=== PATIENT | male | born 1950 | race Caucasian/White ===

== ENCOUNTER 2018-04-27 15:47 | Inpatient (IN) | payer MEDICARE, OTHER ==
[2018-04-27 17:41] VITALS: BP 124/66
[2018-04-27] MEDS ORDERED: Maalox 30 mL Cup PO PRN (18:19)
[2018-04-27] MEDS ORDERED: Magnesium Hydroxide (MOM) 30 mL UDC PO PRN (18:19)
--- NOTE | 2018-04-27 18:28 | Internal Medicine Prog Note ---
Internal Medicine Subjective - Subjective Service Date: 04/27/18 Patient seen and examined:: with staff Patient is:: awake, talking Patient Complaints of:: other (Generalized weakness and Bilateral leg edema and pain.) Per staff patient has:: no adverse event, no episodes of fall Internal Medicine Objective - Physical Exam Vitals and I&O: Vital Signs Temp 97.8 F 04/27/18 17:40 Pulse 56 04/27/18 17:40 Resp 20 04/27/18 17:40 BP 124/66 04/27/18 17:41 Pulse Ox Intake & Output 04/26/18 04/27/18 04/27/18 18:59 06:59 18:59 Weight (lbs) 90.718 kg Other: Weight Source Bedscale Physical Exam: 67 y/o male patient has cellulitis of left leg, Bilateral loer extremity edema with pain and Generalized weakness. General: weak HEENT: NC/AT Neck: Supple, No JVD Lungs: CTAB Cardiovascular: RRR, Normal S1 Abdomen: soft, non-tender Extremities: pain Neurological: no change, muscle weakness Internal Medicine Assmt/Plan - Assessment Assessment: Cellulitis of left leg. Bilateral lower extremity edema and pain. Hepatitis C. Schizophrenia. Gerd. Convulsions. Hypertension. Generalized weakness. Hx of Stimulant abuse. - Plan Plan: Continuation of care. Monitor vitals, Labs, Follow up x-rays. Continue present meds as directed. ID consult/followup. Monitor diet Seizure precaution. Fall precaution. Continue current treatment plan as ordered. Nutritional Asmnt/Malnutr-PDOC - Dietary Evaluation Malnutrition Findings (Please click <Entered> for more info): see orders.
[2018-04-27 19:11] LABS: CHOLESTEROL 99 mg/dL (<200); HDL -HIGH DENSITY LIPOPROTEIN 33 mg/dL (23-92); TRIGLYCERIDES 49 mg/dL (<150)
[2018-04-28] MEDS: Multivitamin Tab PO SCH (08:40)
--- NOTE | 2018-04-28 20:29 | Progress Notes ---
DATE: 04/28/2018 SUBJECTIVE: The patient is currently in the hospital, calmer over the past 24 hours, ruminative, fixated on his legs. The patient remains highly impulsive, unpredictable, concerns he will act out upon his impulses, multiple co-graders were called while he was on Med/Surg. He is really upset, angry and not making any sense at times, also asking for opiates. ASSESSMENT: The patient with ongoing safety concerns, impulsivity. PLAN: We will continue to monitor. The patient will likely benefit from ongoing treatment with Seroquel. We will continue to monitor. JOB# [id number]
--- NOTE | 2018-04-29 08:35 | Progress Notes ---
DATE: 04/29/2018 DATE OF SERVICE: 04/29/2018 SUBJECTIVE: The patient is in the hospital, still noting "a black eye is bothering me". The patient demanding to leave, still having ongoing health concerns, wants to go to a hospital in [place]. The patient was very agitated on the Med-Surg unit. Poor impulse control, lashing out. Code sent to be called emergency medications given still argumentative, threatening staff, forgetful at times, slept about 4 hours, ruminative, very intense gaze, angry. ASSESSMENT: The patient is preoccupied, needing prompting, redirections, and sometimes forgetful, repetitive, still gets agitated. PLAN: Ongoing behavioral disturbances. Concerns for safety. We will continue to adjust and titrate medications, titrate dosing of his Seroquel. JOB# [id number]
[2018-04-29] MEDS: Multivitamin Tab PO SCH (09:03)
--- NOTE | 2018-04-29 11:06 | Internal Medicine Prog Note ---
Internal Medicine Subjective - Subjective Patient seen and examined:: without staff Patient is:: awake, talking, other (forgetful and aguited ) Patient Complaints of:: other (Generalized weakness and Bilateral leg edema and pain.) Per staff patient has:: no adverse event, no episodes of fall Internal Medicine Objective - Results Recent Labs: Laboratory Last Values Triglycerides 49 mg/dL (<150) 04/27/18 07:35 Cholesterol 99 mg/dL (<200) 04/27/18 07:35 LDL Cholesterol Direct 60 mg/dL (75-193) L 04/27/18 07:35 HDL Cholesterol 33 mg/dL (23-92) 04/27/18 07:35 - Physical Exam Vitals and I&O: Vital Signs Temp 98.4 F 04/29/18 06:30 Pulse 71 04/29/18 06:30 Resp 20 04/29/18 06:30 BP 149/79 04/29/18 06:30 Pulse Ox 97 04/29/18 06:30 Intake & Output 04/28/18 04/29/18 04/29/18 18:59 06:59 18:59 Intake Total 900 240 Balance 900 240 Intake: Oral 900 240 Other: # Voids 3 3 # Bowel Movements 1 Active Medications: Current Medications Acetaminophen (Tylenol) 650 mg PO Q4HR PRN PRN Reason: Mild Pain / Temp above 100 Stop: 06/26/18 18:18 Last Admin: 04/29/18 06:44 Dose: 650 mg Al Hydrox/Mg Hydrox/Simethicone (Maalox) 30 ml PO Q4HR PRN PRN Reason: GI DISTRESS Stop: 06/26/18 18:18 Lorazepam (Ativan) 0.5 mg PO Q6HR PRN; Protocol PRN Reason: AGITATION Stop: 06/26/18 18:26 Last Admin: 04/29/18 03:35 Dose: 0.5 mg Magnesium Hydroxide (Milk Of Magnesia) 30 ml PO HS PRN PRN Reason: Constipation Multivitamins/Vitamin C (Theragran) 1 tab PO DAILY KRISTEN Stop: 06/27/18 08:59 Last Admin: 04/29/18 09:03 Dose: Not Given Quetiapine Fumarate (Seroquel) 75 mg PO BID KRISTEN; Protocol Stop: 06/28/18 08:59 Zolpidem Tartrate (Ambien) 5 mg PO HS PRN PRN Reason: Insomnia Stop: 06/26/18 18:18 Last Admin: 04/29/18 00:32 Dose: 5 mg Physical Exam: 67 y/o male patient has cellulitis of left leg, Bilateral loer extremity edema with pain and Generalized weakness. General: weak HEENT: NC/AT Neck: Supple, No JVD Lungs: CTAB Cardiovascular: RRR, Normal S1 Abdomen: soft, non-tender Extremities: pain Neurological: no change, muscle weakness Internal Medicine Assmt/Plan - Assessment Assessment: Cellulitis of left leg. Bilateral lower extremity edema and pain. Hepatitis C. Schizophrenia. Gerd. Convulsions. Hypertension. Generalized weakness. Hx of Stimulant abuse. - Plan Plan: Continuation of care. Monitor vitals, Labs, Follow up x-rays. Continue present meds as directed. ID consult/followup. Monitor diet Seizure precaution. Fall precaution. Continue current treatment plan as ordered.
[2018-04-30] MEDS: Multivitamin Tab PO SCH (09:09)
--- NOTE | 2018-05-01 04:20 | Progress Notes ---
DATE: 04/30/2018 Case was discussed with staff of the patient, reviewed records. Covering for Dr. Palomo. The patient is a 67-year-old male who was admitted on 04/27/2018. The patient has been impulsive, acting out. He was transferred from Med-Surg unit, angry, not making sense, unable to make safe plan for self-care. He is a poor historian. He complained of swelling in his left leg and I pointed it to the nurse, so they can call the medical doctor. He is on Seroquel 75 mg twice a day and no side effects from the medication, no sedation, no nausea, no extrapyramidal symptoms. We will continue the patient in group therapy, milieu therapy, and adjust medications as needed. JOB# [id number]
[2018-05-01] MEDS: Multivitamin Tab PO SCH (09:14)
--- NOTE | 2018-05-01 21:03 | Internal Medicine Prog Note ---
Internal Medicine Subjective - Subjective Service Date: 05/01/18 Patient is:: awake, talking, agitated, other (Very upset and agitated.) Patient Complaints of:: other (Generalized weakness, Bilateral leg edema and pain, especially swelling of the left leg.) Per staff patient has:: no adverse event, no episodes of fall, agitated, combative Internal Medicine Objective - Results Recent Labs: Laboratory Last Values Triglycerides 49 mg/dL (<150) 04/27/18 07:35 Cholesterol 99 mg/dL (<200) 04/27/18 07:35 LDL Cholesterol Direct 60 mg/dL (75-193) L 04/27/18 07:35 HDL Cholesterol 33 mg/dL (23-92) 04/27/18 07:35 - Physical Exam Vitals and I&O: Vital Signs Temp 98 F 05/01/18 20:24 Pulse 101 05/01/18 20:24 Resp 20 05/01/18 20:24 BP 110/73 05/01/18 20:24 Pulse Ox 96 05/01/18 20:24 Intake & Output 05/01/18 05/01/18 05/02/18 06:59 18:59 06:59 Intake Total 240 900 240 Balance 240 900 240 Intake: Oral 240 900 240 Other: # Voids 2 3 1 # Bowel Movements 1 Stool Characteristics Soft Active Medications: Current Medications Acetaminophen (Tylenol) 650 mg PO Q4HR PRN PRN Reason: Mild Pain / Temp above 100 Stop: 06/26/18 18:18 Last Admin: 05/01/18 06:07 Dose: 650 mg Al Hydrox/Mg Hydrox/Simethicone (Maalox) 30 ml PO Q4HR PRN PRN Reason: GI DISTRESS Stop: 06/26/18 18:18 Lorazepam (Ativan) 0.5 mg PO Q6HR PRN; Protocol PRN Reason: AGITATION Stop: 06/26/18 18:26 Last Admin: 05/01/18 20:29 Dose: 0.5 mg Magnesium Hydroxide (Milk Of Magnesia) 30 ml PO HS PRN PRN Reason: Constipation Multivitamins/Vitamin C (Theragran) 1 tab PO DAILY KRISTEN Stop: 06/27/18 08:59 Last Admin: 05/01/18 09:14 Dose: 1 tab Quetiapine Fumarate (Seroquel) 75 mg PO BID KRISTEN; Protocol Stop: 06/28/18 08:59 Last Admin: 05/01/18 16:34 Dose: 75 mg Zolpidem Tartrate (Ambien) 5 mg PO HS PRN PRN Reason: Insomnia Stop: 06/26/18 18:18 Last Admin: 05/01/18 00:00 Dose: 5 mg Physical Exam: 67 y/o male patient has cellulitis of left leg, Bilateral lower extremity edema with pain and Generalized weakness. Patient is hostile and aggressive today. General: weak HEENT: NC/AT Neck: Supple, No JVD Lungs: CTAB Cardiovascular: RRR, Normal S1 Abdomen: soft, non-tender Extremities: edema, pain Neurological: no change, muscle weakness, unsteady Internal Medicine Assmt/Plan - Assessment Assessment: Cellulitis of left leg. Bilateral lower extremity edema and pain. Hepatitis C. Schizophrenia. Gerd. Convulsions. Hypertension. Generalized weakness. Hx of Stimulant abuse. - Plan Plan: Continuation of care. Monitor vitals, Labs, Follow up x-rays. Continue present meds as directed. ID consult/followup. Monitor diet Seizure precaution. Fall precaution. Continue current treatment plan as ordered. Nutritional Asmnt/Malnutr-PDOC - Dietary Evaluation Malnutrition Findings (Please click <Entered> for more info): see orders.
--- NOTE | 2018-05-02 00:31 | Progress Notes ---
DATE: 05/01/2018 SUBJECTIVE: Case was discussed with staff of the patient and reviewed records. The patient continues to be unpredictable, impulsive, unable to make sense, unable to make safe plan for his self-care. He is sleeping better and eating better. He has been compliant with the medication with no side effects, no sedation, no nausea, and no extrapyramidal symptoms. LABORATORY DATA: His lab work showed serum triglycerides within normal range, no other lab work is available. PLAN: We will continue to work with patient in group therapy, milieu therapy, and adjust the medications as needed. JOB# [id number]
[2018-05-02] MEDS: Multivitamin Tab PO SCH (09:06)
--- NOTE | 2018-05-02 16:26 | Progress Notes ---
DATE: 05/02/2018 Case was discussed with staff of the patient, reviewed records. The patient is still complaining of the swelling in his left leg and I discussed the plan to charge nurse and she said the medical doctor is aware of it and that staff they are assured, and his evaluation that he has bilateral edema and pain. He has swelling of the left leg, so he is already aware of it. The patient presented with still agitation and his leg swelling contributed to this because of the pain. He is still unpredictable, impulsive, needing redirection. No side effects with the medication, no sedation, no nausea, and no extrapyramidal symptoms. We will continue to work with the patient in group therapy, milieu therapy, and adjust medication as needed. JOB# [id number]
[2018-05-03] MEDS: Multivitamin Tab PO SCH (10:04)
--- NOTE | 2018-05-03 12:56 | Internal Medicine Prog Note ---
Internal Medicine Subjective - Subjective Service Date: 05/03/18 Patient is:: awake, talking, agitated, other (Very upset and agitated.) Patient Complaints of:: other (Generalized weakness, Bilateral leg edema and pain, especially swelling of the left leg.) Per staff patient has:: no adverse event, no episodes of fall, agitated, combative Internal Medicine Objective - Results Recent Labs: Laboratory Last Values Triglycerides 49 mg/dL (<150) 04/27/18 07:35 Cholesterol 99 mg/dL (<200) 04/27/18 07:35 LDL Cholesterol Direct 60 mg/dL (75-193) L 04/27/18 07:35 HDL Cholesterol 33 mg/dL (23-92) 04/27/18 07:35 - Physical Exam Vitals and I&O: Vital Signs Temp 97.6 F 05/03/18 05:26 Pulse 87 05/03/18 05:26 Resp 18 05/03/18 05:26 BP 145/83 05/03/18 05:26 Pulse Ox 98 05/03/18 05:26 Intake & Output 05/02/18 05/03/18 05/03/18 18:59 06:59 18:59 Intake Total 1200 240 Balance 1200 240 Intake: Oral 1200 240 Other: # Voids 2 # Bowel Movements 1 0 Stool Characteristics Formed Active Medications: Current Medications Acetaminophen (Tylenol) 650 mg PO Q4HR PRN PRN Reason: Mild Pain / Temp above 100 Stop: 06/26/18 18:18 Last Admin: 05/03/18 11:40 Dose: 650 mg Al Hydrox/Mg Hydrox/Simethicone (Maalox) 30 ml PO Q4HR PRN PRN Reason: GI DISTRESS Stop: 06/26/18 18:18 Lorazepam (Ativan) 0.5 mg PO Q6HR PRN; Protocol PRN Reason: AGITATION Stop: 06/26/18 18:26 Last Admin: 05/02/18 21:06 Dose: 0.5 mg Magnesium Hydroxide (Milk Of Magnesia) 30 ml PO HS PRN PRN Reason: Constipation Multivitamins/Vitamin C (Theragran) 1 tab PO DAILY KRISTEN Stop: 06/27/18 08:59 Last Admin: 05/03/18 10:04 Dose: 1 tab Quetiapine Fumarate (Seroquel) 75 mg PO BID KRISTEN; Protocol Stop: 06/28/18 08:59 Last Admin: 05/03/18 10:03 Dose: 75 mg Zolpidem Tartrate (Ambien) 5 mg PO HS PRN PRN Reason: Insomnia Stop: 06/26/18 18:18 Last Admin: 05/02/18 22:17 Dose: 5 mg General: weak HEENT: NC/AT Neck: Supple, No JVD Lungs: CTAB Cardiovascular: RRR, Normal S1 Abdomen: soft, non-tender Extremities: edema, pain Neurological: no change, muscle weakness, unsteady Internal Medicine Assmt/Plan - Assessment Assessment: Hepatitis C. Schizophrenia. Gerd. Convulsions. Hypertension. Generalized weakness. Hx of Stimulant abuse. - Plan Plan: fall precautions continue current plan of care
--- NOTE | 2018-05-04 07:00 | Progress Notes ---
DATE: 05/03/2018 SUBJECTIVE: Case was discussed with staff of the patient, reviewed records. The patient continues to have poor insight, continues to have multiple somatic complaints, unpredictable, impulsive, needing redirection, unable to make safe plan for self-care. He is sleeping better, eating better, compliant with the medication with no side effects, no sedation, no nausea, no extrapyramidal symptoms. We will continue the patient in group therapy, milieu therapy, and adjust medication as needed. [facility]# [id number]
[2018-05-04] MEDS: Multivitamin Tab PO SCH (08:33)
--- NOTE | 2018-05-04 09:57 | Internal Medicine Prog Note ---
Internal Medicine Subjective - Subjective Service Date: 05/04/18 Patient seen and examined:: with staff Patient is:: awake, talking, agitated, other (Unpredictable, Impulsive.) Patient Complaints of:: other (Generalized weakness, Bilateral leg edema and pain, especially swelling of the left leg.) Per staff patient has:: no adverse event, no episodes of fall, agitated, combative Internal Medicine Objective - Results Recent Labs: Laboratory Last Values Triglycerides 49 mg/dL (<150) 04/27/18 07:35 Cholesterol 99 mg/dL (<200) 04/27/18 07:35 LDL Cholesterol Direct 60 mg/dL (75-193) L 04/27/18 07:35 HDL Cholesterol 33 mg/dL (23-92) 04/27/18 07:35 - Physical Exam Vitals and I&O: Vital Signs Temp 96.9 F 05/04/18 06:30 Pulse 80 05/04/18 06:30 Resp 20 05/04/18 06:30 BP 143/77 05/04/18 06:30 Pulse Ox 97 05/04/18 06:30 Intake & Output 05/03/18 05/04/18 05/04/18 18:59 06:59 18:59 Intake Total 900 480 Balance 900 480 Intake: Oral 900 480 Other: # Voids 3 2 # Bowel Movements 1 Stool Characteristics Formed Active Medications: Current Medications Acetaminophen (Tylenol) 650 mg PO Q4HR PRN PRN Reason: Mild Pain / Temp above 100 Stop: 06/26/18 18:18 Last Admin: 05/04/18 06:41 Dose: 650 mg Al Hydrox/Mg Hydrox/Simethicone (Maalox) 30 ml PO Q4HR PRN PRN Reason: GI DISTRESS Stop: 06/26/18 18:18 Lorazepam (Ativan) 0.5 mg PO Q6HR PRN; Protocol PRN Reason: AGITATION Stop: 06/26/18 18:26 Last Admin: 05/03/18 16:29 Dose: 0.5 mg Magnesium Hydroxide (Milk Of Magnesia) 30 ml PO HS PRN PRN Reason: Constipation Multivitamins/Vitamin C (Theragran) 1 tab PO DAILY KRISTEN Stop: 06/27/18 08:59 Last Admin: 05/04/18 08:33 Dose: 1 tab Quetiapine Fumarate (Seroquel) 75 mg PO BID KRISTEN; Protocol Stop: 06/28/18 08:59 Last Admin: 05/04/18 08:33 Dose: 75 mg Zolpidem Tartrate (Ambien) 5 mg PO HS PRN PRN Reason: Insomnia Stop: 06/26/18 18:18 Last Admin: 05/03/18 20:30 Dose: 5 mg Physical Exam: 67 y/o male patient has cellulitis of left leg, Bilateral lower extremity edema with pain and Generalized weakness. Patient is very impulsive and unpredictable. General: weak HEENT: NC/AT Neck: Supple, No JVD Lungs: CTAB Cardiovascular: RRR, Normal S1 Abdomen: soft, non-tender Extremities: edema, pain Neurological: no change, muscle weakness, unsteady Internal Medicine Assmt/Plan - Assessment Assessment: Cellulitis of left leg. Bilateral lower extremity edema and pain. Hepatitis C. Schizophrenia. Gerd. Convulsions. Hypertension. Generalized weakness. Hx of Stimulant abuse. - Plan Plan: Continuation of care. Monitor vitals, Labs, Follow up x-rays. Continue present meds as directed. ID followup. Monitor diet Seizure precaution. Fall precaution. Continue current treatment plan as ordered. Nutritional Asmnt/Malnutr-PDOC - Dietary Evaluation Malnutrition Findings (Please click <Entered> for more info): Nutritional Asmnt/Malnutrition Start: 05/03/18 13: 55 Text: Status: Complete Freq: Protocol: Document 05/03/18 13:55 LCHENG (Rec: 05/03/18 14:02 [email or web address] [email or web address]) Nutritional Asmnt/Malnutrition Patient General Information Nutritional Screening Low Risk Diagnosis psychosis Pertinent Medical Hx/Surgical Hx hypokalemia, stimulant abuse, schizophrenia, Hep C, GERD, convulsions, HTN, weakness Subjective Information Pt seen sleeping in bed at time of visit. Observed lunch tray finished 100% on the table. Per EMR, PO intake continue 100%. Current Diet Order/ Nutrition Support regular Pertinent Medications theragran, seroquel Pertinent Labs 04/27 reviewed Nutritional Hx/Data Height 1.68 m Height (Calculated Centimeters) 167.6 Current Weight (lbs) 90.718 kg Weight (Calculated Kilograms) 90.7 Weight (Calculated Grams) 66988.5 [place] Body Weight 142 Body Mass Index (BMI) 32.3 Weight Status Obese GI Symptoms GI Symptoms None Last BM 05/02 Difficult in: None Skin Integrity/Comment: dryness Current %PO Good (75-100%) Estimated Nutritional Goals BEE in Kcals: Adj wt of IBW Calories/Kcals/Kg 25-30 Kcals Calculated 9278-4928 Protein: Adj wt of IBW Protein g/k Protein Calculated 71 Fluid: ml 1775-2130ml (1ml/kcal) Nutritional Problem No current Nutrition Prob Problem N/A Malnutrition Alert Is there a minimum of two criteria No selected? Query Text:Check all the applicable criteria. A minimum of two criteria are recommended for diagnosis of either severe or non-severe malnutrition. Malnutrition Related to Morbid Obesity Malnutrition related to morbid obesity No Intervention/Recommendation Comments 1. Continue with regular diet as ordered. 2. Monitor PO intake, wt, labs and skin integrity 3. F/U as low risk in 7 days Expected Outcomes/Goals Expected Outcomes/Goals 1. PO intake to meet at least 75% of nutritional needs. 2. Wt stability, skin to remain intact, labs to approach WNL.
[2018-05-04] MEDS ORDERED: Non-Formulary Item 1 EA (Acetaminophen [Tylenol] 650 MG) PO PRN (20:50)
--- NOTE | 2018-05-05 00:37 | Progress Notes ---
DATE: 05/04/2018 Case was discussed with staff of the patient, reviewed records. The patient continues to be agitated, continues to have poor insight. Continues to have multiple somatic complaints of bilateral edema of both of his legs. He continues to be unpredictable, impulsive, needing redirection. He tolerates increase in Seroquel to 75 mg twice a day. No side effects, no sedation, no nausea and no extrapyramidal symptoms. His lab work showed triglyceride with low LDL the rest within normal range. I will continue the patient in group therapy, milieu therapy, adjust the medication as needed. JOB# [id number]
[2018-05-05] MEDS: Pantoprazole 40 mg EC Tab PO SCH (06:48)
[2018-05-05] MEDS ORDERED: NADOLOL 20 MG PO SCH (09:00)
[2018-05-05] MEDS: Ferrous Sulfate 325 MG TAB PO SCH (09:02)
[2018-05-05] MEDS: Multivitamin Tab PO SCH (09:02)
--- NOTE | 2018-05-05 14:40 | Internal Medicine Prog Note ---
Internal Medicine Subjective - Subjective Service Date: 05/05/18 (ble edema +4 denies any pain) Patient is:: awake, talking, agitated, other (Unpredictable, Impulsive.) Patient Complaints of:: other (Generalized weakness, Bilateral leg edema and pain, especially swelling of the left leg.) Per staff patient has:: no adverse event, no episodes of fall, agitated, combative Internal Medicine Objective - Results Recent Labs: Laboratory Last Values Triglycerides 49 mg/dL (<150) 04/27/18 07:35 Cholesterol 99 mg/dL (<200) 04/27/18 07:35 LDL Cholesterol Direct 60 mg/dL (75-193) L 04/27/18 07:35 HDL Cholesterol 33 mg/dL (23-92) 04/27/18 07:35 - Physical Exam Vitals and I&O: Vital Signs Temp 97.0 F 05/05/18 14:00 Pulse 96 05/05/18 14:00 Resp 20 05/05/18 14:00 BP 106/70 05/05/18 14:00 Pulse Ox 97 05/05/18 14:00 Intake & Output 05/04/18 05/05/18 05/05/18 18:59 06:59 18:59 Intake Total 960 240 Balance 960 240 Intake: Oral 960 240 Other: # Voids 3 2 # Bowel Movements 0 Active Medications: Current Medications Acetaminophen (Tylenol) 650 mg PO Q4HR PRN PRN Reason: Mild Pain / Temp above 100 Stop: 06/26/18 18:18 Last Admin: 05/05/18 04:12 Dose: 650 mg Al Hydrox/Mg Hydrox/Simethicone (Maalox) 30 ml PO Q4HR PRN PRN Reason: GI DISTRESS Stop: 06/26/18 18:18 Ascorbic Acid (Vitamin C) 500 mg PO DAILY [facility] Stop: 07/04/18 08:59 Last Admin: 05/05/18 09:02 Dose: 500 mg Clindamycin HCl (Cleocin Hcl) 150 mg PO Q6HR [facility] Stop: 07/03/18 21:29 Last Admin: 05/05/18 11:34 Dose: 150 mg Ferrous Sulfate (Iron) 325 mg PO DAILY [facility] Stop: 07/04/18 08:59 Last Admin: 05/05/18 09:02 Dose: 325 mg Furosemide (Lasix) 40 mg PO DAILY [facility] Stop: 07/05/18 08:59 Last Admin: 05/05/18 09:01 Dose: 40 mg Lorazepam (Ativan) 0.5 mg PO Q6HR PRN; Protocol PRN Reason: AGITATION Stop: 06/26/18 18:26 Last Admin: 05/05/18 04:12 Dose: 0.5 mg Magnesium Hydroxide (Milk Of Magnesia) 30 ml PO HS PRN PRN Reason: Constipation Miscellaneous (Nadolol [Nadolol*]) 20 mg PO DAILY [facility] Stop: 07/04/18 08:59 Multivitamins/Vitamin C (Theragran) 1 tab PO DAILY [facility] Stop: 06/27/18 08:59 Last Admin: 05/05/18 09:02 Dose: 1 tab Pantoprazole Sodium (Protonix) 40 mg PO DAILY@0730 [facility] Stop: 07/04/18 07:29 Last Admin: 05/05/18 06:48 Dose: 40 mg Quetiapine Fumarate (Seroquel) 75 mg PO BID [facility]; Protocol Stop: 06/28/18 08:59 Last Admin: 05/05/18 09:02 Dose: 75 mg Tramadol HCl (Ultram) 50 mg PO Q8H PRN PRN Reason: Severe Pain (LEVEL 7-10) Stop: 07/03/18 21:21 Last Admin: 05/05/18 11:36 Dose: 50 mg Zolpidem Tartrate (Ambien) 5 mg PO HS PRN PRN Reason: Insomnia Stop: 06/26/18 18:18 Last Admin: 05/04/18 21:47 Dose: 5 mg General: weak HEENT: NC/AT Neck: Supple, No JVD Lungs: CTAB Cardiovascular: RRR, Normal S1 Abdomen: soft, non-tender Extremities: edema, pain Neurological: no change, muscle weakness, unsteady Internal Medicine Assmt/Plan - Assessment Assessment: Hepatitis C. Schizophrenia. Gerd. Convulsions. Hypertension. Generalized weakness. Hx of Stimulant abuse. - Plan Plan: fall precautions continue current plan of care ble u/s lasix 40mg po daily x3 days Nutritional Asmnt/Malnutr-PDOC - Dietary Evaluation Malnutrition Findings (Please click <Entered> for more info): Nutritional Asmnt/Malnutrition Start: 05/03/18 13: 55 Text: Status: Complete Freq: Protocol: Document 05/03/18 13:55 LCHENG (Rec: 05/03/18 14:02 [email or web address]) Nutritional Asmnt/Malnutrition Patient General Information Nutritional Screening Low Risk Diagnosis psychosis Pertinent Medical Hx/Surgical Hx hypokalemia, stimulant abuse, schizophrenia, Hep C, GERD, convulsions, HTN, weakness Subjective Information Pt seen sleeping in bed at time of visit. Observed lunch tray finished 100% on the table. Per EMR, PO intake continue 100%. Current Diet Order/ Nutrition Support regular Pertinent Medications theragran, seroquel Pertinent Labs 04/27 reviewed Nutritional Hx/Data Height 5 ft 6 in Height (Calculated Centimeters) 167.6 Current Weight (lbs) 200 lb Weight (Calculated Kilograms) 90.7 Weight (Calculated Grams) 81435.5 [place] Body Weight 142 Body Mass Index (BMI) 32.3 Weight Status Obese GI Symptoms GI Symptoms None Last BM 05/02 Difficult in: None Skin Integrity/Comment: dryness Current %PO Good (75-100%) Estimated Nutritional Goals BEE in Kcals: Adj wt of IBW Calories/Kcals/Kg 25-30 Kcals Calculated 4431-2130 Protein: Adj wt of IBW Protein g/k Protein Calculated 71 Fluid: ml 1775-2130ml (1ml/kcal) Nutritional Problem No current Nutrition Prob Problem N/A Malnutrition Alert Is there a minimum of two criteria No selected? Query Text:Check all the applicable criteria. A minimum of two criteria are recommended for diagnosis of either severe or non-severe malnutrition. Malnutrition Related to Morbid Obesity Malnutrition related to morbid obesity No Intervention/Recommendation Comments 1. Continue with regular diet as ordered. 2. Monitor PO intake, wt, labs and skin integrity 3. F/U as low risk in 7 days Expected Outcomes/Goals Expected Outcomes/Goals 1. PO intake to meet at least 75% of nutritional needs. 2. Wt stability, skin to remain intact, labs to approach WNL.
--- NOTE | 2018-05-06 04:32 | Progress Notes ---
DATE: SUBJECTIVE: The patient was seen and evaluated. The patient's chart reviewed. The patient continues to ruminate and perseverate about his legs. He is easily really upset, disorganized, consisting of her opiates today. We discussed other alternatives. He reports "there he go, giving me other medications that I do not need, ____ away." ASSESSMENT AND PLAN: The patient is a 67-year-old male with a history of irritability, agitation, and opiate dependence. We will continue with the recent increase of Seroquel 75 mg p.o. b.i.d. to target the patient's severe affective dysregulation and we will continue with the medical evaluation and recommendations by Dr. Hernandez. JOB# [id number]
[2018-05-06] MEDS: Pantoprazole 40 mg EC Tab PO SCH (06:43)
[2018-05-06 07:39] LABS: URINE SOURCE MIDSTREAM
[2018-05-06 07:43] LABS: URINE BILIRUBIN NEGATIVE (NEGATIVE); URINE BLOOD NEGATIVE (NEGATIVE); URINE GLUCOSE (UA) NEGATIVE (NEGATIVE); URINE KETONE NEGATIVE (NEGATIVE); URINE LEUKOCYTE ESTERASE NEGATIVE (NEGATIVE); URINE NITRATE NEGATIVE (NEGATIVE); URINE PROTEIN NEGATIVE (NEGATIVE)
[2018-05-06 07:51] LABS: URINE CLARITY CLEAR (CLEAR); URINE COLOR YELLOW
[2018-05-06] MEDS: Multivitamin Tab PO SCH (08:19)
[2018-05-06] MEDS: Ferrous Sulfate 325 MG TAB PO SCH (08:23)
--- NOTE | 2018-05-06 12:10 | Internal Medicine Prog Note ---
Internal Medicine Subjective - Subjective Patient seen and examined:: chart reviewed Patient is:: awake, talking, agitated, other (Unpredictable) Patient Complaints of:: other (weakness, Bilateral leg edema and pain, especially swelling of the left leg.) Per staff patient has:: no adverse event, no episodes of fall Internal Medicine Objective - Results Recent Labs: Laboratory Last Values Triglycerides 49 mg/dL (<150) 04/27/18 07:35 Cholesterol 99 mg/dL (<200) 04/27/18 07:35 LDL Cholesterol Direct 60 mg/dL (75-193) L 04/27/18 07:35 HDL Cholesterol 33 mg/dL (23-92) 04/27/18 07:35 Urine Source MIDSTREAM 05/06/18 06:45 Urine Color YELLOW 05/06/18 06:45 Urine Clarity CLEAR (CLEAR) 05/06/18 06:45 Urine pH 7.0 (4.6 - 8.0) 05/06/18 06:45 Ur Specific [place] 1.015 (1.005-1.030) 05/06/18 06:45 Urine Protein NEGATIVE mg/dL (NEGATIVE) 05/06/18 06:45 Urine Glucose (UA) NEGATIVE mg/dL (NEGATIVE) 05/06/18 06:45 Urine Ketones NEGATIVE mg/dL (NEGATIVE) 05/06/18 06:45 Urine Blood NEGATIVE (NEGATIVE) 05/06/18 06:45 Urine Nitrate NEGATIVE (NEGATIVE) 05/06/18 06:45 Urine Bilirubin NEGATIVE (NEGATIVE) 05/06/18 06:45 Urine Urobilinogen 1.0 E.U./dL (0.2 - 1.0) 05/06/18 06:45 Ur Leukocyte Esterase NEGATIVE (NEGATIVE) 05/06/18 06:45 - Physical Exam Vitals and I&O: Vital Signs Temp 98 F 05/06/18 06:27 Pulse 90 05/06/18 08:22 Resp 20 05/06/18 06:27 BP 134/82 05/06/18 08:22 Pulse Ox 97 05/06/18 06:27 Intake & Output 05/05/18 05/06/18 05/06/18 18:59 06:59 18:59 Intake Total 900 960 Balance 900 960 Intake: Oral 780 960 Other 120 Other: # Voids 4 2 # Bowel Movements 1 Active Medications: Current Medications Acetaminophen (Tylenol) 650 mg PO Q4HR PRN PRN Reason: Mild Pain / Temp above 100 Stop: 06/26/18 18:18 Last Admin: 05/05/18 04:12 Dose: 650 mg Al Hydrox/Mg Hydrox/Simethicone (Maalox) 30 ml PO Q4HR PRN PRN Reason: GI DISTRESS Stop: 06/26/18 18:18 Ascorbic Acid (Vitamin C) 500 mg PO DAILY [facility] Stop: 07/04/18 08:59 Last Admin: 05/06/18 08:23 Dose: 500 mg Clindamycin HCl (Cleocin Hcl) 150 mg PO Q6HR [facility] Stop: 07/03/18 21:29 Last Admin: 05/06/18 06:25 Dose: 150 mg Ferrous Sulfate (Iron) 325 mg PO DAILY [facility] Stop: 07/04/18 08:59 Last Admin: 05/06/18 08:23 Dose: 325 mg Furosemide (Lasix) 40 mg PO DAILY [facility] Stop: 07/05/18 08:59 Last Admin: 05/06/18 08:18 Dose: 40 mg Lorazepam (Ativan) 0.5 mg PO Q6HR PRN; Protocol PRN Reason: AGITATION Stop: 06/26/18 18:26 Last Admin: 05/06/18 10:04 Dose: 0.5 mg Magnesium Hydroxide (Milk Of Magnesia) 30 ml PO HS PRN PRN Reason: Constipation Metoprolol Tartrate (Lopressor) 25 mg PO BID [facility] Stop: 07/05/18 08:59 Last Admin: 05/06/18 08:22 Dose: 25 mg Multivitamins/Vitamin C (Theragran) 1 tab PO DAILY [facility] Stop: 06/27/18 08:59 Last Admin: 05/06/18 08:19 Dose: 1 tab Pantoprazole Sodium (Protonix) 40 mg PO DAILY@0730 [facility] Stop: 07/04/18 07:29 Last Admin: 05/06/18 06:43 Dose: 40 mg Quetiapine Fumarate (Seroquel) 75 mg PO BID [facility]; Protocol Stop: 06/28/18 08:59 Last Admin: 05/06/18 08:20 Dose: 75 mg Tramadol HCl (Ultram) 50 mg PO Q8H PRN PRN Reason: Severe Pain (LEVEL 7-10) Stop: 07/03/18 21:21 Last Admin: 03/31/19 00:06 Dose: 50 mg Zolpidem Tartrate (Ambien) 5 mg PO HS PRN PRN Reason: Insomnia Stop: 06/26/18 18:18 Last Admin: 05/05/18 20:13 Dose: 5 mg Physical Exam: 67 y/o male patient has cellulitis of left leg, Bilateral lower extremity edema with pain and Generalized weakness. Patient is very impulsive and unpredictable. General: weak, alert HEENT: NC/AT Neck: Supple, No JVD Lungs: CTAB Cardiovascular: RRR, Normal S1 Abdomen: soft, non-tender Extremities: edema, pain Neurological: no change, muscle weakness, unsteady Internal Medicine Assmt/Plan - Assessment Assessment: Cellulitis of left leg. Bilateral lower extremity edema and pain. Hepatitis C. Schizophrenia. Gerd. Convulsions. Hypertension. Generalized weakness. Hx of Stimulant abuse. - Plan Plan: Continuation of care. Monitor vitals, Labs, Follow up x-rays. Continue present meds as directed. ID followup. Monitor diet Seizure precaution. Fall precaution. Continue current treatment plan as ordered. Nutritional Asmnt/Malnutr-PDOC - Dietary Evaluation Malnutrition Findings (Please click <Entered> for more info): Nutritional Asmnt/Malnutrition Start: 05/03/18 13: 55 Text: Status: Complete Freq: Protocol: Document 05/03/18 13:55 LCHENG (Rec: 05/03/18 14:02 [email or web address]) Nutritional Asmnt/Malnutrition Patient General Information Nutritional Screening Low Risk Diagnosis psychosis Pertinent Medical Hx/Surgical Hx hypokalemia, stimulant abuse, schizophrenia, Hep C, GERD, convulsions, HTN, weakness Subjective Information Pt seen sleeping in bed at time of visit. Observed lunch tray finished 100% on the table. Per EMR, PO intake continue 100%. Current Diet Order/ Nutrition Support regular Pertinent Medications theragran, seroquel Pertinent Labs 04/27 reviewed Nutritional Hx/Data Height 1.68 m Height (Calculated Centimeters) 167.6 Current Weight (lbs) 90.718 kg Weight (Calculated Kilograms) 90.7 Weight (Calculated Grams) 88610.5 [place] Body Weight 142 Body Mass Index (BMI) 32.3 Weight Status Obese GI Symptoms GI Symptoms None Last BM 05/02 Difficult in: None Skin Integrity/Comment: dryness Current %PO Good (75-100%) Estimated Nutritional Goals BEE in Kcals: Adj wt of IBW Calories/Kcals/Kg 25-30 Kcals Calculated 8023-8967 Protein: Adj wt of IBW Protein g/k Protein Calculated 71 Fluid: ml 1775-2130ml (1ml/kcal) Nutritional Problem No current Nutrition Prob Problem N/A Malnutrition Alert Is there a minimum of two criteria No selected? Query Text:Check all the applicable criteria. A minimum of two criteria are recommended for diagnosis of either severe or non-severe malnutrition. Malnutrition Related to Morbid Obesity Malnutrition related to morbid obesity No Intervention/Recommendation Comments 1. Continue with regular diet as ordered. 2. Monitor PO intake, wt, labs and skin integrity 3. F/U as low risk in 7 days Expected Outcomes/Goals Expected Outcomes/Goals 1. PO intake to meet at least 75% of nutritional needs. 2. Wt stability, skin to remain intact, labs to approach WNL.
--- NOTE | 2018-05-07 05:57 | Progress Notes ---
DATE: 05/06/2018 SUBJECTIVE: The patient was seen and evaluated. The patient's chart reviewed. Covering for Dr. Palomo. Today on [id number] evaluation, in the middle of the interview, the patient just walks away. Report that he demands his breakfast now. He cannot have any conversation before his breakfast and easily agitated. MENTAL STATUS EXAMINATION: Irritable, agitated, refusing interview request and he demands to have breakfast. ASSESSMENT AND PLAN: This is a 67-year-old male, who continues to present easily agitated, irritable, and impulsive as evidenced by the patient's ability to maintain a linear conversation. We will continue with the recent adjustments of antipsychotics and mood stabilizers. [facility]# [id number]
[2018-05-07] MEDS: Pantoprazole 40 mg EC Tab PO SCH (06:38)
[2018-05-07] MEDS: Ferrous Sulfate 325 MG TAB PO SCH (09:00)
[2018-05-07] MEDS: Multivitamin Tab PO SCH (09:00)
--- NOTE | 2018-05-07 09:55 | Internal Medicine Prog Note ---
Internal Medicine Subjective - Subjective Service Date: 05/07/18 Patient seen and examined:: chart reviewed Patient is:: awake, talking, agitated, other (Unpredictable) Patient Complaints of:: other (weakness, Bilateral leg edema and pain, especially swelling of the left leg.) Per staff patient has:: no adverse event, no episodes of fall Internal Medicine Objective - Results Recent Labs: Laboratory Last Values Triglycerides 49 mg/dL (<150) 04/27/18 07:35 Cholesterol 99 mg/dL (<200) 04/27/18 07:35 LDL Cholesterol Direct 60 mg/dL (75-193) L 04/27/18 07:35 HDL Cholesterol 33 mg/dL (23-92) 04/27/18 07:35 Urine Source MIDSTREAM 05/06/18 06:45 Urine Color YELLOW 05/06/18 06:45 Urine Clarity CLEAR (CLEAR) 05/06/18 06:45 Urine pH 7.0 (4.6 - 8.0) 05/06/18 06:45 Ur Specific [place] 1.015 (1.005-1.030) 05/06/18 06:45 Urine Protein NEGATIVE mg/dL (NEGATIVE) 05/06/18 06:45 Urine Glucose (UA) NEGATIVE mg/dL (NEGATIVE) 05/06/18 06:45 Urine Ketones NEGATIVE mg/dL (NEGATIVE) 05/06/18 06:45 Urine Blood NEGATIVE (NEGATIVE) 05/06/18 06:45 Urine Nitrate NEGATIVE (NEGATIVE) 05/06/18 06:45 Urine Bilirubin NEGATIVE (NEGATIVE) 05/06/18 06:45 Urine Urobilinogen 1.0 E.U./dL (0.2 - 1.0) 05/06/18 06:45 Ur Leukocyte Esterase NEGATIVE (NEGATIVE) 05/06/18 06:45 - Physical Exam Vitals and I&O: Vital Signs Temp 97.5 F 05/07/18 06:24 Pulse 75 05/07/18 09:01 Resp 19 05/07/18 06:24 BP 114/74 05/07/18 09:01 Pulse Ox 96 05/07/18 06:24 Intake & Output 05/06/18 05/07/18 05/07/18 18:59 06:59 18:59 Intake Total 1850 660 Balance 1850 660 Intake: Oral 1730 660 Other 120 Other: # Voids 4 2 # Bowel Movements 0 0 Active Medications: Current Medications Acetaminophen (Tylenol) 650 mg PO Q4HR PRN PRN Reason: Mild Pain / Temp above 100 Stop: 06/26/18 18:18 Last Admin: 05/05/18 04:12 Dose: 650 mg Al Hydrox/Mg Hydrox/Simethicone (Maalox) 30 ml PO Q4HR PRN PRN Reason: GI DISTRESS Stop: 06/26/18 18:18 Ascorbic Acid (Vitamin C) 500 mg PO DAILY [facility] Stop: 07/04/18 08:59 Last Admin: 05/07/18 08:59 Dose: 500 mg Clindamycin HCl (Cleocin Hcl) 150 mg PO Q6HR [facility] Stop: 07/03/18 21:29 Last Admin: 05/07/18 06:01 Dose: 150 mg Ferrous Sulfate (Iron) 325 mg PO DAILY [facility] Stop: 07/04/18 08:59 Last Admin: 05/07/18 09:00 Dose: 325 mg Furosemide (Lasix) 40 mg PO DAILY [facility] Stop: 07/05/18 08:59 Last Admin: 05/07/18 08:59 Dose: 40 mg Lorazepam (Ativan) 0.5 mg PO Q6HR PRN; Protocol PRN Reason: AGITATION Stop: 06/26/18 18:26 Last Admin: 05/07/18 09:01 Dose: 0.5 mg Magnesium Hydroxide (Milk Of Magnesia) 30 ml PO HS PRN PRN Reason: Constipation Metoprolol Tartrate (Lopressor) 25 mg PO BID [facility] Stop: 07/05/18 08:59 Last Admin: 05/07/18 09:01 Dose: 25 mg Multivitamins/Vitamin C (Theragran) 1 tab PO DAILY [facility] Stop: 06/27/18 08:59 Last Admin: 05/07/18 09:00 Dose: 1 tab Pantoprazole Sodium (Protonix) 40 mg PO DAILY@0730 [facility] Stop: 07/04/18 07:29 Last Admin: 05/07/18 06:38 Dose: 40 mg Quetiapine Fumarate (Seroquel) 75 mg PO BID [facility]; Protocol Stop: 06/28/18 08:59 Last Admin: 05/07/18 09:07 Dose: 75 mg Tramadol HCl (Ultram) 50 mg PO Q8H PRN PRN Reason: Severe Pain (LEVEL 7-10) Stop: 07/03/18 21:21 Last Admin: 05/07/18 01:26 Dose: 50 mg Zolpidem Tartrate (Ambien) 5 mg PO HS PRN PRN Reason: Insomnia Stop: 06/26/18 18:18 Last Admin: 05/06/18 20:40 Dose: 5 mg Physical Exam: 67 y/o male patient has cellulitis of left leg, Bilateral lower extremity edema with pain and Generalized weakness. Patient is very impulsive and unpredictable. General: weak, alert HEENT: NC/AT Neck: Supple, No JVD Lungs: CTAB Cardiovascular: RRR, Normal S1 Abdomen: soft, non-tender Extremities: edema, pain Neurological: no change, muscle weakness, unsteady Internal Medicine Assmt/Plan - Assessment Assessment: Cellulitis of left leg. Bilateral lower extremity edema and pain. Hepatitis C. Schizophrenia. Gerd. Convulsions. Hypertension. Generalized weakness. Hx of Stimulant abuse. - Plan Plan: Continuation of care. Monitor vitals, Labs, Follow up x-rays. Continue present meds as directed. ID followup. Monitor diet Seizure precaution. Fall precaution. Continue current treatment plan as ordered. Nutritional Asmnt/Malnutr-PDOC - Dietary Evaluation Malnutrition Findings (Please click <Entered> for more info): Nutritional Asmnt/Malnutrition Start: 05/03/18 13: 55 Text: Status: Complete Freq: Protocol: Document 05/03/18 13:55 LCHENG (Rec: 05/03/18 14:02 [email or web address] [email or web address]) Nutritional Asmnt/Malnutrition Patient General Information Nutritional Screening Low Risk Diagnosis psychosis Pertinent Medical Hx/Surgical Hx hypokalemia, stimulant abuse, schizophrenia, Hep C, GERD, convulsions, HTN, weakness Subjective Information Pt seen sleeping in bed at time of visit. Observed lunch tray finished 100% on the table. Per EMR, PO intake continue 100%. Current Diet Order/ Nutrition Support regular Pertinent Medications theragran, seroquel Pertinent Labs 04/27 reviewed Nutritional Hx/Data Height 1.68 m Height (Calculated Centimeters) 167.6 Current Weight (lbs) 90.718 kg Weight (Calculated Kilograms) 90.7 Weight (Calculated Grams) 72512.5 [place] Body Weight 142 Body Mass Index (BMI) 32.3 Weight Status Obese GI Symptoms GI Symptoms None Last BM 05/02 Difficult in: None Skin Integrity/Comment: dryness Current %PO Good (75-100%) Estimated Nutritional Goals BEE in Kcals: Adj wt of IBW Calories/Kcals/Kg 25-30 Kcals Calculated 5449-6340 Protein: Adj wt of IBW Protein g/k Protein Calculated 71 Fluid: ml 1775-2130ml (1ml/kcal) Nutritional Problem No current Nutrition Prob Problem N/A Malnutrition Alert Is there a minimum of two criteria No selected? Query Text:Check all the applicable criteria. A minimum of two criteria are recommended for diagnosis of either severe or non-severe malnutrition. Malnutrition Related to Morbid Obesity Malnutrition related to morbid obesity No Intervention/Recommendation Comments 1. Continue with regular diet as ordered. 2. Monitor PO intake, wt, labs and skin integrity 3. F/U as low risk in 7 days Expected Outcomes/Goals Expected Outcomes/Goals 1. PO intake to meet at least 75% of nutritional needs. 2. Wt stability, skin to remain intact, labs to approach WNL.
--- NOTE | 2018-05-07 10:13 | Diagnostic Imaging Report ---
Bilateral lower extremity DVT study HISTORY: Pain, rule out DVT COMPARISON: None Technique: Longitudinal and transverse sonographic images of the bilateral lower extremity veins were obtained with doppler analysis. FINDINGS: There is normal compressibility, augmentation and phasicity of the bilateral common femoral, superficial femoral, popliteal, and posterior tibial veins. No thrombus is visualized. IMPRESSION: No evidence of thrombus within the bilateral lower extremity veins.
--- NOTE | 2018-05-08 00:59 | Progress Notes ---
DATE: 05/07/2018 Case was discussed with staff of the patient and reviewed records. The patient continues to have multiple somatic complaints. He continues to be demanding at times. He continues to be easily agitated and irritable. He continues to have poor insight, unpredictable, impulsive, needing redirection. He is sleeping well and eating well. No side effects with the medication, no sedation, no nausea, no extrapyramidal symptoms. I will be increasing his Seroquel to 100 mg twice a day because of his agitation, demanding behavior, and anger outbursts. We will to work with the patient in group therapy, milieu therapy, and adjust the medication as needed. JOB# [id number]
[2018-05-08] MEDS: Pantoprazole 40 mg EC Tab PO SCH (06:32)
[2018-05-08] MEDS: Multivitamin Tab PO SCH (08:18)
[2018-05-08] MEDS: Ferrous Sulfate 325 MG TAB PO SCH (08:20)
--- NOTE | 2018-05-08 17:08 | Internal Medicine Prog Note ---
Internal Medicine Subjective - Subjective Service Date: 05/08/18 Patient is:: awake, talking, agitated, other (Unpredictable) Patient Complaints of:: other (weakness, Bilateral leg edema and pain, especially swelling of the left leg.) Per staff patient has:: no adverse event, no episodes of fall Internal Medicine Objective - Results Recent Labs: Laboratory Last Values Triglycerides 49 mg/dL (<150) 04/27/18 07:35 Cholesterol 99 mg/dL (<200) 04/27/18 07:35 LDL Cholesterol Direct 60 mg/dL (75-193) L 04/27/18 07:35 HDL Cholesterol 33 mg/dL (23-92) 04/27/18 07:35 Urine Source MIDSTREAM 05/06/18 06:45 Urine Color YELLOW 05/06/18 06:45 Urine Clarity CLEAR (CLEAR) 05/06/18 06:45 Urine pH 7.0 (4.6 - 8.0) 05/06/18 06:45 Ur Specific [place] 1.015 (1.005-1.030) 05/06/18 06:45 Urine Protein NEGATIVE mg/dL (NEGATIVE) 05/06/18 06:45 Urine Glucose (UA) NEGATIVE mg/dL (NEGATIVE) 05/06/18 06:45 Urine Ketones NEGATIVE mg/dL (NEGATIVE) 05/06/18 06:45 Urine Blood NEGATIVE (NEGATIVE) 05/06/18 06:45 Urine Nitrate NEGATIVE (NEGATIVE) 05/06/18 06:45 Urine Bilirubin NEGATIVE (NEGATIVE) 05/06/18 06:45 Urine Urobilinogen 1.0 E.U./dL (0.2 - 1.0) 05/06/18 06:45 Ur Leukocyte Esterase NEGATIVE (NEGATIVE) 05/06/18 06:45 - Physical Exam Vitals and I&O: Vital Signs Temp 96.7 F 05/08/18 06:29 Pulse 73 05/08/18 16:57 Resp 20 05/08/18 06:29 BP 94/59 05/08/18 16:57 Pulse Ox 97 05/08/18 06:29 Intake & Output 05/07/18 05/08/18 05/08/18 18:59 06:59 18:59 Intake Total 2400 420 Balance 2400 420 Intake: Oral 2400 420 Other: # Voids 4 2 # Bowel Movements 1 0 Active Medications: Current Medications Acetaminophen (Tylenol) 650 mg PO Q4HR PRN PRN Reason: Mild Pain / Temp above 100 Stop: 06/26/18 18:18 Last Admin: 05/05/18 04:12 Dose: 650 mg Al Hydrox/Mg Hydrox/Simethicone (Maalox) 30 ml PO Q4HR PRN PRN Reason: GI DISTRESS Stop: 06/26/18 18:18 Ascorbic Acid (Vitamin C) 500 mg PO DAILY [facility] Stop: 07/04/18 08:59 Last Admin: 05/08/18 08:19 Dose: 500 mg Clindamycin HCl (Cleocin Hcl) 150 mg PO Q6HR [facility] Stop: 07/03/18 21:29 Last Admin: 05/08/18 12:17 Dose: 150 mg Ferrous Sulfate (Iron) 325 mg PO DAILY [facility] Stop: 07/04/18 08:59 Last Admin: 05/08/18 08:20 Dose: 325 mg Furosemide (Lasix) 40 mg PO DAILY [facility] Stop: 07/05/18 08:59 Last Admin: 05/08/18 08:19 Dose: 40 mg Lorazepam (Ativan) 0.5 mg PO Q6HR PRN; Protocol PRN Reason: AGITATION Stop: 06/26/18 18:26 Last Admin: 05/07/18 09:01 Dose: 0.5 mg Magnesium Hydroxide (Milk Of Magnesia) 30 ml PO HS PRN PRN Reason: Constipation Metoprolol Tartrate (Lopressor) 25 mg PO BID [facility] Stop: 07/05/18 08:59 Last Admin: 05/08/18 16:57 Dose: Not Given Multivitamins/Vitamin C (Theragran) 1 tab PO DAILY [facility] Stop: 06/27/18 08:59 Last Admin: 05/08/18 08:18 Dose: 1 tab Pantoprazole Sodium (Protonix) 40 mg PO DAILY@0730 [facility] Stop: 07/04/18 07:29 Last Admin: 05/08/18 06:32 Dose: 40 mg Quetiapine Fumarate (Seroquel) 100 mg PO BID [facility]; Protocol Stop: 07/06/18 16:59 Last Admin: 05/08/18 16:56 Dose: 100 mg Tramadol HCl (Ultram) 50 mg PO Q8H PRN PRN Reason: Severe Pain (LEVEL 7-10) Stop: 07/03/18 21:21 Last Admin: 05/08/18 14:23 Dose: 50 mg Zolpidem Tartrate (Ambien) 5 mg PO HS PRN PRN Reason: Insomnia Stop: 06/26/18 18:18 Last Admin: 05/07/18 20:36 Dose: 5 mg General: weak, alert HEENT: NC/AT Neck: Supple, No JVD Lungs: CTAB Cardiovascular: RRR, Normal S1 Abdomen: soft, non-tender Extremities: edema, pain Neurological: no change, muscle weakness, unsteady Internal Medicine Assmt/Plan - Assessment Assessment: Hepatitis C. Schizophrenia. Gerd. Convulsions. Hypertension. Generalized weakness. Hx of Stimulant abuse. - Plan Plan: fall precautions continue current plan of care ble u/s lasix 40mg po daily x3 days Nutritional Asmnt/Malnutr-PDOC - Dietary Evaluation Malnutrition Findings (Please click <Entered> for more info): Nutritional Asmnt/Malnutrition Start: 05/03/18 13: 55 Text: Status: Complete Freq: Protocol: Document 05/03/18 13:55 MONICA (Rec: 05/03/18 14:02 [email or web address]) Nutritional Asmnt/Malnutrition Patient General Information Nutritional Screening Low Risk Diagnosis psychosis Pertinent Medical Hx/Surgical Hx hypokalemia, stimulant abuse, schizophrenia, Hep C, GERD, convulsions, HTN, weakness Subjective Information Pt seen sleeping in bed at time of visit. Observed lunch tray finished 100% on the table. Per EMR, PO intake continue 100%. Current Diet Order/ Nutrition Support regular Pertinent Medications theragran, seroquel Pertinent Labs 04/27 reviewed Nutritional Hx/Data Height 5 ft 6 in Height (Calculated Centimeters) 167.6 Current Weight (lbs) 200 lb Weight (Calculated Kilograms) 90.7 Weight (Calculated Grams) 43832.5 [place] Body Weight 142 Body Mass Index (BMI) 32.3 Weight Status Obese GI Symptoms GI Symptoms None Last BM 05/02 Difficult in: None Skin Integrity/Comment: dryness Current %PO Good (75-100%) Estimated Nutritional Goals BEE in Kcals: Adj wt of IBW Calories/Kcals/Kg 25-30 Kcals Calculated 2082-2791 Protein: Adj wt of IBW Protein g/k Protein Calculated 71 Fluid: ml 1775-2130ml (1ml/kcal) Nutritional Problem No current Nutrition Prob Problem N/A Malnutrition Alert Is there a minimum of two criteria No selected? Query Text:Check all the applicable criteria. A minimum of two criteria are recommended for diagnosis of either severe or non-severe malnutrition. Malnutrition Related to Morbid Obesity Malnutrition related to morbid obesity No Intervention/Recommendation Comments 1. Continue with regular diet as ordered. 2. Monitor PO intake, wt, labs and skin integrity 3. F/U as low risk in 7 days Expected Outcomes/Goals Expected Outcomes/Goals 1. PO intake to meet at least 75% of nutritional needs. 2. Wt stability, skin to remain intact, labs to approach WNL.
--- NOTE | 2018-05-08 17:15 | Progress Notes ---
DATE: 05/08/2018 Case was discussed with staff of the patient, reviewed records. The patient continues to have multiple somatic complaints. Continues to be unpredictable, impulsive, needing redirection. He is sleeping well, eating well. No side effects with the medication, no sedation, no nausea, and no extrapyramidal symptoms. Also we are trying to work on discharge plan and will continue in group therapy, milieu therapy, and adjust medication as needed. JOB# [id number]
[2018-05-09] MEDS: Pantoprazole 40 mg EC Tab PO SCH (06:30)
[2018-05-09] MEDS: Ferrous Sulfate 325 MG TAB PO SCH (08:48)
[2018-05-09] MEDS: Multivitamin Tab PO SCH (08:48)
--- NOTE | 2018-05-09 09:08 | Internal Medicine Prog Note ---
Internal Medicine Subjective - Subjective Service Date: 05/09/18 Patient seen and examined:: chart reviewed Patient is:: awake, non-interactive, agitated, other (Unpredictable) Patient Complaints of:: other (weakness, Bilateral leg edema and pain, especially swelling of the left leg.) Per staff patient has:: no adverse event, no episodes of fall Internal Medicine Objective - Results Recent Labs: Laboratory Last Values Triglycerides 49 mg/dL (<150) 04/27/18 07:35 Cholesterol 99 mg/dL (<200) 04/27/18 07:35 LDL Cholesterol Direct 60 mg/dL (75-193) L 04/27/18 07:35 HDL Cholesterol 33 mg/dL (23-92) 04/27/18 07:35 Urine Source MIDSTREAM 05/06/18 06:45 Urine Color YELLOW 05/06/18 06:45 Urine Clarity CLEAR (CLEAR) 05/06/18 06:45 Urine pH 7.0 (4.6 - 8.0) 05/06/18 06:45 Ur Specific [place] 1.015 (1.005-1.030) 05/06/18 06:45 Urine Protein NEGATIVE mg/dL (NEGATIVE) 05/06/18 06:45 Urine Glucose (UA) NEGATIVE mg/dL (NEGATIVE) 05/06/18 06:45 Urine Ketones NEGATIVE mg/dL (NEGATIVE) 05/06/18 06:45 Urine Blood NEGATIVE (NEGATIVE) 05/06/18 06:45 Urine Nitrate NEGATIVE (NEGATIVE) 05/06/18 06:45 Urine Bilirubin NEGATIVE (NEGATIVE) 05/06/18 06:45 Urine Urobilinogen 1.0 E.U./dL (0.2 - 1.0) 05/06/18 06:45 Ur Leukocyte Esterase NEGATIVE (NEGATIVE) 05/06/18 06:45 - Physical Exam Vitals and I&O: Vital Signs Temp 97.6 F 05/08/18 20:54 Pulse 84 05/09/18 08:50 Resp 19 05/08/18 20:54 BP 110/72 05/09/18 08:50 Pulse Ox 97 05/08/18 20:54 Intake & Output 05/08/18 05/09/18 05/09/18 18:59 06:59 18:59 Intake Total 2400 360 Balance 2400 360 Intake: Oral 2400 360 Other: # Voids 4 2 # Bowel Movements 1 1 Stool Characteristics Formed Active Medications: Current Medications Acetaminophen (Tylenol) 650 mg PO Q4HR PRN PRN Reason: Mild Pain / Temp above 100 Stop: 06/26/18 18:18 Last Admin: 05/05/18 04:12 Dose: 650 mg Al Hydrox/Mg Hydrox/Simethicone (Maalox) 30 ml PO Q4HR PRN PRN Reason: GI DISTRESS Stop: 06/26/18 18:18 Ascorbic Acid (Vitamin C) 500 mg PO DAILY [facility] Stop: 07/04/18 08:59 Last Admin: 05/09/18 08:48 Dose: 500 mg Clindamycin HCl (Cleocin Hcl) 150 mg PO Q6HR [facility] Stop: 07/03/18 21:29 Last Admin: 05/09/18 05:13 Dose: 150 mg Ferrous Sulfate (Iron) 325 mg PO DAILY [facility] Stop: 07/04/18 08:59 Last Admin: 05/09/18 08:48 Dose: 325 mg Furosemide (Lasix) 40 mg PO DAILY [facility] Stop: 07/05/18 08:59 Last Admin: 05/09/18 08:50 Dose: 40 mg Lorazepam (Ativan) 0.5 mg PO Q6HR PRN; Protocol PRN Reason: AGITATION Stop: 06/26/18 18:26 Last Admin: 05/07/18 09:01 Dose: 0.5 mg Magnesium Hydroxide (Milk Of Magnesia) 30 ml PO HS PRN PRN Reason: Constipation Metoprolol Tartrate (Lopressor) 25 mg PO BID [facility] Stop: 07/05/18 08:59 Last Admin: 05/09/18 08:50 Dose: 25 mg Multivitamins/Vitamin C (Theragran) 1 tab PO DAILY [facility] Stop: 06/27/18 08:59 Last Admin: 05/09/18 08:48 Dose: 1 tab Pantoprazole Sodium (Protonix) 40 mg PO DAILY@0730 [facility] Stop: 07/04/18 07:29 Last Admin: 05/09/18 06:30 Dose: 40 mg Quetiapine Fumarate (Seroquel) 100 mg PO BID [facility]; Protocol Stop: 07/06/18 16:59 Last Admin: 05/09/18 08:48 Dose: 100 mg Tramadol HCl (Ultram) 50 mg PO Q8H PRN PRN Reason: Severe Pain (LEVEL 7-10) Stop: 07/03/18 21:21 Last Admin: 05/09/18 05:13 Dose: 50 mg Zolpidem Tartrate (Ambien) 5 mg PO HS PRN PRN Reason: Insomnia Stop: 06/26/18 18:18 Last Admin: 05/08/18 21:30 Dose: 5 mg Physical Exam: 67 y/o male patient has cellulitis of left leg, Bilateral lower extremity edema with pain and Generalized weakness. Patient is very impulsive and unpredictable. General: weak, alert HEENT: NC/AT Neck: Supple, No JVD Lungs: CTAB Cardiovascular: RRR, Normal S1 Abdomen: soft, non-tender Extremities: edema, pain Neurological: no change, muscle weakness, unsteady Internal Medicine Assmt/Plan - Assessment Assessment: Cellulitis of left leg. Bilateral lower extremity edema and pain. Hepatitis C. Schizophrenia. Gerd. Convulsions. Hypertension. Generalized weakness. Hx of Stimulant abuse. - Plan Plan: Continuation of care. Monitor vitals, Labs, Follow up x-rays. Continue present meds as directed. ID followup. Monitor diet Seizure precaution. Fall precaution. Continue current treatment plan as ordered. Nutritional Asmnt/Malnutr-PDOC - Dietary Evaluation Malnutrition Findings (Please click <Entered> for more info): Nutritional Asmnt/Malnutrition Start: 05/03/18 13: 55 Text: Status: Complete Freq: Protocol: Document 05/03/18 13:55 LCHENG (Rec: 05/03/18 14:02 LCHENG [email or web address]) Nutritional Asmnt/Malnutrition Patient General Information Nutritional Screening Low Risk Diagnosis psychosis Pertinent Medical Hx/Surgical Hx hypokalemia, stimulant abuse, schizophrenia, Hep C, GERD, convulsions, HTN, weakness Subjective Information Pt seen sleeping in bed at time of visit. Observed lunch tray finished 100% on the table. Per EMR, PO intake continue 100%. Current Diet Order/ Nutrition Support regular Pertinent Medications theragran, seroquel Pertinent Labs 04/27 reviewed Nutritional Hx/Data Height 1.68 m Height (Calculated Centimeters) 167.6 Current Weight (lbs) 90.718 kg Weight (Calculated Kilograms) 90.7 Weight (Calculated Grams) 77891.5 [place] Body Weight 142 Body Mass Index (BMI) 32.3 Weight Status Obese GI Symptoms GI Symptoms None Last BM 05/02 Difficult in: None Skin Integrity/Comment: dryness Current %PO Good (75-100%) Estimated Nutritional Goals BEE in Kcals: Adj wt of IBW Calories/Kcals/Kg 25-30 Kcals Calculated 4918-7578 Protein: Adj wt of IBW Protein g/k Protein Calculated 71 Fluid: ml 1775-2130ml (1ml/kcal) Nutritional Problem No current Nutrition Prob Problem N/A Malnutrition Alert Is there a minimum of two criteria No selected? Query Text:Check all the applicable criteria. A minimum of two criteria are recommended for diagnosis of either severe or non-severe malnutrition. Malnutrition Related to Morbid Obesity Malnutrition related to morbid obesity No Intervention/Recommendation Comments 1. Continue with regular diet as ordered. 2. Monitor PO intake, wt, labs and skin integrity 3. F/U as low risk in 7 days Expected Outcomes/Goals Expected Outcomes/Goals 1. PO intake to meet at least 75% of nutritional needs. 2. Wt stability, skin to remain intact, labs to approach WNL.
--- NOTE | 2018-05-09 13:19 | Progress Notes ---
DATE: 05/09/2018 Case was discussed with staff of the patient, reviewed records. The patient continues to have poor insight, unable to make safe plan for self-care, unpredictable, impulsive. I did increase his Seroquel to 100 mg twice a day with no side effects, no sedation, no nausea, no extrapyramidal symptoms. He also has issues with edema of his legs and pain, and will continue outpatient group therapy, milieu therapy, and adjust medication as needed. [facility]# [id number]
[2018-05-10] MEDS: Pantoprazole 40 mg EC Tab PO SCH (06:35)
[2018-05-10] MEDS: Multivitamin Tab PO SCH (09:20)
[2018-05-10] MEDS: Ferrous Sulfate 325 MG TAB PO SCH (09:23)
--- NOTE | 2018-05-10 13:36 | Progress Notes ---
DATE: 05/10/2018 Case was discussed with staff of the patient, reviewed records. The patient continues to complain of pain, swelling in both of his lower extremity. He has bandage on both of his legs. He is still angry, irritable, unpredictable and impulsive. The staff also is having hard time with placement. I did increase his Seroquel to 100 mg twice a day and no side effects with the medication, no sedation or nausea, no extrapyramidal symptoms. He is also getting wound care. We will continue to work with the patient in group therapy, milieu therapy and adjust the medications as needed. JOB# [id number]
--- NOTE | 2018-05-10 18:33 | Internal Medicine Prog Note ---
Internal Medicine Subjective - Subjective Service Date: 05/10/18 Patient is:: awake, non-interactive, agitated, other (Unpredictable) Patient Complaints of:: other (weakness, Bilateral leg edema and pain, especially swelling of the left leg.) Per staff patient has:: no adverse event, no episodes of fall Internal Medicine Objective - Results Recent Labs: Laboratory Last Values Triglycerides 49 mg/dL (<150) 04/27/18 07:35 Cholesterol 99 mg/dL (<200) 04/27/18 07:35 LDL Cholesterol Direct 60 mg/dL (75-193) L 04/27/18 07:35 HDL Cholesterol 33 mg/dL (23-92) 04/27/18 07:35 Urine Source MIDSTREAM 05/06/18 06:45 Urine Color YELLOW 05/06/18 06:45 Urine Clarity CLEAR (CLEAR) 05/06/18 06:45 Urine pH 7.0 (4.6 - 8.0) 05/06/18 06:45 Ur Specific [place] 1.015 (1.005-1.030) 05/06/18 06:45 Urine Protein NEGATIVE mg/dL (NEGATIVE) 05/06/18 06:45 Urine Glucose (UA) NEGATIVE mg/dL (NEGATIVE) 05/06/18 06:45 Urine Ketones NEGATIVE mg/dL (NEGATIVE) 05/06/18 06:45 Urine Blood NEGATIVE (NEGATIVE) 05/06/18 06:45 Urine Nitrate NEGATIVE (NEGATIVE) 05/06/18 06:45 Urine Bilirubin NEGATIVE (NEGATIVE) 05/06/18 06:45 Urine Urobilinogen 1.0 E.U./dL (0.2 - 1.0) 05/06/18 06:45 Ur Leukocyte Esterase NEGATIVE (NEGATIVE) 05/06/18 06:45 - Physical Exam Vitals and I&O: Vital Signs Temp 97.7 F 05/10/18 14:00 Pulse 73 05/10/18 17:12 Resp 20 05/10/18 14:00 BP 106/64 05/10/18 17:12 Pulse Ox 97 05/10/18 14:00 Intake & Output 05/09/18 05/10/18 05/10/18 18:59 06:59 18:59 Intake Total 2322 722 5283 Balance 8521 141 9097 Intake: Oral 9205 536 3580 Other: # Voids 3 3 4 # Bowel Movements 0 1 Active Medications: Current Medications Acetaminophen (Tylenol) 650 mg PO Q4HR PRN PRN Reason: Mild Pain / Temp above 100 Stop: 06/26/18 18:18 Last Admin: 05/05/18 04:12 Dose: 650 mg Al Hydrox/Mg Hydrox/Simethicone (Maalox) 30 ml PO Q4HR PRN PRN Reason: GI DISTRESS Stop: 06/26/18 18:18 Ascorbic Acid (Vitamin C) 500 mg PO DAILY [facility] Stop: 07/04/18 08:59 Last Admin: 05/10/18 09:23 Dose: 500 mg Clindamycin HCl (Cleocin Hcl) 150 mg PO Q6HR [facility] Stop: 07/03/18 21:29 Last Admin: 05/10/18 17:13 Dose: 150 mg Ferrous Sulfate (Iron) 325 mg PO DAILY [facility] Stop: 07/04/18 08:59 Last Admin: 05/10/18 09:23 Dose: 325 mg Furosemide (Lasix) 40 mg PO DAILY [facility] Stop: 07/05/18 08:59 Last Admin: 05/10/18 09:22 Dose: 40 mg Lorazepam (Ativan) 0.5 mg PO Q6HR PRN; Protocol PRN Reason: AGITATION Stop: 06/26/18 18:26 Last Admin: 05/07/18 09:01 Dose: 0.5 mg Magnesium Hydroxide (Milk Of Magnesia) 30 ml PO HS PRN PRN Reason: Constipation Metoprolol Tartrate (Lopressor) 25 mg PO BID [facility] Stop: 07/05/18 08:59 Last Admin: 05/10/18 17:12 Dose: 25 mg Multivitamins/Vitamin C (Theragran) 1 tab PO DAILY [facility] Stop: 06/27/18 08:59 Last Admin: 05/10/18 09:20 Dose: 1 tab Pantoprazole Sodium (Protonix) 40 mg PO DAILY@0730 [facility] Stop: 07/04/18 07:29 Last Admin: 05/10/18 06:35 Dose: 40 mg Quetiapine Fumarate (Seroquel) 100 mg PO BID [facility]; Protocol Stop: 07/06/18 16:59 Last Admin: 05/10/18 17:14 Dose: 100 mg Tramadol HCl (Ultram) 50 mg PO Q8H PRN PRN Reason: Severe Pain (LEVEL 7-10) Stop: 07/03/18 21:21 Last Admin: 05/10/18 02:40 Dose: 50 mg Zolpidem Tartrate (Ambien) 5 mg PO HS PRN PRN Reason: Insomnia Stop: 06/26/18 18:18 Last Admin: 05/09/18 20:35 Dose: 5 mg General: weak, alert HEENT: NC/AT Neck: Supple, No JVD Lungs: CTAB Cardiovascular: RRR, Normal S1 Abdomen: soft, non-tender Extremities: edema, pain Neurological: no change, muscle weakness, unsteady Internal Medicine Assmt/Plan - Assessment Assessment: Hepatitis C. Schizophrenia. Gerd. Convulsions. Hypertension. Generalized weakness. Hx of Stimulant abuse. - Plan Plan: fall precautions continue current plan of care ble u/s lasix 40mg po daily x3 days Nutritional Asmnt/Malnutr-PDOC - Dietary Evaluation Malnutrition Findings (Please click <Entered> for more info): Nutritional Asmnt/Malnutrition Start: 05/03/18 13: 55 Text: Status: Complete Freq: Protocol: Document 05/03/18 13:55 LCMONICAG (Rec: 05/03/18 14:02 MONICAG [email or web address]) Nutritional Asmnt/Malnutrition Patient General Information Nutritional Screening Low Risk Diagnosis psychosis Pertinent Medical Hx/Surgical Hx hypokalemia, stimulant abuse, schizophrenia, Hep C, GERD, convulsions, HTN, weakness Subjective Information Pt seen sleeping in bed at time of visit. Observed lunch tray finished 100% on the table. Per EMR, PO intake continue 100%. Current Diet Order/ Nutrition Support regular Pertinent Medications theragran, seroquel Pertinent Labs 04/27 reviewed Nutritional Hx/Data Height 5 ft 6 in Height (Calculated Centimeters) 167.6 Current Weight (lbs) 200 lb Weight (Calculated Kilograms) 90.7 Weight (Calculated Grams) 11275.5 [place] Body Weight 142 Body Mass Index (BMI) 32.3 Weight Status Obese GI Symptoms GI Symptoms None Last BM 05/02 Difficult in: None Skin Integrity/Comment: dryness Current %PO Good (75-100%) Estimated Nutritional Goals BEE in Kcals: Adj wt of IBW Calories/Kcals/Kg 25-30 Kcals Calculated 0840-0525 Protein: Adj wt of IBW Protein g/k Protein Calculated 71 Fluid: ml 1775-2130ml (1ml/kcal) Nutritional Problem No current Nutrition Prob Problem N/A Malnutrition Alert Is there a minimum of two criteria No selected? Query Text:Check all the applicable criteria. A minimum of two criteria are recommended for diagnosis of either severe or non-severe malnutrition. Malnutrition Related to Morbid Obesity Malnutrition related to morbid obesity No Intervention/Recommendation Comments 1. Continue with regular diet as ordered. 2. Monitor PO intake, wt, labs and skin integrity 3. F/U as low risk in 7 days Expected Outcomes/Goals Expected Outcomes/Goals 1. PO intake to meet at least 75% of nutritional needs. 2. Wt stability, skin to remain intact, labs to approach WNL.
[2018-05-11] MEDS: Pantoprazole 40 mg EC Tab PO SCH (06:31)
[2018-05-11] MEDS: Multivitamin Tab PO SCH (08:39)
[2018-05-11] MEDS: Ferrous Sulfate 325 MG TAB PO SCH (08:43)
--- NOTE | 2018-05-11 10:52 | Internal Medicine Prog Note ---
Internal Medicine Subjective - Subjective Service Date: 05/11/18 Patient is:: awake, verbal, agitated, other (Unpredictable) Patient Complaints of:: other (weakness, Bilateral leg edema and pain, especially swelling of the left leg.) Per staff patient has:: no adverse event, no episodes of fall Internal Medicine Objective - Results Recent Labs: Laboratory Last Values Triglycerides 49 mg/dL (<150) 04/27/18 07:35 Cholesterol 99 mg/dL (<200) 04/27/18 07:35 LDL Cholesterol Direct 60 mg/dL (75-193) L 04/27/18 07:35 HDL Cholesterol 33 mg/dL (23-92) 04/27/18 07:35 Urine Source MIDSTREAM 05/06/18 06:45 Urine Color YELLOW 05/06/18 06:45 Urine Clarity CLEAR (CLEAR) 05/06/18 06:45 Urine pH 7.0 (4.6 - 8.0) 05/06/18 06:45 Ur Specific [place] 1.015 (1.005-1.030) 05/06/18 06:45 Urine Protein NEGATIVE mg/dL (NEGATIVE) 05/06/18 06:45 Urine Glucose (UA) NEGATIVE mg/dL (NEGATIVE) 05/06/18 06:45 Urine Ketones NEGATIVE mg/dL (NEGATIVE) 05/06/18 06:45 Urine Blood NEGATIVE (NEGATIVE) 05/06/18 06:45 Urine Nitrate NEGATIVE (NEGATIVE) 05/06/18 06:45 Urine Bilirubin NEGATIVE (NEGATIVE) 05/06/18 06:45 Urine Urobilinogen 1.0 E.U./dL (0.2 - 1.0) 05/06/18 06:45 Ur Leukocyte Esterase NEGATIVE (NEGATIVE) 05/06/18 06:45 - Physical Exam Vitals and I&O: Vital Signs Temp 98.1 F 05/11/18 06:30 Pulse 75 05/11/18 08:41 Resp 19 05/11/18 06:30 BP 118/67 05/11/18 08:42 Pulse Ox 98 05/11/18 06:30 Intake & Output 05/10/18 05/11/18 05/11/18 18:59 06:59 18:59 Intake Total 1000 240 Balance 1000 240 Intake: Oral 1000 240 Other: # Voids 4 1 # Bowel Movements 1 Active Medications: Current Medications Acetaminophen (Tylenol) 650 mg PO Q4HR PRN PRN Reason: Mild Pain / Temp above 100 Stop: 06/26/18 18:18 Last Admin: 05/05/18 04:12 Dose: 650 mg Al Hydrox/Mg Hydrox/Simethicone (Maalox) 30 ml PO Q4HR PRN PRN Reason: GI DISTRESS Stop: 06/26/18 18:18 Ascorbic Acid (Vitamin C) 500 mg PO DAILY [facility] Stop: 07/04/18 08:59 Last Admin: 05/11/18 08:40 Dose: 500 mg Clindamycin HCl (Cleocin Hcl) 150 mg PO Q6HR [facility] Stop: 07/03/18 21:29 Last Admin: 05/11/18 06:31 Dose: 150 mg Ferrous Sulfate (Iron) 325 mg PO DAILY [facility] Stop: 07/04/18 08:59 Last Admin: 05/11/18 08:43 Dose: 325 mg Furosemide (Lasix) 40 mg PO DAILY [facility] Stop: 07/05/18 08:59 Last Admin: 05/11/18 08:42 Dose: 40 mg Lorazepam (Ativan) 0.5 mg PO Q6HR PRN; Protocol PRN Reason: AGITATION Stop: 06/26/18 18:26 Last Admin: 05/07/18 09:01 Dose: 0.5 mg Magnesium Hydroxide (Milk Of Magnesia) 30 ml PO HS PRN PRN Reason: Constipation Metoprolol Tartrate (Lopressor) 25 mg PO BID [facility] Stop: 07/05/18 08:59 Last Admin: 05/11/18 08:41 Dose: 25 mg Multivitamins/Vitamin C (Theragran) 1 tab PO DAILY [facility] Stop: 06/27/18 08:59 Last Admin: 05/11/18 08:39 Dose: 1 tab Pantoprazole Sodium (Protonix) 40 mg PO DAILY@0730 [facility] Stop: 07/04/18 07:29 Last Admin: 05/11/18 06:31 Dose: 40 mg Quetiapine Fumarate (Seroquel) 100 mg PO BID [facility]; Protocol Stop: 07/06/18 16:59 Last Admin: 05/11/18 08:42 Dose: 100 mg Tramadol HCl (Ultram) 50 mg PO Q8H PRN PRN Reason: Severe Pain (LEVEL 7-10) Stop: 07/03/18 21:21 Last Admin: 05/10/18 21:17 Dose: 50 mg Zolpidem Tartrate (Ambien) 5 mg PO HS PRN PRN Reason: Insomnia Stop: 06/26/18 18:18 Last Admin: 05/10/18 21:10 Dose: 5 mg Physical Exam: 67 y/o male patient has cellulitis of left leg, Bilateral lower extremity edema with pain and Generalized weakness. Patient is very impulsive and unpredictable. General: weak, alert HEENT: NC/AT Neck: Supple, No JVD Lungs: CTAB Cardiovascular: RRR, Normal S1 Abdomen: soft, non-tender Extremities: edema, pain Neurological: no change, muscle weakness, unsteady Internal Medicine Assmt/Plan - Assessment Assessment: Cellulitis of left leg. Bilateral lower extremity edema and pain. Hepatitis C. Schizophrenia. Gerd. Convulsions. Hypertension. Generalized weakness. Hx of Stimulant abuse. - Plan Plan: Continuation of care. Monitor vitals, Labs, Follow up x-rays. Continue present meds as directed. ID followup. Monitor diet Seizure precaution. Fall precaution. Continue current treatment plan as ordered. Nutritional Asmnt/Malnutr-PDOC - Dietary Evaluation Malnutrition Findings (Please click <Entered> for more info): Nutritional Asmnt/Malnutrition Start: 05/03/18 13: 55 Text: Status: Complete Freq: Protocol: Document 05/03/18 13:55 LCHENG (Rec: 05/03/18 14:02 [email or web address]) Nutritional Asmnt/Malnutrition Patient General Information Nutritional Screening Low Risk Diagnosis psychosis Pertinent Medical Hx/Surgical Hx hypokalemia, stimulant abuse, schizophrenia, Hep C, GERD, convulsions, HTN, weakness Subjective Information Pt seen sleeping in bed at time of visit. Observed lunch tray finished 100% on the table. Per EMR, PO intake continue 100%. Current Diet Order/ Nutrition Support regular Pertinent Medications theragran, seroquel Pertinent Labs 04/27 reviewed Nutritional Hx/Data Height 1.68 m Height (Calculated Centimeters) 167.6 Current Weight (lbs) 90.718 kg Weight (Calculated Kilograms) 90.7 Weight (Calculated Grams) 11758.5 [place] Body Weight 142 Body Mass Index (BMI) 32.3 Weight Status Obese GI Symptoms GI Symptoms None Last BM 05/02 Difficult in: None Skin Integrity/Comment: dryness Current %PO Good (75-100%) Estimated Nutritional Goals BEE in Kcals: Adj wt of IBW Calories/Kcals/Kg 25-30 Kcals Calculated 0038-0518 Protein: Adj wt of IBW Protein g/k Protein Calculated 71 Fluid: ml 1775-2130ml (1ml/kcal) Nutritional Problem No current Nutrition Prob Problem N/A Malnutrition Alert Is there a minimum of two criteria No selected? Query Text:Check all the applicable criteria. A minimum of two criteria are recommended for diagnosis of either severe or non-severe malnutrition. Malnutrition Related to Morbid Obesity Malnutrition related to morbid obesity No Intervention/Recommendation Comments 1. Continue with regular diet as ordered. 2. Monitor PO intake, wt, labs and skin integrity 3. F/U as low risk in 7 days Expected Outcomes/Goals Expected Outcomes/Goals 1. PO intake to meet at least 75% of nutritional needs. 2. Wt stability, skin to remain intact, labs to approach WNL.
[2018-05-12] MEDS: Pantoprazole 40 mg EC Tab PO SCH (06:46)
--- NOTE | 2018-05-12 07:42 | Progress Notes ---
DATE: Chart reviewed and the patient interviewed. Also discussed the patient's condition with the staff and reviewed records and labs. The patient is complaining of swelling of his feet and he is still pacing up and down and not helping with the swelling of his feet by raising it, but he is not doing so. Also, the patient is still upset and still needs lots of redirection. The patient is asking for stronger pain medications when I was interviewing him and it seemed that he is still pain medicine seeking. Confronted that with the patient and continue to work on both addiction and irritability. JOB# [id number]
[2018-05-12] MEDS: Multivitamin Tab PO SCH (09:14)
[2018-05-12] MEDS: Ferrous Sulfate 325 MG TAB PO SCH (09:14)
--- NOTE | 2018-05-12 22:04 | Progress Notes ---
DATE: 05/12/2018 SUBJECTIVE: The patient was seen in the dining area. The patient appears to be guarded, easily gets frustrated and agitated. Otherwise, the patient appears to be in no acute distress. OBJECTIVE: VITAL SIGNS: Temperature 98, heart rate 72, respirations 20, blood pressure 117/86, 97% on room air. HEENT: Head is atraumatic and normocephalic. Eyes: Bilateral conjunctivae are clear. Bilateral pupils are equally round and reactive. NECK: Supple. No JVD. CARDIOVASCULAR: S1 and S2, without murmur. PULMONARY: Clear to auscultation. GASTROINTESTINAL: Soft and nontender without guarding. Positive bowel sounds. MUSCULOSKELETAL: No clubbing. No cyanosis noted. ASSESSMENT: 1. Schizophrenia. 2. Hypertension. 3. Seizure disorder. 4. Gastroesophageal reflux disease. 5. Hypertension. PLAN: We will keep the patient inpatient Psychiatric Unit. We will follow up with a psychiatrist to monitor the patient's condition and behavior. Treatment plans were discussed with the patient's nurse. Treatment plans were discussed with Dr. Hernandez. JOB# [id number]
--- NOTE | 2018-05-13 05:50 | Progress Notes ---
DATE: 05/12/2018 SUBJECTIVE: Case was discussed with the patient, reviewed records. I had the nurse go with me and talked to the patient because complained that his swelling in his left leg is very bothersome and painful. He has not been getting any help from the medical doctor and I asked his nurse to make sure they called the doctor. His leg is swollen. He said he is in a lot of pain. He is on tramadol by Dr. Hernandez. He is also on Seroquel 100 mg twice a day with no side effects, no sedation, no nausea, and no extrapyramidal symptoms. We will continue to work with the patient in group therapy, milieu therapy, and adjust the medications as needed. JOB# [id number]
[2018-05-13] MEDS: Pantoprazole 40 mg EC Tab PO SCH (06:48)
[2018-05-13] MEDS: Ferrous Sulfate 325 MG TAB PO SCH (09:25)
[2018-05-13] MEDS: Multivitamin Tab PO SCH (09:25)
--- NOTE | 2018-05-13 13:50 | Internal Medicine Prog Note ---
Internal Medicine Subjective - Subjective Service Date: 05/13/18 Patient is:: awake, verbal, agitated, other (Unpredictable) Patient Complaints of:: other (weakness, Bilateral leg edema and pain, especially swelling of the left leg.) Per staff patient has:: no adverse event, no episodes of fall Internal Medicine Objective - Results Recent Labs: Laboratory Last Values Triglycerides 49 mg/dL (<150) 04/27/18 07:35 Cholesterol 99 mg/dL (<200) 04/27/18 07:35 LDL Cholesterol Direct 60 mg/dL (75-193) L 04/27/18 07:35 HDL Cholesterol 33 mg/dL (23-92) 04/27/18 07:35 Urine Source MIDSTREAM 05/06/18 06:45 Urine Color YELLOW 05/06/18 06:45 Urine Clarity CLEAR (CLEAR) 05/06/18 06:45 Urine pH 7.0 (4.6 - 8.0) 05/06/18 06:45 Ur Specific [place] 1.015 (1.005-1.030) 05/06/18 06:45 Urine Protein NEGATIVE mg/dL (NEGATIVE) 05/06/18 06:45 Urine Glucose (UA) NEGATIVE mg/dL (NEGATIVE) 05/06/18 06:45 Urine Ketones NEGATIVE mg/dL (NEGATIVE) 05/06/18 06:45 Urine Blood NEGATIVE (NEGATIVE) 05/06/18 06:45 Urine Nitrate NEGATIVE (NEGATIVE) 05/06/18 06:45 Urine Bilirubin NEGATIVE (NEGATIVE) 05/06/18 06:45 Urine Urobilinogen 1.0 E.U./dL (0.2 - 1.0) 05/06/18 06:45 Ur Leukocyte Esterase NEGATIVE (NEGATIVE) 05/06/18 06:45 - Physical Exam Vitals and I&O: Vital Signs Temp 98.2 F 05/13/18 06:15 Pulse 70 05/13/18 09:25 Resp 19 05/13/18 06:15 BP 129/65 05/13/18 09:25 Pulse Ox 99 05/13/18 06:15 Intake & Output 05/12/18 05/13/18 05/13/18 18:59 06:59 18:59 Intake Total 1500 120 Balance 1500 120 Intake: Oral 1500 120 Other: # Voids 3 3 # Bowel Movements 0 Active Medications: Current Medications Acetaminophen (Tylenol) 650 mg PO Q4HR PRN PRN Reason: Mild Pain / Temp above 100 Stop: 06/26/18 18:18 Last Admin: 05/12/18 14:16 Dose: 650 mg Al Hydrox/Mg Hydrox/Simethicone (Maalox) 30 ml PO Q4HR PRN PRN Reason: GI DISTRESS Stop: 06/26/18 18:18 Ascorbic Acid (Vitamin C) 500 mg PO DAILY [facility] Stop: 07/04/18 08:59 Last Admin: 05/13/18 09:25 Dose: 500 mg Clindamycin HCl (Cleocin Hcl) 150 mg PO Q6HR [facility] Stop: 07/03/18 21:29 Last Admin: 05/13/18 05:50 Dose: 150 mg Ferrous Sulfate (Iron) 325 mg PO DAILY [facility] Stop: 07/04/18 08:59 Last Admin: 05/13/18 09:25 Dose: 325 mg Furosemide (Lasix) 40 mg PO DAILY [facility] Stop: 07/05/18 08:59 Last Admin: 05/13/18 09:25 Dose: 40 mg Lorazepam (Ativan) 0.5 mg PO Q6HR PRN; Protocol PRN Reason: AGITATION Stop: 06/26/18 18:26 Last Admin: 05/12/18 20:56 Dose: 0.5 mg Magnesium Hydroxide (Milk Of Magnesia) 30 ml PO HS PRN PRN Reason: Constipation Metoprolol Tartrate (Lopressor) 25 mg PO BID [facility] Stop: 07/05/18 08:59 Last Admin: 05/13/18 09:25 Dose: 25 mg Multivitamins/Vitamin C (Theragran) 1 tab PO DAILY [facility] Stop: 06/27/18 08:59 Last Admin: 05/13/18 09:25 Dose: 1 tab Pantoprazole Sodium (Protonix) 40 mg PO DAILY@0730 [facility] Stop: 07/04/18 07:29 Last Admin: 05/13/18 06:48 Dose: 40 mg Quetiapine Fumarate (Seroquel) 100 mg PO BID [facility]; Protocol Stop: 07/06/18 16:59 Last Admin: 05/13/18 09:25 Dose: 100 mg Tramadol HCl (Ultram) 50 mg PO Q8H PRN PRN Reason: Severe Pain (LEVEL 7-10) Stop: 07/03/18 21:21 Last Admin: 05/13/18 01:13 Dose: 50 mg Zolpidem Tartrate (Ambien) 5 mg PO HS PRN PRN Reason: Insomnia Stop: 06/26/18 18:18 Last Admin: 05/13/18 01:13 Dose: 5 mg General: weak, alert HEENT: NC/AT Neck: Supple, No JVD Lungs: CTAB Cardiovascular: RRR, Normal S1 Abdomen: soft, non-tender Extremities: edema, pain Neurological: no change, muscle weakness, unsteady Internal Medicine Assmt/Plan - Assessment Assessment: Hepatitis C. Schizophrenia. Gerd. Convulsions. Hypertension. Generalized weakness. Hx of Stimulant abuse. - Plan Plan: fall precautions continue current plan of care ble u/s lasix 40mg po daily x3 days Nutritional Asmnt/Malnutr-PDOC - Dietary Evaluation Malnutrition Findings (Please click <Entered> for more info): Nutritional Asmnt/Malnutrition Start: 05/03/18 13: 55 Text: Status: Complete Freq: Protocol: Document 05/03/18 13:55 JEYSON (Rec: 05/03/18 14:02 JEYSON [email or web address]) Nutritional Asmnt/Malnutrition Patient General Information Nutritional Screening Low Risk Diagnosis psychosis Pertinent Medical Hx/Surgical Hx hypokalemia, stimulant abuse, schizophrenia, Hep C, GERD, convulsions, HTN, weakness Subjective Information Pt seen sleeping in bed at time of visit. Observed lunch tray finished 100% on the table. Per EMR, PO intake continue 100%. Current Diet Order/ Nutrition Support regular Pertinent Medications theragran, seroquel Pertinent Labs 04/27 reviewed Nutritional Hx/Data Height 5 ft 6 in Height (Calculated Centimeters) 167.6 Current Weight (lbs) 200 lb Weight (Calculated Kilograms) 90.7 Weight (Calculated Grams) 84882.5 [place] Body Weight 142 Body Mass Index (BMI) 32.3 Weight Status Obese GI Symptoms GI Symptoms None Last BM 05/02 Difficult in: None Skin Integrity/Comment: dryness Current %PO Good (75-100%) Estimated Nutritional Goals BEE in Kcals: Adj wt of IBW Calories/Kcals/Kg 25-30 Kcals Calculated 0379-4004 Protein: Adj wt of IBW Protein g/k Protein Calculated 71 Fluid: ml 1775-2130ml (1ml/kcal) Nutritional Problem No current Nutrition Prob Problem N/A Malnutrition Alert Is there a minimum of two criteria No selected? Query Text:Check all the applicable criteria. A minimum of two criteria are recommended for diagnosis of either severe or non-severe malnutrition. Malnutrition Related to Morbid Obesity Malnutrition related to morbid obesity No Intervention/Recommendation Comments 1. Continue with regular diet as ordered. 2. Monitor PO intake, wt, labs and skin integrity 3. F/U as low risk in 7 days Expected Outcomes/Goals Expected Outcomes/Goals 1. PO intake to meet at least 75% of nutritional needs. 2. Wt stability, skin to remain intact, labs to approach WNL.
--- NOTE | 2018-05-14 02:58 | Progress Notes ---
DATE: 05/13/2018 FOLLOWUP PROGRESS NOTE PROGRESS ON THE UNIT: Case was discussed with staff of the patient, reviewed records. The patient is able to walk on his feet. He is a bit calmer, sleeping better, eating better. He is compliant with the medication with no side effects, no sedation, no nausea, no extrapyramidal symptoms. We will continue working on placement. We will continue to work with the patient in group therapy and milieu therapy, adjust the medication as needed. JOB# [id number]
[2018-05-14] MEDS: Pantoprazole 40 mg EC Tab PO SCH (06:44)
[2018-05-14] MEDS: Ferrous Sulfate 325 MG TAB PO SCH (10:24)
[2018-05-14] MEDS: Multivitamin Tab PO SCH (10:26)
--- NOTE | 2018-05-14 12:51 | Internal Medicine Prog Note ---
Internal Medicine Subjective - Subjective Service Date: 05/14/18 Patient is:: awake, verbal, agitated, other (Unpredictable) Patient Complaints of:: other (weakness, Bilateral leg edema and pain, especially swelling of the left leg.) Per staff patient has:: no adverse event, no episodes of fall Internal Medicine Objective - Results Recent Labs: Laboratory Last Values Triglycerides 49 mg/dL (<150) 04/27/18 07:35 Cholesterol 99 mg/dL (<200) 04/27/18 07:35 LDL Cholesterol Direct 60 mg/dL (75-193) L 04/27/18 07:35 HDL Cholesterol 33 mg/dL (23-92) 04/27/18 07:35 Urine Source MIDSTREAM 05/06/18 06:45 Urine Color YELLOW 05/06/18 06:45 Urine Clarity CLEAR (CLEAR) 05/06/18 06:45 Urine pH 7.0 (4.6 - 8.0) 05/06/18 06:45 Ur Specific [place] 1.015 (1.005-1.030) 05/06/18 06:45 Urine Protein NEGATIVE mg/dL (NEGATIVE) 05/06/18 06:45 Urine Glucose (UA) NEGATIVE mg/dL (NEGATIVE) 05/06/18 06:45 Urine Ketones NEGATIVE mg/dL (NEGATIVE) 05/06/18 06:45 Urine Blood NEGATIVE (NEGATIVE) 05/06/18 06:45 Urine Nitrate NEGATIVE (NEGATIVE) 05/06/18 06:45 Urine Bilirubin NEGATIVE (NEGATIVE) 05/06/18 06:45 Urine Urobilinogen 1.0 E.U./dL (0.2 - 1.0) 05/06/18 06:45 Ur Leukocyte Esterase NEGATIVE (NEGATIVE) 05/06/18 06:45 - Physical Exam Vitals and I&O: Vital Signs Temp 97 F 05/14/18 06:22 Pulse 86 05/14/18 10:25 Resp 19 05/14/18 06:22 BP 130/73 05/14/18 10:25 Pulse Ox 97 05/14/18 06:22 Intake & Output 05/13/18 05/14/18 05/14/18 18:59 06:59 18:59 Intake Total 900 240 Balance 900 240 Intake: Oral 900 240 Other: # Voids 3 1 # Bowel Movements 1 Active Medications: Current Medications Acetaminophen (Tylenol) 650 mg PO Q4HR PRN PRN Reason: Mild Pain / Temp above 100 Stop: 06/26/18 18:18 Last Admin: 05/12/18 14:16 Dose: 650 mg Al Hydrox/Mg Hydrox/Simethicone (Maalox) 30 ml PO Q4HR PRN PRN Reason: GI DISTRESS Stop: 06/26/18 18:18 Ascorbic Acid (Vitamin C) 500 mg PO DAILY [facility] Stop: 07/04/18 08:59 Last Admin: 05/14/18 10:24 Dose: 500 mg Ferrous Sulfate (Iron) 325 mg PO DAILY [facility] Stop: 07/04/18 08:59 Last Admin: 05/14/18 10:24 Dose: 325 mg Furosemide (Lasix) 40 mg PO DAILY [facility] Stop: 07/05/18 08:59 Last Admin: 05/14/18 10:25 Dose: 40 mg Lorazepam (Ativan) 0.5 mg PO Q6HR PRN; Protocol PRN Reason: AGITATION Stop: 06/26/18 18:26 Last Admin: 05/13/18 14:02 Dose: 0.5 mg Magnesium Hydroxide (Milk Of Magnesia) 30 ml PO HS PRN PRN Reason: Constipation Metoprolol Tartrate (Lopressor) 25 mg PO BID [facility] Stop: 07/05/18 08:59 Last Admin: 05/14/18 10:25 Dose: 25 mg Multivitamins/Vitamin C (Theragran) 1 tab PO DAILY [facility] Stop: 06/27/18 08:59 Last Admin: 05/14/18 10:26 Dose: 1 tab Pantoprazole Sodium (Protonix) 40 mg PO DAILY@0730 [facility] Stop: 07/04/18 07:29 Last Admin: 05/14/18 06:44 Dose: 40 mg Quetiapine Fumarate (Seroquel) 100 mg PO BID [facility]; Protocol Stop: 07/06/18 16:59 Last Admin: 05/14/18 10:26 Dose: 100 mg Tramadol HCl (Ultram) 50 mg PO Q8H PRN PRN Reason: Severe Pain (LEVEL 7-10) Stop: 07/03/18 21:21 Last Admin: 05/14/18 10:26 Dose: 50 mg Zolpidem Tartrate (Ambien) 5 mg PO HS PRN PRN Reason: Insomnia Stop: 06/26/18 18:18 Last Admin: 05/13/18 01:13 Dose: 5 mg General: weak, alert HEENT: NC/AT Neck: Supple, No JVD Lungs: CTAB Cardiovascular: RRR, Normal S1 Abdomen: soft, non-tender Extremities: edema, pain Neurological: no change, muscle weakness, unsteady Internal Medicine Assmt/Plan - Assessment Assessment: Hepatitis C. Schizophrenia. Gerd. Convulsions. Hypertension. Generalized weakness. Hx of Stimulant abuse. - Plan Plan: fall precautions continue current plan of care ble u/s lasix 40mg po daily x3 days Nutritional Asmnt/Malnutr-PDOC - Dietary Evaluation Malnutrition Findings (Please click <Entered> for more info): Nutritional Asmnt/Malnutrition Start: 05/03/18 13: 55 Text: Status: Complete Freq: Protocol: Document 05/03/18 13:55 LCMONICAG (Rec: 05/03/18 14:02 LCMONICAG [email or web address]) Nutritional Asmnt/Malnutrition Patient General Information Nutritional Screening Low Risk Diagnosis psychosis Pertinent Medical Hx/Surgical Hx hypokalemia, stimulant abuse, schizophrenia, Hep C, GERD, convulsions, HTN, weakness Subjective Information Pt seen sleeping in bed at time of visit. Observed lunch tray finished 100% on the table. Per EMR, PO intake continue 100%. Current Diet Order/ Nutrition Support regular Pertinent Medications theragran, seroquel Pertinent Labs 04/27 reviewed Nutritional Hx/Data Height 5 ft 6 in Height (Calculated Centimeters) 167.6 Current Weight (lbs) 200 lb Weight (Calculated Kilograms) 90.7 Weight (Calculated Grams) 12652.5 [place] Body Weight 142 Body Mass Index (BMI) 32.3 Weight Status Obese GI Symptoms GI Symptoms None Last BM 05/02 Difficult in: None Skin Integrity/Comment: dryness Current %PO Good (75-100%) Estimated Nutritional Goals BEE in Kcals: Adj wt of IBW Calories/Kcals/Kg 25-30 Kcals Calculated 2327-9309 Protein: Adj wt of IBW Protein g/k Protein Calculated 71 Fluid: ml 1775-2130ml (1ml/kcal) Nutritional Problem No current Nutrition Prob Problem N/A Malnutrition Alert Is there a minimum of two criteria No selected? Query Text:Check all the applicable criteria. A minimum of two criteria are recommended for diagnosis of either severe or non-severe malnutrition. Malnutrition Related to Morbid Obesity Malnutrition related to morbid obesity No Intervention/Recommendation Comments 1. Continue with regular diet as ordered. 2. Monitor PO intake, wt, labs and skin integrity 3. F/U as low risk in 7 days Expected Outcomes/Goals Expected Outcomes/Goals 1. PO intake to meet at least 75% of nutritional needs. 2. Wt stability, skin to remain intact, labs to approach WNL.
--- NOTE | 2018-05-15 00:23 | Progress Notes ---
DATE: 05/14/2018 SUBJECTIVE: Case was discussed with staff of the patient, reviewed records. The patient does complain of his foot. He reports no wasting attention to it. I talked to the nurse in charge again and apparently Dr. Hernandez is in charge and over the weekend it was Dr. Riddle's nurse practitioner. The patient need medical attention. I discussed with the charge nurse. He is compliant with the medication with no side effects. He seems to be showing progress, but he was frustrated because of his medical condition. He is sleeping better, eating better. Also, working on placement for this patient. No side effects of the medication, no sedation, no nausea, and no extrapyramidal symptoms. We will continue to work with the patient in group therapy, milieu therapy, and adjust the medications as needed. JOB# [id number]
[2018-05-15] MEDS: Pantoprazole 40 mg EC Tab PO SCH (06:37)
[2018-05-15] MEDS: Multivitamin Tab PO SCH (08:49)
[2018-05-15] MEDS: Ferrous Sulfate 325 MG TAB PO SCH (08:49)
--- NOTE | 2018-05-16 00:24 | Progress Notes ---
DATE: 05/15/2018 SUBJECTIVE: Case was discussed with staff of the patient, also reviewed records, also discussed here with RN who was covering for Dr. Hernandez yesterday and I explained to her the situation that he has been complaining of a lot of pain and redness in his left leg, lot of pain and swelling and she said she will take care of it. Today, the staff report that they are taking care of his wound and that Dr. Hernandez will be back today. The patient is sleeping better, eating better, but he continues to be somewhat irritable. I will be increasing his Seroquel to 125 mg twice a day. So far, no side effects with the medication, no sedation or nausea, and no extrapyramidal symptoms. We will continue to work the patient in group therapy, milieu therapy, and adjust medications as needed. JOB# [id number] MTDD
[2018-05-16] MEDS: Pantoprazole 40 mg EC Tab PO SCH (06:59)
[2018-05-16] MEDS: Ferrous Sulfate 325 MG TAB PO SCH (09:21)
[2018-05-16] MEDS: Multivitamin Tab PO SCH (09:22)
--- NOTE | 2018-05-16 11:10 | Internal Medicine Prog Note ---
Internal Medicine Subjective - Subjective Service Date: 05/15/18 Patient seen and examined:: with staff Patient is:: awake, verbal, agitated, other (still irritable.) Patient Complaints of:: other (Patient is still having weakness, Bilateral leg edema and pain, especially swelling of the left leg.) Per staff patient has:: no adverse event, no episodes of fall Internal Medicine Objective - Results Recent Labs: Laboratory Last Values Triglycerides 49 mg/dL (<150) 04/27/18 07:35 Cholesterol 99 mg/dL (<200) 04/27/18 07:35 LDL Cholesterol Direct 60 mg/dL (75-193) L 04/27/18 07:35 HDL Cholesterol 33 mg/dL (23-92) 04/27/18 07:35 Urine Source MIDSTREAM 05/06/18 06:45 Urine Color YELLOW 05/06/18 06:45 Urine Clarity CLEAR (CLEAR) 05/06/18 06:45 Urine pH 7.0 (4.6 - 8.0) 05/06/18 06:45 Ur Specific [place] 1.015 (1.005-1.030) 05/06/18 06:45 Urine Protein NEGATIVE mg/dL (NEGATIVE) 05/06/18 06:45 Urine Glucose (UA) NEGATIVE mg/dL (NEGATIVE) 05/06/18 06:45 Urine Ketones NEGATIVE mg/dL (NEGATIVE) 05/06/18 06:45 Urine Blood NEGATIVE (NEGATIVE) 05/06/18 06:45 Urine Nitrate NEGATIVE (NEGATIVE) 05/06/18 06:45 Urine Bilirubin NEGATIVE (NEGATIVE) 05/06/18 06:45 Urine Urobilinogen 1.0 E.U./dL (0.2 - 1.0) 05/06/18 06:45 Ur Leukocyte Esterase NEGATIVE (NEGATIVE) 05/06/18 06:45 - Physical Exam Vitals and I&O: Vital Signs Temp 97.5 F 05/16/18 06:44 Pulse 87 05/16/18 09:22 Resp 20 05/16/18 06:44 BP 126/68 05/16/18 09:22 Pulse Ox 96 05/16/18 06:44 Intake & Output 05/15/18 05/16/18 05/16/18 18:59 06:59 18:59 Intake Total 1200 240 Balance 1200 240 Intake: Oral 1200 240 Other: # Voids 4 2 # Bowel Movements 1 0 Active Medications: Current Medications Acetaminophen (Tylenol) 650 mg PO Q4HR PRN PRN Reason: Mild Pain / Temp above 100 Stop: 06/26/18 18:18 Last Admin: 05/15/18 21:01 Dose: 650 mg Al Hydrox/Mg Hydrox/Simethicone (Maalox) 30 ml PO Q4HR PRN PRN Reason: GI DISTRESS Stop: 06/26/18 18:18 Ascorbic Acid (Vitamin C) 500 mg PO DAILY [facility]ST[facility] Stop: 07/04/18 08:59 Last Admin: 05/16/18 09:22 Dose: 500 mg Ferrous Sulfate (Iron) 325 mg PO DAILY K[facility]ST[facility] Stop: 07/04/18 08:59 Last Admin: 05/16/18 09:21 Dose: 325 mg Furosemide (Lasix) 40 mg PO DAILY [facility] Stop: 07/05/18 08:59 Last Admin: 05/16/18 09:22 Dose: 40 mg Lorazepam (Ativan) 0.5 mg PO Q6HR PRN; Protocol PRN Reason: AGITATION Stop: 06/26/18 18:26 Last Admin: 05/15/18 21:01 Dose: 0.5 mg Magnesium Hydroxide (Milk Of Magnesia) 30 ml PO HS PRN PRN Reason: Constipation Metoprolol Tartrate (Lopressor) 25 mg PO BID [facility] Stop: 07/05/18 08:59 Last Admin: 05/16/18 09:22 Dose: 25 mg Multivitamins/Vitamin C (Theragran) 1 tab PO DAILY [facility] Stop: 06/27/18 08:59 Last Admin: 05/16/18 09:22 Dose: 1 tab Pantoprazole Sodium (Protonix) 40 mg PO DAILY@0730 [facility] Stop: 07/04/18 07:29 Last Admin: 05/16/18 06:59 Dose: 40 mg Quetiapine Fumarate 100 mg/ (Quetiapine Fumarate 25 mg) 125 mg PO BID [facility] Stop: 07/14/18 16:59 Last Admin: 05/16/18 09:21 Dose: 125 mg Tramadol HCl (Ultram) 50 mg PO Q8H PRN PRN Reason: Severe Pain (LEVEL 7-10) Stop: 07/03/18 21:21 Last Admin: 05/16/18 03:19 Dose: 50 mg Zolpidem Tartrate (Ambien) 5 mg PO HS PRN PRN Reason: Insomnia Stop: 06/26/18 18:18 Last Admin: 05/15/18 21:02 Dose: 5 mg Physical Exam: 67 y/o male patient still has cellulitis of left leg, Bilateral lower extremity edema with pain and Generalized weakness. Patient is still impulsive and unpredictable. patient is irritated. General: weak, alert HEENT: NC/AT Neck: Supple, No JVD Lungs: CTAB Cardiovascular: RRR, Normal S1 Abdomen: soft, non-tender Extremities: edema, pain Neurological: no change, muscle weakness, unsteady Internal Medicine Assmt/Plan - Assessment Assessment: Cellulitis of left leg. Bilateral lower extremity edema and pain. Hepatitis C. Schizophrenia. Gerd. Convulsions. Hypertension. Generalized weakness. Hx of Stimulant abuse. - Plan Plan: Continuation of care. Monitor vitals, Labs, Follow up x-rays. Continue present meds as directed. ID followup. Monitor diet Seizure precaution. Fall precaution. Continue current treatment plan as ordered. Nutritional Asmnt/Malnutr-PDOC - Dietary Evaluation Malnutrition Findings (Please click <Entered> for more info): Nutritional Asmnt/Malnutrition Start: 05/03/18 13: 55 Text: Status: Complete Freq: Protocol: Document 05/03/18 13:55 LCMONICAG (Rec: 05/03/18 14:02 JEYSON [email or web address]) Nutritional Asmnt/Malnutrition Patient General Information Nutritional Screening Low Risk Diagnosis psychosis Pertinent Medical Hx/Surgical Hx hypokalemia, stimulant abuse, schizophrenia, Hep C, GERD, convulsions, HTN, weakness Subjective Information Pt seen sleeping in bed at time of visit. Observed lunch tray finished 100% on the table. Per EMR, PO intake continue 100%. Current Diet Order/ Nutrition Support regular Pertinent Medications theragran, seroquel Pertinent Labs 04/27 reviewed Nutritional Hx/Data Height 1.68 m Height (Calculated Centimeters) 167.6 Current Weight (lbs) 90.718 kg Weight (Calculated Kilograms) 90.7 Weight (Calculated Grams) 03845.5 [place] Body Weight 142 Body Mass Index (BMI) 32.3 Weight Status Obese GI Symptoms GI Symptoms None Last BM 05/02 Difficult in: None Skin Integrity/Comment: dryness Current %PO Good (75-100%) Estimated Nutritional Goals BEE in Kcals: Adj wt of IBW Calories/Kcals/Kg 25-30 Kcals Calculated 8799-6942 Protein: Adj wt of IBW Protein g/k Protein Calculated 71 Fluid: ml 1775-2130ml (1ml/kcal) Nutritional Problem No current Nutrition Prob Problem N/A Malnutrition Alert Is there a minimum of two criteria No selected? Query Text:Check all the applicable criteria. A minimum of two criteria are recommended for diagnosis of either severe or non-severe malnutrition. Malnutrition Related to Morbid Obesity Malnutrition related to morbid obesity No Intervention/Recommendation Comments 1. Continue with regular diet as ordered. 2. Monitor PO intake, wt, labs and skin integrity 3. F/U as low risk in 7 days Expected Outcomes/Goals Expected Outcomes/Goals 1. PO intake to meet at least 75% of nutritional needs. 2. Wt stability, skin to remain intact, labs to approach WNL.
--- NOTE | 2018-05-16 14:43 | Internal Medicine Prog Note ---
Internal Medicine Subjective - Subjective Service Date: 05/16/18 Patient is:: awake, verbal, agitated, other (still irritable.) Patient Complaints of:: other (Patient is still having weakness, Bilateral leg edema and pain, especially swelling of the left leg.) Per staff patient has:: no adverse event, no episodes of fall Internal Medicine Objective - Results Recent Labs: Laboratory Last Values Triglycerides 49 mg/dL (<150) 04/27/18 07:35 Cholesterol 99 mg/dL (<200) 04/27/18 07:35 LDL Cholesterol Direct 60 mg/dL (75-193) L 04/27/18 07:35 HDL Cholesterol 33 mg/dL (23-92) 04/27/18 07:35 Urine Source MIDSTREAM 05/06/18 06:45 Urine Color YELLOW 05/06/18 06:45 Urine Clarity CLEAR (CLEAR) 05/06/18 06:45 Urine pH 7.0 (4.6 - 8.0) 05/06/18 06:45 Ur Specific [place] 1.015 (1.005-1.030) 05/06/18 06:45 Urine Protein NEGATIVE mg/dL (NEGATIVE) 05/06/18 06:45 Urine Glucose (UA) NEGATIVE mg/dL (NEGATIVE) 05/06/18 06:45 Urine Ketones NEGATIVE mg/dL (NEGATIVE) 05/06/18 06:45 Urine Blood NEGATIVE (NEGATIVE) 05/06/18 06:45 Urine Nitrate NEGATIVE (NEGATIVE) 05/06/18 06:45 Urine Bilirubin NEGATIVE (NEGATIVE) 05/06/18 06:45 Urine Urobilinogen 1.0 E.U./dL (0.2 - 1.0) 05/06/18 06:45 Ur Leukocyte Esterase NEGATIVE (NEGATIVE) 05/06/18 06:45 - Physical Exam Vitals and I&O: Vital Signs Temp 97.5 F 05/16/18 06:44 Pulse 87 05/16/18 09:22 Resp 20 05/16/18 06:44 BP 126/68 05/16/18 09:22 Pulse Ox 96 05/16/18 06:44 Intake & Output 05/15/18 05/16/18 05/16/18 18:59 06:59 18:59 Intake Total 1200 240 Balance 1200 240 Intake: Oral 1200 240 Other: # Voids 4 2 # Bowel Movements 1 0 Active Medications: Current Medications Acetaminophen (Tylenol) 650 mg PO Q4HR PRN PRN Reason: Mild Pain / Temp above 100 Stop: 06/26/18 18:18 Last Admin: 05/15/18 21:01 Dose: 650 mg Al Hydrox/Mg Hydrox/Simethicone (Maalox) 30 ml PO Q4HR PRN PRN Reason: GI DISTRESS Stop: 06/26/18 18:18 Ascorbic Acid (Vitamin C) 500 mg PO DAILY [facility] Stop: 07/04/18 08:59 Last Admin: 05/16/18 09:22 Dose: 500 mg Ferrous Sulfate (Iron) 325 mg PO DAILY [facility] Stop: 07/04/18 08:59 Last Admin: 05/16/18 09:21 Dose: 325 mg Furosemide (Lasix) 40 mg PO DAILY [facility] Stop: 07/05/18 08:59 Last Admin: 05/16/18 09:22 Dose: 40 mg Lorazepam (Ativan) 0.5 mg PO Q6HR PRN; Protocol PRN Reason: AGITATION Stop: 06/26/18 18:26 Last Admin: 05/15/18 21:01 Dose: 0.5 mg Magnesium Hydroxide (Milk Of Magnesia) 30 ml PO HS PRN PRN Reason: Constipation Metoprolol Tartrate (Lopressor) 25 mg PO BID [facility] Stop: 07/05/18 08:59 Last Admin: 05/16/18 09:22 Dose: 25 mg Multivitamins/Vitamin C (Theragran) 1 tab PO DAILY [facility] Stop: 06/27/18 08:59 Last Admin: 05/16/18 09:22 Dose: 1 tab Pantoprazole Sodium (Protonix) 40 mg PO DAILY@0730 [facility] Stop: 07/04/18 07:29 Last Admin: 05/16/18 06:59 Dose: 40 mg Quetiapine Fumarate 100 mg/ (Quetiapine Fumarate 25 mg) 125 mg PO BID [facility] Stop: 07/14/18 16:59 Last Admin: 05/16/18 09:21 Dose: 125 mg Tramadol HCl (Ultram) 50 mg PO Q8H PRN PRN Reason: Severe Pain (LEVEL 7-10) Stop: 07/03/18 21:21 Last Admin: 05/16/18 03:19 Dose: 50 mg Zolpidem Tartrate (Ambien) 5 mg PO HS PRN PRN Reason: Insomnia Stop: 06/26/18 18:18 Last Admin: 05/15/18 21:02 Dose: 5 mg General: weak, alert HEENT: NC/AT Neck: Supple, No JVD Lungs: CTAB Cardiovascular: RRR, Normal S1 Abdomen: soft, non-tender Extremities: edema, pain Neurological: no change, muscle weakness, unsteady Internal Medicine Assmt/Plan - Assessment Assessment: Hepatitis C. Schizophrenia. Gerd. Convulsions. Hypertension. Generalized weakness. Hx of Stimulant abuse. - Plan Plan: fall precautions continue current plan of care transfer patient to [facility] Nutritional Asmnt/Malnutr-PDOC - Dietary Evaluation Malnutrition Findings (Please click <Entered> for more info): Nutritional Asmnt/Malnutrition Start: 05/03/18 13: 55 Text: Status: Complete Freq: Protocol: Document 05/03/18 13:55 LCMONICA (Rec: 05/03/18 14:02 MONICA [email or web address]) Nutritional Asmnt/Malnutrition Patient General Information Nutritional Screening Low Risk Diagnosis psychosis Pertinent Medical Hx/Surgical Hx hypokalemia, stimulant abuse, schizophrenia, Hep C, GERD, convulsions, HTN, weakness Subjective Information Pt seen sleeping in bed at time of visit. Observed lunch tray finished 100% on the table. Per EMR, PO intake continue 100%. Current Diet Order/ Nutrition Support regular Pertinent Medications theragran, seroquel Pertinent Labs 04/27 reviewed Nutritional Hx/Data Height 5 ft 6 in Height (Calculated Centimeters) 167.6 Current Weight (lbs) 200 lb Weight (Calculated Kilograms) 90.7 Weight (Calculated Grams) 35568.5 [place] Body Weight 142 Body Mass Index (BMI) 32.3 Weight Status Obese GI Symptoms GI Symptoms None Last BM 05/02 Difficult in: None Skin Integrity/Comment: dryness Current %PO Good (75-100%) Estimated Nutritional Goals BEE in Kcals: Adj wt of IBW Calories/Kcals/Kg 25-30 Kcals Calculated 5456-4714 Protein: Adj wt of IBW Protein g/k Protein Calculated 71 Fluid: ml 1775-2130ml (1ml/kcal) Nutritional Problem No current Nutrition Prob Problem N/A Malnutrition Alert Is there a minimum of two criteria No selected? Query Text:Check all the applicable criteria. A minimum of two criteria are recommended for diagnosis of either severe or non-severe malnutrition. Malnutrition Related to Morbid Obesity Malnutrition related to morbid obesity No Intervention/Recommendation Comments 1. Continue with regular diet as ordered. 2. Monitor PO intake, wt, labs and skin integrity 3. F/U as low risk in 7 days Expected Outcomes/Goals Expected Outcomes/Goals 1. PO intake to meet at least 75% of nutritional needs. 2. Wt stability, skin to remain intact, labs to approach WNL.
== END 2018-05-16 20:54 | DRG 885 ==
LOC: GERO 15:47
PROVIDERS: ADMIT Psychiatry & Neurology Psychiatry; ATTEND Psychiatry & Neurology Psychiatry
DX: F20.9 Schizophrenia, unspecified (principal); L03.116 Cellulitis of left lower limb; B19.20 Unspecified viral hepatitis C without hepatic coma; R53.1 Weakness; K21.9 Gastro-esophageal reflux disease without esophagitis; I10 Essential (primary) hypertension
CPT/HCPCS: 36415-UA; 80061-TC; 81003-TC; 83036-90; 93970-TC-50; G0410; Z7610

== ENCOUNTER 2018-05-16 21:43 | Inpatient (IN) | payer MEDICARE, OTHER ==
[2018-05-16 23:00] VITALS: BP 115/62
[2018-05-16] MEDS ORDERED: Piperacillin Sodium/Tazobact 3.375 gm Vial IV ONE (23:20)
[2018-05-17] MEDS ORDERED: Piperacillin Sodium/Tazobact 3.375 gm Vial IV ONE (04:10)
--- NOTE | 2018-05-17 05:25 | Progress Notes ---
DATE: 05/16/2018 SUBJECTIVE: Chart reviewed and the patient interviewed. Also, discussed the patient's condition with the staff and reviewed records and labs. The patient seems to be less irritable and less agitated. Also, is cooperative and more compliant with taking his medications. He still seems to be preoccupied and responding to stimuli. Otherwise, he is compliant with taking his medication with no side effects of medications. ASSESSMENT: The patient is less psychotic and less agitated. TREATMENT PLAN: Continue to monitor his behavior and his condition closely. Also, continue to work with comp field case manager in regard to placement issue and hopefully we are still trying to find a placement for the patient. At the same time, continue to adjust psychotropic medications and monitor his behavior. JOB# [id number]
[2018-05-17 05:38] LABS: % BASOPHILS 0.6 % (0.0-2.0); % EOSINOPHILS 5.7 % (0.0-5.0); % LYMPHOCYTES 29.8 % (20.0-50.0); % MONOCYTES 14.8 % (2.0-10.0); % NEUTROPHILS 49.1 % (40.0-80.0); EOSINOPHILE ABSOLUTE 0.2 Th/cmm (0.1-0.4); HEMATOCRIT 25.5 % (41.0-60); HEMOGLOBIN 8.1 gm/dL (12-16); LYMPHOCYTE ABSOLUTE 0.9 Th/cmm (1.5-3.0); MEAN CELL VOLUME 85.8 fl (80-99); MEAN CORPUSCULAR HEMOGLOBIN 27.4 pg (27.0-31.0); MEAN CORPUSCULAR HGB CONC 31.9 pg (28.0-36.0); MEAN PLATELET VOLUME 7.5 fl; MONOCYTE ABSOLUTE 0.5 Th/cmm (0.3-1.0); NEUTROPHILE ABSOLUTE 1.5 Th/cmm (1.8-8.0); PLATELET COUNT 263 Th/cmm (150-400); RED BLOOD COUNT 2.97 Mil/cmm (3.80-5.80); RED CELL DISTRIBUTION WIDTH 17.1 % (11.5-20.0)
[2018-05-17 05:48] LABS: WHITE BLOOD COUNT 3.1 Th/cmm (4.8-10.8)
--- NOTE | 2018-05-17 08:42 | Diagnostic Imaging Report ---
CHEST X-RAY: AP view INDICATION: pain COMPARISON: None FINDINGS: Suboptimal lung volumes are noted. Right midlung scarring is noted. There is no focal consolidation or pleural effusions. Mildly prominent heart is noted with left ventricular configuration. Degenerative changes of the spine are noted with scoliosis. Postsurgical changes of a right distal clavicle is noted. IMPRESSION: Suboptimal lung volumes with no focal consolidation identified Mildly prominent heart with left ventricular configuration. Please correlate clinically if there is history of hypertension.
[2018-05-17] MEDS: Morphine Sulfate 2 mg/mL 1mL Syr IVP PRN ×2 (10:24→14:23)
[2018-05-17 10:56] LABS: ANION GAP 12.7 (7.0-16.0); BUN - UREA NITROGEN 16 mg/dL (7-25); CALCIUM SERUM 8.9 mg/dL (8.6-10.3); CHLORIDE 103 mEq/L (98-107); CREATININE - SERUM 0.9 mg/dL (0.7-1.3); GFR AFRICAN-AMERICAN > 60.0 ml/min (>90); GFR NON AFRICAN-AMERICAN > 60.0 ml/min; GLUCOSE 98 mg/dL (70-105); POTASSIUM SERUM 3.7 mEq/L (3.5-5.1)
[2018-05-17 10:57] LABS: SODIUM SERUM 136 mEq/L (136-145)
--- NOTE | 2018-05-17 16:32 | Discharge Summary ---
DATE OF DISCHARGE: 05/16/2018 PSYCHIATRIC DISCHARGE SUMMARY DATE OF DISCHARGE: 05/16/2018. FINAL DIAGNOSES AND PRIMARY DIAGNOSIS: Unspecified psychosis. REASON FOR HOSPITALIZATION: The patient was admitted to the hospital because of increased agitation and irritability and he was agitated and unable to follow directions. HOSPITAL COURSE: The patient continued to be anxious and in irritable mood and agitated. Also, her mood swings. The patient was interacting minimally with others. The patient was compliant with taking his medications and the patient denied any side effects of medications. He also was calmer. Placement was an issue with no place accepted the patient. He continued to take Seroquel in a dose of 125 mg twice a day with no side effects. The patient had swelling in his penis. The patient was transferred to [facility] to as requested by Dr. Hernandez in order to monitor his medications and to follow up with a swollen penis. Physical examination of the patient showed the patient has a swollen penis and he was admitted to MedSurg unit. AFTER DISCHARGE PLANS: Pending on hospital course and MedSurg. The patient still will need placement. EXPECTED OUTCOME AFTER DISCHARGE: Depends on hospital course in MedSurg unit. [facility]# [id number]
--- NOTE | 2018-05-17 21:13 | Progress Notes ---
DATE: 05/17/2018 SUBJECTIVE: Chart reviewed and the patient interviewed. Also, discussed the patient's condition with the staff and reviewed records and labs. The patient was transferred from [facility] to the medical floor because of swelling of his penis. The patient is worried and he is agitated and he is anxious. The patient said that he is not sure about what is going on with his penis. He is partly paranoid and confused, but at the same time, no major behavior problems. ASSESSMENT: The patient is still paranoid, but less agitated. TREATMENT PLAN: Currently, the patient is not taking psychotropic medications since he moved from [facility]. We will restart his medications and will continue to follow up closely. [facility]# [id number]
--- NOTE | 2018-05-17 22:47 | History and Physical ---
History of Present Illness - HPI Chief Complaint: worsening edema, penile pain edema HPI: 67-male who was at [facility] admitted to [facility] day surgery center due to worsening bilateral lower extremity swelling. Patient denies any pain. bilateral lower u/s was done few days back and negative for DVT. Patient is known to have chronic bilateral lower extremity edema and penile pain and edema with non-compliant with diet and medications. Vital Signs: Last Vital Signs Temp 99.5 F 05/17/18 20:00 Pulse 90 05/17/18 20:00 Resp 18 05/17/18 20:00 BP 135/78 05/17/18 20:00 Pulse Ox 95 05/17/18 20:00 Past Medical History Other History: htn , hep c chronic edema Family Medical History - Family Member Mother History Unknown: Yes Ethnicity: Unknown Living Status: Unknown Hx Family Cancer: No Hx Family Coronary Artery Disease: No Hx Family Congestive Heart Failure: No Hx Family Hypertension: No Hx Family Stroke: No Hx Family Diabetes: No Hx Family Seizures: No Hx Family Dementia: No Hx Family AIDS: No Hx Family HIV: No Hx Family COPD: No Hx Family Hepatitis: No Hx Family Psychiatric Problems: No Hx Family Tuberculosis: No Social History Smoke: No Alcohol: None Drugs: None Lives: Custodial - Medications Home Medications: Home Medication Medication Instructions Recorded Type Acetaminophen [Tylenol] 650 mg PO Q6H PRN 04/23/18 History Multivitamin with Minerals 1 each PO DAILY 04/23/18 History [Myvitalife] Nadolol [Nadolol*] 20 mg PO DAILY 04/23/18 History QUEtiapine Fumarate [SEROquel] 37.5 mg PO Q12H 04/23/18 History Clindamycin HCl [Cleocin*] 150 mg PO Q6H #28 cap 04/27/18 Rx traMADol HCl [Ultram*] 50 mg PO Q8H PRN #28 tab 04/27/18 Rx Acetaminophen [Tylenol] 650 mg PO Q4HR PRN tab 05/16/18 Rx Al Hyd/Mg Hyd/Simethicone [Maalox] 30 ml PO Q4HR PRN udc 05/16/18 Rx Ascorbic Acid [Vitamin C] 500 mg PO DAILY tab 05/16/18 Rx Ferrous Sulfate [Iron] 325 mg PO DAILY tab 05/16/18 Rx Furosemide [Lasix] 40 mg PO DAILY tab 05/16/18 Rx Lorazepam [Ativan] 0.5 mg PO Q6HR PRN tab 05/16/18 Rx Magnesium Hydroxide [Milk of 30 ml PO HS PRN udc 05/16/18 Rx Magnesia] Metoprolol Tartrate [Lopressor] 25 mg PO BID tab 05/16/18 Rx Multivitamin [Theragran] 1 tab PO DAILY tab 05/16/18 Rx Pantoprazole [Protonix] 40 mg PO DAILY@0730 ect 05/16/18 Rx QUEtiapine Fumarate [SEROquel] 125 mg PO BID tab 05/16/18 Rx QUEtiapine Fumarate [SEROquel] 125 mg PO BID tab 05/16/18 Rx Zolpidem Tartrate [Ambien] 5 mg PO HS PRN tab 05/16/18 Rx traMADol HCl [Ultram*] 50 mg PO Q8H PRN tab 05/16/18 Rx - Allergies Allergies/Adverse Reactions: Allergies Allergy/AdvReac Type Severity Reaction Status Date / Time codeine Allergy Verified 05/16/18 23:44 ibuprofen Allergy Verified 04/23/18 18:30 Review of Systems - Review of Systems Constitutional: Report: Weakness Eyes: Report: No Significant Respiratory: Report: No Significant Cardiovascular: Report: Edema. Denies: Orthopnea Musculoskeletal: Report: No Significant Skin: Report: No Significant Neurological: Report: Weakness Physical Exam - Physical Exam HEENT: Report: Ears Nose Throat within normal limits Neck: Report: Within normal limits Cardiovascular Systems: Report: +s1/s2 noted, Regular, Rate and Rhythm Respiratory: Report: Breath Sounds are within normal limits, Clear to Auscultation of lung tmi Back: Report: Inspection of back is within normal limits. Extremities: Report: Other (ble edema) Skin: Report: Warm, Dry - Lab Results All Lab Results last 24 hours: Laboratory Results - last 24 hr 05/17/18 05/17/18 04:45 04:45 WBC 3.1 L RBC 2.97 L Hgb 8.1 L Hct 25.5 L MCV 85.8 MCH 27.4 MCHC Differential 31.9 RDW 17.1 Plt Count 263 MPV 7.5 Neutrophils % 49.1 Lymphocytes % 29.8 Monocytes % 14.8 H Eosinophils % 5.7 H Basophils % 0.6 Sodium 136 Potassium 3.7 Chloride 103 Carbon Dioxide 24.0 Anion Gap 12.7 BUN 16 Creatinine 0.9 Est GFR ( Amer) > 60.0 Est GFR (Non-Af Amer) > 60.0 BUN/Creatinine Ratio 17.8 Glucose 98 Calcium 8.9 - Assessment Assessment: Worsening bilateral lower extremity penile pain/edema non compliant htn hx hep c - Plan Plan: id consult elevate ble scrotal us as per orders sheet
[2018-05-17] MEDS ORDERED: Magnesium Hydroxide (MOM) 30 mL UDC PO PRN (22:48)
[2018-05-17] MEDS ORDERED: Non-Formulary Item 1 EA (Acetaminophen [Tylenol] 650 MG) PO PRN (22:48)
[2018-05-18] MEDS: Multivitamin w/ Minerals Tab PO SCH (08:24)
[2018-05-18] MEDS: Ferrous Sulfate 325 MG TAB PO SCH (08:24)
[2018-05-18] MEDS: Multivitamin Tab PO SCH (08:24)
[2018-05-18] MEDS: Pantoprazole 40 mg EC Tab PO SCH (08:24)
[2018-05-18] MEDS ORDERED: Non-Formulary Item 1 EA (Multivitamin With Minerals [Myvitalife] 1 EACH) PO SCH (09:00)
[2018-05-18] MEDS ORDERED: NADOLOL 20 MG PO SCH (09:00)
--- NOTE | 2018-05-18 16:11 | Consultation ---
DATE OF CONSULTATION: UROLOGY CONSULTATION REASON FOR CONSULTATION: The patient is seen for penile pain and infection. HISTORY OF PRESENT ILLNESS: He is a 67-year-old psych patient admitted with bilateral lower extremity edema and swelling and worsening pain in the penis for the last 2 months. He urinates well, but gets pain every time a drop of urine touches the foreskin, which is cracked in many places. He claims there was some improvement with an ointment treatment that he was receiving off and on. PAST MEDICAL HISTORY: He has hypertension documented. He has a history of chronic leg edema in the lower extremities and hepatitis C. FAMILY HISTORY: Unremarkable or not applicable. SOCIAL HISTORY: No tobacco, drug, or alcohol abuse. Lives in a care home and is a psychiatric patient. HOME MEDICATIONS: Tylenol, vitamins, nadolol, Seroquel, clindamycin, tramadol, Maalox, vitamin C, Lasix, Ativan, magnesium hydroxide, Lopressor, Ambien. ALLERGIES: CODEINE AND IBUPROFEN. REVIEW OF SYSTEMS: No weight loss or loss of appetite. No documentation of fever, headache or seizures. He has no swallowing difficulty or vision loss. Denies coughing, chest pain or shortness of breath. No abdominal pain, vomiting or diarrhea. Denies dysuria, but does have the foreskin pain on touch and on urination. Chronic leg swelling, but not very painful. PHYSICAL EXAMINATION: GENERAL: He is awake and alert, speaks coherently, but then starts getting agitated very quickly. VITAL SIGNS: Temperature 98.3, heart rate 86, blood pressure 133/79. No fever recorded in the hospital. HEAD AND NECK: Normocephalic. Trachea central. Pupils equal and reactive. No jaundice. Thyroid and lymph nodes not palpable. Carotid bruit absent. CHEST: Symmetrical. LUNGS: Clear. No rales or rhonchi. HEART: Sounds normal, in sinus rhythm, no murmur. ABDOMEN: Soft, nontender. No organomegaly, mass, or hernia. GENITALIA: Normal male. Penis uncircumcised. Scrotal sac normal. No masses and foreskin difficult to retract with phimosis and some poorly defined lesions that cannot be examined completely as he will not allow retraction of the foreskin. He could have underlying infection or malignancy, difficult to confirm. EXTREMITIES: Massive bilateral edema below the knees, nontender. NEUROLOGIC: Nonfocal with altered cognitive functions. LABORATORY DATA: White count 3.1, hemoglobin 8.1, somewhat abnormal and may be related to problems with his spleen. Sodium 136, potassium 3.7, BUN 16, creatinine 0.9. Blood cultures, no growth so far. Chest x-ray, no significant acute changes. IMPRESSION AND PLAN: 1. Phimosis, possibly balanoposthitis. Rule out malignancy. Recommend circumcision and further recommendations based on the findings. The patient politely refuses to do so and will need to have his next of kin or legal guardian decide for him if that is appropriate. 2. History of hepatitis C, currently stable. No liver functions recorded. 3. History of hypertension, stable. 4. History of chronic leg edema, etiology unknown. JOB# [id number]
--- NOTE | 2018-05-18 17:59 | Internal Medicine Prog Note ---
Internal Medicine Subjective - Subjective Service Date: 05/18/18 Patient seen and examined:: with staff, chart reviewed Patient is:: awake, verbal Patient Complaints of:: pain with urination, other (Penile pain with infection.) Per staff patient has:: no adverse event, no episodes of fall Internal Medicine Objective - Results Result Diagrams: 05/17/18 04:45 05/17/18 04:45 Recent Labs: Laboratory Last Values WBC 3.1 Th/cmm (4.8-10.8) L 05/17/18 04:45 RBC 2.97 Mil/cmm (3.80-5.80) L 05/17/18 04:45 Hgb 8.1 gm/dL (12-16) L 05/17/18 04:45 Hct 25.5 % (41.0-60) L 05/17/18 04:45 MCV 85.8 fl (80-99) 05/17/18 04:45 MCH 27.4 pg (27.0-31.0) 05/17/18 04:45 MCHC Differential 31.9 pg (28.0-36.0) 05/17/18 04:45 RDW 17.1 % (11.5-20.0) 05/17/18 04:45 Plt Count 263 Th/cmm (150-400) 05/17/18 04:45 MPV 7.5 fl 05/17/18 04:45 Neutrophils % 49.1 % (40.0-80.0) 05/17/18 04:45 Lymphocytes % 29.8 % (20.0-50.0) 05/17/18 04:45 Monocytes % 14.8 % (2.0-10.0) H 05/17/18 04:45 Eosinophils % 5.7 % (0.0-5.0) H 05/17/18 04:45 Basophils % 0.6 % (0.0-2.0) 05/17/18 04:45 Sodium 136 mEq/L (136-145) 05/17/18 04:45 Potassium 3.7 mEq/L (3.5-5.1) 05/17/18 04:45 Chloride 103 mEq/L (98-107) 05/17/18 04:45 Carbon Dioxide 24.0 mEq/L (21.0-31.0) 05/17/18 04:45 Anion Gap 12.7 (7.0-16.0) 05/17/18 04:45 BUN 16 mg/dL (7-25) 05/17/18 04:45 Creatinine 0.9 mg/dL (0.7-1.3) 05/17/18 04:45 Est GFR ( Amer) > 60.0 ml/min (>90) 05/17/18 04:45 Est GFR (Non-Af Amer) > 60.0 ml/min 05/17/18 04:45 BUN/Creatinine Ratio 17.8 05/17/18 04:45 Glucose 98 mg/dL (70-105) 05/17/18 04:45 Calcium 8.9 mg/dL (8.6-10.3) 05/17/18 04:45 - Physical Exam Vitals and I&O: Vital Signs Temp 98.4 F 05/18/18 16:00 Pulse 78 05/18/18 17:01 Resp 18 05/18/18 16:00 BP 137/77 05/18/18 17:01 Pulse Ox 95 05/18/18 16:00 Intake & Output 05/17/18 05/18/18 05/18/18 18:59 06:59 18:59 Intake Total 1100 850 Output Total 600 Balance 1100 250 Weight (lbs) 84.64 kg 84.368 kg Intake: Intake, IV Amount 350 450 Piperacillin Sodium/ 100 200 Tazobact 4.5 gm In Sodium Chloride 0.9% 100 ml @ 100 mls/hr IV Q8H [facility] Rx# :[id number] Vancomycin HCl 1.25 gm In 250 250 Sodium Chloride 0.9% 250 ml @ 165 mls/hr IV Q12H [facility] Rx#:[id number] Oral 750 400 Output: Urine 600 Other: # Voids 3 Stool Characteristics Soft Soft Soft Formed Formed Formed Weight Source Bedscale Bedscale Active Medications: Current Medications Acetaminophen (Tylenol) 650 mg PO Q6HR PRN PRN Reason: Pain (Mild) Stop: 07/16/18 22:59 Ascorbic Acid (Vitamin C) 500 mg PO DAILY [facility] Stop: 07/17/18 08:59 Last Admin: 05/18/18 08:24 Dose: 500 mg Betamethasone Dipropionate (Betamethasone Dip 0.05% Cream) 1 appl TP BID [facility] Stop: 07/17/18 16:59 Last Admin: 05/18/18 17:30 Dose: Not Given Ferrous Sulfate (Iron) 325 mg PO DAILY [facility] Stop: 07/17/18 08:59 Last Admin: 05/18/18 08:24 Dose: 325 mg Furosemide (Lasix) 40 mg IVP DAILY [facility] Stop: 07/16/18 08:59 Last Admin: 05/18/18 08:24 Dose: 40 mg Piperacillin Sod/Tazobactam (Sod 4.5 gm/ Sodium Chloride) 100 mls @ 100 mls/hr IV Q8H [facility] Stop: 07/16/18 11:59 Last Admin: 05/18/18 12:28 Dose: 100 mls/hr Vancomycin HCl 1.25 gm/ Sodium (Chloride) 250 mls @ 165 mls/hr IV Q12H [facility] Stop: 07/16/18 10:59 Last Admin: 05/18/18 10:48 Dose: 165 mls/hr Lorazepam (Ativan) 0.5 mg PO Q6HR PRN; Protocol PRN Reason: AGITATION Stop: 07/16/18 22:47 Magnesium Hydroxide (Milk Of Magnesia) 30 ml PO HS PRN PRN Reason: Constipation Stop: 07/16/18 22:47 Metoprolol Tartrate (Lopressor) 25 mg PO BID [facility] Stop: 07/17/18 08:59 Last Admin: 05/18/18 17:01 Dose: 25 mg Morphine Sulfate (Morphine) 1 mg IVP Q4HR PRN PRN Reason: Pain (Moderate) Stop: 07/15/18 22:42 Last Admin: 05/17/18 14:23 Dose: 1 mg Multivitamins/Vitamin C (Theragran) 1 tab PO DAILY [facility] Stop: 07/17/18 08:59 Last Admin: 05/18/18 08:24 Dose: 1 tab Pantoprazole Sodium (Protonix) 40 mg PO DAILY@0730 [facility] Stop: 07/17/18 07:29 Last Admin: 05/18/18 08:24 Dose: 40 mg Quetiapine Fumarate (Seroquel) 50 mg PO BID [facility]; Protocol Stop: 07/16/18 08:59 Last Admin: 05/18/18 17:01 Dose: 50 mg Quetiapine Fumarate (Seroquel) 37.5 mg PO Q12H [facility]; Protocol Stop: 07/16/18 22:59 Quetiapine Fumarate (Seroquel) 125 mg PO BID [facility]; Protocol Stop: 07/17/18 08:59 Temazepam (Restoril) 15 mg PO HS PRN; Protocol PRN Reason: Insomnia Stop: 07/15/18 23:49 Last Admin: 05/17/18 22:03 Dose: 15 mg Tramadol HCl (Ultram) 50 mg PO Q8HR PRN PRN Reason: Pain (Mild) Stop: 07/15/18 23:47 Last Admin: 05/18/18 14:13 Dose: 50 mg Tramadol HCl (Ultram) 50 mg PO Q8H PRN PRN Reason: Pain (Moderate) Stop: 07/16/18 22:47 Zolpidem Tartrate (Ambien) 5 mg PO HS PRN PRN Reason: Insomnia Stop: 07/16/18 22:47 Physical Exam: 67 y/o male patient c/o penile pain, he was advised to have a Circumcision and he refused. Patient will continue present treatment plan. General: other (c/o penile pain.) HEENT: NC/AT Neck: Supple, No JVD Lungs: CTAB Cardiovascular: RRR, Normal S1 Abdomen: soft, non-tender Extremities: clear Neurological: no change Internal Medicine Assmt/Plan - Assessment Assessment: Worsening bilateral lower extremity penile pain with infection/edema/Phimosis non-compliant htn hx hep c - Plan Plan: id consult elevate ble scrotal us as per orders sheet Nutritional Asmnt/Malnutr-PDOC - Dietary Evaluation Malnutrition Findings (Please click <Entered> for more info): see orders
--- NOTE | 2018-05-18 20:24 | Progress Notes ---
DATE: 05/18/2018 PSYCHIATRIC PROGRESS NOTE SUBJECTIVE: Chart reviewed and the patient interviewed. Also discussed the patient's condition with the staff and reviewed records and labs. The patient is agitated and he is depressed because "my penis is swollen." Also he is complaining of pain in his leg that also is swollen. On the other hand, the patient is cooperative and he is taking his antibiotics and compliant with taking his medications, but he is slightly agitated this morning. The patient also was trying to walk in spite of instructions not to do so. On the other hand, the patient continued to comply with taking his medications and started back on Seroquel with no side effects. ASSESSMENT: The patient is still depressed and anxious and needs close monitoring. TREATMENT PLAN: Continue to monitor his behavior and his condition closely. Also, continue adjusting psychotropic medications and work on behavioral modification as well as placement. JOB# [id number]
[2018-05-19] MEDS: Pantoprazole 40 mg EC Tab PO SCH (08:52)
[2018-05-19] MEDS: Multivitamin w/ Minerals Tab PO SCH (08:53)
[2018-05-19] MEDS: Ferrous Sulfate 325 MG TAB PO SCH (08:53)
[2018-05-19] MEDS: Multivitamin Tab PO SCH (08:53)
--- NOTE | 2018-05-20 00:20 | Progress Notes ---
DATE: UROLOGY FOLLOWUP SUBJECTIVE: The patient is getting the local treatment for the irritation, inflammation, and pain at the foreskin. He has not consented to the surgical treatment as yet. His next of kin and apparently legal guardian is his brother who is planning to take him home; however, is not responding to the phone calls that were made today. The patient is not being accepted at the board and care facility according to the nurses. OBJECTIVE: GENERAL: On exam, he has remained afebrile and vital signs are stable. ABDOMEN: Soft, nondistended, and nontender without masses. EXTREMITIES: No edema. Penile foreskin slightly less inflamed than initially seen, but not significant change. CARDIOVASCULAR: Heart sounds, sinus rhythm. LABORATORY DATA: Lab work reviewed. IMPRESSION: 1. Phimosis possibly balanoposthitis. Possibly underlying malignancy requires circumcision for evaluation and treatment. We will continue efforts to get consent. 2. Psycho-affective disorder, remains management problem and difficulty in obtaining consent. 3. History of hepatitis C, currently asymptomatic. 4. Hypertension, controlled with medications. JOB# [id number]
[2018-05-20] MEDS: Morphine Sulfate 2 mg/mL 1mL Syr IVP PRN ×3 (04:52→21:11)
[2018-05-20] MEDS: Pantoprazole 40 mg EC Tab PO SCH (06:54)
[2018-05-20] MEDS: Ferrous Sulfate 325 MG TAB PO SCH (09:12)
[2018-05-20] MEDS: Multivitamin w/ Minerals Tab PO SCH (09:13)
[2018-05-20] MEDS: Multivitamin Tab PO SCH (09:13)
--- NOTE | 2018-05-20 12:10 | Internal Medicine Prog Note ---
Internal Medicine Subjective - Subjective Patient seen and examined:: chart reviewed Patient is:: awake, verbal, other (on treatment for foreskin infection of skin ) Patient Complaints of:: pain with urination, other (Penile pain with infection.) Per staff patient has:: no adverse event, no episodes of fall Internal Medicine Objective - Results Result Diagrams: 05/17/18 04:45 05/17/18 04:45 Recent Labs: Laboratory Last Values WBC 3.1 Th/cmm (4.8-10.8) L 05/17/18 04:45 RBC 2.97 Mil/cmm (3.80-5.80) L 05/17/18 04:45 Hgb 8.1 gm/dL (12-16) L 05/17/18 04:45 Hct 25.5 % (41.0-60) L 05/17/18 04:45 MCV 85.8 fl (80-99) 05/17/18 04:45 MCH 27.4 pg (27.0-31.0) 05/17/18 04:45 MCHC Differential 31.9 pg (28.0-36.0) 05/17/18 04:45 RDW 17.1 % (11.5-20.0) 05/17/18 04:45 Plt Count 263 Th/cmm (150-400) 05/17/18 04:45 MPV 7.5 fl 05/17/18 04:45 Neutrophils % 49.1 % (40.0-80.0) 05/17/18 04:45 Lymphocytes % 29.8 % (20.0-50.0) 05/17/18 04:45 Monocytes % 14.8 % (2.0-10.0) H 05/17/18 04:45 Eosinophils % 5.7 % (0.0-5.0) H 05/17/18 04:45 Basophils % 0.6 % (0.0-2.0) 05/17/18 04:45 Sodium 136 mEq/L (136-145) 05/17/18 04:45 Potassium 3.7 mEq/L (3.5-5.1) 05/17/18 04:45 Chloride 103 mEq/L (98-107) 05/17/18 04:45 Carbon Dioxide 24.0 mEq/L (21.0-31.0) 05/17/18 04:45 Anion Gap 12.7 (7.0-16.0) 05/17/18 04:45 BUN 16 mg/dL (7-25) 05/17/18 04:45 Creatinine 0.9 mg/dL (0.7-1.3) 05/17/18 04:45 Est GFR ( Amer) > 60.0 ml/min (>90) 05/17/18 04:45 Est GFR (Non-Af Amer) > 60.0 ml/min 05/17/18 04:45 BUN/Creatinine Ratio 17.8 05/17/18 04:45 Glucose 98 mg/dL (70-105) 05/17/18 04:45 Calcium 8.9 mg/dL (8.6-10.3) 05/17/18 04:45 Vancomycin Trough 10.6 ug/mL (5-10) H 05/18/18 21:56 - Physical Exam Vitals and I&O: Vital Signs Temp 97.7 F 05/20/18 11:52 Pulse 66 05/20/18 11:52 Resp 18 05/20/18 11:52 BP 104/58 05/20/18 11:52 Pulse Ox 96 05/20/18 11:52 Intake & Output 05/19/18 05/20/18 05/20/18 18:59 06:59 18:59 Intake Total 1150 1050 Output Total 600 Balance 1150 450 Weight (lbs) 85.275 kg 85.275 kg Intake: Intake, IV Amount 350 450 Piperacillin Sodium/ 100 200 Tazobact 4.5 gm In Sodium Chloride 0.9% 100 ml @ 100 mls/hr IV Q8H [facility] Rx# :[id number] Vancomycin HCl 1.25 gm In 250 250 Sodium Chloride 0.9% 250 ml @ 165 mls/hr IV Q12H [facility] Rx#:[id number] Oral 800 600 Output: Urine 600 Other: # Voids 4 # Bowel Movements 1 Stool Characteristics Soft Soft Soft Formed Formed Formed Weight Source Bedscale Bedscale Active Medications: Current Medications Acetaminophen (Tylenol) 650 mg PO Q6HR PRN PRN Reason: Pain (Mild) Stop: 07/16/18 22:59 Ascorbic Acid (Vitamin C) 500 mg PO DAILY [facility] Stop: 07/17/18 08:59 Last Admin: 05/20/18 09:13 Dose: 500 mg Betamethasone Dipropionate (Betamethasone Dip 0.05% Cream) 1 appl TP BID [facility] Stop: 07/17/18 16:59 Last Admin: 05/20/18 09:12 Dose: 1 appl Ferrous Sulfate (Iron) 325 mg PO DAILY [facility] Stop: 07/17/18 08:59 Last Admin: 05/20/18 09:12 Dose: 325 mg Furosemide (Lasix) 40 mg IVP DAILY [facility] Stop: 07/16/18 08:59 Last Admin: 05/20/18 08:58 Dose: Not Given Piperacillin Sod/Tazobactam (Sod 4.5 gm/ Sodium Chloride) 100 mls @ 100 mls/hr IV Q8H [facility] Stop: 07/16/18 11:59 Last Admin: 05/20/18 11:34 Dose: 100 mls/hr Vancomycin HCl 1.25 gm/ Sodium (Chloride) 250 mls @ 165 mls/hr IV Q12H [facility] Stop: 07/18/18 08:59 Last Admin: 05/20/18 09:45 Dose: 165 mls/hr Lorazepam (Ativan) 0.5 mg PO Q6HR PRN; Protocol PRN Reason: AGITATION Stop: 07/16/18 22:47 Magnesium Hydroxide (Milk Of Magnesia) 30 ml PO HS PRN PRN Reason: Constipation Stop: 07/16/18 22:47 Metoprolol Tartrate (Lopressor) 25 mg PO BID [facility] Stop: 07/17/18 08:59 Last Admin: 05/20/18 09:13 Dose: 25 mg Morphine Sulfate (Morphine) 1 mg IVP Q4HR PRN PRN Reason: Pain (Moderate) Stop: 07/15/18 22:42 Last Admin: 05/20/18 11:35 Dose: 1 mg Pantoprazole Sodium (Protonix) 40 mg PO DAILY@0730 [facility] Stop: 07/17/18 07:29 Last Admin: 05/20/18 06:54 Dose: 40 mg Quetiapine Fumarate (Seroquel) 50 mg PO BID [facility]; Protocol Stop: 07/16/18 08:59 Last Admin: 05/20/18 09:13 Dose: 50 mg Quetiapine Fumarate (Seroquel) 37.5 mg PO Q12H [facility]; Protocol Stop: 07/16/18 22:59 Quetiapine Fumarate (Seroquel) 125 mg PO BID [facility]; Protocol Stop: 07/17/18 08:59 Temazepam (Restoril) 15 mg PO HS PRN; Protocol PRN Reason: Insomnia Stop: 07/15/18 23:49 Last Admin: 05/19/18 20:59 Dose: 15 mg Tramadol HCl (Ultram) 50 mg PO Q8H PRN PRN Reason: Pain (Moderate) Stop: 07/16/18 22:47 Last Admin: 05/20/18 03:00 Dose: 50 mg Zolpidem Tartrate (Ambien) 5 mg PO HS PRN PRN Reason: Insomnia Stop: 07/16/18 22:47 Physical Exam: 67 y/o male patient c/o penile pain, he was advised to have a Circumcision and he refused. Patient will continue present treatment plan. General: other (c/o penile pain.) HEENT: NC/AT Neck: Supple, No JVD Lungs: CTAB Cardiovascular: RRR, Normal S1 Abdomen: soft, non-tender Extremities: clear Neurological: no change Internal Medicine Assmt/Plan - Assessment Assessment: Worsening bilateral lower extremity penile pain with infection/edema/Phimosis non-compliant htn hx hep c - Plan Plan: id consult elevate ble scrotal us as per orders sheet Nutritional Asmnt/Malnutr-PDOC - Dietary Evaluation Malnutrition Findings (Please click <Entered> for more info): Nutritional Asmnt/Malnutrition Start: 05/19/18 11: 20 Text: Status: Complete Freq: Protocol: Document 05/19/18 11:20 [email or web address] (Rec: 05/19/18 11:31 [email or web address] ROYAL- FNS1) Nutritional Asmnt/Malnutrition Patient General Information Nutritional Screening Moderate Risk Diagnosis Penile infection Pertinent Medical Hx/Surgical Hx HTN, hep C, chronic edema Subjective Information Patient walking around unit at time of visit. He is tolerating current diet order with adequate intake. Current Diet Order/ Nutrition Support Cardiac Patient / S.O Not Indicated Pertinent Medications vitamin C, iron, lasix, MOM, theragran, protonix, abx Pertinent Labs (05/17)WNL Nutritional Hx/Data Height 1.68 m Height (Calculated Centimeters) 167.6 Current Weight (lbs) 84.368 kg Weight (Calculated Kilograms) 84.4 Weight (Calculated Grams) 63756.2 [place] Body Weight 142 % [place] Body Weight 130 Body Mass Index (BMI) 29.9 Recent Weight Change No Weight Status Obese GI Symptoms GI Symptoms None Last BM 05/18 x 1 Difficult in: None Food Allergies No Cultural/Ethnic/Scientology Belief none indicated Usual diet at home unknown Skin Integrity/Comment: [place] 20, intact, pressure area/reddened left leg/penis Current %PO Good (75-100%) Estimated Nutritional Goals BEE in Kcals: Adj wt of IBW Calories/Kcals/Kg using CBW 69.5kg Kcals Calculated 1731-6481 kcal/day Protein: Adj wt of IBW Protein g/k gm/kg Protein Calculated ~70gm/day Fluid: ml 2109-2336 ml/day Nutritional Problem 1. Problem Problem No nutrition diagnosis at this time Intervention/Recommendation Comments 1. Continue cardiac diet as tolerated by patient Expected Outcomes/Goals Expected Outcomes/Goals Oral intake >75% of meals, weight stable, nutrition related labs WNL F/U LR 05/26
--- NOTE | 2018-05-20 13:02 | Progress Notes ---
DATE: The patient was seen and evaluated. The patient's chart reviewed. Dr. Cameron covering for Dr. Palomo. IDENTIFYING DATA: The patient with history of depression and today on [id number] evaluation, the patient reports mild anxiety and depression, associated with patient's comorbid medical illnesses. He denies any suicidal or homicidal ideation. The patient denies any complication and side effects of medication. The patient reports he has continued to ____ senior living. ASSESSMENT AND PLAN: The patient with a history of bipolar, psychiatrically stable. Monitoring his anxiety and depression where he deals with his medical illnesses. We will continue with the current medication regimen, which includes Seroquel 50 mg p.o. b.i.d. and 37.5 b.i.d. and 125 mg p.o. b.i.d. He is tolerating medication well without complications. It is unclear why the patient is on an untraditional dose, although he presents well without complications or side effects. We will continue with primary Psychiatry following and transition to senior living when bed is available. [facility]# [id number]
--- NOTE | 2018-05-20 20:47 | Consultation ---
DATE OF CONSULTATION: 05/17/2018 INFECTIOUS DISEASE CONSULTATION REASON FOR CONSULTATION: UTI and penile infection. HISTORY OF PRESENT ILLNESS: The patient is a 67-year-old male with past medical history of hypertension, hepatitis C and chronic leg edema, developed penile pain and foul smelling infection. On initial evaluation, the patient was afebrile and WBC count was 3100. ID consult was called for further antibiotic management. PAST MEDICAL HISTORY: Hypertension, hepatitis B, and chronic leg edema. ALLERGIES: CODEINE, IBUPROFEN. FAMILY HISTORY: Noncontributory. SOCIAL HISTORY: The patient lives in a [place] [facility] [place]. No history of smoking, alcohol, or drug use. REVIEW OF SYSTEMS: CONSTITUTIONAL: The patient denied generalized weakness. No fever or chills. HEENT: No diplopia. No photophobia. No sore throat. RESPIRATORY: No cough. No shortness of breath. CARDIOVASCULAR: No chest pain. No palpitation. GASTROINTESTINAL: No nausea. No vomiting. No diarrhea. No constipation. GENITOURINARY: The patient complains of penile pain and foul smelling discharge. PHYSICAL EXAMINATION: VITAL SIGNS: Show temperature is 97.5 degrees Fahrenheit, pulse 81, respirations 18, blood pressure 103/78. GENERAL: The patient is comfortable, lying in the bed, not in acute distress. HEENT: Head is normocephalic, atraumatic. Oral cavity moist. [place] tongue. NECK: Supple. No JVD. No carotid bruits. Trachea in midline. CHEST: Bilateral breath sounds. No crackles or wheezing. CARDIOVASCULAR: S1 and S2 within normal limits. Regular rhythm. No murmur or gallop. ABDOMEN: Soft, nontender, nondistended. Bowel sounds present. EXTREMITIES: No cyanosis. No clubbing. Edema present bilaterally. GENITOURINARY: The patient is unable to retract the foreskin to full extent. He has pain while retracting and multiple scars on the foreskin. CENTRAL NERVOUS SYSTEM: Alert, awake, oriented x 3. LABORATORY DATA: Current lab shows WBC count is 3100, hemoglobin 8.1, hematocrit 25.5, platelets are 263,000, neutrophils 49.1%. Sodium 136, potassium 3.7, chloride 103, bicarbonate is 24, BUN is 16, creatinine 0.9, glucose is 98. IMPRESSION: 1. Penile infection, balanitis. 2. Paraphimosis. 3. Hypertension. 4. Hepatitis C. 5. Chronic leg edema. RECOMMENDATIONS: Consult Dr. Pendleton for Urology consultation. Continue same antibiotics, vancomycin and Zosyn. Thank you. JOB# [id number] [email or web address]
[2018-05-21 04:53] LABS: % BASOPHILS 1.2 % (0.0-2.0); % EOSINOPHILS 5.8 % (0.0-5.0); % MONOCYTES 13.8 % (2.0-10.0); % NEUTROPHILS 46.2 % (40.0-80.0); EOSINOPHILE ABSOLUTE 0.2 Th/cmm (0.1-0.4); HEMATOCRIT 25.8 % (41.0-60); HEMOGLOBIN 8.6 gm/dL (12-16); LYMPHOCYTE ABSOLUTE 1.1 Th/cmm (1.5-3.0); MEAN CELL VOLUME 84.5 fl (80-99); MEAN CORPUSCULAR HGB CONC 33.2 pg (28.0-36.0); MEAN PLATELET VOLUME 7.5 fl; MONOCYTE ABSOLUTE 0.5 Th/cmm (0.3-1.0); NEUTROPHILE ABSOLUTE 1.5 Th/cmm (1.8-8.0); PLATELET COUNT 259 Th/cmm (150-400); RED BLOOD COUNT 3.06 Mil/cmm (3.80-5.80); RED CELL DISTRIBUTION WIDTH 16.5 % (11.5-20.0)
[2018-05-21 05:18] LABS: ANION GAP 9.8 (7.0-16.0); BUN - UREA NITROGEN 17 mg/dL (7-25); CALCIUM SERUM 9.2 mg/dL (8.6-10.3); CHLORIDE 103 mEq/L (98-107); CREATININE - SERUM 0.8 mg/dL (0.7-1.3); GFR AFRICAN-AMERICAN > 60.0 ml/min (>90); GFR NON AFRICAN-AMERICAN > 60.0 ml/min; GLUCOSE 86 mg/dL (70-105); POTASSIUM SERUM 3.8 mEq/L (3.5-5.1); SODIUM SERUM 134 mEq/L (136-145)
[2018-05-21 05:34] LABS: WHITE BLOOD COUNT 3.3 Th/cmm (4.8-10.8)
[2018-05-21 05:41] LABS: INR 1.26 (0.5-1.4)
[2018-05-21] MEDS: Morphine Sulfate 2 mg/mL 1mL Syr IVP PRN ×3 (06:31→20:29)
[2018-05-21] MEDS: Pantoprazole 40 mg EC Tab PO SCH (07:02)
--- NOTE | 2018-05-21 07:03 | Progress Notes ---
DATE: UROLOGY FOLLOWUP SUBJECTIVE: The patient has been complaining of penile pain, requiring morphine off and on. Apparently, he has now agreed to go for the procedure and consent was also obtained from his legal guardian who is a brother. PHYSICAL EXAMINATION: VITAL SIGNS: Temperature 97.6, heart rate 72, blood pressure 122/73. No fever since admission. ABDOMEN: Soft, nontender, nondistended. No masses. EXTREMITIES: No edema. GENITOURINARY: Penile foreskin mostly unchanged, not retractable. CARDIOVASCULAR: Heart sounds, no murmur. LABORATORY DATA: White count 3.1, hemoglobin 8.1 as of . We do not have lab work after that and will be ordered for tomorrow. IMPRESSION: 1. Phimosis with possibly balanoposthitis with a small possibility of malignancy. We will proceed with circumcision as the patient and his brother have agreed. 2. History of hepatitis C, currently inactive: Stable. 3. History of psychological or psychosis affective disorder. Today is better in terms of the patient's cooperation and mood. 4. History of hypertension, stable and no change. JOB# [id number]
[2018-05-21] MEDS: Ferrous Sulfate 325 MG TAB PO SCH (08:11)
[2018-05-21] MEDS: Multivitamin w/ Minerals Tab PO SCH (08:12)
--- NOTE | 2018-05-21 13:23 | Infectious Disease Prog Note ---
Infectious Disease Subjective - Review of Systems Service Date: 05/21/18 Subjective: there is no new change, no fever, Infectious Disease Objective - Results Result Diagrams: 05/21/18 04:27 05/21/18 04:27 Recent Labs: Laboratory Last Values WBC 3.3 Th/cmm (4.8-10.8) L 05/21/18 04:27 RBC 3.06 Mil/cmm (3.80-5.80) L 05/21/18 04:27 Hgb 8.6 gm/dL (12-16) L 05/21/18 04:27 Hct 25.8 % (41.0-60) L 05/21/18 04:27 MCV 84.5 fl (80-99) 05/21/18 04:27 MCH 28.0 pg (27.0-31.0) 05/21/18 04:27 MCHC Differential 33.2 pg (28.0-36.0) 05/21/18 04:27 RDW 16.5 % (11.5-20.0) 05/21/18 04:27 Plt Count 259 Th/cmm (150-400) 05/21/18 04:27 MPV 7.5 fl 05/21/18 04:27 Neutrophils % 46.2 % (40.0-80.0) 05/21/18 04:27 Lymphocytes % 33.0 % (20.0-50.0) 05/21/18 04:27 Monocytes % 13.8 % (2.0-10.0) H 05/21/18 04:27 Eosinophils % 5.8 % (0.0-5.0) H 05/21/18 04:27 Basophils % 1.2 % (0.0-2.0) 05/21/18 04:27 PT 13.0 SECONDS (9.5-11.5) H 05/21/18 04:27 INR 1.26 (0.5-1.4) 05/21/18 04:27 PTT (Actin FS) 31.0 SECONDS (26.0-38.0) 05/21/18 04:27 Sodium 134 mEq/L (136-145) L 05/21/18 04:27 Potassium 3.8 mEq/L (3.5-5.1) 05/21/18 04:27 Chloride 103 mEq/L (98-107) 05/21/18 04:27 Carbon Dioxide 25.0 mEq/L (21.0-31.0) 05/21/18 04:27 Anion Gap 9.8 (7.0-16.0) 05/21/18 04:27 BUN 17 mg/dL (7-25) 05/21/18 04:27 Creatinine 0.8 mg/dL (0.7-1.3) 05/21/18 04:27 Est GFR ( Amer) > 60.0 ml/min (>90) 05/21/18 04:27 Est GFR (Non-Af Amer) > 60.0 ml/min 05/21/18 04:27 BUN/Creatinine Ratio 21.3 05/21/18 04:27 Glucose 86 mg/dL (70-105) 05/21/18 04:27 POC Glucose 79 MG/DL (70 - 105) 05/21/18 06:28 Calcium 9.2 mg/dL (8.6-10.3) 05/21/18 04:27 Vancomycin Trough 10.6 ug/mL (5-10) H 05/18/18 21:56 - Physical Exam Vitals and I&O: Vital Signs Temp 97.0 F 05/21/18 12:06 Pulse 91 05/21/18 12:06 Resp 19 05/21/18 12:06 BP 133/78 05/21/18 12:06 Pulse Ox 98 05/21/18 12:06 Intake & Output 05/20/18 05/21/18 05/21/18 18:59 06:59 18:59 Intake Total 850 850 350 Balance 850 850 350 Weight (lbs) 85.275 kg 85.275 kg Intake: Intake, IV Amount 350 350 350 Piperacillin Sodium/ 100 100 100 Tazobact 4.5 gm In Sodium Chloride 0.9% 100 ml @ 100 mls/hr IV Q8H [facility] Rx# :[id number] Vancomycin HCl 1.25 gm In 250 250 250 Sodium Chloride 0.9% 250 ml @ 165 mls/hr IV Q12H [facility] Rx#:[id number] Oral 500 500 Other: # Voids 3 3 # Bowel Movements 1 Stool Characteristics Soft Soft Formed Formed Weight Source Bedscale Bedscale Active Medications: Current Medications Acetaminophen (Tylenol) 650 mg PO Q6HR PRN PRN Reason: Pain (Mild) Stop: 07/16/18 22:59 Ascorbic Acid (Vitamin C) 500 mg PO DAILY [facility] Stop: 07/17/18 08:59 Last Admin: 05/21/18 08:11 Dose: Not Given Betamethasone Dipropionate (Betamethasone Dip 0.05% Cream) 1 appl TP BID [facility] Stop: 07/17/18 16:59 Last Admin: 05/20/18 16:23 Dose: 1 appl Ferrous Sulfate (Iron) 325 mg PO DAILY [facility] Stop: 07/17/18 08:59 Last Admin: 05/21/18 08:11 Dose: Not Given Furosemide (Lasix) 40 mg IVP DAILY [facility] Stop: 07/16/18 08:59 Last Admin: 05/21/18 09:22 Dose: 40 mg Piperacillin Sod/Tazobactam (Sod 4.5 gm/ Sodium Chloride) 100 mls @ 100 mls/hr IV Q8H [facility] Stop: 07/16/18 11:59 Last Admin: 05/21/18 12:08 Dose: 100 mls/hr Vancomycin HCl 1.25 gm/ Sodium (Chloride) 250 mls @ 165 mls/hr IV Q12H [facility] Stop: 07/18/18 08:59 Last Infusion: 05/21/18 10:53 Dose: Infused Lorazepam (Ativan) 0.5 mg PO Q6HR PRN; Protocol PRN Reason: AGITATION Stop: 07/16/18 22:47 Magnesium Hydroxide (Milk Of Magnesia) 30 ml PO HS PRN PRN Reason: Constipation Stop: 07/16/18 22:47 Metoprolol Tartrate (Lopressor) 25 mg PO BID [facility] Stop: 07/17/18 08:59 Last Admin: 05/21/18 08:12 Dose: Not Given Morphine Sulfate (Morphine) 1 mg IVP Q4HR PRN PRN Reason: Pain (Moderate) Stop: 07/15/18 22:42 Last Admin: 05/21/18 12:15 Dose: 1 mg Pantoprazole Sodium (Protonix) 40 mg PO DAILY@0730 [facility] Stop: 07/17/18 07:29 Last Admin: 05/21/18 07:02 Dose: Not Given Quetiapine Fumarate (Seroquel) 50 mg PO BID [facility]; Protocol Stop: 07/16/18 08:59 Last Admin: 05/21/18 08:12 Dose: Not Given Quetiapine Fumarate (Seroquel) 37.5 mg PO Q12H [facility]; Protocol Stop: 07/16/18 22:59 Quetiapine Fumarate (Seroquel) 125 mg PO BID [facility]; Protocol Stop: 07/17/18 08:59 Temazepam (Restoril) 15 mg PO HS PRN; Protocol PRN Reason: Insomnia Stop: 07/15/18 23:49 Last Admin: 05/20/18 21:11 Dose: 15 mg Tramadol HCl (Ultram) 50 mg PO Q8H PRN PRN Reason: Pain (Moderate) Stop: 07/16/18 22:47 Last Admin: 05/20/18 03:00 Dose: 50 mg Zolpidem Tartrate (Ambien) 5 mg PO HS PRN PRN Reason: Insomnia Stop: 07/16/18 22:47 General: no acute distress, well developed, well nourished HEENT: atraumatic, normocephalic, PERRLA, EOMI Neck: supple, no thyromegaly Cardiovascular: S1S2, regular Lungs: clear to auscultation bilaterally, clear to percussion Abdomen: soft, other (unable to retract his foreskin and scars on th e foreskin. ), no tender, no distended Extremities: no cyanosis, no clubbing, no edema Neurological: awake, alert, oriented Skin: intact Infectious Disease Assmt/Plan - Assessment Assessment: 1. Penile infection, balanitis. 2. Paraphimosis. 3. Hypertension. 4. Hepatitis C. 5. Chronic leg edema. - Plan Plan: continue vanco and zosyn. patient need circumcision. Nutritional Asmnt/Malnutr-PDOC - Dietary Evaluation Malnutrition Findings (Please click <Entered> for more info): Nutritional Asmnt/Malnutrition Start: 05/19/18 11: 20 Text: Status: Complete Freq: Protocol: Document 05/19/18 11:20 [email or web address] (Rec: 05/19/18 11:31 MMIDANIA ROYAL- FN) Nutritional Asmnt/Malnutrition Patient General Information Nutritional Screening Moderate Risk Diagnosis Penile infection Pertinent Medical Hx/Surgical Hx HTN, hep C, chronic edema Subjective Information Patient walking around unit at time of visit. He is tolerating current diet order with adequate intake. Current Diet Order/ Nutrition Support Cardiac Patient / S.O Not Indicated Pertinent Medications vitamin C, iron, lasix, MOM, theragran, protonix, abx Pertinent Labs (05/17)WNL Nutritional Hx/Data Height 1.68 m Height (Calculated Centimeters) 167.6 Current Weight (lbs) 84.368 kg Weight (Calculated Kilograms) 84.4 Weight (Calculated Grams) 89339.2 [place] Body Weight 142 % [place] Body Weight 130 Body Mass Index (BMI) 29.9 Recent Weight Change No Weight Status Obese GI Symptoms GI Symptoms None Last BM 05/18 x 1 Difficult in: None Food Allergies No Cultural/Ethnic/Religion Belief none indicated Usual diet at home unknown Skin Integrity/Comment: Ulices 20, intact, pressure area/reddened left leg/penis Current %PO Good (75-100%) Estimated Nutritional Goals BEE in Kcals: Adj wt of IBW Calories/Kcals/Kg using CBW 69.5kg Kcals Calculated 0628-2128 kcal/day Protein: Adj wt of IBW Protein g/k gm/kg Protein Calculated ~70gm/day Fluid: ml 0756-2706 ml/day Nutritional Problem 1. Problem Problem No nutrition diagnosis at this time Intervention/Recommendation Comments 1. Continue cardiac diet as tolerated by patient Expected Outcomes/Goals Expected Outcomes/Goals Oral intake >75% of meals, weight stable, nutrition related labs WNL F/U LR 05/26
--- NOTE | 2018-05-21 13:50 | Internal Medicine Prog Note ---
Internal Medicine Subjective - Subjective Service Date: 05/21/18 Patient seen and examined:: with staff Patient is:: awake, verbal, other (on treatment for foreskin penile infection.) Patient Complaints of:: pain with urination, other (Penile pain with infection.) Per staff patient has:: no adverse event, no episodes of fall Internal Medicine Objective - Results Result Diagrams: 05/21/18 04:27 05/21/18 04:27 Recent Labs: Laboratory Last Values WBC 3.3 Th/cmm (4.8-10.8) L 05/21/18 04:27 RBC 3.06 Mil/cmm (3.80-5.80) L 05/21/18 04:27 Hgb 8.6 gm/dL (12-16) L 05/21/18 04:27 Hct 25.8 % (41.0-60) L 05/21/18 04:27 MCV 84.5 fl (80-99) 05/21/18 04:27 MCH 28.0 pg (27.0-31.0) 05/21/18 04:27 MCHC Differential 33.2 pg (28.0-36.0) 05/21/18 04:27 RDW 16.5 % (11.5-20.0) 05/21/18 04:27 Plt Count 259 Th/cmm (150-400) 05/21/18 04:27 MPV 7.5 fl 05/21/18 04:27 Neutrophils % 46.2 % (40.0-80.0) 05/21/18 04:27 Lymphocytes % 33.0 % (20.0-50.0) 05/21/18 04:27 Monocytes % 13.8 % (2.0-10.0) H 05/21/18 04:27 Eosinophils % 5.8 % (0.0-5.0) H 05/21/18 04:27 Basophils % 1.2 % (0.0-2.0) 05/21/18 04:27 PT 13.0 SECONDS (9.5-11.5) H 05/21/18 04:27 INR 1.26 (0.5-1.4) 05/21/18 04:27 PTT (Actin FS) 31.0 SECONDS (26.0-38.0) 05/21/18 04:27 Sodium 134 mEq/L (136-145) L 05/21/18 04:27 Potassium 3.8 mEq/L (3.5-5.1) 05/21/18 04:27 Chloride 103 mEq/L (98-107) 05/21/18 04:27 Carbon Dioxide 25.0 mEq/L (21.0-31.0) 05/21/18 04:27 Anion Gap 9.8 (7.0-16.0) 05/21/18 04:27 BUN 17 mg/dL (7-25) 05/21/18 04:27 Creatinine 0.8 mg/dL (0.7-1.3) 05/21/18 04:27 Est GFR ( Amer) > 60.0 ml/min (>90) 05/21/18 04:27 Est GFR (Non-Af Amer) > 60.0 ml/min 05/21/18 04:27 BUN/Creatinine Ratio 21.3 05/21/18 04:27 Glucose 86 mg/dL (70-105) 05/21/18 04:27 POC Glucose 79 MG/DL (70 - 105) 05/21/18 06:28 Calcium 9.2 mg/dL (8.6-10.3) 05/21/18 04:27 Vancomycin Trough 10.6 ug/mL (5-10) H 05/18/18 21:56 - Physical Exam Vitals and I&O: Vital Signs Temp 97.0 F 05/21/18 12:06 Pulse 91 05/21/18 12:06 Resp 19 05/21/18 12:06 BP 133/78 05/21/18 12:06 Pulse Ox 98 05/21/18 12:06 Intake & Output 05/20/18 05/21/18 05/21/18 18:59 06:59 18:59 Intake Total 850 850 450 Balance 850 850 450 Weight (lbs) 85.275 kg 85.275 kg Intake: Intake, IV Amount 350 350 450 Piperacillin Sodium/ 100 100 200 Tazobact 4.5 gm In Sodium Chloride 0.9% 100 ml @ 100 mls/hr IV Q8H [facility] Rx# :[id number] Vancomycin HCl 1.25 gm In 250 250 250 Sodium Chloride 0.9% 250 ml @ 165 mls/hr IV Q12H [facility] Rx#:[id number] Oral 500 500 Other: # Voids 3 3 # Bowel Movements 1 Stool Characteristics Soft Soft Formed Formed Weight Source Bedscale Bedscale Active Medications: Current Medications Acetaminophen (Tylenol) 650 mg PO Q6HR PRN PRN Reason: Pain (Mild) Stop: 07/16/18 22:59 Ascorbic Acid (Vitamin C) 500 mg PO DAILY [facility] Stop: 07/17/18 08:59 Last Admin: 05/21/18 08:11 Dose: Not Given Betamethasone Dipropionate (Betamethasone Dip 0.05% Cream) 1 appl TP BID [facility] Stop: 07/17/18 16:59 Last Admin: 05/20/18 16:23 Dose: 1 appl Ferrous Sulfate (Iron) 325 mg PO DAILY [facility] Stop: 07/17/18 08:59 Last Admin: 05/21/18 08:11 Dose: Not Given Furosemide (Lasix) 40 mg IVP DAILY [facility] Stop: 07/16/18 08:59 Last Admin: 05/21/18 09:22 Dose: 40 mg Piperacillin Sod/Tazobactam (Sod 4.5 gm/ Sodium Chloride) 100 mls @ 100 mls/hr IV Q8H [facility] Stop: 07/16/18 11:59 Last Infusion: 05/21/18 13:08 Dose: Infused Vancomycin HCl 1.25 gm/ Sodium (Chloride) 250 mls @ 165 mls/hr IV Q12H [facility] Stop: 07/18/18 08:59 Last Infusion: 05/21/18 10:53 Dose: Infused Lorazepam (Ativan) 0.5 mg PO Q6HR PRN; Protocol PRN Reason: AGITATION Stop: 07/16/18 22:47 Magnesium Hydroxide (Milk Of Magnesia) 30 ml PO HS PRN PRN Reason: Constipation Stop: 07/16/18 22:47 Metoprolol Tartrate (Lopressor) 25 mg PO BID [facility] Stop: 07/17/18 08:59 Last Admin: 05/21/18 08:12 Dose: Not Given Morphine Sulfate (Morphine) 1 mg IVP Q4HR PRN PRN Reason: Pain (Moderate) Stop: 07/15/18 22:42 Last Admin: 05/21/18 12:15 Dose: 1 mg Pantoprazole Sodium (Protonix) 40 mg PO DAILY@0730 [facility] Stop: 07/17/18 07:29 Last Admin: 05/21/18 07:02 Dose: Not Given Quetiapine Fumarate (Seroquel) 50 mg PO BID [facility]; Protocol Stop: 07/16/18 08:59 Last Admin: 05/21/18 08:12 Dose: Not Given Quetiapine Fumarate (Seroquel) 37.5 mg PO Q12H [facility]; Protocol Stop: 07/16/18 22:59 Quetiapine Fumarate (Seroquel) 125 mg PO BID [facility]; Protocol Stop: 07/17/18 08:59 Temazepam (Restoril) 15 mg PO HS PRN; Protocol PRN Reason: Insomnia Stop: 07/15/18 23:49 Last Admin: 05/20/18 21:11 Dose: 15 mg Tramadol HCl (Ultram) 50 mg PO Q8H PRN PRN Reason: Pain (Moderate) Stop: 07/16/18 22:47 Last Admin: 05/20/18 03:00 Dose: 50 mg Zolpidem Tartrate (Ambien) 5 mg PO HS PRN PRN Reason: Insomnia Stop: 07/16/18 22:47 Physical Exam: 67 y/o male patient c/o penile pain due to penile infection, he was advised to have a Circumcision and he refused. Patient will continue present treatment plan as ordered. General: other (c/o penile pain.) HEENT: NC/AT Neck: Supple, No JVD Lungs: CTAB Cardiovascular: RRR, Normal S1 Abdomen: soft, non-tender Extremities: clear Neurological: no change Internal Medicine Assmt/Plan - Assessment Assessment: Worsening bilateral lower extremity edema penile pain with infection/Phimosis non-compliant htn hx hep c - Plan Plan: id consult elevate ble scrotal us as per orders sheet Nutritional Asmnt/Malnutr-PDOC - Dietary Evaluation Malnutrition Findings (Please click <Entered> for more info): Nutritional Asmnt/Malnutrition Start: 05/19/18 11: 20 Text: Status: Complete Freq: Protocol: Document 05/19/18 11:20 [email or web address] (Rec: 05/19/18 11:31 MMIDANIA ROYAL- [email or web address]) Nutritional Asmnt/Malnutrition Patient General Information Nutritional Screening Moderate Risk Diagnosis Penile infection Pertinent Medical Hx/Surgical Hx HTN, hep C, chronic edema Subjective Information Patient walking around unit at time of visit. He is tolerating current diet order with adequate intake. Current Diet Order/ Nutrition Support Cardiac Patient / S.O Not Indicated Pertinent Medications vitamin C, iron, lasix, MOM, theragran, protonix, abx Pertinent Labs (05/17)WNL Nutritional Hx/Data Height 1.68 m Height (Calculated Centimeters) 167.6 Current Weight (lbs) 84.368 kg Weight (Calculated Kilograms) 84.4 Weight (Calculated Grams) 91966.2 [place] Body Weight 142 % [place] Body Weight 130 Body Mass Index (BMI) 29.9 Recent Weight Change No Weight Status Obese GI Symptoms GI Symptoms None Last BM 05/18 x 1 Difficult in: None Food Allergies No Cultural/Ethnic/Restoration Belief none indicated Usual diet at home unknown Skin Integrity/Comment: Ulices 20, intact, pressure area/reddened left leg/penis Current %PO Good (75-100%) Estimated Nutritional Goals BEE in Kcals: Adj wt of IBW Calories/Kcals/Kg using CBW 69.5kg Kcals Calculated 9808-7108 kcal/day Protein: Adj wt of IBW Protein g/k gm/kg Protein Calculated ~70gm/day Fluid: ml 7378-2765 ml/day Nutritional Problem 1. Problem Problem No nutrition diagnosis at this time Intervention/Recommendation Comments 1. Continue cardiac diet as tolerated by patient Expected Outcomes/Goals Expected Outcomes/Goals Oral intake >75% of meals, weight stable, nutrition related labs WNL F/U LR 05/26
--- NOTE | 2018-05-21 20:48 | Progress Notes ---
DATE: 05/20/2018 INFECTIOUS DISEASE PROGRESS NOTE SUBJECTIVE: The patient is lying in the bed, not in acute distress. He has no change. He still has pain in the penile area. OBJECTIVE: CURRENT VITAL SIGNS: Show temperature is 97.8 degrees Fahrenheit, pulse is 69, respirations 18, blood pressure 105/65. GENERAL: The patient is comfortable, lying in the bed, not in acute distress. HEENT: Head is normocephalic, atraumatic. Oral cavity moist. [place] tongue. NECK: Supple. No JVD. No carotid bruits. Trachea in midline. CHEST: Bilateral breath sounds. No crackles or wheezing. HEART: S1 and S2 within normal limits. Regular rhythm. No murmur. No gallop. ABDOMEN: Soft, nontender, nondistended. Bowel sounds present. GENITOURINARY: The patient is unable to retract his foreskin to full extent. He has pain while retracting and multiple scars on the foreskin. EXTREMITIES: No cyanosis. No clubbing. No edema. NEUROLOGIC: Alert, awake, oriented x 3. No focal deficit. LABORATORY DATA: Current lab shows WBC count is 3300, hemoglobin 8.6, hematocrit 25.8, platelets are 259,000. INR 1.26. Sodium 134, potassium 3.8, chloride 103, bicarbonate is 25, BUN is 17, creatinine 0.8, glucose is 86. PLAN: Continue vancomycin and Zosyn. The patient needs circumcision. The patient will decide. JOB# [id number]
--- NOTE | 2018-05-21 23:42 | Progress Notes ---
DATE: SUBJECTIVE: Chart reviewed and the patient interviewed. Also discussed the patient's condition with the staff and reviewed records and labs. The patient is still complaining of pain on his feet and the preoccupied with his feet. Also, is still feeling hopeless and helpless. Also, interacting minimally with others. Otherwise, placement is still an issue. The patient also is compliant with taking her medications and no side effects of Seroquel. ASSESSMENT: The patient is calmer and waiting for placement. TREATMENT PLAN: Continue to monitor behavior and his condition closely. Also, continue to work on ineffective coping. JOB# [id number]
--- NOTE | 2018-05-22 00:51 | Progress Notes ---
DATE: UROLOGY FOLLOWUP SUBJECTIVE: The patient continues to have dysuria and pain in that area on the foreskin, but no fever or other complaints. Ultimately, we got hold of his brother and got the consent signed today and therefore the procedure had to be delayed until tomorrow. PHYSICAL EXAMINATION: On exam, VITAL SIGNS: Temperature 97.4, heart rate 84, blood pressure 119/75, saturating 97% on room air. ABDOMEN: Soft, nontender and nondistended. Bladder not palpable. Penis foreskin remains phimotic. Pain and swelling is less from the hydrocortisone application. EXTREMITIES: No edema. HEART AND LUNG: Sounds normal. LABORATORY DATA: White count 3.3, hemoglobin 8.6. Both are low, but stable, platelets 259. PT and PTT were normal. Sodium 134. Potassium, chloride and CO2 are normal. BUN 17, creatinine 0.8. IMPRESSION: 1. Phimosis and balanoposthitis possibility of underlying malignancy. Awaiting circumcision, now scheduled for tomorrow. The patient's brother has been updated and given all the information about the procedure, risks and options. 2. Schizoaffective disorder, remains the same. 3. History of hepatitis, currently stable. 4. Hypertension, now controlled on medications. Recommend n.p.o. after midnight. JOB# [id number]
[2018-05-22] MEDS: Morphine Sulfate 2 mg/mL 1mL Syr IVP PRN (01:08)
[2018-05-22] MEDS: Pantoprazole 40 mg EC Tab PO SCH (08:36)
[2018-05-22] MEDS: Ferrous Sulfate 325 MG TAB PO SCH (08:36)
[2018-05-22] MEDS: Multivitamin w/ Minerals Tab PO SCH (08:37)
[2018-05-22] MEDS ORDERED: Bacitracin pkt 1 gm Pkt TP ONE (09:30)
[2018-05-22] MEDS ORDERED: fentaNYL Citrate 100 mcg/2mL Vial ONE (09:58)
[2018-05-22] MEDS ORDERED: Propofol **SURGERY USE ONLY** 20 ML IV ONE (10:16)
[2018-05-22] MEDS ORDERED: Neostigmine 10mg/10mL Vial ONE (10:16)
[2018-05-22] MEDS ORDERED: Meperidine 25 mg/mL 1mL Syr ONE (11:19)
--- NOTE | 2018-05-22 12:44 | Infectious Disease Prog Note ---
Infectious Disease Subjective - Review of Systems Service Date: 05/22/18 Subjective: there is no new change, no fever, Circumcision performed today. Infectious Disease Objective - Results Result Diagrams: 05/21/18 04:27 05/21/18 04:27 Recent Labs: Laboratory Last Values WBC 3.3 Th/cmm (4.8-10.8) L 05/21/18 04:27 RBC 3.06 Mil/cmm (3.80-5.80) L 05/21/18 04:27 Hgb 8.6 gm/dL (12-16) L 05/21/18 04:27 Hct 25.8 % (41.0-60) L 05/21/18 04:27 MCV 84.5 fl (80-99) 05/21/18 04:27 MCH 28.0 pg (27.0-31.0) 05/21/18 04:27 MCHC Differential 33.2 pg (28.0-36.0) 05/21/18 04:27 RDW 16.5 % (11.5-20.0) 05/21/18 04:27 Plt Count 259 Th/cmm (150-400) 05/21/18 04:27 MPV 7.5 fl 05/21/18 04:27 Neutrophils % 46.2 % (40.0-80.0) 05/21/18 04:27 Lymphocytes % 33.0 % (20.0-50.0) 05/21/18 04:27 Monocytes % 13.8 % (2.0-10.0) H 05/21/18 04:27 Eosinophils % 5.8 % (0.0-5.0) H 05/21/18 04:27 Basophils % 1.2 % (0.0-2.0) 05/21/18 04:27 PT 13.0 SECONDS (9.5-11.5) H 05/21/18 04:27 INR 1.26 (0.5-1.4) 05/21/18 04:27 PTT (Actin FS) 31.0 SECONDS (26.0-38.0) 05/21/18 04:27 Sodium 134 mEq/L (136-145) L 05/21/18 04:27 Potassium 3.8 mEq/L (3.5-5.1) 05/21/18 04:27 Chloride 103 mEq/L (98-107) 05/21/18 04:27 Carbon Dioxide 25.0 mEq/L (21.0-31.0) 05/21/18 04:27 Anion Gap 9.8 (7.0-16.0) 05/21/18 04:27 BUN 17 mg/dL (7-25) 05/21/18 04:27 Creatinine 0.8 mg/dL (0.7-1.3) 05/21/18 04:27 Est GFR ( Amer) > 60.0 ml/min (>90) 05/21/18 04:27 Est GFR (Non-Af Amer) > 60.0 ml/min 05/21/18 04:27 BUN/Creatinine Ratio 21.3 05/21/18 04:27 Glucose 86 mg/dL (70-105) 05/21/18 04:27 POC Glucose 90 MG/DL (70 - 105) 05/22/18 08:39 Calcium 9.2 mg/dL (8.6-10.3) 05/21/18 04:27 Vancomycin Trough 12.2 ug/mL (5-10) H 05/22/18 07:55 - Physical Exam Vitals and I&O: Vital Signs Temp 96.4 F 05/22/18 12:09 Pulse 94 05/22/18 12:09 Resp 19 05/22/18 12:09 BP 126/78 05/22/18 12:09 Pulse Ox 98 05/22/18 12:09 Intake & Output 05/21/18 05/22/18 05/22/18 18:59 06:59 18:59 Intake Total 2250 350 250 Balance 2250 350 250 Weight (lbs) 85.275 kg 85.275 kg Intake: Intake, IV Amount 450 350 250 Piperacillin Sodium/ 200 100 Tazobact 4.5 gm In Sodium Chloride 0.9% 100 ml @ 100 mls/hr IV Q8H KRISTEN Rx# :[id number] Vancomycin HCl 1.25 gm In 250 250 250 Sodium Chloride 0.9% 250 ml @ 165 mls/hr IV Q12H KRISTEN Rx#:[id number] Oral 1800 Other: # Voids 4 # Bowel Movements 2 Stool Characteristics Soft Formed Weight Source Bedscale Bedscale Active Medications: Current Medications Acetaminophen (Tylenol) 650 mg PO Q6HR PRN PRN Reason: Pain (Mild) Stop: 07/16/18 22:59 Ascorbic Acid (Vitamin C) 500 mg PO DAILY [facility] Stop: 07/17/18 08:59 Last Admin: 05/22/18 08:36 Dose: Not Given Betamethasone Dipropionate (Betamethasone Dip 0.05% Cream) 1 appl TP BID [facility] Stop: 07/17/18 16:59 Last Admin: 05/21/18 17:01 Dose: 1 appl Ferrous Sulfate (Iron) 325 mg PO DAILY [facility] Stop: 07/17/18 08:59 Last Admin: 05/22/18 08:36 Dose: Not Given Furosemide (Lasix) 40 mg IVP DAILY [facility] Stop: 07/16/18 08:59 Last Admin: 05/22/18 12:39 Dose: Not Given Vancomycin HCl 1.25 gm/ Sodium (Chloride) 250 mls @ 165 mls/hr IV Q12H [facility] Stop: 07/18/18 08:59 Last Infusion: 05/22/18 10:10 Dose: Infused Lorazepam (Ativan) 0.5 mg PO Q6HR PRN; Protocol PRN Reason: AGITATION Stop: 07/16/18 22:47 Magnesium Hydroxide (Milk Of Magnesia) 30 ml PO HS PRN PRN Reason: Constipation Stop: 07/16/18 22:47 Metoprolol Tartrate (Lopressor) 25 mg PO BID [facility] Stop: 07/17/18 08:59 Last Admin: 05/22/18 08:36 Dose: Not Given Morphine Sulfate (Morphine) 1 mg IVP Q4HR PRN PRN Reason: Pain (Moderate) Stop: 07/15/18 22:42 Last Admin: 05/22/18 01:08 Dose: 1 mg Pantoprazole Sodium (Protonix) 40 mg PO DAILY@0730 [facility] Stop: 07/17/18 07:29 Last Admin: 05/22/18 08:36 Dose: Not Given Quetiapine Fumarate (Seroquel) 50 mg PO BID [facility]; Protocol Stop: 07/16/18 08:59 Last Admin: 05/22/18 08:37 Dose: Not Given Temazepam (Restoril) 15 mg PO HS PRN; Protocol PRN Reason: Insomnia Stop: 07/15/18 23:49 Last Admin: 05/20/18 21:11 Dose: 15 mg Tramadol HCl (Ultram) 50 mg PO Q8H PRN PRN Reason: Pain (Moderate) Stop: 07/16/18 22:47 Last Admin: 05/20/18 03:00 Dose: 50 mg Zolpidem Tartrate (Ambien) 5 mg PO HS PRN PRN Reason: Insomnia Stop: 07/16/18 22:47 Last Admin: 05/21/18 20:30 Dose: 5 mg General: no acute distress, well developed, well nourished HEENT: atraumatic, normocephalic, PERRLA, EOMI Neck: supple, no thyromegaly Cardiovascular: S1S2, regular Lungs: clear to auscultation bilaterally, clear to percussion Abdomen: soft, no tender, no distended, no mass, no hepatomegaly Extremities: no cyanosis, no clubbing Neurological: awake, alert, oriented Infectious Disease Assmt/Plan - Assessment Assessment: 1. Penile infection, balanitis. 2. Paraphimosis. 3. Hypertension. 4. Hepatitis C. 5. Chronic leg edema. 6. s/p circumcision. - Plan Plan: continue vanco and zosyn. Will change antibiotic to diflucan, and levaquin po for 7 days. Follow up with me in one week on Monday. Nutritional Asmnt/Malnutr-PDOC - Dietary Evaluation Malnutrition Findings (Please click <Entered> for more info): Nutritional Asmnt/Malnutrition Start: 05/19/18 11: 20 Text: Status: Complete Freq: Protocol: Document 05/19/18 11:20 KATELYNN (Rec: 05/19/18 11:31 MMIDANIA ROYAL- [email or web address]) Nutritional Asmnt/Malnutrition Patient General Information Nutritional Screening Moderate Risk Diagnosis Penile infection Pertinent Medical Hx/Surgical Hx HTN, hep C, chronic edema Subjective Information Patient walking around unit at time of visit. He is tolerating current diet order with adequate intake. Current Diet Order/ Nutrition Support Cardiac Patient / S.O Not Indicated Pertinent Medications vitamin C, iron, lasix, MOM, theragran, protonix, abx Pertinent Labs (05/17)WNL Nutritional Hx/Data Height 1.68 m Height (Calculated Centimeters) 167.6 Current Weight (lbs) 84.368 kg Weight (Calculated Kilograms) 84.4 Weight (Calculated Grams) 22509.2 [place] Body Weight 142 % [place] Body Weight 130 Body Mass Index (BMI) 29.9 Recent Weight Change No Weight Status Obese GI Symptoms GI Symptoms None Last BM 05/18 x 1 Difficult in: None Food Allergies No Cultural/Ethnic/Mandaeism Belief none indicated Usual diet at home unknown Skin Integrity/Comment: Ulices 20, intact, pressure area/reddened left leg/penis Current %PO Good (75-100%) Estimated Nutritional Goals BEE in Kcals: Adj wt of IBW Calories/Kcals/Kg using CBW 69.5kg Kcals Calculated 9255-7588 kcal/day Protein: Adj wt of IBW Protein g/k gm/kg Protein Calculated ~70gm/day Fluid: ml 7381-2286 ml/day Nutritional Problem 1. Problem Problem No nutrition diagnosis at this time Intervention/Recommendation Comments 1. Continue cardiac diet as tolerated by patient Expected Outcomes/Goals Expected Outcomes/Goals Oral intake >75% of meals, weight stable, nutrition related labs WNL F/U LR 05/26
--- NOTE | 2018-05-22 15:20 | Operative Report ---
DATE OF SURGERY: 05/22/2018 PREOPERATIVE DIAGNOSES: Phimosis and balanoposthitis. POSTOPERATIVE DIAGNOSES: Phimosis and balanoposthitis. SURGEON: Jenna Pendleton M.D. NAME OF PROCEDURE: Circumcision under general anesthesia. INDICATION: The patient is a 67-year-old with significant pain and difficulty with the foreskin and some nodules under the foreskin that could not be exposed and examined. After initiating local conservative treatment, a circumcision was recommended to rule out malignancy. Additionally, the foreskin was not responding to the steroid creams. FINDINGS: The foreskin had a lot of discharge and collection and smegma that were causing the nodules and the very abnormal appearance locally. Fortunately, there was no evidence of any malignancy. Circumcision was accomplished without difficulty or any measurable blood loss. There were no complications. DESCRIPTION OF PROCEDURE: The patient was brought to the operating room, prepped and draped in supine position after general anesthesia was induced. The circumcision incision was marked with a marking pencil on the penis and a sharp incision was made around the coronal sulcus after which the foreskin was retracted and transected in the midline and a second circumferential incision was made around the coronal sulcus in the usual manner. The skin between these two incisions was then excised and the bleeding points were fulgurated. The two cut edges were then approximated. After confirming adequate hemostasis with interrupted 3-0 Vicryls and interrupted 3-0 chromic sutures, several of them were mattress and others were simple ligatures. An adequate satisfactory result was obtained. Sterile dressing was applied to complete the procedure. He was returned to recovery in stable condition with blood loss about 10-15 mL. He had no complications. JOB# [id number]
--- NOTE | 2018-05-22 17:02 | Internal Medicine Prog Note ---
Internal Medicine Subjective - Subjective Service Date: 05/22/18 Patient is:: awake, verbal, other (on treatment for foreskin penile infection.) Patient Complaints of:: pain with urination, other (Penile pain with infection.) Per staff patient has:: no adverse event, no episodes of fall Internal Medicine Objective - Results Result Diagrams: 05/21/18 04:27 05/21/18 04:27 Recent Labs: Laboratory Last Values WBC 3.3 Th/cmm (4.8-10.8) L 05/21/18 04:27 RBC 3.06 Mil/cmm (3.80-5.80) L 05/21/18 04:27 Hgb 8.6 gm/dL (12-16) L 05/21/18 04:27 Hct 25.8 % (41.0-60) L 05/21/18 04:27 MCV 84.5 fl (80-99) 05/21/18 04:27 MCH 28.0 pg (27.0-31.0) 05/21/18 04:27 MCHC Differential 33.2 pg (28.0-36.0) 05/21/18 04:27 RDW 16.5 % (11.5-20.0) 05/21/18 04:27 Plt Count 259 Th/cmm (150-400) 05/21/18 04:27 MPV 7.5 fl 05/21/18 04:27 Neutrophils % 46.2 % (40.0-80.0) 05/21/18 04:27 Lymphocytes % 33.0 % (20.0-50.0) 05/21/18 04:27 Monocytes % 13.8 % (2.0-10.0) H 05/21/18 04:27 Eosinophils % 5.8 % (0.0-5.0) H 05/21/18 04:27 Basophils % 1.2 % (0.0-2.0) 05/21/18 04:27 PT 13.0 SECONDS (9.5-11.5) H 05/21/18 04:27 INR 1.26 (0.5-1.4) 05/21/18 04:27 PTT (Actin FS) 31.0 SECONDS (26.0-38.0) 05/21/18 04:27 Sodium 134 mEq/L (136-145) L 05/21/18 04:27 Potassium 3.8 mEq/L (3.5-5.1) 05/21/18 04:27 Chloride 103 mEq/L (98-107) 05/21/18 04:27 Carbon Dioxide 25.0 mEq/L (21.0-31.0) 05/21/18 04:27 Anion Gap 9.8 (7.0-16.0) 05/21/18 04:27 BUN 17 mg/dL (7-25) 05/21/18 04:27 Creatinine 0.8 mg/dL (0.7-1.3) 05/21/18 04:27 Est GFR ( Amer) > 60.0 ml/min (>90) 05/21/18 04:27 Est GFR (Non-Af Amer) > 60.0 ml/min 05/21/18 04:27 BUN/Creatinine Ratio 21.3 05/21/18 04:27 Glucose 86 mg/dL (70-105) 05/21/18 04:27 POC Glucose 90 MG/DL (70 - 105) 05/22/18 08:39 Calcium 9.2 mg/dL (8.6-10.3) 05/21/18 04:27 Vancomycin Trough 12.2 ug/mL (5-10) H 05/22/18 07:55 - Physical Exam Vitals and I&O: Vital Signs Temp 96.7 F 05/22/18 15:31 Pulse 85 05/22/18 17:00 Resp 20 05/22/18 15:31 BP 136/85 05/22/18 17:00 Pulse Ox 98 05/22/18 15:31 Intake & Output 05/21/18 05/22/18 05/22/18 18:59 06:59 18:59 Intake Total 2250 350 250 Balance 2250 350 250 Weight (lbs) 188 lb 188 lb Intake: Intake, IV Amount 450 350 250 Piperacillin Sodium/ 200 100 Tazobact 4.5 gm In Sodium Chloride 0.9% 100 ml @ 100 mls/hr IV Q8H [facility] Rx# :[id number] Vancomycin HCl 1.25 gm In 250 250 250 Sodium Chloride 0.9% 250 ml @ 165 mls/hr IV Q12H [facility] Rx#:[id number] Oral 1800 Other: # Voids 4 # Bowel Movements 2 Stool Characteristics Soft Formed Weight Source Bedscale Bedscale Active Medications: Current Medications Acetaminophen (Tylenol) 650 mg PO Q6HR PRN PRN Reason: Pain (Mild) Stop: 07/16/18 22:59 Ascorbic Acid (Vitamin C) 500 mg PO DAILY [facility] Stop: 07/17/18 08:59 Last Admin: 05/22/18 08:36 Dose: Not Given Betamethasone Dipropionate (Betamethasone Dip 0.05% Cream) 1 appl TP BID [facility] Stop: 07/17/18 16:59 Last Admin: 05/22/18 15:19 Dose: Not Given Ferrous Sulfate (Iron) 325 mg PO DAILY [facility] Stop: 07/17/18 08:59 Last Admin: 05/22/18 08:36 Dose: Not Given Furosemide (Lasix) 40 mg IVP DAILY [facility] Stop: 07/16/18 08:59 Last Admin: 05/22/18 12:39 Dose: Not Given Vancomycin HCl 1.25 gm/ Sodium (Chloride) 250 mls @ 165 mls/hr IV Q12H [facility] Stop: 07/18/18 08:59 Last Infusion: 05/22/18 10:10 Dose: Infused Lorazepam (Ativan) 0.5 mg PO Q6HR PRN; Protocol PRN Reason: AGITATION Stop: 07/16/18 22:47 Magnesium Hydroxide (Milk Of Magnesia) 30 ml PO HS PRN PRN Reason: Constipation Stop: 07/16/18 22:47 Metoprolol Tartrate (Lopressor) 25 mg PO BID [facility] Stop: 07/17/18 08:59 Last Admin: 05/22/18 17:00 Dose: 25 mg Morphine Sulfate (Morphine) 1 mg IVP Q4HR PRN PRN Reason: Pain (Moderate) Stop: 07/15/18 22:42 Last Admin: 05/22/18 01:08 Dose: 1 mg Pantoprazole Sodium (Protonix) 40 mg PO DAILY@0730 [facility] Stop: 07/17/18 07:29 Last Admin: 05/22/18 08:36 Dose: Not Given Quetiapine Fumarate (Seroquel) 50 mg PO BID [facility]; Protocol Stop: 07/16/18 08:59 Last Admin: 05/22/18 17:00 Dose: 50 mg Temazepam (Restoril) 15 mg PO HS PRN; Protocol PRN Reason: Insomnia Stop: 07/15/18 23:49 Last Admin: 05/20/18 21:11 Dose: 15 mg Tramadol HCl (Ultram) 50 mg PO Q8H PRN PRN Reason: Pain (Moderate) Stop: 07/16/18 22:47 Last Admin: 05/20/18 03:00 Dose: 50 mg Zolpidem Tartrate (Ambien) 5 mg PO HS PRN PRN Reason: Insomnia Stop: 07/16/18 22:47 Last Admin: 05/21/18 20:30 Dose: 5 mg General: other (c/o penile pain.) HEENT: NC/AT Neck: Supple, No JVD Lungs: CTAB Cardiovascular: RRR, Normal S1 Abdomen: soft, non-tender Extremities: clear Neurological: no change Internal Medicine Assmt/Plan - Assessment Assessment: phimsis and balanoposthitis s/p circumcision Worsening bilateral lower extremity edema non-compliant htn hx hep c - Plan Plan: ivabx as per id smoking cessation am labs continue current plan of care Nutritional Asmnt/Malnutr-PDOC - Dietary Evaluation Malnutrition Findings (Please click <Entered> for more info): Nutritional Asmnt/Malnutrition Start: 05/19/18 11: 20 Text: Status: Complete Freq: Protocol: Document 05/19/18 11:20 KATELYNN (Rec: 05/19/18 11:31 MMIDANIA ROYAL- [email or web address]) Nutritional Asmnt/Malnutrition Patient General Information Nutritional Screening Moderate Risk Diagnosis Penile infection Pertinent Medical Hx/Surgical Hx HTN, hep C, chronic edema Subjective Information Patient walking around unit at time of visit. He is tolerating current diet order with adequate intake. Current Diet Order/ Nutrition Support Cardiac Patient / S.O Not Indicated Pertinent Medications vitamin C, iron, lasix, MOM, theragran, protonix, abx Pertinent Labs (05/17)WNL Nutritional Hx/Data Height 5 ft 6 in Height (Calculated Centimeters) 167.6 Current Weight (lbs) 186 lb Weight (Calculated Kilograms) 84.4 Weight (Calculated Grams) 23698.2 [place] Body Weight 142 % [place] Body Weight 130 Body Mass Index (BMI) 29.9 Recent Weight Change No Weight Status Obese GI Symptoms GI Symptoms None Last BM 05/18 x 1 Difficult in: None Food Allergies No Cultural/Ethnic/Moravian Belief none indicated Usual diet at home unknown Skin Integrity/Comment: Ulices 20, intact, pressure area/reddened left leg/penis Current %PO Good (75-100%) Estimated Nutritional Goals BEE in Kcals: Adj wt of IBW Calories/Kcals/Kg using CBW 69.5kg Kcals Calculated 0059-5773 kcal/day Protein: Adj wt of IBW Protein g/k gm/kg Protein Calculated ~70gm/day Fluid: ml 2379-6457 ml/day Nutritional Problem 1. Problem Problem No nutrition diagnosis at this time Intervention/Recommendation Comments 1. Continue cardiac diet as tolerated by patient Expected Outcomes/Goals Expected Outcomes/Goals Oral intake >75% of meals, weight stable, nutrition related labs WNL F/U LR 05/26
--- NOTE | 2018-05-22 19:16 | Progress Notes ---
DATE: SUBJECTIVE: Chart reviewed and the patient interviewed. Also discussed the patient's condition with the staff and reviewed records and labs. The patient is still anxious and is still in irritable mood. The patient also is still preoccupied and talking about his desire for leaving the hospital, but at the same time, no place to go. He is still in angry and in irritable mood and he is still complaining about swelling in his feet. Otherwise, no major behavioral problems and no side effects of medications. ASSESSMENT: The patient still needs close monitoring. TREATMENT PLAN: Continue Seroquel same dose and continue to work on discharge plans and on placement issue. JOB# [id number]
--- NOTE | 2018-05-24 13:18 | Pathology Report ---
[id number] Collection Date: 05/22/2018 Surgeon: Dr. Kirsten Pendleton Specimen Description: Foreskin. Gross Description: Received in formalin is a 3.2 x 2.2 x 0.4 cm portion of wrinkled win-solorzano skin. Sectioning shows areas of fibrous thickening with no focal lesions identified. Electric [employer] sections are submitted in one cassette. Microscopic Description: The histologic sections show portions of benign skin with areas of chronic inflammation and fibrosis. Diagnosis: Chronic inflammation and fibrosis, consistent with a clinical impression of phimosis. [facility]# [id number]
== END 2018-05-22 20:30 | DRG 728 ==
LOC: MSI 21:43
PROVIDERS: ADMIT Internal Medicine; ATTEND Internal Medicine
PROC: 0VTTXZZ Resection of Prepuce, External Approach (ICD-10-PCS; principal; 2018-05-22)
DX: N47.1 Phimosis (principal); F29 Unspecified psychosis not due to a substance or known physiological condition; I10 Essential (primary) hypertension; N48.1 Balanitis; B19.20 Unspecified viral hepatitis C without hepatic coma; F41.9 Anxiety disorder, unspecified; F25.9 Schizoaffective disorder, unspecified; Z86.19 Personal history of other infectious and parasitic diseases
CPT/HCPCS: 36415-UA; 71045-TC; 80048-TC; 80202-TC; 82948-90; 85025-TC; 85610-TC; 93005; 96372; J1940; J2270; J2405; J2543; J2704; J2710; J3010; J3370; J7040; V2790; X6026; X6258; Z7610

== ENCOUNTER 2018-06-21 14:08 | Inpatient (IN) | payer MEDICARE, OTHER ==
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
[2018-06-21 14:41] LABS: EOSINOPHILE ABSOLUTE 0.1 Th/cmm (0.1-0.4); HEMATOCRIT 31.8 % (41.0-60); HEMOGLOBIN 10.4 gm/dL (12-16); LYMPHOCYTE ABSOLUTE 0.8 Th/cmm (1.5-3.0); MONOCYTE ABSOLUTE 0.3 Th/cmm (0.3-1.0)
[2018-06-21 14:43] LABS: % EOSINOPHILS 4.3 % (0.0-5.0); % LYMPHOCYTES 30.9 % (20.0-50.0); % MONOCYTES 12.3 % (2.0-10.0); % NEUTROPHILS 51.5 % (40.0-80.0); MEAN CELL VOLUME 86.7 fl (80-99); MEAN CORPUSCULAR HEMOGLOBIN 28.4 pg (27.0-31.0); MEAN CORPUSCULAR HGB CONC 32.8 pg (28.0-36.0); MEAN PLATELET VOLUME 7.7 fl; NEUTROPHILE ABSOLUTE 1.3 Th/cmm (1.8-8.0); PLATELET COUNT 173 Th/cmm (150-400); RED BLOOD COUNT 3.67 Mil/cmm (3.80-5.80); RED CELL DISTRIBUTION WIDTH 19.6 % (11.5-20.0)
[2018-06-21 14:46] LABS: WHITE BLOOD COUNT 2.5 Th/cmm (4.8-10.8)
[2018-06-21 15:03] LABS: URINE SOURCE RANDOM
[2018-06-21 15:06] LABS: ALB/GLOB RATIO 0.7 (1.0-1.8); ALBUMIN 3.2 gm/dL (4.2-5.5); ALKALINE PHOSPHATASE 127 U/L (34-104); ANION GAP 7.9 (7.0-16.0); BUN - UREA NITROGEN 16 mg/dL (7-25); CALCIUM SERUM 11.9 mg/dL (8.6-10.3); CARBON DIOXIDE 32.6 mEq/L (21.0-31.0); CHLORIDE 103 mEq/L (98-107); CREATININE - SERUM 0.8 mg/dL (0.7-1.3); GFR AFRICAN-AMERICAN > 60.0 ml/min (>90); GFR NON AFRICAN-AMERICAN > 60.0 ml/min; GLUCOSE 120 mg/dL (70-105); POTASSIUM SERUM 3.5 mEq/L (3.5-5.1); SGOT 112 U/L (13-39); SGPT/ALT 31 U/L (7-52); SODIUM SERUM 140 mEq/L (136-145); TOTAL PROTEIN,SERUM 8.1 gm/dL (6.0-8.3)
[2018-06-21 15:09] LABS: URINE BILIRUBIN NEGATIVE (NEGATIVE); URINE BLOOD NEGATIVE (NEGATIVE); URINE GLUCOSE (UA) NEGATIVE (NEGATIVE); URINE KETONE NEGATIVE (NEGATIVE); URINE LEUKOCYTE ESTERASE NEGATIVE (NEGATIVE); URINE NITRATE NEGATIVE (NEGATIVE); URINE PH 7.5 (4.6 - 8.0); URINE PROTEIN NEGATIVE (NEGATIVE)
[2018-06-21 15:22] LABS: URINE CLARITY CLEAR (CLEAR); URINE COLOR YELLOW; URINE MICROSCOPIC INDICATED? YES
[2018-06-21 15:23] LABS: URINE BACTERIA FEW /hpf (NONE SEEN); URINE EPITHELIAL CELLS NONE SEEN /lpf (FEW); URINE RBC NONE SEEN /hpf (0-5); URINE WBC 0-2 /hpf (0-5)
[2018-06-21] MEDS ORDERED: Morphine Sulfate 2 mg/mL 1mL Syr IV PRN ×2 (16:35)
--- NOTE | 2018-06-21 19:20 | History & Physical ---
ADMIT DATE: 06/21/2018 CHIEF COMPLAINT: Left lower leg increase in swelling. HISTORY OF PRESENT ILLNESS: This is a 67-year-old male who is a half-way resident, admitted to the Med/Surg unit due to 1-day history of worsening left lower leg swelling. The patient states that his pain worsened, for this reason the patient is admitted. PAST MEDICAL HISTORY: Hypertension, hepatitis B. FAMILY HISTORY: Noncontributory. SOCIAL HISTORY: The patient is a former smoker and alcoholic. The patient is a half-way resident. SURGICAL HISTORY: Left lower leg and left ankle and right shoulder surgery. MEDICATIONS: See medication list. FAMILY HISTORY: Noncontributory. REVIEW OF SYSTEMS: GENERAL: Denies any fever or chills. CARDIOVASCULAR: Denies any chest pain. RESPIRATORY: Denies shortness of breath. GASTROINTESTINAL: Denies nausea, vomiting, abdominal pain. GENITOURINARY: Denies any increased frequency. NEUROLOG: No headaches, syncope or seizures. All systems are reviewed and negative. PHYSICAL EXAMINATION: GENERAL: The patient is well developed, well nourished, in no apparent distress. VITAL SIGNS: Temperature 97.2, heart rate 56, blood pressure 134/79, respiration rate 19, O2 100%. HEENT: HEAD: Normocephalic, atraumatic. NECK: Supple. No mass. LUNGS: Clear bilaterally. ABDOMEN: Soft, nontender. EXTREMITIES: Left lower leg extremity noted with +3 edema. LABORATORY DATA: WBC 2.5, H and H 10.4 and 31.8, platelet of 173. Sodium 140, potassium 3.5, chloride 103, BUN 16, creatinine 0.8. ASSESSMENT: Left lower extremity cellulitis, hypertension, hepatitis B, anemia, moderate protein-calorie malnutrition. PLAN: The patient to be admitted to the Med/Surg unit. We will get bilateral lower extremity venous Doppler, will get Infectious Disease on the case, start the patient on Zosyn and vancomycin. We will get followup labs for tomorrow morning. We will continue to monitor this patient. JOB# [id number]
[2018-06-21] MEDS ORDERED: Maalox 30 mL Cup PO PRN (23:45)
[2018-06-22] MEDS: Pantoprazole 40 mg EC Tab PO SCH (06:32)
[2018-06-22 06:34] LABS: HEMATOCRIT 28.9 % (41.0-60); HEMOGLOBIN 9.7 gm/dL (12-16); MEAN CELL VOLUME 86.1 fl (80-99); MEAN CORPUSCULAR HEMOGLOBIN 28.9 pg (27.0-31.0); MEAN CORPUSCULAR HGB CONC 33.6 pg (28.0-36.0); MEAN PLATELET VOLUME 7.9 fl; PLATELET COUNT 170 Th/cmm (150-400); RED BLOOD COUNT 3.35 Mil/cmm (3.80-5.80); RED CELL DISTRIBUTION WIDTH 18.6 % (11.5-20.0)
[2018-06-22 07:05] LABS: ALB/GLOB RATIO 0.7 (1.0-1.8); ALBUMIN 2.8 gm/dL (4.2-5.5); ALKALINE PHOSPHATASE 101 U/L (34-104); ANION GAP 6.8 (7.0-16.0); BUN - UREA NITROGEN 16 mg/dL (7-25); CALCIUM SERUM 11.5 mg/dL (8.6-10.3); CARBON DIOXIDE 30.6 mEq/L (21.0-31.0); CHLORIDE 101 mEq/L (98-107); GFR AFRICAN-AMERICAN > 60.0 ml/min (>90); GFR NON AFRICAN-AMERICAN > 60.0 ml/min; GLUCOSE 84 mg/dL (70-105); POTASSIUM SERUM 3.4 mEq/L (3.5-5.1); SGOT 102 U/L (13-39); SGPT/ALT 27 U/L (7-52); SODIUM SERUM 135 mEq/L (136-145); TOTAL PROTEIN,SERUM 7.1 gm/dL (6.0-8.3)
[2018-06-22 07:07] LABS: WHITE BLOOD COUNT 2.7 Th/cmm (4.8-10.8)
--- NOTE | 2018-06-22 07:51 | Diagnostic Imaging Report ---
Left lower extremity DVT study HISTORY: Swelling and redness COMPARISON: None Technique: Longitudinal and transverse sonographic images of the left lower extremity veins were obtained with doppler analysis. FINDINGS: There is normal compressibility, augmentation and phasicity of the left common femoral, superficial femoral, popliteal, and posterior tibial veins. No thrombus is visualized. There is a oval-shaped 2.4 x 1.3 x 0.7 cm nodule of the left groin with central increased echogenicity. IMPRESSION: No evidence of thrombus within the left lower extremity veins. Oval-shaped 2.4 x 1.3 x 0.7 cm nodule of the groin with central increased echogenicity likely representing a lymph node. Findings are nonspecific and may be reactive. The Significance of this should be correlated clinically.
[2018-06-22] MEDS: Multivitamin w/ Minerals Tab PO SCH (08:29)
[2018-06-22] MEDS: Ferrous Sulfate 325 MG TAB PO SCH (08:30)
[2018-06-22 10:01] LABS: BAND NEUTROPHILE 0 % (0-10); LYMPHOCYTE 28 % (20-50); MONOCYTE 6 % (2-10); NEUTROPHILS 60 % (40-80)
[2018-06-22 10:02] LABS: BASOPHIL 0 % (0-3); EOSINOPHIL 6 % (0-5); PLATELET ESTIMATE ADEQUATE (NORMAL)
[2018-06-22] MEDS ORDERED: Potassium Chloride 20 mEq ER Tab PO ONE (11:03)
[2018-06-22] MEDS ORDERED: VTE Chemical Prophylaxis Screen/Admission MC PRN (12:47)
[2018-06-22] MEDS ORDERED: Probiotic Screen MC PRN (14:24)
[2018-06-22] MEDS: Heparin Sod 5,000Units/ML 5,000 UNITS/ML VIAL SUBQ SCH (20:05)
--- NOTE | 2018-06-23 02:45 | Consultation ---
DATE OF CONSULTATION: 06/22/2018 INFECTIOUS DISEASE CONSULTATION REFERRING PHYSICIAN: Dr. Hernandez. REASON FOR CONSULTATION: Left leg cellulitis. HISTORY OF PRESENT ILLNESS: The patient is a 67-year-old male with a past medical history of hypertension, hepatitis B, ORIF of left leg brought to the ER for worsening left lower leg swelling and pain. On initial evaluation, the patient's temperature was 97.2 degrees Fahrenheit and WBC count was 2500. The patient was started on vancomycin and Zosyn and ID consult called for further antibiotic management. PAST MEDICAL HISTORY: Includes hypertension, hepatitis B, ORIF of left leg. ALLERGIES: CODEINE AND IBUPROFEN. MEDICATIONS: See reconciliation sheet. Antibiotic rushing, the patient is on vancomycin and Zosyn. SOCIAL HISTORY: The patient has a history of smoking and alcohol in the past. Currently lives at nursing facility. FAMILY HISTORY: Noncontributory. PAST SURGICAL HISTORY: Left lower leg and left ankle surgery and right shoulder surgery. REVIEW OF SYSTEMS: GENERAL: The patient denies any fever or chills. The patient denies any generalized weakness. HEENT: No diplopia, no photophobia, no sore throat. RESPIRATORY: No cough, no shortness of breath. CVS: No chest pain or palpitation. GASTROINTESTINAL: No nausea, no vomiting, no diarrhea, no constipation. GENITOURINARY: No dysuria. NEUROLOGIC: No headache, no dizziness, no focal weakness. MUSCULOSKELETAL: The patient has swelling of the left leg with the surgical incision scar. PHYSICAL EXAMINATION: GENERAL: The patient is comfortable, lying in the bed, not in acute distress. CURRENT VITAL SIGNS: Shows temperature is 97.7 degrees Fahrenheit, pulse 80, respirations 18, and blood pressure 106/56. GENERAL: The patient is comfortable, lying in bed, in no acute distress. HEENT: Head is normocephalic, atraumatic. Oral cavity moist, pink tongue. NECK: Supple. No JVD. No carotid bruit. Trachea in midline. CHEST: Bilateral breath sounds. No crackles, no wheezing. HEART: S1, S2 within normal limits. Regular rhythm. No murmur, no gallop. ABDOMEN: Soft, nontender, nondistended. Bowel sounds present. EXTREMITIES: No cyanosis, no clubbing, no edema. The patient's left leg has surgical incision intact. No open wound. There is no swelling or erythema. NEUROLOGIC: Alert, awake, and oriented x 3. LABORATORY DATA: Current lab shows WBC 2700, hemoglobin 9.7, hematocrit 28.8, platelets are 170,000. Sodium 135, potassium 3.4, chloride 101, bicarbonate is 30, BUN is 16, creatinine 1, glucose is 84. Blood culture pending, no growth for 24 hours. IMPRESSION: 1. Left leg cellulitis. 2. Hepatitis B. 3. Hypertension. 4. Pancytopenia and leukopenia, most likely secondary to cirrhosis. RECOMMENDATIONS AND PLAN: We will continue Zosyn and discontinue vancomycin. Thank you, Dr. Hernandez for involving me in taking care of this patient. [facility]# [id number]
[2018-06-23] MEDS: Ferrous Sulfate 325 MG TAB PO SCH (08:30)
[2018-06-23] MEDS: Pantoprazole 40 mg EC Tab PO SCH (08:30)
[2018-06-23] MEDS: Multivitamin w/ Minerals Tab PO SCH (08:31)
[2018-06-23] MEDS: Heparin Sod 5,000Units/ML 5,000 UNITS/ML VIAL SUBQ SCH ×2 (08:32→20:31)
[2018-06-23 08:58] LABS: HEMOGLOBIN 9.8 gm/dL (12-16); MEAN CELL VOLUME 85.9 fl (80-99); MEAN CORPUSCULAR HEMOGLOBIN 28.1 pg (27.0-31.0); MEAN CORPUSCULAR HGB CONC 32.7 pg (28.0-36.0); PLATELET COUNT 146 Th/cmm (150-400); RED BLOOD COUNT 3.49 Mil/cmm (3.80-5.80)
[2018-06-23 09:00] LABS: ANION GAP 8.8 (7.0-16.0); BUN - UREA NITROGEN 21 mg/dL (7-25); CALCIUM SERUM 11.4 mg/dL (8.6-10.3); CARBON DIOXIDE 26.8 mEq/L (21.0-31.0); CHLORIDE 102 mEq/L (98-107); CREATININE - SERUM 1.1 mg/dL (0.7-1.3); GFR AFRICAN-AMERICAN > 60.0 ml/min (>90); GFR NON AFRICAN-AMERICAN > 60.0 ml/min; GLUCOSE 159 mg/dL (70-105); POTASSIUM SERUM 3.6 mEq/L (3.5-5.1); SODIUM SERUM 134 mEq/L (136-145)
[2018-06-23 09:05] LABS: WHITE BLOOD COUNT 2.4 Th/cmm (4.8-10.8)
[2018-06-23 11:14] LABS: BAND NEUTROPHILE 6 % (0-10); LYMPHOCYTE 29 % (20-50); NEUTROPHILS 50 % (40-80)
[2018-06-23 11:15] LABS: BASOPHIL 2 % (0-3); EOSINOPHIL 5 % (0-5); MONOCYTE 8 % (2-10)
[2018-06-23 11:16] LABS: PLATELET ESTIMATE ADEQUATE (NORMAL)
--- NOTE | 2018-06-23 11:40 | Internal Medicine Prog Note ---
Internal Medicine Subjective - Subjective Service Date: 06/23/18 Patient seen and examined:: with staff Patient is:: awake, talking Patient Complaints of:: other (left leg cellulitis.) Per staff patient has:: no adverse event, no episodes of fall Internal Medicine Objective - Results Result Diagrams: 06/23/18 08:36 06/23/18 08:36 Recent Labs: Laboratory Last Values WBC 2.4 Th/cmm (4.8-10.8) L* 06/23/18 08:36 RBC 3.49 Mil/cmm (3.80-5.80) L 06/23/18 08:36 Hgb 9.8 gm/dL (12-16) L 06/23/18 08:36 Hct 30.0 % (41.0-60) L 06/23/18 08:36 MCV 85.9 fl (80-99) 06/23/18 08:36 MCH 28.1 pg (27.0-31.0) 06/23/18 08:36 MCHC Differential 32.7 pg (28.0-36.0) 06/23/18 08:36 RDW 19.0 % (11.5-20.0) 06/23/18 08:36 Plt Count 146 Th/cmm (150-400) L 06/23/18 08:36 MPV 8.0 fl 06/23/18 08:36 Add Manual Diff YES 06/23/18 08:36 Neutrophils % TEST [employer] 06/22/18 05:30 Band Neutrophils % 6 % (0-10) 06/23/18 08:36 Lymphocytes % TEST [employer] 06/22/18 05:30 Monocytes % TEST [employer] 06/22/18 05:30 Eosinophils % TEST [employer] 06/22/18 05:30 Basophils % TEST [employer] 06/22/18 05:30 Neutrophils (Manual) 50 % (40-80) 06/23/18 08:36 Lymphocytes 29 % (20-50) 06/23/18 08:36 Monocytes 8 % (2-10) 06/23/18 08:36 Eosinophils 5 % (0-5) 06/23/18 08:36 Basophils 2 % (0-3) 06/23/18 08:36 Platelet Estimate ADEQUATE (NORMAL) 06/23/18 08:36 RBC Morph Micro Appear NORMAL (NORMAL) 06/23/18 08:36 Sodium 134 mEq/L (136-145) L 06/23/18 08:36 Potassium 3.6 mEq/L (3.5-5.1) 06/23/18 08:36 Chloride 102 mEq/L (98-107) 06/23/18 08:36 Carbon Dioxide 26.8 mEq/L (21.0-31.0) 06/23/18 08:36 Anion Gap 8.8 (7.0-16.0) 06/23/18 08:36 BUN 21 mg/dL (7-25) 06/23/18 08:36 Creatinine 1.1 mg/dL (0.7-1.3) 06/23/18 08:36 Est GFR ( Amer) > 60.0 ml/min (>90) 06/23/18 08:36 Est GFR (Non-Af Amer) > 60.0 ml/min 06/23/18 08:36 BUN/Creatinine Ratio 19.1 06/23/18 08:36 Glucose 159 mg/dL (70-105) H 06/23/18 08:36 Whole Bld Lactic Acid 1.87 mmol/L (0.60-1.99) 06/21/18 14:30 Calcium 11.4 mg/dL (8.6-10.3) H 06/23/18 08:36 Total Bilirubin 1.0 mg/dL (0.3-1.0) 06/22/18 05:30 AST 102 U/L (13-39) H 06/22/18 05:30 ALT 27 U/L (7-52) 06/22/18 05:30 Alkaline Phosphatase 101 U/L (34-104) 06/22/18 05:30 Total Protein 7.1 gm/dL (6.0-8.3) 06/22/18 05:30 Albumin 2.8 gm/dL (4.2-5.5) L 06/22/18 05:30 Globulin 4.3 gm/dL 06/22/18 05:30 Albumin/Globulin Ratio 0.7 (1.0-1.8) L 06/22/18 05:30 Urine Source RANDOM 06/21/18 13:30 Urine Color YELLOW 06/21/18 13:30 Urine Clarity CLEAR (CLEAR) 06/21/18 13:30 Urine pH 7.5 (4.6 - 8.0) 06/21/18 13:30 Ur Specific [place] 1.015 (1.005-1.030) 06/21/18 13:30 Urine Protein NEGATIVE mg/dL (NEGATIVE) 06/21/18 13:30 Urine Glucose (UA) NEGATIVE mg/dL (NEGATIVE) 06/21/18 13:30 Urine Ketones NEGATIVE mg/dL (NEGATIVE) 06/21/18 13:30 Urine Blood NEGATIVE (NEGATIVE) 06/21/18 13:30 Urine Nitrate NEGATIVE (NEGATIVE) 06/21/18 13:30 Urine Bilirubin NEGATIVE (NEGATIVE) 06/21/18 13:30 Urine Urobilinogen 1.0 E.U./dL (0.2 - 1.0) 06/21/18 13:30 Ur Leukocyte Esterase NEGATIVE (NEGATIVE) 06/21/18 13:30 Urine RBC NONE SEEN /hpf (0-5) 06/21/18 13:30 Urine WBC 0-2 /hpf (0-5) 06/21/18 13:30 Ur Epithelial Cells NONE SEEN /lpf (FEW) 06/21/18 13:30 Urine Bacteria FEW /hpf (NONE SEEN) 06/21/18 13:30 - Physical Exam Vitals and I&O: Vital Signs Temp 98.2 F 06/23/18 08:00 Pulse 74 06/23/18 08:31 Resp 20 06/23/18 08:00 BP 159/71 06/23/18 08:31 Pulse Ox 98 06/23/18 08:00 Intake & Output 06/22/18 06/23/18 06/23/18 18:59 06:59 18:59 Intake Total 1150 100 Balance 1150 100 Weight (lbs) 83.461 kg Intake: Intake, IV Amount 100 100 Piperacillin Sodium/ 100 100 Tazobact 3.375 gm In Sodium Chloride 0.9% 50 ml @ 100 mls/hr IV Q6H KRISTEN Rx#:[id number] Oral 1050 Other: # Voids 3 Weight Source Bedscale Active Medications: Current Medications Acetaminophen (Tylenol) 650 mg PO Q4HR PRN PRN Reason: Mild Pain / Temp above 100 Stop: 08/20/18 19:03 Al Hydrox/Mg Hydrox/Simethicone (Maalox) 30 ml PO Q4H PRN PRN Reason: Dyspepsia Stop: 08/20/18 23:44 Ferrous Sulfate (Iron) 325 mg PO DAILY [facility] Stop: 08/21/18 08:59 Last Admin: 06/23/18 08:30 Dose: 325 mg Furosemide (Lasix) 40 mg PO DAILY [facility] Stop: 08/21/18 08:59 Last Admin: 06/23/18 08:30 Dose: 40 mg Heparin Sodium (Porcine) (Heparin) 5,000 units SUBQ Q12H KRISTEN Stop: 08/21/18 20:59 Last Admin: 06/23/18 08:32 Dose: 5,000 units Piperacillin Sod/Tazobactam (Sod 3.375 gm/ Sodium Chloride) 50 mls @ 100 mls/ hr IV Q6H KRISTEN Stop: 08/20/18 20:59 Last Admin: 06/23/18 11:18 Dose: 100 mls/hr Ketorolac Tromethamine (Toradol) 30 mg IVP Q6HR PRN PRN Reason: Pain (Severe) Stop: 08/20/18 22:00 Last Admin: 06/22/18 23:32 Dose: 30 mg Lorazepam (Ativan) 0.5 mg PO Q6HR PRN; Protocol PRN Reason: AGITATION Stop: 08/20/18 19:03 Last Admin: 06/22/18 23:22 Dose: 0.5 mg Metoprolol Tartrate (Lopressor) 25 mg PO BID [facility] Stop: 08/21/18 08:59 Last Admin: 06/23/18 08:31 Dose: 25 mg Miscellaneous (Vte Chemical Prophylaxis Screen/ Admission) 1 ea PRN PRN PRN Reason: PROTOCOL Stop: 08/21/18 12:46 Miscellaneous (Probiotic Screen) 1 ea PRN PRN PRN Reason: PROTOCOL Stop: 08/21/18 14:23 Pantoprazole Sodium (Protonix) 40 mg PO DAILY@0730 [facility] Stop: 08/21/18 07:29 Last Admin: 06/23/18 08:30 Dose: 40 mg Quetiapine Fumarate 100 mg/ (Quetiapine Fumarate 25 mg) 125 mg PO BID [facility] Stop: 08/21/18 08:59 Last Admin: 06/23/18 08:31 Dose: 125 mg Senna (Senna) 8.6 mg PO HS [facility] Stop: 08/20/18 20:59 Last Admin: 06/22/18 20:05 Dose: Not Given Physical Exam: 67 y/o male patient has left leg cellulitis. General: other HEENT: NC/AT Neck: Supple, No JVD Lungs: CTAB Cardiovascular: RRR, Normal S1 Abdomen: soft, non-tender Extremities: edema, other (left leg cellulitis.) Neurological: no change - Procedures Procedures: Procedures Procedure Code Date RESECTION OF PREPUCE, EXTERNAL APPROACH [id number] 05/16/18 Internal Medicine Assmt/Plan - Assessment Assessment: Left leg cellulitis. ORIF of left leg. Cirrhosis. Hypertension. Hep B. - Plan Plan: Continuation of care. Monitor Vitals and Labs Monitor present meds as directed Monitor Diet/Nutritional support. Pain Management. Physical therapy. Occupational therapy. Safety precaution. Supportive care. Fall precaution, frequent nursing rounds, and as needed restraints to prevent fall. Continue collaborating with consulting specialists, case management and nursing team. Will Monitor patient and continue current treatment plan as ordered. Nutritional Asmnt/Malnutr-PDOC - Dietary Evaluation Malnutrition Findings (Please click <Entered> for more info): see orders.
--- NOTE | 2018-06-23 15:12 | Infectious Disease Prog Note ---
Infectious Disease Subjective - Review of Systems Service Date: 06/23/18 Subjective: There is no new change, no fever. Infectious Disease Objective - Results Result Diagrams: 06/23/18 08:36 06/23/18 08:36 Recent Labs: Laboratory Last Values WBC 2.4 Th/cmm (4.8-10.8) L* 06/23/18 08:36 RBC 3.49 Mil/cmm (3.80-5.80) L 06/23/18 08:36 Hgb 9.8 gm/dL (12-16) L 06/23/18 08:36 Hct 30.0 % (41.0-60) L 06/23/18 08:36 MCV 85.9 fl (80-99) 06/23/18 08:36 MCH 28.1 pg (27.0-31.0) 06/23/18 08:36 MCHC Differential 32.7 pg (28.0-36.0) 06/23/18 08:36 RDW 19.0 % (11.5-20.0) 06/23/18 08:36 Plt Count 146 Th/cmm (150-400) L 06/23/18 08:36 MPV 8.0 fl 06/23/18 08:36 Add Manual Diff YES 06/23/18 08:36 Neutrophils % HOT SHOT 06/22/18 05:30 Band Neutrophils % 6 % (0-10) 06/23/18 08:36 Lymphocytes % HOT SHOT 06/22/18 05:30 Monocytes % HOT SHOT 06/22/18 05:30 Eosinophils % HOT SHOT 06/22/18 05:30 Basophils % HOT SHOT 06/22/18 05:30 Neutrophils (Manual) 50 % (40-80) 06/23/18 08:36 Lymphocytes 29 % (20-50) 06/23/18 08:36 Monocytes 8 % (2-10) 06/23/18 08:36 Eosinophils 5 % (0-5) 06/23/18 08:36 Basophils 2 % (0-3) 06/23/18 08:36 Platelet Estimate ADEQUATE (NORMAL) 06/23/18 08:36 RBC Morph Micro Appear NORMAL (NORMAL) 06/23/18 08:36 Sodium 134 mEq/L (136-145) L 06/23/18 08:36 Potassium 3.6 mEq/L (3.5-5.1) 06/23/18 08:36 Chloride 102 mEq/L (98-107) 06/23/18 08:36 Carbon Dioxide 26.8 mEq/L (21.0-31.0) 06/23/18 08:36 Anion Gap 8.8 (7.0-16.0) 06/23/18 08:36 BUN 21 mg/dL (7-25) 06/23/18 08:36 Creatinine 1.1 mg/dL (0.7-1.3) 06/23/18 08:36 Est GFR ( Amer) > 60.0 ml/min (>90) 06/23/18 08:36 Est GFR (Non-Af Amer) > 60.0 ml/min 06/23/18 08:36 BUN/Creatinine Ratio 19.1 06/23/18 08:36 Glucose 159 mg/dL (70-105) H 06/23/18 08:36 Whole Bld Lactic Acid 1.87 mmol/L (0.60-1.99) 06/21/18 14:30 Calcium 11.4 mg/dL (8.6-10.3) H 06/23/18 08:36 Total Bilirubin 1.0 mg/dL (0.3-1.0) 06/22/18 05:30 AST 102 U/L (13-39) H 06/22/18 05:30 ALT 27 U/L (7-52) 06/22/18 05:30 Alkaline Phosphatase 101 U/L (34-104) 06/22/18 05:30 Total Protein 7.1 gm/dL (6.0-8.3) 06/22/18 05:30 Albumin 2.8 gm/dL (4.2-5.5) L 06/22/18 05:30 Globulin 4.3 gm/dL 06/22/18 05:30 Albumin/Globulin Ratio 0.7 (1.0-1.8) L 06/22/18 05:30 Urine Source RANDOM 06/21/18 13:30 Urine Color YELLOW 06/21/18 13:30 Urine Clarity CLEAR (CLEAR) 06/21/18 13:30 Urine pH 7.5 (4.6 - 8.0) 06/21/18 13:30 Ur Specific [place] 1.015 (1.005-1.030) 06/21/18 13:30 Urine Protein NEGATIVE mg/dL (NEGATIVE) 06/21/18 13:30 Urine Glucose (UA) NEGATIVE mg/dL (NEGATIVE) 06/21/18 13:30 Urine Ketones NEGATIVE mg/dL (NEGATIVE) 06/21/18 13:30 Urine Blood NEGATIVE (NEGATIVE) 06/21/18 13:30 Urine Nitrate NEGATIVE (NEGATIVE) 06/21/18 13:30 Urine Bilirubin NEGATIVE (NEGATIVE) 06/21/18 13:30 Urine Urobilinogen 1.0 E.U./dL (0.2 - 1.0) 06/21/18 13:30 Ur Leukocyte Esterase NEGATIVE (NEGATIVE) 06/21/18 13:30 Urine RBC NONE SEEN /hpf (0-5) 06/21/18 13:30 Urine WBC 0-2 /hpf (0-5) 06/21/18 13:30 Ur Epithelial Cells NONE SEEN /lpf (FEW) 06/21/18 13:30 Urine Bacteria FEW /hpf (NONE SEEN) 06/21/18 13:30 - Physical Exam Vitals and I&O: Vital Signs Temp 98.8 F 06/23/18 11:53 Pulse 77 06/23/18 11:53 Resp 20 06/23/18 11:53 BP 148/77 06/23/18 11:53 Pulse Ox 95 06/23/18 11:53 Intake & Output 06/22/18 06/23/18 06/23/18 18:59 06:59 18:59 Intake Total 1150 100 50 Balance 1150 100 50 Weight (lbs) 83.461 kg Intake: Intake, IV Amount 100 100 50 Piperacillin Sodium/ 100 100 50 Tazobact 3.375 gm In Sodium Chloride 0.9% 50 ml @ 100 mls/hr IV Q6H [facility] Rx#:[id number] Oral 1050 Other: # Voids 3 Weight Source Bedscale Active Medications: Current Medications Acetaminophen (Tylenol) 650 mg PO Q4HR PRN PRN Reason: Mild Pain / Temp above 100 Stop: 08/20/18 19:03 Al Hydrox/Mg Hydrox/Simethicone (Maalox) 30 ml PO Q4H PRN PRN Reason: Dyspepsia Stop: 08/20/18 23:44 Ferrous Sulfate (Iron) 325 mg PO DAILY [facility] Stop: 08/21/18 08:59 Last Admin: 06/23/18 08:30 Dose: 325 mg Furosemide (Lasix) 40 mg PO DAILY [facility] Stop: 08/21/18 08:59 Last Admin: 06/23/18 08:30 Dose: 40 mg Heparin Sodium (Porcine) (Heparin) 5,000 units SUBQ Q12H [facility] Stop: 08/21/18 20:59 Last Admin: 06/23/18 08:32 Dose: 5,000 units Piperacillin Sod/Tazobactam (Sod 3.375 gm/ Sodium Chloride) 50 mls @ 100 mls/ hr IV Q6H [facility] Stop: 08/20/18 20:59 Last Infusion: 06/23/18 11:48 Dose: Infused Ketorolac Tromethamine (Toradol) 30 mg IVP Q6HR PRN PRN Reason: Pain (Severe) Stop: 08/20/18 22:00 Last Admin: 06/22/18 23:32 Dose: 30 mg Lorazepam (Ativan) 0.5 mg PO Q6HR PRN; Protocol PRN Reason: AGITATION Stop: 08/20/18 19:03 Last Admin: 06/22/18 23:22 Dose: 0.5 mg Metoprolol Tartrate (Lopressor) 25 mg PO BID [facility] Stop: 08/21/18 08:59 Last Admin: 06/23/18 08:31 Dose: 25 mg Miscellaneous (Vte Chemical Prophylaxis Screen/ Admission) 1 ea PRN PRN PRN Reason: PROTOCOL Stop: 08/21/18 12:46 Miscellaneous (Probiotic Screen) 1 [facility] PRN PRN PRN Reason: PROTOCOL Stop: 08/21/18 14:23 Pantoprazole Sodium (Protonix) 40 mg PO DAILY@0730 [facility] Stop: 08/21/18 07:29 Last Admin: 06/23/18 08:30 Dose: 40 mg Quetiapine Fumarate 100 mg/ (Quetiapine Fumarate 25 mg) 125 mg PO BID [facility] Stop: 08/21/18 08:59 Last Admin: 06/23/18 08:31 Dose: 125 mg Senna (Senna) 8.6 mg PO HS [facility] Stop: 08/20/18 20:59 Last Admin: 06/22/18 20:05 Dose: Not Given General: no acute distress, well developed, well nourished HEENT: atraumatic, normocephalic, PERRLA, EOMI Neck: supple, no thyromegaly Cardiovascular: S1S2, regular Lungs: clear to auscultation bilaterally, clear to percussion Abdomen: soft, no tender, no distended, no mass Extremities: other (swollen left leg no erythema.), no cyanosis, no clubbing, no edema Neurological: awake, alert, oriented Skin: intact - Procedures Procedures: Procedures Procedure Code Date RESECTION OF PREPUCE, EXTERNAL APPROACH [id number] 05/16/18 Infectious Disease Assmt/Plan - Assessment Assessment: 1. Left leg cellulitis. 2. Hepatitis B. 3. Hypertension. 4. Pancytopenia and leukopenia, most likely secondary to cirrhosis. - Plan Plan: Continue Zosyn.
[2018-06-24] MEDS: Multivitamin w/ Minerals Tab PO SCH (08:19)
[2018-06-24] MEDS: Pantoprazole 40 mg EC Tab PO SCH (08:19)
[2018-06-24] MEDS: Heparin Sod 5,000Units/ML 5,000 UNITS/ML VIAL SUBQ SCH (08:20)
[2018-06-24] MEDS: Ferrous Sulfate 325 MG TAB PO SCH (08:20)
--- NOTE | 2018-07-02 13:29 | Discharge Summary ---
DATE OF DISCHARGE: 06/24/2018 This patient is admitted at [facility] on 06/21/2018 and was discharged back to [facility] on 06/24/2018. HOSPITAL COURSE: This is a 67-year-old male patient complaining of left lower leg pain and swelling and cellulitis, initial diagnosis as well as history of hypertension, hepatitis C, anemia and malnutrition. The patient was treated for all of that and ID doctor, Dr. Alberto Abdi saw the patient and the patient was in stable condition on 06/24/2018, discharged back to [facility] where I will follow the patient. MEDICATIONS: See the medication reconciliation sheet. [facility]# [id number]
== END 2018-06-24 13:30 | DRG 872 ==
LOC: ER 14:08 → MSI 16:09
PROVIDERS: ADMIT Internal Medicine; ATTEND Internal Medicine
DX: A41.9 Sepsis, unspecified organism (principal); L03.116 Cellulitis of left lower limb; B19.10 Unspecified viral hepatitis B without hepatic coma; E44.0 Moderate protein-calorie malnutrition; D61.818 Other pancytopenia; I10 Essential (primary) hypertension; D64.9 Anemia, unspecified; Z68.25 Body mass index [BMI] 25.0-25.9, adult; K74.60 Unspecified cirrhosis of liver; Z87.891 Personal history of nicotine dependence
CPT/HCPCS: 36415-UA; 80048-TC; 80053-TC; 81001-TC; 83605; 85007-TC; 85025-TC; 93971-TC-LT; 94760; J1644; J1885; J2060; J2543; J3370; J7040; Z7610

== ENCOUNTER 2018-07-30 16:20 | Inpatient (IN) | payer MEDICARE, OTHER ==
--- NOTE | 2018-07-30 17:20 | ED Physician Chart ---
ED Chief Complaint/HPI - Patient Information Date Seen:: 07/30/18 Time Seen:: 16:30 Chief Complaint:: Abnormal lab result with elevated ammonia level. History of Present Illness:: Brought in by ambulance from nursing facility because of increased confusion with elevated ammonia level. 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 Pt breathes comfortably and is not in distress. Pt has baseline confusion and is not cooperative; thus, H & P are limited. Info is primarily from review of limited transfer documents. Allergies:: Allergies Allergy/AdvReac Type Severity Reaction Status Date / Time codeine Allergy Verified 05/16/18 23:44 ibuprofen Allergy Verified 04/23/18 18:30 Vitals:: Vital Signs - 8 hr 07/30/18 16:34 Temp 98.4 F HR 72 RR 16 BP 102/64 O2 Sat % 97 Historian:: Patient, Medical Records (from transferring facility.) Family MD/PCP:: Dr. Hernandez LMP:: N/A Review:: Nurse's Note Reviewed, Transfer documents Reviewed ED Review of Systems - Review of Systems General/Constitutional: Other (Pt does not cooperate for ROS.) ED Past Medical History - Past Medical History Past Medical History: HTN, CHF, Dementia (related to hepatic encephalopathy.), Other (chronic anemia, hepatic failure related to hepatic cirrhosis secondary to alcohol liver disease.) Family History: Other (Pt does not cooperate to provide info on FHx.) Social History: Care Facility, Other (Pt does not cooperate to provide info on SHx.) Surgical History: other (Pt does not cooperate to provide info on Surgical Hx.) Psychiatricy History: Dementia Medication: Reviewed Family Medical History - Family Member Mother History Unknown: Yes Ethnicity: Unknown Living Status: Unknown Hx Family Cancer: No Hx Family Coronary Artery Disease: No Hx Family Congestive Heart Failure: No Hx Family Hypertension: No Hx Family Stroke: No Hx Family Diabetes: No Hx Family Seizures: No Hx Family Dementia: No Hx Family AIDS: No Hx Family HIV: No Hx Family COPD: No Hx Family Hepatitis: No Hx Family Psychiatric Problems: No Hx Family Tuberculosis: No ED Physical Exam - Physical Examination General/Constitutional: Awake, Well-developed, well-nourished (male), Alert, No distress, Non-toxic appearing Other Gen/Cons comments:: Breathes comfortably, speaks clearly, but is not cooperative. Head: Atraumatic Eyes: Lids, conjuctiva normal, PERRL, EOMI Skin: Well hydrated, No lymphadenopathy ENMT: External ears, nose nl, Nasal exam nl, Oropharynx nl Neck: Nontender, Full ROM w/o pain, No JVD, No nuchal rigidity, No mass Respiratory: Nl effort/Exclusion, Clear to Auscultation, No Wheeze/Rhonchi/Rales Cardio Vascular: RRR, No murmur, gallop, rubs GI: No tenderness/rebounding/guarding, Normal BS's, Nondistended, No mass/bruits Other GI comments:: No fluid wave. Mild hepatomegaly noticed. Extremities: No tenderness or effusion Other Extremities comments:: Chronic changes with well healed scars noticed in LLE. Neuro/Psych: Alert/oriented (knows his name and that he is in a hospital.) Other Neuro/Psych comments:: Spontaneous movements noticed in all 4 extremities. Pt does not cooperate for full neurological exam. ED Labs/Radiology/EKG Results - Lab Results Results: Laboratory Results - last 24 hr 07/30/18 07/30/18 07/30/18 17:00 17:51 17:51 WBC 3.1 L RBC 3.38 L Hgb 10.3 L Hct 30.6 L MCV 90.6 MCH 30.4 MCHC Differential 33.5 RDW 20.9 H Plt Count 214 MPV 7.5 Neutrophils % 50.3 Lymphocytes % 31.8 Monocytes % 13.3 H Eosinophils % 4.6 Basophils % 0.0 PT 12.5 H INR 1.21 PTT (Actin FS) 26.7 Sodium Potassium Chloride Carbon Dioxide Anion Gap BUN Creatinine Est GFR ( Amer) Est GFR (Non-Af Amer) BUN/Creatinine Ratio Glucose Calcium Total Bilirubin AST ALT Alkaline Phosphatase Ammonia Total Protein Albumin Globulin Albumin/Globulin Ratio Urine Source CLEAN C Urine Color STRAW Urine Clarity CLEAR Urine pH 6.0 Ur Specific [place] 1.015 Urine Protein NEGATIVE Urine Glucose (UA) NEGATIVE Urine Ketones NEGATIVE Urine Blood NEGATIVE Urine Nitrate NEGATIVE Urine Bilirubin NEGATIVE Urine Urobilinogen 1.0 Ur Leukocyte Esterase NEGATIVE 07/30/18 07/30/18 17:51 17:51 WBC RBC Hgb Hct MCV MCH MCHC Differential RDW Plt Count MPV Neutrophils % Lymphocytes % Monocytes % Eosinophils % Basophils % PT INR PTT (Actin FS) Sodium 136 Potassium 4.2 Chloride 103 Carbon Dioxide 26.2 Anion Gap 11.0 BUN 16 Creatinine 0.9 Est GFR ( Amer) > 60.0 Est GFR (Non-Af Amer) > 60.0 BUN/Creatinine Ratio 17.8 Glucose 101 Calcium 12.3 H Total Bilirubin 0.8 AST 126 H ALT 27 Alkaline Phosphatase 171 H Ammonia 118 H Total Protein 8.6 H Albumin 3.6 L Globulin 5.0 Albumin/Globulin Ratio 0.7 L Urine Source Urine Color Urine Clarity Urine pH Ur Specific [place] Urine Protein Urine Glucose (UA) Urine Ketones Urine Blood Urine Nitrate Urine Bilirubin Urine Urobilinogen Ur Leukocyte Esterase - EKG Interpretations EKG Time:: 19:13 Rate & Rhythm: NSR with VR 67 Comments:: Nonspecific IVCD with LAD. LVH NSSTT changes. ED Septic Shock - . Is Septic Shock (SBP<90, OR Lactate>4 mmol\L) present?: No - <6hrs of presentation: Vital Signs: Vital Signs - 8 hr 07/30/18 16:34 Temp 98.4 F HR 72 RR 16 BP 102/64 O2 Sat % 97 ED Reassessment (Disposition) - Reassessment Reassessment:: 1855 Pt remains stable. No new complaint or findings. Lab findings have been reviewed with pt. Management plan has been discussed. Case has been reviewed with Dr Hernandez with pertinent info reviewed. Pt is to be admitted to [facility] under his care. - Diagnosis Diagnosis:: Hepatic encephalopathy related to hepatic cirrhosis with hepatic encephalopathy. Hepatic failure with coagulopathy and elevated ammonia level. Mild hypercalcemia. Chronic anemia. - Patient Disposition Admitted to:: Telemetry Admitting Medical Physician:: Darrin Hernandez Time:: 17:00 Condition at Disposition:: Stable
[2018-07-30 18:12] LABS: URINE SOURCE CLEAN C
[2018-07-30 18:15] LABS: URINE BILIRUBIN NEGATIVE (NEGATIVE); URINE BLOOD NEGATIVE (NEGATIVE); URINE GLUCOSE (UA) NEGATIVE (NEGATIVE); URINE KETONE NEGATIVE (NEGATIVE); URINE LEUKOCYTE ESTERASE NEGATIVE (NEGATIVE); URINE NITRATE NEGATIVE (NEGATIVE); URINE PROTEIN NEGATIVE (NEGATIVE)
[2018-07-30 18:18] LABS: ALB/GLOB RATIO 0.7 (1.0-1.8); ALBUMIN 3.6 gm/dL (4.2-5.5); ALKALINE PHOSPHATASE 171 U/L (34-104); BILIRUBIN,TOTAL 0.8 mg/dL (0.3-1.0); BUN - UREA NITROGEN 16 mg/dL (7-25); CALCIUM SERUM 12.3 mg/dL (8.6-10.3); CARBON DIOXIDE 26.2 mEq/L (21.0-31.0); CHLORIDE 103 mEq/L (98-107); CREATININE - SERUM 0.9 mg/dL (0.7-1.3); GFR AFRICAN-AMERICAN > 60.0 ml/min (>90); GFR NON AFRICAN-AMERICAN > 60.0 ml/min; GLUCOSE 101 mg/dL (70-105); INR 1.21 (0.5-1.4); POTASSIUM SERUM 4.2 mEq/L (3.5-5.1); SGOT 126 U/L (13-39); SGPT/ALT 27 U/L (7-52); SODIUM SERUM 136 mEq/L (136-145); TOTAL PROTEIN,SERUM 8.6 gm/dL (6.0-8.3)
[2018-07-30 18:26] LABS: URINE CLARITY CLEAR (CLEAR); URINE COLOR STRAW; URINE MICROSCOPIC INDICATED? NO
[2018-07-30 18:35] LABS: HEMATOCRIT 30.6 % (41.0-60); HEMOGLOBIN 10.3 gm/dL (12-16); MEAN CELL VOLUME 90.6 fl (80-99); MEAN CORPUSCULAR HEMOGLOBIN 30.4 pg (27.0-31.0); RED BLOOD COUNT 3.38 Mil/cmm (3.80-5.80); WHITE BLOOD COUNT 3.1 Th/cmm (4.8-10.8)
[2018-07-30 18:36] LABS: MEAN CORPUSCULAR HGB CONC 33.5 pg (28.0-36.0); PLATELET COUNT 214 Th/cmm (150-400); RED CELL DISTRIBUTION WIDTH 20.9 % (11.5-20.0)
[2018-07-30] MEDS ORDERED: Lactulose 10 Gm/15 mL 30mL UDC PO STA (18:51)
[2018-07-30] MEDS ORDERED: Lactulose 10 Gm/15 mL 30mL UDC ONE (19:01)
[2018-07-30 19:46] LABS: BAND NEUTROPHILE 0 % (0-10); NEUTROPHILS 53 % (40-80)
[2018-07-30 19:47] LABS: BASOPHIL 0 % (0-3); EOSINOPHIL 2 % (0-5); LYMPHOCYTE 35 % (20-50); MONOCYTE 10 % (2-10)
[2018-07-30 19:48] LABS: PLATELET ESTIMATE ADEQUATE (NORMAL); PLATELET MORPHOLOGY NORMAL (NORMAL)
[2018-07-30] MEDS ORDERED: D5-0.45NS 1,000 ML IV ONE (20:30)
[2018-07-30] MEDS: Lactulose 10 Gm/15 mL 30mL UDC PO SCH (20:52)
[2018-07-30 22:29] VITALS: BP 138/78
[2018-07-31] MEDS: Lactulose 10 Gm/15 mL 30mL UDC PO SCH ×6 (04:49→21:02)
[2018-07-31 05:06] LABS: % LYMPHOCYTES 30.2 % (20.0-50.0); % MONOCYTES 14.3 % (2.0-10.0); HEMATOCRIT 27.9 % (41.0-60); HEMOGLOBIN 9.5 gm/dL (12-16); MEAN CELL VOLUME 90.5 fl (80-99); MEAN CORPUSCULAR HEMOGLOBIN 30.7 pg (27.0-31.0); PLATELET COUNT 191 Th/cmm (150-400); RED BLOOD COUNT 3.08 Mil/cmm (3.80-5.80); RED CELL DISTRIBUTION WIDTH 20.7 % (11.5-20.0); WHITE BLOOD COUNT 3.2 Th/cmm (4.8-10.8)
[2018-07-31 05:07] LABS: % BASOPHILS 0.2 % (0.0-2.0); % EOSINOPHILS 4.3 % (0.0-5.0); EOSINOPHILE ABSOLUTE 0.1 Th/cmm (0.1-0.4); MONOCYTE ABSOLUTE 0.5 Th/cmm (0.3-1.0); NEUTROPHILE ABSOLUTE 1.6 Th/cmm (1.8-8.0)
[2018-07-31 05:17] LABS: ALB/GLOB RATIO 0.7 (1.0-1.8); ALBUMIN 3.1 gm/dL (4.2-5.5); ALKALINE PHOSPHATASE 138 U/L (34-104); ANION GAP 10.1 (7.0-16.0); BILIRUBIN,TOTAL 0.9 mg/dL (0.3-1.0); BUN - UREA NITROGEN 15 mg/dL (7-25); CALCIUM SERUM 11.3 mg/dL (8.6-10.3); CARBON DIOXIDE 24.6 mEq/L (21.0-31.0); CHLORIDE 104 mEq/L (98-107); CREATININE - SERUM 0.8 mg/dL (0.7-1.3); GFR AFRICAN-AMERICAN > 60.0 ml/min (>90); GFR NON AFRICAN-AMERICAN > 60.0 ml/min; GLUCOSE 87 mg/dL (70-105); POTASSIUM SERUM 3.7 mEq/L (3.5-5.1); SGOT 111 U/L (13-39); SGPT/ALT 25 U/L (7-52); SODIUM SERUM 135 mEq/L (136-145); TOTAL PROTEIN,SERUM 7.7 gm/dL (6.0-8.3)
[2018-07-31] MEDS ORDERED: Maalox 30 mL Cup PO PRN (10:39)
--- NOTE | 2018-07-31 16:59 | Consultation ---
DATE OF CONSULTATION: 07/31/2018 REFERRING PHYSICIAN: Dr. Hernandez. REASON FOR CONSULTATION: Leukopenia and anemia and hypercalcemia. HISTORY OF PRESENT ILLNESS: The patient is a 67-year-old male who was recently hospitalized and discharged because of leg cellulitis. He was readmitted with confusion and high ammonia level. He was also found to have anemia and leukopenia; therefore, I was asked to evaluate. PAST MEDICAL HISTORY: Hypertension, hepatitis B, open reduction and internal fixation of the left leg and left leg chronic edema with cellulitis. MEDICATIONS: Reviewed. SOCIAL HISTORY: Alcohol drinking in the past. PHYSICAL EXAMINATION: GENERAL: The patient is awake, somewhat confused. VITAL SIGNS: Temperature 98, blood pressure 128/70, saturation 98% on room air. HEENT: Pale complexion. NECK: No lymphadenopathy. CHEST: Equal air entry. ABDOMEN: Soft. No ascites. EXTREMITIES: Chronic edema and warm temperature on the left lower extremity. LABORATORY DATA: White count 3.2, hemoglobin 9.5, platelets 191. Coagulation panel normal. Chemistry: Calcium 11.3 and from admission, it was 12.3. Calcium was high during the previous hospitalization as well. Liver functions: AST elevated and ammonia level 118, albumin 3.1. ASSESSMENT: 1. Hypercalcemia. I will obtain PTH level, vitamin D, phosphorus. 2. Elevated ammonia level, likely a liver disease. I will obtain liver functions. 3. Leukopenia, which has been chronic during previous hospitalization, likely from liver disease and splenomegaly, which would be evaluated with ultrasound. 4. Anemia, chronic, will be evaluated with iron studies, B12 and folic acid level and the stool occult blood. Thank you Dr. Hernandez for the opportunity to participate in the care of this interesting case. JOB# [id number]
--- NOTE | 2018-07-31 19:14 | History & Physical ---
ADMIT DATE: 07/31/[address] Hernandez. CHIEF COMPLAINT: Elevated ammonia level. HISTORY OF PRESENT ILLNESS: This is a 67-year-old male who is a skilled nursing resident, admitted to the telemetry unit due to ammonia level of 118. No reports of any fevers at the skilled nursing. In the ER, the patient was noted with elevated lactic acid of 2.90, sepsis protocol initiated. PAST MEDICAL HISTORY: Hypertension, CHF, dementia, hepatic encephalopathy, chronic anemia, hepatic cirrhosis. FAMILY HISTORY: Noncontributory. SOCIAL HISTORY: The patient is a former alcoholic. The patient is a skilled nursing resident. SURGICAL HISTORY: Unknown. MEDICATIONS: See medication list. ALLERGIES: CODEINE AND IBUPROFEN. REVIEW OF SYSTEMS: Unable to obtain at this time. PHYSICAL EXAMINATION: GENERAL: The patient appears acutely ill. VITAL SIGNS: Temperature 99.6, heart rate 77, blood pressure 120/74, respirations 18, O2 98%. HEENT: Head; normocephalic, atraumatic. NECK: Supple. No mass. LUNG: Clear bilaterally. HEART: Regular rate and rhythm. ABDOMEN: Soft, nontender. LABORATORY DATA: WBC 2.2, H and H 9.5 and 27.9, platelet of 191. Sodium is 135, potassium 3.7, chloride 104, BUN 15 and creatinine 0.8. Lactic acid is from 07/30/2018 is 2.34. ASSESSMENT: Hepatic encephalopathy, history of alcoholic liver cirrhosis, dementia, hypertension, congestive heart failure, chronic anemia and generalized weakness. PLAN: The patient to be admitted to the Telemetry Unit. We will monitor the patient's ammonia level closely. We will give patient lactulose 40 grams t.i.d. We will do an abdominal ultrasound. We will also obtain a chest x-ray. We will get GI consultation as well as hematology. We will continue to monitor this patient. JOB# [id number]
--- NOTE | 2018-07-31 23:10 | Consultation ---
DATE OF CONSULTATION: 07/31/2018 REQUESTING PHYSICIAN: Dr. Hernandez. REASON FOR CONSULTATION: Liver cirrhosis. HISTORY OF PRESENT ILLNESS: This is a 67-year-old male who is a jail resident, who was admitted for elevated ammonia level. The patient is a jail resident and has a history of alcoholic liver cirrhosis. He was refusing to take his lactulose while he has been here in the hospital. He denied any current GI bleeding. His hemoglobin was noted to be 10.3 down to 9.5, his platelet count was noted to be 191,000. His total bilirubin is 0.8, AST 126, ALT of 27, alkaline phosphatase 171. PAST MEDICAL HISTORY: Alcoholic liver cirrhosis, hepatic encephalopathy related to this. MEDICATIONS: Have been reviewed. FAMILY HISTORY: Noncontributory for GI disease. SOCIAL HISTORY: Former alcohol use. No current alcohol use. No tobacco, no drugs. PHYSICAL EXAMINATION: VITAL SIGNS: Temperature of 98.6, pulse 77, respiratory rate of 18, satting 98% on room air, blood pressure 128/74. GENERAL: Generally in no acute distress. HEENT: Normocephalic, atraumatic. PERRLA positive. LUNGS: Clear bilaterally. No wheezes, rales or rhonchi. HEART: Regular rate and rhythm, normal S1, S2. ABDOMEN: Soft, nontender. Bowel sounds are positive. EXTREMITIES: Show no lower extremity edema. PSYCHIATRIC: Alert and oriented x 3. Positive mild asterixis. LABORATORY DATA: As reviewed in HPI. ASSESSMENT: This is a 67-year-old gentleman with history of alcoholic liver cirrhosis and history of hepatic encephalopathy, who presents with elevated ammonia level, likely in the setting of history of decompensated liver cirrhosis. 1. Decompensated liver cirrhosis. 2. Hepatic encephalopathy. 3. Elevated ammonia level. 4. Anemia. Most likely elevated ammonia level is from noncompliance to lactulose therapy. Would recommend continuing lactulose for t.i.d. administration and titrate to 2-3 bowel movements daily. Check daily, check a repeat ammonia level tomorrow. If he develops any overt signs of GI bleeding, recommend endoscopy for further management. PLAN: 1. Okay to continue diet. 2. Lactulose t.i.d. 3. If this is unsuccessful, consider adding rifaximin, although likely not needed at this time, supportive care and management. Ultrasound every 6 months to prevent hepatocellular cancer. Thank you for allowing us to participate in this patient's care. JOB# [id number]
[2018-08-01] MEDS: Lactulose 10 Gm/15 mL 30mL UDC PO SCH ×4 (03:31→21:29)
[2018-08-01 05:18] LABS: % BASOPHILS 0.9 % (0.0-2.0); % EOSINOPHILS 4.1 % (0.0-5.0); % LYMPHOCYTES 36.4 % (20.0-50.0); % MONOCYTES 12.6 % (2.0-10.0); EOSINOPHILE ABSOLUTE 0.2 Th/cmm (0.1-0.4); HEMATOCRIT 33.6 % (41.0-60); HEMOGLOBIN 11.3 gm/dL (12-16); MEAN CELL VOLUME 90.7 fl (80-99); MEAN CORPUSCULAR HEMOGLOBIN 30.6 pg (27.0-31.0); MEAN CORPUSCULAR HGB CONC 33.7 pg (28.0-36.0); MONOCYTE ABSOLUTE 0.7 Th/cmm (0.3-1.0); NEUTROPHILE ABSOLUTE 2.6 Th/cmm (1.8-8.0); PLATELET COUNT 296 Th/cmm (150-400); RED CELL DISTRIBUTION WIDTH 21.1 % (11.5-20.0); WHITE BLOOD COUNT 5.5 Th/cmm (4.8-10.8)
[2018-08-01 05:34] LABS: BUN - UREA NITROGEN 14 mg/dL (7-25); CARBON DIOXIDE 23.1 mEq/L (21.0-31.0); CHLORIDE 104 mEq/L (98-107); CREATININE - SERUM 0.8 mg/dL (0.7-1.3); GFR AFRICAN-AMERICAN > 60.0 ml/min (>90); GFR NON AFRICAN-AMERICAN > 60.0 ml/min; GLUCOSE 96 mg/dL (70-105); POTASSIUM SERUM 4.1 mEq/L (3.5-5.1); SODIUM SERUM 133 mEq/L (136-145)
--- NOTE | 2018-08-01 09:19 | Diagnostic Imaging Report ---
Portable chest x-ray HISTORY: Cough The heart size is difficult to assess with portable technique in a poor inspiration, but appears to be somewhat enlarged. No focal pulmonary processes. No hilar or mediastinal abnormalities. IMPRESSION: 1. Suggestion of a degree of cardiomegaly 2. No acute focal pulmonary processes
--- NOTE | 2018-08-01 09:19 | Diagnostic Imaging Report ---
Abdominal ultrasound HISTORY: Splenomegaly The liver is enlarged. There is a markedly heterogeneous parenchyma. Suggestion of multiple heterogeneous densities. Neoplastic/metastatic disease cannot be excluded. A CT scan with and without intravenous contrast recommended for further assessment and evaluation. The exam of the gallbladder demonstrates moderate dilatation. There is an approximate 7 mm nonmobile intraluminal echogenic density along the wall. Finding may be associated with a cholesterol polyp. An adherent calculus can mimic the appearance. No biliary dilatation. The pancreas cannot be well seen due to bowel gas. Right kidney is generous in size (13.5 x 5.4 x 5.9 cm). No focal lesions. No hydronephrosis. The exam of the left kidney measures 12.2 x 5.6 x 5.3 cm. A 2.2 cm hypoechoic densities noted in the cortex. This is indeterminate. A CT scan would provide additional assessment and evaluation. The spleen is enlarged (14.4 x 4.6 x 5.6 cm). Multiple small echogenic foci which may be associated calcifications noted. No other retroperitoneal or intra-abdominal abnormalities. IMPRESSION: Normal 1. Suboptimal examination due to bowel gas and patient respiratory motion 2. Hepatomegaly along with abnormal parenchymal changes suggesting neoplastic/metastatic disease. A CT scan with and without intravenous contrast would provide for further assessment if needed. Correlation with patient history needed. 2. Splenomegaly. Small echogenic foci seen within the spleen suggesting calcifications possibly related to old granulomatous disease 4. Somewhat distended gallbladder along with a nonmobile intraluminal echogenic density. This may be related to a cholesterol polyp. An adherent calculus cannot be excluded. 5. Indeterminate lesion within the left kidney. Again, a CT scan would provide additional assessment and evaluation.
[2018-08-01] MEDS: Multivitamin Tab PO SCH (09:32)
[2018-08-01] MEDS: Ferrous Sulfate 325 MG TAB PO SCH (09:32)
[2018-08-01] MEDS: Potassium Chloride 20 mEq ER Tab PO SCH (09:33)
[2018-08-01] MEDS: Pantoprazole 40 mg EC Tab PO SCH (09:35)
--- NOTE | 2018-08-01 10:01 | General Progress Note ---
Subjective - Review of Systems Service Date: 08/01/18 Objective - Results Result Diagrams: 08/01/18 05:05 08/01/18 05:05 Recent Labs: Laboratory Last Values WBC 5.5 Th/cmm (4.8-10.8) 08/01/18 05:05 RBC 3.70 Mil/cmm (3.80-5.80) L 08/01/18 05:05 Hgb 11.3 gm/dL (12-16) L 08/01/18 05:05 Hct 33.6 % (41.0-60) L 08/01/18 05:05 MCV 90.7 fl (80-99) 08/01/18 05:05 MCH 30.6 pg (27.0-31.0) 08/01/18 05:05 MCHC Differential 33.7 pg (28.0-36.0) 08/01/18 05:05 RDW 21.1 % (11.5-20.0) H 08/01/18 05:05 Plt Count 296 Th/cmm (150-400) 08/01/18 05:05 MPV 7.3 fl 08/01/18 05:05 Add Manual Diff YES 07/30/18 17:51 Neutrophils % 46.0 % (40.0-80.0) 08/01/18 05:05 Band Neutrophils % 0 % (0-10) 07/30/18 17:51 Lymphocytes % 36.4 % (20.0-50.0) 08/01/18 05:05 Monocytes % 12.6 % (2.0-10.0) H 08/01/18 05:05 Eosinophils % 4.1 % (0.0-5.0) 08/01/18 05:05 Basophils % 0.9 % (0.0-2.0) 08/01/18 05:05 Neutrophils (Manual) 53 % (40-80) 07/30/18 17:51 Lymphocytes 35 % (20-50) 07/30/18 17:51 Monocytes 10 % (2-10) 07/30/18 17:51 Eosinophils 2 % (0-5) 07/30/18 17:51 Basophils 0 % (0-3) 07/30/18 17:51 Platelet Estimate ADEQUATE (NORMAL) 07/30/18 17:51 Platelet Morphology NORMAL (NORMAL) 07/30/18 17:51 RBC Morph Micro Appear NORMAL (NORMAL) 07/30/18 17:51 PT 12.5 SECONDS (9.5-11.5) H 07/30/18 17:51 INR 1.21 (0.5-1.4) 07/30/18 17:51 PTT (Actin FS) 26.7 SECONDS (26.0-38.0) 07/30/18 17:51 Sodium 133 mEq/L (136-145) L 08/01/18 05:05 Potassium 4.1 mEq/L (3.5-5.1) 08/01/18 05:05 Chloride 104 mEq/L (98-107) 08/01/18 05:05 Carbon Dioxide 23.1 mEq/L (21.0-31.0) 08/01/18 05:05 Anion Gap 10.0 (7.0-16.0) 08/01/18 05:05 BUN 14 mg/dL (7-25) 08/01/18 05:05 Creatinine 0.8 mg/dL (0.7-1.3) 08/01/18 05:05 Est GFR ( Amer) > 60.0 ml/min (>90) 08/01/18 05:05 Est GFR (Non-Af Amer) > 60.0 ml/min 08/01/18 05:05 BUN/Creatinine Ratio 17.5 08/01/18 05:05 Glucose 96 mg/dL (70-105) 08/01/18 05:05 Whole Bld Lactic Acid 2.90 mmol/L (0.60-1.99) H* 07/30/18 20:24 Calcium 12.0 mg/dL (8.6-10.3) H 08/01/18 05:05 Total Bilirubin 0.9 mg/dL (0.3-1.0) 07/31/18 04:20 AST 111 U/L (13-39) H 07/31/18 04:20 ALT 25 U/L (7-52) 07/31/18 04:20 Alkaline Phosphatase 138 U/L (34-104) H 07/31/18 04:20 Ammonia 117 umol/L (16-53) H 08/01/18 05:05 Total Protein 7.7 gm/dL (6.0-8.3) 07/31/18 04:20 Albumin 3.1 gm/dL (4.2-5.5) L 07/31/18 04:20 Globulin 4.6 gm/dL 07/31/18 04:20 Albumin/Globulin Ratio 0.7 (1.0-1.8) L 07/31/18 04:20 Urine Source CLEAN C 07/30/18 17:00 Urine Color STRAW 07/30/18 17:00 Urine Clarity CLEAR (CLEAR) 07/30/18 17:00 Urine pH 6.0 (4.6 - 8.0) 07/30/18 17:00 Ur Specific [place] 1.015 (1.005-1.030) 07/30/18 17:00 Urine Protein NEGATIVE mg/dL (NEGATIVE) 07/30/18 17:00 Urine Glucose (UA) NEGATIVE mg/dL (NEGATIVE) 07/30/18 17:00 Urine Ketones NEGATIVE mg/dL (NEGATIVE) 07/30/18 17:00 Urine Blood NEGATIVE (NEGATIVE) 07/30/18 17:00 Urine Nitrate NEGATIVE (NEGATIVE) 07/30/18 17:00 Urine Bilirubin NEGATIVE (NEGATIVE) 07/30/18 17:00 Urine Urobilinogen 1.0 E.U./dL (0.2 - 1.0) 07/30/18 17:00 Ur Leukocyte Esterase NEGATIVE (NEGATIVE) 07/30/18 17:00 - Physical Exam Vitals and I&O: Vital Signs Temp 97.2 F 08/01/18 08:00 Pulse 57 08/01/18 09:04 Resp 18 08/01/18 08:00 BP 117/71 08/01/18 09:33 Pulse Ox 97 08/01/18 08:00 Intake & Output 07/31/18 08/01/18 08/01/18 18:59 06:59 18:59 Intake Total 620 Output Total 6 Balance 620 -6 Weight (lbs) 80.739 kg 80.739 kg Intake: Oral 620 Output: Urine 6 Other: # Voids 3 5 # Bowel Movements 3 6 Weight Source Bedscale Bedscale Active Medications: Current Medications Al Hydrox/Mg Hydrox/Simethicone (Maalox) 30 ml PO Q4H PRN PRN Reason: gastric distress Ascorbic Acid (Vitamin C) 500 mg PO DAILY KRISTEN Stop: 09/30/18 08:59 Last Admin: 08/01/18 09:32 Dose: 500 mg Ferrous Sulfate (Iron) 325 mg PO DAILY KRISTEN Stop: 09/30/18 08:59 Last Admin: 08/01/18 09:32 Dose: 325 mg Furosemide (Lasix) 40 mg PO DAILY KRISTEN Stop: 09/30/18 08:59 Last Admin: 08/01/18 09:33 Dose: 40 mg Lactulose (Cephulac) 40 gm PO TID KRISTEN Stop: 09/29/18 13:59 Last Admin: 08/01/18 09:35 Dose: Not Given Metoprolol Tartrate (Lopressor) 25 mg PO BID KRISTEN Stop: 09/29/18 16:59 Last Admin: 08/01/18 09:04 Dose: Not Given Multivitamins/Vitamin C (Theragran) 1 tab PO DAILY KRISTEN Stop: 09/30/18 08:59 Last Admin: 08/01/18 09:32 Dose: 1 tab Pantoprazole Sodium (Protonix) 40 mg PO DAILY KRISTEN Stop: 09/30/18 08:59 Last Admin: 08/01/18 09:35 Dose: Not Given Potassium Chloride (Klor-Con) 20 meq PO DAILY KRISTEN Stop: 09/30/18 08:59 Last Admin: 08/01/18 09:33 Dose: 20 meq Senna (Senna) 8.6 mg PO HS KRISTEN Stop: 09/29/18 20:59 Last Admin: 07/31/18 20:57 Dose: 8.6 mg General: Other (disoriented to time) HEENT: Atraumatic Neck: Supple Cardiovascular: Regular rate Abdomen: Soft - Procedures Procedures: Procedures Procedure Code Date RESECTION OF PREPUCE, EXTERNAL APPROACH 0VTTXZZ 05/16/18 Assessment/Plan - Assessment Assessment: 1. Hypercalcemia. I will obtain PTH level, vitamin D, phosphorus. 2. Elevated ammonia level, likely a liver disease. I will obtain liver functions. 3. Leukopenia, which has been chronic during previous hospitalization, likely from liver disease and splenomegaly, which would be evaluated with ultrasound. 4. Anemia, chronic, will be evaluated with iron studies, B12 and folic acid level and the stool occult blood.
[2018-08-01] MEDS ORDERED: Sodium Chloride 0.9% 1,000 ML IV SCH (10:15)
--- NOTE | 2018-08-01 13:57 | GI Progress Note ---
Subjective - Review of Systems Service Date: 08/01/18 Events since last encounter: no new events GI OBJECTIVE - Results Result Diagrams: 08/01/18 05:05 08/01/18 05:05 Recent Labs: Laboratory Last Values WBC 5.5 Th/cmm (4.8-10.8) 08/01/18 05:05 RBC 3.70 Mil/cmm (3.80-5.80) L 08/01/18 05:05 Hgb 11.3 gm/dL (12-16) L 08/01/18 05:05 Hct 33.6 % (41.0-60) L 08/01/18 05:05 MCV 90.7 fl (80-99) 08/01/18 05:05 MCH 30.6 pg (27.0-31.0) 08/01/18 05:05 MCHC Differential 33.7 pg (28.0-36.0) 08/01/18 05:05 RDW 21.1 % (11.5-20.0) H 08/01/18 05:05 Plt Count 296 Th/cmm (150-400) 08/01/18 05:05 MPV 7.3 fl 08/01/18 05:05 Add Manual Diff YES 07/30/18 17:51 Neutrophils % 46.0 % (40.0-80.0) 08/01/18 05:05 Band Neutrophils % 0 % (0-10) 07/30/18 17:51 Lymphocytes % 36.4 % (20.0-50.0) 08/01/18 05:05 Monocytes % 12.6 % (2.0-10.0) H 08/01/18 05:05 Eosinophils % 4.1 % (0.0-5.0) 08/01/18 05:05 Basophils % 0.9 % (0.0-2.0) 08/01/18 05:05 Neutrophils (Manual) 53 % (40-80) 07/30/18 17:51 Lymphocytes 35 % (20-50) 07/30/18 17:51 Monocytes 10 % (2-10) 07/30/18 17:51 Eosinophils 2 % (0-5) 07/30/18 17:51 Basophils 0 % (0-3) 07/30/18 17:51 Platelet Estimate ADEQUATE (NORMAL) 07/30/18 17:51 Platelet Morphology NORMAL (NORMAL) 07/30/18 17:51 RBC Morph Micro Appear NORMAL (NORMAL) 07/30/18 17:51 PT 12.5 SECONDS (9.5-11.5) H 07/30/18 17:51 INR 1.21 (0.5-1.4) 07/30/18 17:51 PTT (Actin FS) 26.7 SECONDS (26.0-38.0) 07/30/18 17:51 Sodium 133 mEq/L (136-145) L 08/01/18 05:05 Potassium 4.1 mEq/L (3.5-5.1) 08/01/18 05:05 Chloride 104 mEq/L (98-107) 08/01/18 05:05 Carbon Dioxide 23.1 mEq/L (21.0-31.0) 08/01/18 05:05 Anion Gap 10.0 (7.0-16.0) 08/01/18 05:05 BUN 14 mg/dL (7-25) 08/01/18 05:05 Creatinine 0.8 mg/dL (0.7-1.3) 08/01/18 05:05 Est GFR ( Amer) > 60.0 ml/min (>90) 08/01/18 05:05 Est GFR (Non-Af Amer) > 60.0 ml/min 08/01/18 05:05 BUN/Creatinine Ratio 17.5 08/01/18 05:05 Glucose 96 mg/dL (70-105) 08/01/18 05:05 Whole Bld Lactic Acid 2.90 mmol/L (0.60-1.99) H* 07/30/18 20:24 Calcium 12.0 mg/dL (8.6-10.3) H 08/01/18 05:05 Total Bilirubin 0.9 mg/dL (0.3-1.0) 07/31/18 04:20 AST 111 U/L (13-39) H 07/31/18 04:20 ALT 25 U/L (7-52) 07/31/18 04:20 Alkaline Phosphatase 138 U/L (34-104) H 07/31/18 04:20 Ammonia 117 umol/L (16-53) H 08/01/18 05:05 Total Protein 7.7 gm/dL (6.0-8.3) 07/31/18 04:20 Albumin 3.1 gm/dL (4.2-5.5) L 07/31/18 04:20 Globulin 4.6 gm/dL 07/31/18 04:20 Albumin/Globulin Ratio 0.7 (1.0-1.8) L 07/31/18 04:20 Urine Source CLEAN C 07/30/18 17:00 Urine Color STRAW 07/30/18 17:00 Urine Clarity CLEAR (CLEAR) 07/30/18 17:00 Urine pH 6.0 (4.6 - 8.0) 07/30/18 17:00 Ur Specific [place] 1.015 (1.005-1.030) 07/30/18 17:00 Urine Protein NEGATIVE mg/dL (NEGATIVE) 07/30/18 17:00 Urine Glucose (UA) NEGATIVE mg/dL (NEGATIVE) 07/30/18 17:00 Urine Ketones NEGATIVE mg/dL (NEGATIVE) 07/30/18 17:00 Urine Blood NEGATIVE (NEGATIVE) 07/30/18 17:00 Urine Nitrate NEGATIVE (NEGATIVE) 07/30/18 17:00 Urine Bilirubin NEGATIVE (NEGATIVE) 07/30/18 17:00 Urine Urobilinogen 1.0 E.U./dL (0.2 - 1.0) 07/30/18 17:00 Ur Leukocyte Esterase NEGATIVE (NEGATIVE) 07/30/18 17:00 - Physical Exam Vitals and I&O: Vital Signs Temp 97.7 F 08/01/18 12:00 Pulse 86 08/01/18 12:00 Resp 18 08/01/18 12:00 BP 139/64 08/01/18 12:00 Pulse Ox 100 08/01/18 12:00 Intake & Output 07/31/18 08/01/18 08/01/18 18:59 06:59 18:59 Intake Total 620 Output Total 6 Balance 620 -6 Weight (lbs) 80.739 kg 80.739 kg Intake: Oral 620 Output: Urine 6 Other: # Voids 3 5 # Bowel Movements 3 6 Weight Source Bedscale Bedscale Active Medications: Current Medications Al Hydrox/Mg Hydrox/Simethicone (Maalox) 30 ml PO Q4H PRN PRN Reason: gastric distress Ascorbic Acid (Vitamin C) 500 mg PO DAILY KRISTEN Stop: 09/30/18 08:59 Last Admin: 08/01/18 09:32 Dose: 500 mg Ferrous Sulfate (Iron) 325 mg PO DAILY KRISTEN Stop: 09/30/18 08:59 Last Admin: 08/01/18 09:32 Dose: 325 mg Furosemide (Lasix) 40 mg PO DAILY KRISTEN Stop: 09/30/18 08:59 Last Admin: 08/01/18 09:33 Dose: 40 mg Sodium Chloride (Nacl 0.9%) 1,000 mls @ 50 mls/hr IV .Q20H KRISTEN Stop: 09/30/18 10:14 Lactulose (Cephulac) 40 gm PO TID KRISTEN Stop: 09/29/18 13:59 Last Admin: 08/01/18 09:35 Dose: Not Given Metoprolol Tartrate (Lopressor) 25 mg PO BID KRISTEN Stop: 09/29/18 16:59 Last Admin: 08/01/18 09:04 Dose: Not Given Multivitamins/Vitamin C (Theragran) 1 tab PO DAILY KRISTEN Stop: 09/30/18 08:59 Last Admin: 08/01/18 09:32 Dose: 1 tab Pantoprazole Sodium (Protonix) 40 mg PO DAILY KRISTEN Stop: 09/30/18 08:59 Last Admin: 08/01/18 09:35 Dose: Not Given Potassium Chloride (Klor-Con) 20 meq PO DAILY KRISTEN Stop: 09/30/18 08:59 Last Admin: 08/01/18 09:33 Dose: 20 meq Senna (Senna) 8.6 mg PO HS KRISTEN Stop: 09/29/18 20:59 Last Admin: 07/31/18 20:57 Dose: 8.6 mg General: Alert HEENT: Atraumatic, PERRLA, EOMI Neck: Supple, Thyromegaly Cardiovascular: Regular rate, Normal S1, Normal S2 Lungs: Clear to auscultation - Procedures Procedures: Procedures Procedure Code Date RESECTION OF PREPUCE, EXTERNAL APPROACH 0VTTXZZ 05/16/18 Assessment/Plan - Assessment Assessment: 1. Hepatic encephalopathy 2. Cirrhosis -Continue supportive care with lactulose -U/S q 6 months -watch for any signs or symptoms of GI bleeding
--- NOTE | 2018-08-01 15:32 | Internal Medicine Prog Note ---
Internal Medicine Subjective - Subjective Service Date: 08/01/18 Patient seen and examined:: with staff Patient is:: awake, verbal Patient Complaints of:: other (generalized weakness.) Per staff patient has:: no adverse event, no episodes of fall Internal Medicine Objective - Results Result Diagrams: 08/01/18 05:05 08/01/18 05:05 Recent Labs: Laboratory Last Values WBC 5.5 Th/cmm (4.8-10.8) 08/01/18 05:05 RBC 3.70 Mil/cmm (3.80-5.80) L 08/01/18 05:05 Hgb 11.3 gm/dL (12-16) L 08/01/18 05:05 Hct 33.6 % (41.0-60) L 08/01/18 05:05 MCV 90.7 fl (80-99) 08/01/18 05:05 MCH 30.6 pg (27.0-31.0) 08/01/18 05:05 MCHC Differential 33.7 pg (28.0-36.0) 08/01/18 05:05 RDW 21.1 % (11.5-20.0) H 08/01/18 05:05 Plt Count 296 Th/cmm (150-400) 08/01/18 05:05 MPV 7.3 fl 08/01/18 05:05 Add Manual Diff YES 07/30/18 17:51 Neutrophils % 46.0 % (40.0-80.0) 08/01/18 05:05 Band Neutrophils % 0 % (0-10) 07/30/18 17:51 Lymphocytes % 36.4 % (20.0-50.0) 08/01/18 05:05 Monocytes % 12.6 % (2.0-10.0) H 08/01/18 05:05 Eosinophils % 4.1 % (0.0-5.0) 08/01/18 05:05 Basophils % 0.9 % (0.0-2.0) 08/01/18 05:05 Neutrophils (Manual) 53 % (40-80) 07/30/18 17:51 Lymphocytes 35 % (20-50) 07/30/18 17:51 Monocytes 10 % (2-10) 07/30/18 17:51 Eosinophils 2 % (0-5) 07/30/18 17:51 Basophils 0 % (0-3) 07/30/18 17:51 Platelet Estimate ADEQUATE (NORMAL) 07/30/18 17:51 Platelet Morphology NORMAL (NORMAL) 07/30/18 17:51 RBC Morph Micro Appear NORMAL (NORMAL) 07/30/18 17:51 PT 12.5 SECONDS (9.5-11.5) H 07/30/18 17:51 INR 1.21 (0.5-1.4) 07/30/18 17:51 PTT (Actin FS) 26.7 SECONDS (26.0-38.0) 07/30/18 17:51 Sodium 133 mEq/L (136-145) L 08/01/18 05:05 Potassium 4.1 mEq/L (3.5-5.1) 08/01/18 05:05 Chloride 104 mEq/L (98-107) 08/01/18 05:05 Carbon Dioxide 23.1 mEq/L (21.0-31.0) 08/01/18 05:05 Anion Gap 10.0 (7.0-16.0) 08/01/18 05:05 BUN 14 mg/dL (7-25) 08/01/18 05:05 Creatinine 0.8 mg/dL (0.7-1.3) 08/01/18 05:05 Est GFR ( Amer) > 60.0 ml/min (>90) 08/01/18 05:05 Est GFR (Non-Af Amer) > 60.0 ml/min 08/01/18 05:05 BUN/Creatinine Ratio 17.5 08/01/18 05:05 Glucose 96 mg/dL (70-105) 08/01/18 05:05 Whole Bld Lactic Acid 2.90 mmol/L (0.60-1.99) H* 07/30/18 20:24 Calcium 12.0 mg/dL (8.6-10.3) H 08/01/18 05:05 Total Bilirubin 0.9 mg/dL (0.3-1.0) 07/31/18 04:20 AST 111 U/L (13-39) H 07/31/18 04:20 ALT 25 U/L (7-52) 07/31/18 04:20 Alkaline Phosphatase 138 U/L (34-104) H 07/31/18 04:20 Ammonia 117 umol/L (16-53) H 08/01/18 05:05 Total Protein 7.7 gm/dL (6.0-8.3) 07/31/18 04:20 Albumin 3.1 gm/dL (4.2-5.5) L 07/31/18 04:20 Globulin 4.6 gm/dL 07/31/18 04:20 Albumin/Globulin Ratio 0.7 (1.0-1.8) L 07/31/18 04:20 Urine Source CLEAN C 07/30/18 17:00 Urine Color STRAW 07/30/18 17:00 Urine Clarity CLEAR (CLEAR) 07/30/18 17:00 Urine pH 6.0 (4.6 - 8.0) 07/30/18 17:00 Ur Specific [place] 1.015 (1.005-1.030) 07/30/18 17:00 Urine Protein NEGATIVE mg/dL (NEGATIVE) 07/30/18 17:00 Urine Glucose (UA) NEGATIVE mg/dL (NEGATIVE) 07/30/18 17:00 Urine Ketones NEGATIVE mg/dL (NEGATIVE) 07/30/18 17:00 Urine Blood NEGATIVE (NEGATIVE) 07/30/18 17:00 Urine Nitrate NEGATIVE (NEGATIVE) 07/30/18 17:00 Urine Bilirubin NEGATIVE (NEGATIVE) 07/30/18 17:00 Urine Urobilinogen 1.0 E.U./dL (0.2 - 1.0) 07/30/18 17:00 Ur Leukocyte Esterase NEGATIVE (NEGATIVE) 07/30/18 17:00 - Physical Exam Vitals and I&O: Vital Signs Temp 97.7 F 08/01/18 12:00 Pulse 86 08/01/18 12:00 Resp 18 08/01/18 12:00 BP 139/64 08/01/18 12:00 Pulse Ox 100 08/01/18 12:00 Intake & Output 07/31/18 08/01/18 08/01/18 18:59 06:59 18:59 Intake Total 620 Output Total 6 Balance 620 -6 Weight (lbs) 80.739 kg 80.739 kg Intake: Oral 620 Output: Urine 6 Other: # Voids 3 5 # Bowel Movements 3 6 Weight Source Bedscale Bedscale Active Medications: Current Medications Al Hydrox/Mg Hydrox/Simethicone (Maalox) 30 ml PO Q4H PRN PRN Reason: gastric distress Ascorbic Acid (Vitamin C) 500 mg PO DAILY KRISTEN Stop: 09/30/18 08:59 Last Admin: 08/01/18 09:32 Dose: 500 mg Ferrous Sulfate (Iron) 325 mg PO DAILY KRISTEN Stop: 09/30/18 08:59 Last Admin: 08/01/18 09:32 Dose: 325 mg Furosemide (Lasix) 40 mg PO DAILY KRISTEN Stop: 09/30/18 08:59 Last Admin: 08/01/18 09:33 Dose: 40 mg Sodium Chloride (Nacl 0.9%) 1,000 mls @ 50 mls/hr IV .Q20H KRISTEN Stop: 09/30/18 10:14 Lactulose (Cephulac) 40 gm PO TID KRISTEN Stop: 09/29/18 13:59 Last Admin: 08/01/18 09:35 Dose: Not Given Metoprolol Tartrate (Lopressor) 25 mg PO BID KRISTEN Stop: 09/29/18 16:59 Last Admin: 08/01/18 09:04 Dose: Not Given Multivitamins/Vitamin C (Theragran) 1 tab PO DAILY KRISTEN Stop: 09/30/18 08:59 Last Admin: 08/01/18 09:32 Dose: 1 tab Pantoprazole Sodium (Protonix) 40 mg PO DAILY KRISTEN Stop: 09/30/18 08:59 Last Admin: 08/01/18 09:35 Dose: Not Given Potassium Chloride (Klor-Con) 20 meq PO DAILY KRISTEN Stop: 09/30/18 08:59 Last Admin: 08/01/18 09:33 Dose: 20 meq Senna (Senna) 8.6 mg PO HS KRISTEN Stop: 09/29/18 20:59 Last Admin: 07/31/18 20:57 Dose: 8.6 mg Physical Exam: Patient has generalized weakness. General: weak, demented HEENT: NC/AT Neck: Supple Lungs: CTAB Cardiovascular: RRR, Normal S1 Extremities: clear Neurological: no change - Procedures Procedures: Procedures Procedure Code Date RESECTION OF PREPUCE, EXTERNAL APPROACH 0VTTXZZ 05/16/18 Internal Medicine Assmt/Plan - Assessment Assessment: Htn. CHF. Dementia. Hepatic Encephalopathy. Cirrhosis of the liver. Chronic anemia. Generalized weakness. - Plan Plan: Continuation of care. Monitor Vitals and Labs. Continue present meds as directed. Monitor vitals, Continue BP meds as directed. Monitor Diet/Nutritional support. Psych management per Psych. Pain Management. Physical therapy. Occupational therapy. Fall precaution, frequent nursing rounds, and as needed restraints to prevent fall. Safety precaution. Supportive care. Continue collaborating with consulting specialists, case management and nursing team. Will Monitor patient and continue current treatment plan as ordered. Nutritional Asmnt/Malnutr-PDOC - Dietary Evaluation Malnutrition Findings (Please click <Entered> for more info): see orders.
[2018-08-02 02:10] LABS: FERRITIN 125 ng/mL (30-400); FOLIC ACID >20.0 ng/mL (>3.0); IRON LC 43 ug/dL (38-169); TIBC (LC) 474 ug/dL (250-450); UIBC 431 ug/dL (111-343)
[2018-08-02 06:09] LABS: ANION GAP 10.2 (7.0-16.0); BUN - UREA NITROGEN 16 mg/dL (7-25); CALCIUM SERUM 11.4 mg/dL (8.6-10.3); CARBON DIOXIDE 22.9 mEq/L (21.0-31.0); CHLORIDE 103 mEq/L (98-107); CREATININE - SERUM 0.7 mg/dL (0.7-1.3); GFR AFRICAN-AMERICAN > 60.0 ml/min (>90); GFR NON AFRICAN-AMERICAN > 60.0 ml/min; GLUCOSE 109 mg/dL (70-105); POTASSIUM SERUM 4.1 mEq/L (3.5-5.1); SODIUM SERUM 132 mEq/L (136-145)
[2018-08-02] MEDS: Ferrous Sulfate 325 MG TAB PO SCH (09:32)
[2018-08-02] MEDS: Lactulose 10 Gm/15 mL 30mL UDC PO SCH ×3 (09:32→20:29)
[2018-08-02] MEDS: Multivitamin Tab PO SCH (09:32)
[2018-08-02] MEDS: Potassium Chloride 20 mEq ER Tab PO SCH (09:52)
[2018-08-02] MEDS: Pantoprazole 40 mg EC Tab PO SCH (09:53)
--- NOTE | 2018-08-02 13:11 | GI Progress Note ---
Subjective - Review of Systems Service Date: 08/02/18 Events since last encounter: no new events GI OBJECTIVE - Results Result Diagrams: 08/01/18 05:05 08/02/18 04:55 Recent Labs: Laboratory Last Values WBC 5.5 Th/cmm (4.8-10.8) 08/01/18 05:05 RBC 3.70 Mil/cmm (3.80-5.80) L 08/01/18 05:05 Hgb 11.3 gm/dL (12-16) L 08/01/18 05:05 Hct 33.6 % (41.0-60) L 08/01/18 05:05 MCV 90.7 fl (80-99) 08/01/18 05:05 MCH 30.6 pg (27.0-31.0) 08/01/18 05:05 MCHC Differential 33.7 pg (28.0-36.0) 08/01/18 05:05 RDW 21.1 % (11.5-20.0) H 08/01/18 05:05 Plt Count 296 Th/cmm (150-400) 08/01/18 05:05 MPV 7.3 fl 08/01/18 05:05 Add Manual Diff YES 07/30/18 17:51 Neutrophils % 46.0 % (40.0-80.0) 08/01/18 05:05 Band Neutrophils % 0 % (0-10) 07/30/18 17:51 Lymphocytes % 36.4 % (20.0-50.0) 08/01/18 05:05 Monocytes % 12.6 % (2.0-10.0) H 08/01/18 05:05 Eosinophils % 4.1 % (0.0-5.0) 08/01/18 05:05 Basophils % 0.9 % (0.0-2.0) 08/01/18 05:05 Neutrophils (Manual) 53 % (40-80) 07/30/18 17:51 Lymphocytes 35 % (20-50) 07/30/18 17:51 Monocytes 10 % (2-10) 07/30/18 17:51 Eosinophils 2 % (0-5) 07/30/18 17:51 Basophils 0 % (0-3) 07/30/18 17:51 Platelet Estimate ADEQUATE (NORMAL) 07/30/18 17:51 Platelet Morphology NORMAL (NORMAL) 07/30/18 17:51 RBC Morph Micro Appear NORMAL (NORMAL) 07/30/18 17:51 PT 12.5 SECONDS (9.5-11.5) H 07/30/18 17:51 INR 1.21 (0.5-1.4) 07/30/18 17:51 PTT (Actin FS) 26.7 SECONDS (26.0-38.0) 07/30/18 17:51 Sodium 132 mEq/L (136-145) L 08/02/18 04:55 Potassium 4.1 mEq/L (3.5-5.1) 08/02/18 04:55 Chloride 103 mEq/L (98-107) 08/02/18 04:55 Carbon Dioxide 22.9 mEq/L (21.0-31.0) 08/02/18 04:55 Anion Gap 10.2 (7.0-16.0) 08/02/18 04:55 BUN 16 mg/dL (7-25) 08/02/18 04:55 Creatinine 0.7 mg/dL (0.7-1.3) 08/02/18 04:55 Est GFR ( Amer) > 60.0 ml/min (>90) 08/02/18 04:55 Est GFR (Non-Af Amer) > 60.0 ml/min 08/02/18 04:55 BUN/Creatinine Ratio 22.9 08/02/18 04:55 Glucose 109 mg/dL (70-105) H 08/02/18 04:55 Whole Bld Lactic Acid 2.90 mmol/L (0.60-1.99) H* 07/30/18 20:24 Calcium 11.4 mg/dL (8.6-10.3) H 08/02/18 04:55 Iron 43 ug/dL (38-169) 07/31/18 04:20 TIBC 474 ug/dL (250-450) H 07/31/18 04:20 Iron Saturation 9 % (15-55) L 07/31/18 04:20 Unsaturated IBC 431 ug/dL (111-343) H 07/31/18 04:20 Ferritin 125 ng/mL (30-400) 07/31/18 04:20 Total Bilirubin 0.9 mg/dL (0.3-1.0) 07/31/18 04:20 AST 111 U/L (13-39) H 07/31/18 04:20 ALT 25 U/L (7-52) 07/31/18 04:20 Alkaline Phosphatase 138 U/L (34-104) H 07/31/18 04:20 Ammonia 117 umol/L (16-53) H 08/01/18 05:05 Total Protein 7.7 gm/dL (6.0-8.3) 07/31/18 04:20 Albumin 3.1 gm/dL (4.2-5.5) L 07/31/18 04:20 Globulin 4.6 gm/dL 07/31/18 04:20 Albumin/Globulin Ratio 0.7 (1.0-1.8) L 07/31/18 04:20 Vitamin B12 977 pg/mL (232-1245) 07/31/18 04:20 Vitamin D 25-Hydroxy 26.6 ng/mL (30.0-100.0) L 08/01/18 05:05 Folic Acid >20.0 ng/mL (>3.0) 07/31/18 04:20 Urine Source CLEAN C 07/30/18 17:00 Urine Color STRAW 07/30/18 17:00 Urine Clarity CLEAR (CLEAR) 07/30/18 17:00 Urine pH 6.0 (4.6 - 8.0) 07/30/18 17:00 Ur Specific [place] 1.015 (1.005-1.030) 07/30/18 17:00 Urine Protein NEGATIVE mg/dL (NEGATIVE) 07/30/18 17:00 Urine Glucose (UA) NEGATIVE mg/dL (NEGATIVE) 07/30/18 17:00 Urine Ketones NEGATIVE mg/dL (NEGATIVE) 07/30/18 17:00 Urine Blood NEGATIVE (NEGATIVE) 07/30/18 17:00 Urine Nitrate NEGATIVE (NEGATIVE) 07/30/18 17:00 Urine Bilirubin NEGATIVE (NEGATIVE) 07/30/18 17:00 Urine Urobilinogen 1.0 E.U./dL (0.2 - 1.0) 07/30/18 17:00 Ur Leukocyte Esterase NEGATIVE (NEGATIVE) 07/30/18 17:00 - Physical Exam Vitals and I&O: Vital Signs Temp 98.2 F 08/02/18 11:41 Pulse 79 08/02/18 11:41 Resp 18 08/02/18 11:41 BP 126/71 08/02/18 11:41 Pulse Ox 96 08/02/18 11:41 Intake & Output 08/01/18 08/02/18 08/02/18 18:59 06:59 18:59 Intake Total 1000 800 Balance 1000 800 Weight (lbs) 80.739 kg 80.739 kg Intake: Oral 1000 800 Other: # Voids 4 4 # Bowel Movements 1 Weight Source Bedscale Bedscale Active Medications: Current Medications Al Hydrox/Mg Hydrox/Simethicone (Maalox) 30 ml PO Q4H PRN PRN Reason: gastric distress Ascorbic Acid (Vitamin C) 500 mg PO DAILY KRISTEN Stop: 09/30/18 08:59 Last Admin: 08/02/18 09:32 Dose: Not Given Ferrous Sulfate (Iron) 325 mg PO DAILY KRISTEN Stop: 09/30/18 08:59 Last Admin: 08/02/18 09:32 Dose: Not Given Furosemide (Lasix) 40 mg PO DAILY KRISTEN Stop: 09/30/18 08:59 Last Admin: 08/02/18 09:53 Dose: 40 mg Sodium Chloride (Nacl 0.9%) 1,000 mls @ 50 mls/hr IV .Q20H KRISTEN Stop: 09/30/18 10:14 Lactulose (Cephulac) 40 gm PO TID KRISTEN Stop: 09/29/18 13:59 Last Admin: 08/02/18 09:32 Dose: Not Given Metoprolol Tartrate (Lopressor) 25 mg PO BID KRISTEN Stop: 09/29/18 16:59 Last Admin: 08/02/18 09:54 Dose: Not Given Multivitamins/Vitamin C (Theragran) 1 tab PO DAILY KRISTEN Stop: 09/30/18 08:59 Last Admin: 08/02/18 09:32 Dose: Not Given Pantoprazole Sodium (Protonix) 40 mg PO DAILY KRISTEN Stop: 09/30/18 08:59 Last Admin: 08/02/18 09:53 Dose: 40 mg Potassium Chloride (Klor-Con) 20 meq PO DAILY KRISTEN Stop: 09/30/18 08:59 Last Admin: 08/02/18 09:52 Dose: 20 meq Senna (Senna) 8.6 mg PO HS KRISTEN Stop: 09/29/18 20:59 Last Admin: 08/01/18 20:37 Dose: 8.6 mg General: Cooperative HEENT: EOMI Cardiovascular: Regular rate, Normal S2 Lungs: Clear to auscultation - Procedures Procedures: Procedures Procedure Code Date RESECTION OF PREPUCE, EXTERNAL APPROACH [id number] 05/16/18 Assessment/Plan - Assessment Assessment: 1. Hepatic encephalopathy 2. Cirrhosis -Continue supportive care with lactulose -U/S q 6 months -watch for any signs or symptoms of GI bleeding
--- NOTE | 2018-08-02 17:35 | Internal Medicine Prog Note ---
Internal Medicine Subjective - Subjective Service Date: 08/02/18 Patient is:: awake, verbal Patient Complaints of:: other (generalized weakness.) Per staff patient has:: no adverse event, no episodes of fall Internal Medicine Objective - Results Result Diagrams: 08/01/18 05:05 08/02/18 04:55 Recent Labs: Laboratory Last Values WBC 5.5 Th/cmm (4.8-10.8) 08/01/18 05:05 RBC 3.70 Mil/cmm (3.80-5.80) L 08/01/18 05:05 Hgb 11.3 gm/dL (12-16) L 08/01/18 05:05 Hct 33.6 % (41.0-60) L 08/01/18 05:05 MCV 90.7 fl (80-99) 08/01/18 05:05 MCH 30.6 pg (27.0-31.0) 08/01/18 05:05 MCHC Differential 33.7 pg (28.0-36.0) 08/01/18 05:05 RDW 21.1 % (11.5-20.0) H 08/01/18 05:05 Plt Count 296 Th/cmm (150-400) 08/01/18 05:05 MPV 7.3 fl 08/01/18 05:05 Add Manual Diff YES 07/30/18 17:51 Neutrophils % 46.0 % (40.0-80.0) 08/01/18 05:05 Band Neutrophils % 0 % (0-10) 07/30/18 17:51 Lymphocytes % 36.4 % (20.0-50.0) 08/01/18 05:05 Monocytes % 12.6 % (2.0-10.0) H 08/01/18 05:05 Eosinophils % 4.1 % (0.0-5.0) 08/01/18 05:05 Basophils % 0.9 % (0.0-2.0) 08/01/18 05:05 Neutrophils (Manual) 53 % (40-80) 07/30/18 17:51 Lymphocytes 35 % (20-50) 07/30/18 17:51 Monocytes 10 % (2-10) 07/30/18 17:51 Eosinophils 2 % (0-5) 07/30/18 17:51 Basophils 0 % (0-3) 07/30/18 17:51 Platelet Estimate ADEQUATE (NORMAL) 07/30/18 17:51 Platelet Morphology NORMAL (NORMAL) 07/30/18 17:51 RBC Morph Micro Appear NORMAL (NORMAL) 07/30/18 17:51 PT 12.5 SECONDS (9.5-11.5) H 07/30/18 17:51 INR 1.21 (0.5-1.4) 07/30/18 17:51 PTT (Actin FS) 26.7 SECONDS (26.0-38.0) 07/30/18 17:51 Sodium 132 mEq/L (136-145) L 08/02/18 04:55 Potassium 4.1 mEq/L (3.5-5.1) 08/02/18 04:55 Chloride 103 mEq/L (98-107) 08/02/18 04:55 Carbon Dioxide 22.9 mEq/L (21.0-31.0) 08/02/18 04:55 Anion Gap 10.2 (7.0-16.0) 08/02/18 04:55 BUN 16 mg/dL (7-25) 08/02/18 04:55 Creatinine 0.7 mg/dL (0.7-1.3) 08/02/18 04:55 Est GFR ( Amer) > 60.0 ml/min (>90) 08/02/18 04:55 Est GFR (Non-Af Amer) > 60.0 ml/min 08/02/18 04:55 BUN/Creatinine Ratio 22.9 08/02/18 04:55 Glucose 109 mg/dL (70-105) H 08/02/18 04:55 Whole Bld Lactic Acid 2.90 mmol/L (0.60-1.99) H* 07/30/18 20:24 Calcium 11.4 mg/dL (8.6-10.3) H 08/02/18 04:55 Iron 43 ug/dL (38-169) 07/31/18 04:20 TIBC 474 ug/dL (250-450) H 07/31/18 04:20 Iron Saturation 9 % (15-55) L 07/31/18 04:20 Unsaturated IBC 431 ug/dL (111-343) H 07/31/18 04:20 Ferritin 125 ng/mL (30-400) 07/31/18 04:20 Total Bilirubin 0.9 mg/dL (0.3-1.0) 07/31/18 04:20 AST 111 U/L (13-39) H 07/31/18 04:20 ALT 25 U/L (7-52) 07/31/18 04:20 Alkaline Phosphatase 138 U/L (34-104) H 07/31/18 04:20 Ammonia 117 umol/L (16-53) H 08/01/18 05:05 Total Protein 7.7 gm/dL (6.0-8.3) 07/31/18 04:20 Albumin 3.1 gm/dL (4.2-5.5) L 07/31/18 04:20 Globulin 4.6 gm/dL 07/31/18 04:20 Albumin/Globulin Ratio 0.7 (1.0-1.8) L 07/31/18 04:20 Vitamin B12 977 pg/mL (232-1245) 07/31/18 04:20 Vitamin D 25-Hydroxy 26.6 ng/mL (30.0-100.0) L 08/01/18 05:05 Folic Acid >20.0 ng/mL (>3.0) 07/31/18 04:20 Urine Source CLEAN C 07/30/18 17:00 Urine Color STRAW 07/30/18 17:00 Urine Clarity CLEAR (CLEAR) 07/30/18 17:00 Urine pH 6.0 (4.6 - 8.0) 07/30/18 17:00 Ur Specific [place] 1.015 (1.005-1.030) 07/30/18 17:00 Urine Protein NEGATIVE mg/dL (NEGATIVE) 07/30/18 17:00 Urine Glucose (UA) NEGATIVE mg/dL (NEGATIVE) 07/30/18 17:00 Urine Ketones NEGATIVE mg/dL (NEGATIVE) 07/30/18 17:00 Urine Blood NEGATIVE (NEGATIVE) 07/30/18 17:00 Urine Nitrate NEGATIVE (NEGATIVE) 07/30/18 17:00 Urine Bilirubin NEGATIVE (NEGATIVE) 07/30/18 17:00 Urine Urobilinogen 1.0 E.U./dL (0.2 - 1.0) 07/30/18 17:00 Ur Leukocyte Esterase NEGATIVE (NEGATIVE) 07/30/18 17:00 - Physical Exam Vitals and I&O: Vital Signs Temp 98.0 F 08/02/18 16:00 Pulse 92 08/02/18 17:16 Resp 19 08/02/18 16:00 BP 119/82 08/02/18 17:16 Pulse Ox 100 08/02/18 16:00 Intake & Output 08/01/18 08/02/18 08/02/18 18:59 06:59 18:59 Intake Total 1000 800 Balance 1000 800 Weight (lbs) 178 lb 178 lb Intake: Oral 1000 800 Other: # Voids 4 4 # Bowel Movements 1 Weight Source Bedscale Bedscale Active Medications: Current Medications Al Hydrox/Mg Hydrox/Simethicone (Maalox) 30 ml PO Q4H PRN PRN Reason: gastric distress Ascorbic Acid (Vitamin C) 500 mg PO DAILY KRISTEN Stop: 09/30/18 08:59 Last Admin: 08/02/18 09:32 Dose: Not Given Ferrous Sulfate (Iron) 325 mg PO DAILY KRISTEN Stop: 09/30/18 08:59 Last Admin: 08/02/18 09:32 Dose: Not Given Furosemide (Lasix) 40 mg PO DAILY KRISTEN Stop: 09/30/18 08:59 Last Admin: 08/02/18 09:53 Dose: 40 mg Sodium Chloride (Nacl 0.9%) 1,000 mls @ 50 mls/hr IV .Q20H KRISTEN Stop: 09/30/18 10:14 Lactulose (Cephulac) 40 gm PO TID KRISTEN Stop: 09/29/18 13:59 Last Admin: 08/02/18 14:02 Dose: Not Given Metoprolol Tartrate (Lopressor) 25 mg PO BID KRISTEN Stop: 09/29/18 16:59 Last Admin: 08/02/18 17:16 Dose: Not Given Multivitamins/Vitamin C (Theragran) 1 tab PO DAILY KRISTEN Stop: 09/30/18 08:59 Last Admin: 08/02/18 09:32 Dose: Not Given Pantoprazole Sodium (Protonix) 40 mg PO DAILY KRISTEN Stop: 09/30/18 08:59 Last Admin: 08/02/18 09:53 Dose: 40 mg Potassium Chloride (Klor-Con) 20 meq PO DAILY KRISTEN Stop: 09/30/18 08:59 Last Admin: 08/02/18 09:52 Dose: 20 meq Senna (Senna) 8.6 mg PO HS KRISTEN Stop: 09/29/18 20:59 Last Admin: 08/01/18 20:37 Dose: 8.6 mg General: weak, demented HEENT: NC/AT Neck: Supple Lungs: CTAB Cardiovascular: RRR, Normal S1 Extremities: clear Neurological: no change - Procedures Procedures: Procedures Procedure Code Date RESECTION OF PREPUCE, EXTERNAL APPROACH [id number] 05/16/18 Internal Medicine Assmt/Plan - Assessment Assessment: Htn. CHF. Dementia. Hepatic Encephalopathy. Cirrhosis of the liver. Chronic anemia. Generalized weakness. - Plan Plan: Continuation of care. Monitor Vitals and Labs. Continue present meds as directed. Monitor vitals, Continue BP meds as directed. Monitor Diet/Nutritional support. Psych management per Psych. Pain Management. Physical therapy. Occupational therapy. Fall precaution, frequent nursing rounds, and as needed restraints to prevent fall. Safety precaution. Supportive care. Continue collaborating with consulting specialists, case management and nursing team. Will Monitor patient and continue current treatment plan as ordered.
[2018-08-03] MEDS: Lactulose 10 Gm/15 mL 30mL UDC PO SCH ×2 (08:20→13:52)
[2018-08-03] MEDS: Potassium Chloride 20 mEq ER Tab PO SCH (08:20)
[2018-08-03] MEDS: Multivitamin Tab PO SCH (08:20)
[2018-08-03] MEDS: Pantoprazole 40 mg EC Tab PO SCH (08:20)
[2018-08-03] MEDS: Ferrous Sulfate 325 MG TAB PO SCH (08:20)
[2018-08-03 09:09] LABS: CA (PTHI) 11.1 mg/dL (8.6-10.2); PARATHYROID HORMONE INTACT <6 pg/mL (15-65)
--- NOTE | 2018-08-03 09:50 | GI Progress Note ---
Subjective - Review of Systems Service Date: 08/03/18 Events since last encounter: no new events GI OBJECTIVE - Results Result Diagrams: 08/01/18 05:05 08/02/18 04:55 Recent Labs: Laboratory Last Values WBC 5.5 Th/cmm (4.8-10.8) 08/01/18 05:05 RBC 3.70 Mil/cmm (3.80-5.80) L 08/01/18 05:05 Hgb 11.3 gm/dL (12-16) L 08/01/18 05:05 Hct 33.6 % (41.0-60) L 08/01/18 05:05 MCV 90.7 fl (80-99) 08/01/18 05:05 MCH 30.6 pg (27.0-31.0) 08/01/18 05:05 MCHC Differential 33.7 pg (28.0-36.0) 08/01/18 05:05 RDW 21.1 % (11.5-20.0) H 08/01/18 05:05 Plt Count 296 Th/cmm (150-400) 08/01/18 05:05 MPV 7.3 fl 08/01/18 05:05 Add Manual Diff YES 07/30/18 17:51 Neutrophils % 46.0 % (40.0-80.0) 08/01/18 05:05 Band Neutrophils % 0 % (0-10) 07/30/18 17:51 Lymphocytes % 36.4 % (20.0-50.0) 08/01/18 05:05 Monocytes % 12.6 % (2.0-10.0) H 08/01/18 05:05 Eosinophils % 4.1 % (0.0-5.0) 08/01/18 05:05 Basophils % 0.9 % (0.0-2.0) 08/01/18 05:05 Neutrophils (Manual) 53 % (40-80) 07/30/18 17:51 Lymphocytes 35 % (20-50) 07/30/18 17:51 Monocytes 10 % (2-10) 07/30/18 17:51 Eosinophils 2 % (0-5) 07/30/18 17:51 Basophils 0 % (0-3) 07/30/18 17:51 Platelet Estimate ADEQUATE (NORMAL) 07/30/18 17:51 Platelet Morphology NORMAL (NORMAL) 07/30/18 17:51 RBC Morph Micro Appear NORMAL (NORMAL) 07/30/18 17:51 PT 12.5 SECONDS (9.5-11.5) H 07/30/18 17:51 INR 1.21 (0.5-1.4) 07/30/18 17:51 PTT (Actin FS) 26.7 SECONDS (26.0-38.0) 07/30/18 17:51 Sodium 132 mEq/L (136-145) L 08/02/18 04:55 Potassium 4.1 mEq/L (3.5-5.1) 08/02/18 04:55 Chloride 103 mEq/L (98-107) 08/02/18 04:55 Carbon Dioxide 22.9 mEq/L (21.0-31.0) 08/02/18 04:55 Anion Gap 10.2 (7.0-16.0) 08/02/18 04:55 BUN 16 mg/dL (7-25) 08/02/18 04:55 Creatinine 0.7 mg/dL (0.7-1.3) 08/02/18 04:55 Est GFR ( Amer) > 60.0 ml/min (>90) 08/02/18 04:55 Est GFR (Non-Af Amer) > 60.0 ml/min 08/02/18 04:55 BUN/Creatinine Ratio 22.9 08/02/18 04:55 Glucose 109 mg/dL (70-105) H 08/02/18 04:55 Whole Bld Lactic Acid 2.90 mmol/L (0.60-1.99) H* 07/30/18 20:24 Calcium 11.4 mg/dL (8.6-10.3) H 08/02/18 04:55 Iron 43 ug/dL (38-169) 07/31/18 04:20 TIBC 474 ug/dL (250-450) H 07/31/18 04:20 Iron Saturation 9 % (15-55) L 07/31/18 04:20 Unsaturated IBC 431 ug/dL (111-343) H 07/31/18 04:20 Ferritin 125 ng/mL (30-400) 07/31/18 04:20 Total Bilirubin 0.9 mg/dL (0.3-1.0) 07/31/18 04:20 AST 111 U/L (13-39) H 07/31/18 04:20 ALT 25 U/L (7-52) 07/31/18 04:20 Alkaline Phosphatase 138 U/L (34-104) H 07/31/18 04:20 Ammonia 117 umol/L (16-53) H 08/01/18 05:05 Total Protein 7.7 gm/dL (6.0-8.3) 07/31/18 04:20 Albumin 3.1 gm/dL (4.2-5.5) L 07/31/18 04:20 Globulin 4.6 gm/dL 07/31/18 04:20 Albumin/Globulin Ratio 0.7 (1.0-1.8) L 07/31/18 04:20 Vitamin B12 977 pg/mL (232-1245) 07/31/18 04:20 Vitamin D 25-Hydroxy 26.6 ng/mL (30.0-100.0) L 08/01/18 05:05 Folic Acid >20.0 ng/mL (>3.0) 07/31/18 04:20 PTH Interpretation 07/31/18 04:20 PTH Intact <6 pg/mL (15-65) L 07/31/18 04:20 Calcium (PTH Intact) 11.1 mg/dL (8.6-10.2) H 07/31/18 04:20 Urine Source CLEAN C 07/30/18 17:00 Urine Color STRAW 07/30/18 17:00 Urine Clarity CLEAR (CLEAR) 07/30/18 17:00 Urine pH 6.0 (4.6 - 8.0) 07/30/18 17:00 Ur Specific [place] 1.015 (1.005-1.030) 07/30/18 17:00 Urine Protein NEGATIVE mg/dL (NEGATIVE) 07/30/18 17:00 Urine Glucose (UA) NEGATIVE mg/dL (NEGATIVE) 07/30/18 17:00 Urine Ketones NEGATIVE mg/dL (NEGATIVE) 07/30/18 17:00 Urine Blood NEGATIVE (NEGATIVE) 07/30/18 17:00 Urine Nitrate NEGATIVE (NEGATIVE) 07/30/18 17:00 Urine Bilirubin NEGATIVE (NEGATIVE) 07/30/18 17:00 Urine Urobilinogen 1.0 E.U./dL (0.2 - 1.0) 07/30/18 17:00 Ur Leukocyte Esterase NEGATIVE (NEGATIVE) 07/30/18 17:00 - Physical Exam Vitals and I&O: Vital Signs Temp 97.5 F 08/03/18 08:00 Pulse 77 08/03/18 08:20 Resp 18 08/03/18 08:00 BP 125/72 08/03/18 08:20 Pulse Ox 98 08/03/18 08:00 Intake & Output 08/02/18 08/03/18 08/03/18 18:59 06:59 18:59 Intake Total 1999 Balance 1999 Weight (lbs) 80.739 kg 80.739 kg Intake: Oral 1999 Other: # Voids 4 1 # Bowel Movements 1 2 Weight Source Bedscale Bedscale Active Medications: Current Medications Al Hydrox/Mg Hydrox/Simethicone (Maalox) 30 ml PO Q4H PRN PRN Reason: gastric distress Ascorbic Acid (Vitamin C) 500 mg PO DAILY KRISTEN Stop: 09/30/18 08:59 Last Admin: 08/03/18 08:20 Dose: 500 mg Ferrous Sulfate (Iron) 325 mg PO DAILY KRISTEN Stop: 09/30/18 08:59 Last Admin: 08/03/18 08:20 Dose: 325 mg Furosemide (Lasix) 40 mg PO DAILY KRISTEN Stop: 09/30/18 08:59 Last Admin: 08/03/18 08:20 Dose: 40 mg Sodium Chloride (Nacl 0.9%) 1,000 mls @ 50 mls/hr IV .Q20H KRISTEN Stop: 09/30/18 10:14 Lactulose (Cephulac) 40 gm PO TID KRISTEN Stop: 09/29/18 13:59 Last Admin: 08/03/18 08:20 Dose: 40 gm Metoprolol Tartrate (Lopressor) 25 mg PO BID KRISTEN Stop: 09/29/18 16:59 Last Admin: 08/03/18 08:20 Dose: 25 mg Multivitamins/Vitamin C (Theragran) 1 tab PO DAILY KRISTEN Stop: 09/30/18 08:59 Last Admin: 08/03/18 08:20 Dose: 1 tab Pantoprazole Sodium (Protonix) 40 mg PO DAILY KRISTEN Stop: 09/30/18 08:59 Last Admin: 08/03/18 08:20 Dose: 40 mg Potassium Chloride (Klor-Con) 20 meq PO DAILY KRISTEN Stop: 09/30/18 08:59 Last Admin: 08/03/18 08:20 Dose: 20 meq Senna (Senna) 8.6 mg PO HS KRISTEN Stop: 09/29/18 20:59 Last Admin: 08/02/18 20:29 Dose: Not Given Tramadol HCl (Ultram) 50 mg PO Q6HR PRN PRN Reason: Pain (Moderate) Stop: 10/01/18 20:19 Last Admin: 08/02/18 21:09 Dose: 50 mg General: Cooperative HEENT: Atraumatic, PERRLA, EOMI Neck: Thyromegaly Cardiovascular: Normal S1, Normal S2 Lungs: Clear to auscultation Abdomen: Bowel sounds - Procedures Procedures: Procedures Procedure Code Date RESECTION OF PREPUCE, EXTERNAL APPROACH [id number] 05/16/18 Assessment/Plan - Assessment Assessment: 1. Hepatic encephalopathy 2. Cirrhosis -Continue supportive care with lactulose -U/S q 6 months -watch for any signs or symptoms of GI bleeding
--- NOTE | 2018-08-03 14:48 | General Progress Note ---
Subjective - Review of Systems Service Date: 08/03/18 Subjective: not in distress Objective - Results Result Diagrams: 08/01/18 05:05 08/02/18 04:55 Recent Labs: Laboratory Last Values WBC 5.5 Th/cmm (4.8-10.8) 08/01/18 05:05 RBC 3.70 Mil/cmm (3.80-5.80) L 08/01/18 05:05 Hgb 11.3 gm/dL (12-16) L 08/01/18 05:05 Hct 33.6 % (41.0-60) L 08/01/18 05:05 MCV 90.7 fl (80-99) 08/01/18 05:05 MCH 30.6 pg (27.0-31.0) 08/01/18 05:05 MCHC Differential 33.7 pg (28.0-36.0) 08/01/18 05:05 RDW 21.1 % (11.5-20.0) H 08/01/18 05:05 Plt Count 296 Th/cmm (150-400) 08/01/18 05:05 MPV 7.3 fl 08/01/18 05:05 Add Manual Diff YES 07/30/18 17:51 Neutrophils % 46.0 % (40.0-80.0) 08/01/18 05:05 Band Neutrophils % 0 % (0-10) 07/30/18 17:51 Lymphocytes % 36.4 % (20.0-50.0) 08/01/18 05:05 Monocytes % 12.6 % (2.0-10.0) H 08/01/18 05:05 Eosinophils % 4.1 % (0.0-5.0) 08/01/18 05:05 Basophils % 0.9 % (0.0-2.0) 08/01/18 05:05 Neutrophils (Manual) 53 % (40-80) 07/30/18 17:51 Lymphocytes 35 % (20-50) 07/30/18 17:51 Monocytes 10 % (2-10) 07/30/18 17:51 Eosinophils 2 % (0-5) 07/30/18 17:51 Basophils 0 % (0-3) 07/30/18 17:51 Platelet Estimate ADEQUATE (NORMAL) 07/30/18 17:51 Platelet Morphology NORMAL (NORMAL) 07/30/18 17:51 RBC Morph Micro Appear NORMAL (NORMAL) 07/30/18 17:51 PT 12.5 SECONDS (9.5-11.5) H 07/30/18 17:51 INR 1.21 (0.5-1.4) 07/30/18 17:51 PTT (Actin FS) 26.7 SECONDS (26.0-38.0) 07/30/18 17:51 Sodium 132 mEq/L (136-145) L 08/02/18 04:55 Potassium 4.1 mEq/L (3.5-5.1) 08/02/18 04:55 Chloride 103 mEq/L (98-107) 08/02/18 04:55 Carbon Dioxide 22.9 mEq/L (21.0-31.0) 08/02/18 04:55 Anion Gap 10.2 (7.0-16.0) 08/02/18 04:55 BUN 16 mg/dL (7-25) 08/02/18 04:55 Creatinine 0.7 mg/dL (0.7-1.3) 08/02/18 04:55 Est GFR ( Amer) > 60.0 ml/min (>90) 08/02/18 04:55 Est GFR (Non-Af Amer) > 60.0 ml/min 08/02/18 04:55 BUN/Creatinine Ratio 22.9 08/02/18 04:55 Glucose 109 mg/dL (70-105) H 08/02/18 04:55 Whole Bld Lactic Acid 2.90 mmol/L (0.60-1.99) H* 07/30/18 20:24 Calcium 11.4 mg/dL (8.6-10.3) H 08/02/18 04:55 Iron 43 ug/dL (38-169) 07/31/18 04:20 TIBC 474 ug/dL (250-450) H 07/31/18 04:20 Iron Saturation 9 % (15-55) L 07/31/18 04:20 Unsaturated IBC 431 ug/dL (111-343) H 07/31/18 04:20 Ferritin 125 ng/mL (30-400) 07/31/18 04:20 Total Bilirubin 0.9 mg/dL (0.3-1.0) 07/31/18 04:20 AST 111 U/L (13-39) H 07/31/18 04:20 ALT 25 U/L (7-52) 07/31/18 04:20 Alkaline Phosphatase 138 U/L (34-104) H 07/31/18 04:20 Ammonia 117 umol/L (16-53) H 08/01/18 05:05 Total Protein 7.7 gm/dL (6.0-8.3) 07/31/18 04:20 Albumin 3.1 gm/dL (4.2-5.5) L 07/31/18 04:20 Globulin 4.6 gm/dL 07/31/18 04:20 Albumin/Globulin Ratio 0.7 (1.0-1.8) L 07/31/18 04:20 Vitamin B12 977 pg/mL (232-1245) 07/31/18 04:20 Vitamin D 25-Hydroxy 26.6 ng/mL (30.0-100.0) L 08/01/18 05:05 Folic Acid >20.0 ng/mL (>3.0) 07/31/18 04:20 PTH Interpretation 07/31/18 04:20 PTH Intact <6 pg/mL (15-65) L 07/31/18 04:20 Calcium (PTH Intact) 11.1 mg/dL (8.6-10.2) H 07/31/18 04:20 Urine Source CLEAN C 07/30/18 17:00 Urine Color STRAW 07/30/18 17:00 Urine Clarity CLEAR (CLEAR) 07/30/18 17:00 Urine pH 6.0 (4.6 - 8.0) 07/30/18 17:00 Ur Specific [place] 1.015 (1.005-1.030) 07/30/18 17:00 Urine Protein NEGATIVE mg/dL (NEGATIVE) 07/30/18 17:00 Urine Glucose (UA) NEGATIVE mg/dL (NEGATIVE) 07/30/18 17:00 Urine Ketones NEGATIVE mg/dL (NEGATIVE) 07/30/18 17:00 Urine Blood NEGATIVE (NEGATIVE) 07/30/18 17:00 Urine Nitrate NEGATIVE (NEGATIVE) 07/30/18 17:00 Urine Bilirubin NEGATIVE (NEGATIVE) 07/30/18 17:00 Urine Urobilinogen 1.0 E.U./dL (0.2 - 1.0) 07/30/18 17:00 Ur Leukocyte Esterase NEGATIVE (NEGATIVE) 07/30/18 17:00 - Physical Exam Vitals and I&O: Vital Signs Temp 98.2 F 08/03/18 13:41 Pulse 58 08/03/18 13:41 Resp 18 08/03/18 13:41 BP 111/45 08/03/18 13:41 Pulse Ox 95 08/03/18 13:41 Intake & Output 08/02/18 08/03/18 08/03/18 18:59 06:59 18:59 Intake Total 1999 500 1500 Balance 1999 500 1500 Weight (lbs) 80.739 kg 80.739 kg 82.1 kg Intake: Oral 1999 500 1500 Other: # Voids 4 1 5 # Bowel Movements 1 2 2 Weight Source Bedscale Bedscale Bedscale Active Medications: Current Medications Al Hydrox/Mg Hydrox/Simethicone (Maalox) 30 ml PO Q4H PRN PRN Reason: gastric distress Ascorbic Acid (Vitamin C) 500 mg PO DAILY KRISTEN Stop: 09/30/18 08:59 Last Admin: 08/03/18 08:20 Dose: 500 mg Ferrous Sulfate (Iron) 325 mg PO DAILY KRISTEN Stop: 09/30/18 08:59 Last Admin: 08/03/18 08:20 Dose: 325 mg Furosemide (Lasix) 40 mg PO DAILY KRISTEN Stop: 09/30/18 08:59 Last Admin: 08/03/18 08:20 Dose: 40 mg Sodium Chloride (Nacl 0.9%) 1,000 mls @ 50 mls/hr IV .Q20H KRISTEN Stop: 09/30/18 10:14 Lactulose (Cephulac) 40 gm PO TID KRISTEN Stop: 09/29/18 13:59 Last Admin: 08/03/18 13:52 Dose: 40 gm Metoprolol Tartrate (Lopressor) 25 mg PO BID KRISTEN Stop: 09/29/18 16:59 Last Admin: 08/03/18 08:20 Dose: 25 mg Multivitamins/Vitamin C (Theragran) 1 tab PO DAILY KRISTEN Stop: 09/30/18 08:59 Last Admin: 08/03/18 08:20 Dose: 1 tab Pantoprazole Sodium (Protonix) 40 mg PO DAILY KRISTEN Stop: 09/30/18 08:59 Last Admin: 08/03/18 08:20 Dose: 40 mg Potassium Chloride (Klor-Con) 20 meq PO DAILY KRISTEN Stop: 09/30/18 08:59 Last Admin: 08/03/18 08:20 Dose: 20 meq Senna (Senna) 8.6 mg PO HS KRISTEN Stop: 09/29/18 20:59 Last Admin: 08/02/18 20:29 Dose: Not Given Tramadol HCl (Ultram) 50 mg PO Q6HR PRN PRN Reason: Pain (Moderate) Stop: 10/01/18 20:19 Last Admin: 08/02/18 21:09 Dose: 50 mg General: Cooperative HEENT: Atraumatic, PERRLA, EOMI Neck: Thyromegaly Cardiovascular: Normal S1, Normal S2 Lungs: Clear to auscultation Abdomen: Bowel sounds - Procedures Procedures: Procedures Procedure Code Date RESECTION OF PREPUCE, EXTERNAL APPROACH [id number] 05/16/18 Assessment/Plan - Assessment Assessment: 1. Hypercalcemia. I will obtain PTH level, vitamin D, phosphorus. 2. Elevated ammonia level, likely a liver disease. I will obtain liver functions. 3. Leukopenia, which has been chronic during previous hospitalization, likely from liver disease and splenomegaly, which would be evaluated with ultrasound. 4. Anemia, chronic, will be evaluated with iron studies, B12 and folic acid level and the stool occult blood. 08/03: US heterogenous liver, low PTH raising suspicion of malignancy causing hypercalcemia. Will need CT CAP to evaluate for malignancy. check AFP. HGB stable. normal B12, folate. OB not available. 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 Ht:511 Wt: 178 lbs (80.9 kg) BMI: 24.82 (NORMAL) IBW: 75.3 KG GI: WNL, SOFT, FLAT BM: 08/03 X 2 I/O: 2500/NOT NOTED SKIN: WOUND, SKIP FLAP ON LEFT LEG (NON-PITTING) MICAH: 23 DIET ORDER: MECHANICAL SOFT, MOLLY ESTIMATED ENERGY NEEDS: ( GERIATRIC, CBW) KCALS (25-30 KCALS/ KG) 81-97 G PRO (1.0-1.2 G/KG) 5001-4712 ML FLUIDS (25-30 ML/ KG) ESTIMATED PT PO INTAKE: 75-100 %, PER MEAL/NUTRITION ACTIVITY RECORD. DIETARY IS CURRENTLY PROVIDING AN ESTIMATED 2031 KCALS AND 93 GM. PER PT PO INTAKE, THIS IS PROVIDING AN ESTIMATED 1778 KCALS AND 81 GM PRO, TO MEET 88% KCAL AND 100% PRO NEEDS. Current Diet Order/ Nutrition Support MECHANICAL SOFT, MOLLY Pertinent Medications MAALOX (PRN), VIT C, FERROUS SULFATE, LASIX, CEPHULAC, LOPRESSOR, THERAGRAN, PROTONIX , KLOR-CON, SENNA, NACL 0.9% 1000MLS @50MLS/HR Q20HRS Pertinent Labs 07/30 HGB/HCT 10.3/30.6 07/31 HGB/HCT 9.5/27.9 08/01 HGB/HCT 11.3/33.6, Na 133 , Ca 12.0 08/02 Na 132, GLUC 109, Ca 11.4 Nutritional Hx/Data Height 1.8 m Height (Calculated Centimeters) 180.3 Current Weight (lbs) 80.739 kg Weight (Calculated Kilograms) 80.7 Weight (Calculated Grams) 72968.4 Bennett Body Weight 75.3 kg % Bennett Body Weight 107 Body Mass Index (BMI) 24.8 Weight Status Approriate GI Symptoms GI Symptoms None Last BM 08/03 X 2 Skin Integrity/Comment: WOUND, SKIP FLAP ON LEFT LEG ( NON-PITTING) Current %PO Good (75-100%) Estimated Nutritional Goals BEE in Kcals: Using Current wt Calories/Kcals/Kg 25-30 Kcals Calculated KCALS Protein: Using Current wt Protein g/k.0-1.2 Protein Calculated -97 Fluid: ml ML FLUIDS (25-30 ML/ KG) Nutritional Problem 1. Problem Problem Altered Nutrition Related Lab Results Etiology R/T medical condition Signs/Symptoms: condition AEB lab results Na 132, GLUC 109, Ca 11.4 Malnutrition Related to Morbid Obesity Malnutrition related to morbid obesity No Intervention/Recommendation Comments 1.CONTINUE WITH MECHANICAL SOFT, MOLLY DIET ORDERED. Expected Outcomes/Goals Expected Outcomes/Goals 1.PO INTAKE TO MEET >75% NUTRITIONAL NEEDS. 2.MONITOR PO INTAKE, WT, NUTRITION RELATED LABS AND SKIN INTEGRITY. 3.F/U LR RISK IN 7 DAYS
== END 2018-08-03 14:45 | DRG 432 ==
LOC: ER 16:20 → TELE 19:00 → MSI 07-31 19:32
PROVIDERS: ADMIT Internal Medicine; ATTEND Internal Medicine
DX: K70.30 Alcoholic cirrhosis of liver without ascites (principal); K72.00 Acute and subacute hepatic failure without coma; E44.0 Moderate protein-calorie malnutrition; R64 Cachexia; D68.9 Coagulation defect, unspecified; I11.0 Hypertensive heart disease with heart failure; I50.9 Heart failure, unspecified; D64.9 Anemia, unspecified; F03.90 Unspecified dementia, unspecified severity, without behavioral disturbance, psychotic disturbance, mood disturbance, and anxiety; E83.52 Hypercalcemia; Z68.25 Body mass index [BMI] 25.0-25.9, adult
CPT/HCPCS: 36415-UA; 71045-TC; 76700-TC; 80048-TC; 80053-TC; 81003-TC; 82105-90; 82140-TC; 82306-90; 82310-90; 82607-90; 82728-90; 82746-90; 83540-90; 83550-90; 83605; 83970-90; 84590-90; 85007-TC; 85025-TC; 85610-TC; 93005; J7030; Z7610

== ENCOUNTER 2018-09-15 16:27 | Inpatient (IN) | payer MEDICARE, MEDICAID ==
--- NOTE | 2018-09-15 16:49 | ED Physician Chart ---
ED Chief Complaint/HPI - Patient Information Date Seen:: 09/15/18 Time Seen:: 16:44 History of Present Illness:: this is a 67 yr old care home patient who was sent here for an evaluation and treatment because he demeanor has changed suddenly. he has been more active and talkative in the past but now seems more confused. Allergies:: Allergies Allergy/AdvReac Type Severity Reaction Status Date / Time codeine Allergy Verified 05/16/18 23:44 ibuprofen Allergy Verified 04/23/18 18:30 Historian:: Medical Records Review:: Old Chart Reviewed, Transfer documents Reviewed ED Review of Systems - Review of Systems General/Constitutional: No fever, No chills, No weight loss, No weakness, No diaphoresis, No edema, No loss of appetite, Other (this patient is confused and unable to give a review of systems.) Skin: No skin lesions, No rash, No bruising Head: No headache, No light-headedness Eyes: No loss of vision, No pain, No diplopia ENT: No earache, No nasal drainage, No sore throat, No tinnitus Neck: No neck pain, No swelling, No thyromegaly, No stiffness, No mass noted Cardio Vascular: No chest pain, No palpitations, No PND, No orthopnea, No edema Pulmonary: No SOB, No cough, No sputum, No wheezing GI: No nausea, No vomiting, No diarrhea, No pain, No melena, No hematochezia, No constipation, No hematemesis G/U: No dysuria, No frequency, No hematuria Musculoskeletal: No bone or joint pain, No back pain, No muscle pain Endocrine: No polyuria, No polydipsia Psychiatric: No prior psych history, No depression, No anxiety, No suicidal ideation Hematopoietic: No bruising, No lymphadenopathy Allergic/Immuno: No urticaria, No angioedema Neurological: No syncope, No focal symptoms, No weakness, No paresthesia, No headache, No seizure, No dizziness, No confusion, No vertigo ED Past Medical History - Past Medical History Obtainable: Yes Past Medical History: HTN, Dementia, Other (hep b, hepatic encephalopathy) Family History: None Social History: Non Smoker, No Alcohol, No Drug Use, Care Facility Surgical History: other (orif of the left leg and right shoulder surgery) Family Medical History - Family Member Mother History Unknown: Yes Ethnicity: Unknown Living Status: Unknown Hx Family Cancer: No Hx Family Coronary Artery Disease: No Hx Family Congestive Heart Failure: No Hx Family Hypertension: No Hx Family Stroke: No Hx Family Diabetes: No Hx Family Seizures: No Hx Family Dementia: No Hx Family AIDS: No Hx Family HIV: No Hx Family COPD: No Hx Family Hepatitis: No Hx Family Psychiatric Problems: No Hx Family Tuberculosis: No ED Physical Exam - Physical Examination General/Constitutional: Awake (he is at times lethargic), Well-developed, well- nourished, Alert, No distress, GCS 15, Non-toxic appearing, Ambulatory Other Gen/Cons comments:: in is weak also . Head: Atraumatic Eyes: Lids, conjuctiva normal, PERRL, EOMI Skin: Nl inspection, No rash, No skin lesions, No ecchymosis, Well hydrated, No lymphadenopathy ENMT: External ears, nose nl, Nasal exam nl, Lips, teeth, gums nl Neck: Nontender, Full ROM w/o pain, No JVD, No nuchal rigidity, No bruit, No mass, No stridor Respiratory: Nl effort/Exclusion, Clear to Auscultation, No Wheeze/Rhonchi/Rales Cardio Vascular: RRR, No murmur, gallop, rubs, NL S1 S2 GI: No tenderness/rebounding/guarding, No organomegaly, No hernia, Normal BS's, Nondistended, No mass/bruits, No McBurney tenderness : No CVA tenderness Extremities: No tenderness or effusion, Full ROM, normal strength in all extremities, No edema, Normal digits & nails Other Extremities comments:: muscle wasting in all four extremities. Neuro/Psych: Alert/oriented (oriented times two, poor insight and has a depressed mood), DTR's symmetric, Normal sensory exam, Normal motor strength, Judgement/insight normal, Mood normal, Normal gait, No focal deficits Misc: Normal back, No paraspinal tenderness ED Labs/Radiology/EKG Results - Lab Results Results: Abnormal Lab Results 09/15/18 09/15/18 09/15/18 16:53 16:53 16:53 WBC 4.2 L RBC 4.11 Hgb 12.8 Hct 38.5 L MCV 93.7 MCH 31.1 H MCHC Differential 33.2 RDW 17.7 Plt Count 195 MPV 7.7 Neutrophils % 70.2 Lymphocytes % 19.0 L Monocytes % 8.5 Eosinophils % 0.7 Basophils % 1.6 Sodium 135 L Potassium 4.4 Chloride 98 Carbon Dioxide 29.7 Anion Gap 11.7 BUN 47 H Creatinine 2.3 H Est GFR ( Amer) 36.9 Est GFR (Non-Af Amer) 30.5 BUN/Creatinine Ratio 20.4 Glucose 89 Calcium 17.6 H* Total Bilirubin 1.8 H AST 190 H ALT 29 Alkaline Phosphatase 75 Troponin I 0.03 Total Protein 9.0 H Albumin 3.7 L Globulin 5.3 Albumin/Globulin Ratio 0.7 L - Radiology Results Results: chest x-ray = nad - EKG Interpretations EKG Time:: 16:41 Rate & Rhythm: rate= 63, sinus Buxton: left axis ED Assessment - Assessment General Assessment: hypercalcemia renal failure ED Septic Shock - . Is Septic Shock (SBP<90, OR Lactate>4 mmol\L) present?: No ED Reassessment (Disposition) - Diagnosis Diagnosis:: hypercalcemia renal failure - Patient Disposition Discharge/Transfer:: Acute Care w/in this hosp Admitted to:: Telemetry Admitting Medical Physician:: Darrin Hernandez Condition at Disposition:: Unchanged
[2018-09-15] MEDS ORDERED: Sodium Chloride 0.45% 500 ML IV ONE (16:57)
[2018-09-15 17:08] LABS: % BASOPHILS 1.6 % (0.0-2.0); % EOSINOPHILS 0.7 % (0.0-5.0); % MONOCYTES 8.5 % (2.0-10.0); % NEUTROPHILS 70.2 % (40.0-80.0); BASOPHILE ABSOLUTE 0.1 Th/cumm (0-0.2); HEMATOCRIT 38.5 % (41.0-60); HEMOGLOBIN 12.8 gm/dL (12-16); LYMPHOCYTE ABSOLUTE 0.8 Th/cmm (1.5-3.0); MEAN CELL VOLUME 93.7 fl (80-99); MEAN CORPUSCULAR HEMOGLOBIN 31.1 pg (27.0-31.0); MEAN CORPUSCULAR HGB CONC 33.2 pg (28.0-36.0); MONOCYTE ABSOLUTE 0.4 Th/cmm (0.3-1.0); NEUTROPHILE ABSOLUTE 2.9 Th/cmm (1.8-8.0); PLATELET COUNT 195 Th/cmm (150-400); RED BLOOD COUNT 4.11 Mil/cmm (3.80-5.80); RED CELL DISTRIBUTION WIDTH 17.7 % (11.5-20.0); WHITE BLOOD COUNT 4.2 Th/cmm (4.8-10.8)
[2018-09-15 17:19] LABS: ALB/GLOB RATIO 0.7 (1.0-1.8); ALBUMIN 3.7 gm/dL (4.2-5.5); ANION GAP 11.7 (7.0-16.0); BILIRUBIN,TOTAL 1.8 mg/dL (0.3-1.0); CARBON DIOXIDE 29.7 mEq/L (21.0-31.0); CREATININE - SERUM 2.3 mg/dL (0.7-1.3); GFR AFRICAN-AMERICAN 36.9 ml/min (>90); GFR NON AFRICAN-AMERICAN 30.5 ml/min; POTASSIUM SERUM 4.4 mEq/L (3.5-5.1)
[2018-09-15 17:35] LABS: CALCIUM SERUM 17.6 mg/dL (8.6-10.3)
[2018-09-15 18:02] LABS: INR 1.35 (0.5-1.4)
[2018-09-15 18:02] LABS: URINE SOURCE CLEAN C
[2018-09-15 18:20] LABS: URINE BILIRUBIN NEGATIVE (NEGATIVE); URINE BLOOD MODERATE (NEGATIVE); URINE GLUCOSE (UA) NEGATIVE (NEGATIVE); URINE KETONE NEGATIVE (NEGATIVE); URINE LEUKOCYTE ESTERASE TRACE (NEGATIVE); URINE MICROSCOPIC INDICATED? YES; URINE NITRATE NEGATIVE (NEGATIVE); URINE PROTEIN TRACE mg/dL (NEGATIVE); URINE UROBILINOGEN 0.2 E.U./dL (0.2 - 1.0)
[2018-09-15 18:29] LABS: URINE COLOR YELLOW
[2018-09-15 18:30] LABS: URINE CLARITY HAZY (CLEAR)
[2018-09-15 18:31] LABS: URINE BACTERIA FEW /hpf (NONE SEEN); URINE EPITHELIAL CELLS NONE SEEN /lpf (FEW)
[2018-09-16 03:31] VITALS: BP 134/74
[2018-09-16 05:50] LABS: ANION GAP 13.1 (7.0-16.0); CARBON DIOXIDE 27.3 mEq/L (21.0-31.0); CREATININE - SERUM 2.2 mg/dL (0.7-1.3); GFR AFRICAN-AMERICAN 38.8 ml/min (>90); GFR NON AFRICAN-AMERICAN 32.1 ml/min; POTASSIUM SERUM 4.4 mEq/L (3.5-5.1)
[2018-09-16 06:01] LABS: CALCIUM SERUM 17.3 mg/dL (8.6-10.3)
[2018-09-16 06:02] LABS: CORRECTED WBC 7.1 Th/cmm; HEMATOCRIT 41.2 % (41.0-60); HEMOGLOBIN 13.7 gm/dL (12-16); MEAN CELL VOLUME 93.7 fl (80-99); MEAN CORPUSCULAR HEMOGLOBIN 31.1 pg (27.0-31.0); RED BLOOD COUNT 4.39 Mil/cmm (3.80-5.80); WHITE BLOOD COUNT 7.1 Th/cmm (4.8-10.8)
[2018-09-16 06:03] LABS: MEAN CORPUSCULAR HGB CONC 33.2 pg (28.0-36.0); PLATELET COUNT 240 Th/cmm (150-400); RED CELL DISTRIBUTION WIDTH 17.8 % (11.5-20.0)
[2018-09-16 06:04] LABS: % EOSINOPHILS 1.3 % (0.0-5.0); % LYMPHOCYTES 21.7 % (20.0-50.0); % MONOCYTES 4.3 % (2.0-10.0); % NEUTROPHILS 72.7 % (40.0-80.0); LYMPHOCYTE ABSOLUTE 1.5 Th/cmm (1.5-3.0); MONOCYTE ABSOLUTE 0.3 Th/cmm (0.3-1.0); NEUTROPHILE ABSOLUTE 5.2 Th/cmm (1.8-8.0)
[2018-09-16 06:05] LABS: EOSINOPHILE ABSOLUTE 0.1 Th/cmm (0.1-0.4)
[2018-09-16] MEDS ORDERED: Lactulose 10 Gm/15 mL 30mL UDC PO PRN (07:02)
[2018-09-16 08:08] LABS: IRON LC 47 ug/dL (38-169); TIBC (LC) 393 ug/dL (250-450); UIBC 346 ug/dL (111-343)
[2018-09-16] MEDS: Multivitamin Tab PO SCH (08:30)
[2018-09-16] MEDS: Lactulose 10 Gm/15 mL 30mL UDC PO SCH ×3 (08:30→21:33)
[2018-09-16] MEDS: Ferrous Sulfate 325 MG TAB PO SCH (08:30)
[2018-09-16] MEDS: Pantoprazole 40 mg EC Tab PO SCH (08:30)
[2018-09-16] MEDS ORDERED: PANTOPRAZOLE SODIUM 40 MG PO SCH (09:00)
[2018-09-16] MEDS ORDERED: Non-Formulary Item 1 EA (Multivitamin [Multi-Vitamin Daily] 1 TAB) PO SCH (09:00)
--- NOTE | 2018-09-16 09:08 | Diagnostic Imaging Report ---
Portable chest x-ray History: Pain Allowing for portable technique the heart size is normal. No focal pulmonary parenchymal processes. No hilar or mediastinal abnormalities. Impression: No acute abnormalities.
--- NOTE | 2018-09-16 11:12 | History and Physical ---
History of Present Illness - HPI Chief Complaint: 67 y/o male patient was brought into the ER due to Increasing confusion and Altered mental status. HPI: 67 y/o male patient was admitted to [facility] due to Increased confusion and Altered mental status. Patient has history of Renal failure, Depression, Muscle wasting atrophy, Hepatitis B, Alcoholic Cirrhosis, Gerd, Schizophrenia and Htn. Patient had an ER assessment and a complete workup was done. Patient had a chest x-ray done which showed no acute abnormalities. Patient was diagnosed with Hypercalcemia and Renal failure. Patient will have a Nephrology consult. I will follow, treat and monitor patient. Patient will continue current treatment plan as ordered. Vital Signs: Last Vital Signs Temp 98.4 F 09/16/18 08:00 Pulse 94 09/16/18 08:00 Resp 17 09/16/18 08:00 BP 154/74 09/16/18 08:00 Pulse Ox 98 09/16/18 08:00 Past Medical History Cardiovascular: Report: HTN Pulmonary: Report: No Pertinent Hx EPIC WILLOW ANALYST: Report: No Pertinent Hx GI: Report: GERD Psych: Report: Schizophrenia Musculoskeletal: Report: Muscle Atrophy, Weakness Rheumatologic: Report: No pertinent Hx Infectious Disease: Report: No Pertinent Hx Renal/: Report: Acute Renal Failure Endocrine: Report: No Pertinent Hx Dermatology: Report: No Pertinent Hx - Past Surgical History Past Surgical History: No pertinent Hx Family Medical History - Family Member Mother History Unknown: Yes Ethnicity: Living Status: Unknown Hx Family Cancer: No (unknown) Hx Family Coronary Artery Disease: (UNKNOWN) Hx Family Congestive Heart Failure: (UNKNOWN) Hx Family Hypertension: (UNKNOWN) Hx Family Stroke: (UNKNOWN) Hx Family Diabetes: (UNKNOWN) Hx Family Seizures: (UNKNOWN) Hx Family Dementia: (UNKNOWN) Hx Family AIDS: (UNKNOWN) Hx Family HIV: No Hx Family COPD: (UNKNOWN) Hx Family Hepatitis: (UNKNOWN) Hx Family Psychiatric Problems: (UNKNOWN) Hx Family Tuberculosis: No (Unknown) Social History Smoke: No Alcohol: None Drugs: None Lives: Skilled Nursing Domestic Violence: Negative Health Maintenance Health Maintenance: Other (see chart) - Medications Home Medications: Home Medication Medication Instructions Recorded Type Acetaminophen [Pain Reliever] 650 mg PO Q4H PRN 07/30/18 History Ascorbic Acid [Vitamin C] 500 mg PO DAILY 07/30/18 History Ferrous Sulfate [Iron] 325 mg PO DAILY 07/30/18 History Furosemide [Lasix] 40 mg PO DAILY 07/30/18 History Lactulose [Cephulac] 60 ml PO DAILY PRN 07/30/18 History Metoprolol Tartrate 25 mg PO BID 07/30/18 History Multivitamin [Multi-Vitamin Daily] 1 tab PO DAILY 07/30/18 History Mylanta 30 ml PO Q4H PRN 07/30/18 History Pantoprazole Sodium [Protonix] 40 mg PO DAILY 07/30/18 History Potassium Chloride 20 meq PO DAILY 07/30/18 History Sennosides A and B [Senna] 8.6 mg PO HS 07/30/18 History traMADol HCl [Ultram*] 50 mg PO Q6HR PRN tab 08/03/18 Rx Melatonin/Pyridoxine HCl (B6) 1 each PO HS 09/15/18 History [Melatonin 3 mg Tablet] QUEtiapine Fumarate [SEROquel] 50 mg PO BID 09/15/18 History Rifaximin [Xifaxan] 550 mg PO BID 09/15/18 History Thiamine [Vitamin B1] 100 mg PO DAILY 09/15/18 History Other Medications: Please see medication reconciliation sheet. - Allergies Allergies/Adverse Reactions: Allergies Allergy/AdvReac Type Severity Reaction Status Date / Time codeine Allergy Verified 05/16/18 23:44 ibuprofen Allergy Verified 04/23/18 18:30 Review of Systems - Review of Systems Review of Systems: Patient has weakness and is confused. Constitutional: Report: Weakness Eyes: Report: No Significant ENT: Report: No Significant Respiratory: Report: No Significant Cardiovascular: Report: No Significant Gastrointestinal: Report: No Significant Genitourinary: Report: No Significant Musculoskeletal: Report: Other (Muscle wasting atrophy.) Skin: Report: Other Neurological: Report: Weakness, Confusion Physical Exam - Physical Exam HEENT: Report: Ears Nose Throat within normal limits Neck: Report: Within normal limits Cardiovascular Systems: Report: +s1/s2 noted, Regular, Rate and Rhythm Respiratory: Report: Breath Sounds are within normal limits Abdomen: Report: Non-tender to palpation Back: Report: Inspection of back is within normal limits. Extremities: Report: Extremities are contracted Skin: Report: Color of skin is within normal limits Neuro/Psych: Report: Weakness or sensory loss noted. - Lab Results All Lab Results last 24 hours: Laboratory Results - last 24 hr 09/15/18 09/15/18 09/15/18 16:53 16:53 16:53 WBC 4.2 L Corrected WBC (auto) RBC 4.11 Hgb 12.8 Hct 38.5 L MCV 93.7 MCH 31.1 H MCHC Differential 33.2 RDW 17.7 Plt Count 195 MPV 7.7 Neutrophils % 70.2 Lymphocytes % 19.0 L Monocytes % 8.5 Eosinophils % 0.7 Basophils % 1.6 PT 13.8 H INR 1.35 PTT (Actin FS) 22.2 L Sodium 135 L Potassium 4.4 Chloride 98 Carbon Dioxide 29.7 Anion Gap 11.7 BUN 47 H Creatinine 2.3 H Est GFR ( Amer) 36.9 Est GFR (Non-Af Amer) 30.5 BUN/Creatinine Ratio 20.4 Glucose 89 Calcium 17.6 H* Magnesium Iron TIBC Iron Saturation Unsaturated IBC Total Bilirubin 1.8 H AST 190 H ALT 29 Alkaline Phosphatase 75 Ammonia Troponin I Total Protein 9.0 H Albumin 3.7 L Globulin 5.3 Albumin/Globulin Ratio 0.7 L TSH Urine Source Urine Color Urine Clarity Urine pH Ur Specific Franklin Urine Protein Urine Glucose (UA) Urine Ketones Urine Blood Urine Nitrate Urine Bilirubin Urine Urobilinogen Ur Leukocyte Esterase Urine RBC Urine WBC Ur Epithelial Cells Calcium Oxalate Crystal Urine Bacteria 09/15/18 09/15/18 09/15/18 16:53 16:53 16:53 WBC Corrected WBC (auto) RBC Hgb Hct MCV MCH MCHC Differential RDW Plt Count MPV Neutrophils % Lymphocytes % Monocytes % Eosinophils % Basophils % PT INR PTT (Actin FS) Sodium Potassium Chloride Carbon Dioxide Anion Gap BUN Creatinine Est GFR ( Amer) Est GFR (Non-Af Amer) BUN/Creatinine Ratio Glucose Calcium Magnesium Iron 47 TIBC 393 Iron Saturation 12 L Unsaturated IBC 346 H Total Bilirubin AST ALT Alkaline Phosphatase Ammonia Troponin I 0.03 Total Protein Albumin Globulin Albumin/Globulin Ratio TSH 8.63 H Urine Source Urine Color Urine Clarity Urine pH Ur Specific Franklin Urine Protein Urine Glucose (UA) Urine Ketones Urine Blood Urine Nitrate Urine Bilirubin Urine Urobilinogen Ur Leukocyte Esterase Urine RBC Urine WBC Ur Epithelial Cells Calcium Oxalate Crystal Urine Bacteria 09/15/18 09/15/18 09/15/18 16:53 16:53 17:55 WBC Corrected WBC (auto) RBC Hgb Hct MCV MCH MCHC Differential RDW Plt Count MPV Neutrophils % Lymphocytes % Monocytes % Eosinophils % Basophils % PT INR PTT (Actin FS) Sodium Potassium Chloride Carbon Dioxide Anion Gap BUN Creatinine Est GFR ( Amer) Est GFR (Non-Af Amer) BUN/Creatinine Ratio Glucose Calcium Magnesium 2.2 Iron TIBC Iron Saturation Unsaturated IBC Total Bilirubin AST ALT Alkaline Phosphatase Ammonia 55 H Troponin I Total Protein Albumin Globulin Albumin/Globulin Ratio TSH Urine Source CLEAN C Urine Color YELLOW Urine Clarity HAZY Urine pH 6.0 Ur Specific Franklin 1.020 Urine Protein TRACE Urine Glucose (UA) NEGATIVE Urine Ketones NEGATIVE Urine Blood MODERATE H Urine Nitrate NEGATIVE Urine Bilirubin NEGATIVE Urine Urobilinogen 0.2 Ur Leukocyte Esterase TRACE H Urine RBC 10-25 H Urine WBC 2-5 Ur Epithelial Cells NONE SEEN Calcium Oxalate Crystal MODERATE Urine Bacteria FEW 09/16/18 09/16/18 05:20 05:20 WBC 7.1 Corrected WBC (auto) 7.1 RBC 4.39 Hgb 13.7 Hct 41.2 MCV 93.7 MCH 31.1 H MCHC Differential 33.2 RDW 17.8 Plt Count 240 D MPV 7.2 Neutrophils % 72.7 Lymphocytes % 21.7 Monocytes % 4.3 Eosinophils % 1.3 Basophils % 0.0 PT INR PTT (Actin FS) Sodium 133 L Potassium 4.4 Chloride 97 L Carbon Dioxide 27.3 Anion Gap 13.1 BUN 49 H Creatinine 2.2 H Est GFR ( Amer) 38.8 Est GFR (Non-Af Amer) 32.1 BUN/Creatinine Ratio 22.3 Glucose 72 Calcium 17.3 H* Magnesium Iron TIBC Iron Saturation Unsaturated IBC Total Bilirubin AST ALT Alkaline Phosphatase Ammonia Troponin I Total Protein Albumin Globulin Albumin/Globulin Ratio TSH Urine Source Urine Color Urine Clarity Urine pH Ur Specific Franklin Urine Protein Urine Glucose (UA) Urine Ketones Urine Blood Urine Nitrate Urine Bilirubin Urine Urobilinogen Ur Leukocyte Esterase Urine RBC Urine WBC Ur Epithelial Cells Calcium Oxalate Crystal Urine Bacteria - Assessment Assessment: Renal failure, Depression, Muscle wasting atrophy, Hepatitis B, Alcoholic Cirrhosis, Gerd, Schizophrenia and Hypercalcemia. Current Active Problems Problem Status Onset WEAKNESS AND CONFUSION Acute - Plan Plan: Continuation of care. Nephrology consult. Monitor Vitals, Labs, Hemoglobin levels. Continue present meds as directed. Psych management per Psych. Monitor Diet/Nutritional support. Pain Management. Physical therapy. Occupational therapy. Fall precaution, frequent nursing rounds, and as needed restraints to prevent fall. Safety precaution. Supportive care. Continue collaborating with consulting specialists, case management and nursing team. Will Monitor patient and continue current treatment plan as ordered
[2018-09-16] MEDS: Sodium Chloride 0.9% 1,000 ML IV SCH (16:16)
--- NOTE | 2018-09-16 18:57 | Consultation ---
DATE OF CONSULTATION: 09/16/2018 ATTENDING PHYSICIAN: Ayo Hernandez MD BEADER TENDER: Scott Llody MD REASON FOR CONSULTATION: Worsening kidney function, electrolyte imbalance, and fluid management. HISTORY OF PRESENT ILLNESS: This is a 67-year-old male with past medical history of chronic kidney disease, who came in because of altered level of consciousness. A few hours prior to admission, the patient was noted to be more lethargic than usual. He has a history of liver cirrhosis and was on rifaximin as well as lactulose. He was then brought to the Emergency Room. His calcium level was 17.6, total bilirubin of 8, AST of 190, ALT of 29 with ammonia 55. Chest x-ray revealed no acute disease. Two weeks prior to admission, his BUN/creatinine were 40/1.39. He came in now with a BUN/creatinine of 47/2.3 and a calcium of 17.6. He had no nausea and vomiting. No diarrhea, fevers/chills, headache, abdominal pain, but oral intake has diminished. PAST MEDICAL HISTORY: 1. Chronic kidney disease. 2. Hepatitis B with cirrhosis. 3. History of left leg fracture. 4. Essential hypertension. 5. Left leg cellulitis. 6. 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 7. Alzheimer dementia. 8. Hepatic encephalopathy. PAST SURGICAL HISTORY: Status post ORIF of the left leg. CURRENT MEDICATIONS: He is currently on ascorbic acid, ferrous sulfate, furosemide, lactulose, lorazepam, metoprolol, multivitamins, and pantoprazole. ALLERGIES: CODEINE AND IBUPROFEN. SOCIAL AND FAMILY HISTORY: I was not able to obtain directly from the patient because he remains nonverbal. REVIEW OF SYSTEMS: Again, I was not able to decipher from the patient because of the same reason. PHYSICAL EXAMINATION: GENERAL: The patient is stuporous and lethargic, comfortable, but not cooperative, nonverbal. VITAL SIGNS: Blood pressure is 154/74, pulse 71, temperature 97.7 degrees. SKIN: Poor turgor, warm, no rash, no jaundice appreciated. HEENT: Head normocephalic, atraumatic. Eyes: Unable to assess his extraocular muscles. Pupils are equal, round, reactive to light and accommodates. Anicteric sclerae. Pale conjunctivae. Nose, midline nasal septum. Mouth: Dry mucosa. Poor dentition. NECK: Supple, no adenopathy, no thyromegaly, no bruits. Trachea palpated in the midline. CHEST AND CARDIOVASCULAR: S1, S2. No rub, murmur nor gallop appreciated. Point of maximal impulse fifth intercostal space, left midclavicular line. No abdominal or femoral bruits appreciated. LUNGS: Equal expansion, no use of accessory muscles. No supraclavicular retractions. Decreased breath sounds, clear to auscultation without any wheeze. ABDOMEN: Flat, soft, positive bowel sounds. No bruits either diastolic or systolic. He has some hepatosplenomegaly, no pulsatile masses. No muscle guarding nor rebound. RECTAL: Lax sphincter tone. GENITOURINARY: Normal appearing male genitalia. MUSCULOSKELETAL: No effusions present in his joints, but unable to assess his range of motion. EXTREMITIES: No evidence of edema, cyanosis nor clubbing with palpable femoral, popliteal and dorsalis pedis pulses. NEUROLOGIC: As mentioned, the patient has remained stuporous and unable to follow my neuro commands. LABORATORY DATA: Did reveal white count 7.1, hemoglobin 13.7, hematocrit 41.2, and platelets 240. Sodium 133, potassium 4.4, chloride 97, CO2 27, BUN 49 and creatinine 4.2, calcium 17.2, magnesium 2.2, iron 47, TSAT 12%, total bili 1.8, AST 190, ALT 29. Ammonia is 55, albumin 3.7. TSH is 8.63. IMPRESSION: 1. Acute kidney injury on chronic kidney disease, MDRD GFR of 30 mL per minute, stage 3. 2. Chronic kidney disease secondary to longstanding history of hypertension, giving rise to hypertensive nephrosclerosis. His initial cause of acute kidney injury is prerenal in nature. The patient seemed to have altered mental status with markedly diminished oral intake including fluids. He was not able to replenish both sensible and insensible fluid losses. He eventually developed dehydration. This was supported by poor skin turgor, dry oral mucosa, and a very concentrated urine. His prerenal azotemia eventually progressed to acute tubular injury. 3. Hypercalcemia, possibly due to severe dehydration, but also need to consider hyperparathyroidism, hypervitaminosis, malignancy such as multiple myeloma, inflammatory diseases such as sarcoid, familial hypercalcemic hypocalciuria, thyroid abnormalities as well as medications. 4. Severe dehydration. 5. Altered level of consciousness secondary to metabolic/hepatic encephalopathy (hypercalcemia/liver cirrhosis), psychotic medications or severe dehydration. 6. Clinical hypothyroidism. 7. Hepatitis B with cirrhosis. 8. History of fracture, left leg. 9. Essential hypertension. 10. History of left leg cellulitis. 11. 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 12. Alzheimer dementia. PLAN: 1. IV fluids. 2. Urine sodium, eosinophils, and creatinine. 3. Urine microalbumin to creatinine ratio. 4. A 24-hour urine collection for calcium and protein. 5. Renal ultrasound to figure out the cause of acute kidney injury as well as possible stenosis. 6. Intact PTH, vitamin D, PTH related protein. 7. Discontinue furosemide. 8. CT scan of the head. 9. Aredia. 10. Follow up thyroid panel. [facility]# [id number]
[2018-09-16] MEDS ORDERED: Non-Formulary Item 1 EA (Melatonin/Pyridoxine Hcl (B6) [Melatonin 3 Mg Tablet] 1 EACH) PO SCH (21:00)
[2018-09-17] MEDS: Sodium Chloride 0.9% 1,000 ML IV SCH (03:41)
[2018-09-17 04:33] LABS: % BASOPHILS 0.1 % (0.0-2.0); % EOSINOPHILS 0.9 % (0.0-5.0); % LYMPHOCYTES 18.8 % (20.0-50.0); % NEUTROPHILS 71.2 % (40.0-80.0); HEMATOCRIT 40.3 % (41.0-60); HEMOGLOBIN 13.2 gm/dL (12-16); LYMPHOCYTE ABSOLUTE 0.9 Th/cmm (1.5-3.0); MEAN CELL VOLUME 93.8 fl (80-99); MEAN CORPUSCULAR HEMOGLOBIN 30.8 pg (27.0-31.0); MEAN CORPUSCULAR HGB CONC 32.8 pg (28.0-36.0); MONOCYTE ABSOLUTE 0.5 Th/cmm (0.3-1.0); NEUTROPHILE ABSOLUTE 3.6 Th/cmm (1.8-8.0); PLATELET COUNT 215 Th/cmm (150-400); RED BLOOD COUNT 4.29 Mil/cmm (3.80-5.80); RED CELL DISTRIBUTION WIDTH 18.4 % (11.5-20.0)
[2018-09-17 05:02] LABS: ANION GAP 13.5 (7.0-16.0); GFR AFRICAN-AMERICAN 43.3 ml/min (>90); GFR NON AFRICAN-AMERICAN 35.8 ml/min; PHOSPHOROUS 2.3 mg/dL (2.5-5.0); POTASSIUM SERUM 3.5 mEq/L (3.5-5.1); URIC ACID 20.6 mg/dL (4.4-7.6)
[2018-09-17 05:07] LABS: CALCIUM SERUM 15.6 mg/dL (8.6-10.3)
--- NOTE | 2018-09-17 07:42 | Diagnostic Imaging Report ---
CT scan of the brain without contrast History: ALOC Total DLP equals 671 CTDI equals 36.8 Axial sections were obtained from the base of the skull to the vertex. There is a normal ventricular system size. No focal parenchymal lesions are seen. No evidence of any mass effect or shift of midline structures. No extra-axial masses or abnormal fluid collections. Impression: Negative examination
[2018-09-17] MEDS ORDERED: Pamidronate 90 MG in Sodium Chloride 0.9% 250 ML IV SCH (08:00)
[2018-09-17] MEDS: Ferrous Sulfate 325 MG TAB PO SCH (08:30)
[2018-09-17] MEDS: Pantoprazole 40 mg EC Tab PO SCH (08:30)
[2018-09-17] MEDS: Multivitamin Tab PO SCH (08:31)
[2018-09-17] MEDS: Lactulose 10 Gm/15 mL 30mL UDC PO SCH ×3 (08:31→22:20)
[2018-09-17 10:08] LABS: EOSINOPHIL SMEAR SOURCE URINE; EOSINOPHILS SMEAR COUNT NONE SEEN (NONE SEEN)
--- NOTE | 2018-09-17 11:29 | Consultation ---
DATE OF CONSULTATION: HEMATOLOGY/ONCOLOGY CONSULTATION REFERRING PHYSICIAN: Ayo Hernandez M.D. REASON FOR CONSULTATION: Hypercalcemia and possible myeloma. HISTORY OF PRESENT ILLNESS: The patient is a 67-year-old male with altered mental status and severe hypercalcemia on admission. The patient had a history of chronic kidney disease, hepatitis B with cirrhosis, history of leg fracture, hypertension, dementia and hepatic encephalopathy. He had a calcium of 17.6 from admission, elevated TSH and abnormal liver functions. The patient is unable to provide any history. History is mainly gathered from the records. He was given one dose of pamidronate 90 mg. PAST SURGICAL HISTORY: Left leg open reduction and internal fixation. MEDICATIONS: Protonix, pamidronate one dose, Lopressor, Ativan, iron and vitamin C. PHYSICAL EXAMINATION: GENERAL: The patient is confused, awake. VITAL SIGNS: Blood pressure 127/78, temperature 97. HEENT: Atraumatic. No bleeding or mucosal lesions. NECK: No lymphadenopathy. CHEST: Clear. ABDOMEN: Soft. No organomegaly or ascites. EXTREMITIES: No edema. LABORATORY DATA: TSH 8.6, bilirubin 1.8, ALT 29, creatinine 2, potassium 3.5, calcium 15.6. Iron binding capacity 393 and iron saturation 12, white count 5, hemoglobin 13.2. PT, PTT normal. CT scan of the head reported no myeloma lesions in the skull. ASSESSMENT AND PLAN: 1. Hypercalcemia with markedly elevated protein and low albumin, could be secondary to multiple myeloma. The patient has renal failure of unknown duration. 2. Elevated iron binding capacity and low saturation suggestive of iron deficiency. I will obtain ferritin for confirmation. 3. Hypothyroidism. 4. Dementia. 5. Kidney disease, likely chronic old with acute worsening. 6. Hepatitis B with cirrhosis. I will obtain the workup for multiple myeloma including a serum protein electrophoresis, immunofixation, quantitative immunoglobulin levels and free light chains, kappa and lambda. PTH level was ordered and one dose of pamidronate was given. I expect the calcium level to improve gradually with current hydration, Lasix and pamidronate. Thank you Dr. Hernandez for the opportunity to participate in the care of this interesting case. JOB# [id number]
--- NOTE | 2018-09-17 12:10 | Internal Medicine Prog Note ---
Internal Medicine Subjective - Subjective Service Date: 09/17/18 Patient seen and examined:: with staff Patient is:: awake, verbal, confused Patient Complaints of:: other (AMS.) Per staff patient has:: no adverse event, no episodes of fall Internal Medicine Objective - Results Result Diagrams: 09/17/18 04:15 09/17/18 04:15 Recent Labs: Laboratory Last Values WBC 5.0 Th/cmm (4.8-10.8) 09/17/18 04:15 Corrected WBC (auto) 7.1 Th/cmm 09/16/18 05:20 RBC 4.29 Mil/cmm (3.80-5.80) 09/17/18 04:15 Hgb 13.2 gm/dL (12-16) 09/17/18 04:15 Hct 40.3 % (41.0-60) L 09/17/18 04:15 MCV 93.8 fl (80-99) 09/17/18 04:15 MCH 30.8 pg (27.0-31.0) 09/17/18 04:15 MCHC Differential 32.8 pg (28.0-36.0) 09/17/18 04:15 RDW 18.4 % (11.5-20.0) 09/17/18 04:15 Plt Count 215 Th/cmm (150-400) 09/17/18 04:15 MPV 7.3 fl 09/17/18 04:15 Neutrophils % 71.2 % (40.0-80.0) 09/17/18 04:15 Lymphocytes % 18.8 % (20.0-50.0) L 09/17/18 04:15 Monocytes % 9.0 % (2.0-10.0) 09/17/18 04:15 Eosinophils % 0.9 % (0.0-5.0) 09/17/18 04:15 Basophils % 0.1 % (0.0-2.0) 09/17/18 04:15 Eos Smear Source URINE 09/17/18 06:00 Eos Smear Total Cells NONE SEEN (NONE SEEN) 09/17/18 06:00 PT 13.8 SECONDS (9.5-11.5) H 09/15/18 16:53 INR 1.35 (0.5-1.4) 09/15/18 16:53 PTT (Actin FS) 22.2 SECONDS (26.0-38.0) L 09/15/18 16:53 Sodium 138 mEq/L (136-145) 09/17/18 04:15 Potassium 3.5 mEq/L (3.5-5.1) 09/17/18 04:15 Chloride 100 mEq/L (98-107) 09/17/18 04:15 Carbon Dioxide 28.0 mEq/L (21.0-31.0) 09/17/18 04:15 Anion Gap 13.5 (7.0-16.0) 09/17/18 04:15 BUN 49 mg/dL (7-25) H 09/17/18 04:15 Creatinine 2.0 mg/dL (0.7-1.3) H 09/17/18 04:15 Est GFR ( Amer) 43.3 ml/min (>90) 09/17/18 04:15 Est GFR (Non-Af Amer) 35.8 ml/min 09/17/18 04:15 BUN/Creatinine Ratio 24.5 09/17/18 04:15 Glucose 126 mg/dL (70-105) H 09/17/18 04:15 Uric Acid 20.6 mg/dL (4.4-7.6) H 09/17/18 04:15 Calcium 15.6 mg/dL (8.6-10.3) H* 09/17/18 04:15 Phosphorus 2.3 mg/dL (2.5-5.0) L 09/17/18 04:15 Magnesium 2.0 mg/dL (1.9-2.7) 09/17/18 04:15 Iron 47 ug/dL (38-169) 09/15/18 16:53 TIBC 393 ug/dL (250-450) 09/15/18 16:53 Iron Saturation 12 % (15-55) L 09/15/18 16:53 Unsaturated IBC 346 ug/dL (111-343) H 09/15/18 16:53 Total Bilirubin 1.8 mg/dL (0.3-1.0) H 09/15/18 16:53 AST 190 U/L (13-39) H 09/15/18 16:53 ALT 29 U/L (7-52) 09/15/18 16:53 Alkaline Phosphatase 75 U/L (34-104) 09/15/18 16:53 Ammonia 55 umol/L (16-53) H 09/15/18 16:53 Troponin I 0.03 ng/mL (0.01-0.05) 09/15/18 16:53 Total Protein 9.0 gm/dL (6.0-8.3) H 09/15/18 16:53 Albumin 3.7 gm/dL (4.2-5.5) L 09/15/18 16:53 Globulin 5.3 gm/dL 09/15/18 16:53 Albumin/Globulin Ratio 0.7 (1.0-1.8) L 09/15/18 16:53 TSH 8.63 uIU/ml (0.34-5.60) H 09/15/18 16:53 Urine Source CLEAN C 09/15/18 17:55 Urine Color YELLOW 09/15/18 17:55 Urine Clarity HAZY (CLEAR) 09/15/18 17:55 Urine pH 6.0 (4.6 - 8.0) 09/15/18 17:55 Ur Specific [place] 1.020 (1.005-1.030) 09/15/18 17:55 Urine Protein TRACE mg/dL (NEGATIVE) 09/15/18 17:55 Urine Glucose (UA) NEGATIVE mg/dL (NEGATIVE) 09/15/18 17:55 Urine Ketones NEGATIVE mg/dL (NEGATIVE) 09/15/18 17:55 Urine Blood MODERATE (NEGATIVE) H 09/15/18 17:55 Urine Nitrate NEGATIVE (NEGATIVE) 09/15/18 17:55 Urine Bilirubin NEGATIVE (NEGATIVE) 09/15/18 17:55 Urine Urobilinogen 0.2 E.U./dL (0.2 - 1.0) 09/15/18 17:55 Ur Leukocyte Esterase TRACE (NEGATIVE) H 09/15/18 17:55 Urine RBC 10-25 /hpf (0-5) H 09/15/18 17:55 Urine WBC 2-5 /hpf (0-5) 09/15/18 17:55 Ur Epithelial Cells NONE SEEN /lpf (FEW) 09/15/18 17:55 Calcium Oxalate Crystal MODERATE /hpf 09/15/18 17:55 Urine Bacteria FEW /hpf (NONE SEEN) 09/15/18 17:55 Ur Random Sodium 44 mmol/L 09/17/18 06:00 Urine Creatinine 76.0 mg/dl (39.0-259.0) 09/17/18 06:00 - Physical Exam Vitals and I&O: Vital Signs Temp 97.3 F 09/17/18 11:37 Pulse 65 09/17/18 11:37 Resp 18 09/17/18 11:37 BP 127/62 09/17/18 11:37 Pulse Ox 96 09/17/18 11:37 Intake & Output 09/16/18 09/17/18 09/17/18 18:59 06:59 18:59 Intake Total 200 1125 Output Total 100 400 Balance 100 725 Weight (lbs) 68.039 kg 68.039 kg Intake: Intake, IV Amount 1005 Sodium Chloride 0.9% 1, 1005 000 ml @ 100 mls/hr IV . Q10H [facility] Rx#:[id number] Oral 200 120 Output: Urine 100 400 Other: # Voids 3 # Bowel Movements 1 Weight Source Bedscale Bedscale Active Medications: Current Medications Ascorbic Acid (Vitamin C) 500 mg PO DAILY [facility] Stop: 11/15/18 08:59 Last Admin: 09/17/18 08:30 Dose: Not Given Ferrous Sulfate (Iron) 325 mg PO DAILY [facility] Stop: 11/15/18 08:59 Last Admin: 09/17/18 08:30 Dose: Not Given Sodium Chloride (Nacl 0.9%) 1,000 mls @ 100 mls/hr IV .Q10H [facility] Stop: 11/15/18 15:14 Last Infusion: 09/17/18 03:44 Dose: 100 mls/hr Pamidronate Disodium 90 mg/ (Sodium Chloride) 1,030 mls @ 43 mls/hr IV ONCE ONE Stop: 09/18/18 10:27 Last Admin: 09/17/18 09:53 Dose: 43 mls/hr Lactulose (Cephulac) 30 gm PO TID [facility] Stop: 11/15/18 08:59 Last Admin: 09/17/18 08:31 Dose: Not Given Lactulose (Cephulac) 40 gm PO DAILY PRN PRN Reason: Constipation Stop: 11/15/18 07:01 Lorazepam (Ativan) 1 mg IVP Q6HR PRN; Protocol PRN Reason: AGITATION,ANXIETY Stop: 11/14/18 20:15 Last Admin: 09/15/18 20:31 Dose: 1 mg Metoprolol Tartrate (Lopressor) 25 mg PO BID [facility] Stop: 11/15/18 08:59 Last Admin: 09/17/18 08:31 Dose: Not Given Multivitamins/Vitamin C (Theragran) 1 tab PO DAILY [facility] Stop: 11/15/18 08:59 Last Admin: 09/17/18 08:31 Dose: Not Given Pantoprazole Sodium (Protonix) 40 mg PO QDAC [facility] Stop: 11/15/18 07:29 Last Admin: 09/17/18 08:30 Dose: Not Given Physical Exam: Patient remains confused and lethargic. General: weak, lethargic HEENT: NC/AT Neck: Supple Lungs: CTAB Cardiovascular: RRR, Normal S1 Abdomen: soft, non-tender Extremities: other (muscle wasting all extremities.) Neurological: no change - Procedures Procedures: Procedures Procedure Code Date RESECTION OF PREPUCE, EXTERNAL APPROACH [id number] 05/16/18 Internal Medicine Assmt/Plan - Assessment Assessment: Renal failure. Depression. Muscle wasting atrophy. Hepatitis B. Alcoholic Cirrhosis. Gerd. Schizophrenia. Hypercalcemia. Current Active Problems Problem Status Onset WEAKNESS AND CONFUSION Acute - Plan Plan: Continuation of care. Nephrology consult. Monitor Vitals, Labs, Hemoglobin levels. Continue present meds as directed. Psych management per Psych. Monitor Diet/Nutritional support. Pain Management. Physical therapy. Occupational therapy. Fall precaution, frequent nursing rounds, and as needed restraints to prevent fall. Safety precaution. Supportive care. Continue collaborating with consulting specialists, case management and nursing team. Will Monitor patient and continue present care management. Nutritional Asmnt/Malnutr-PDOC - Dietary Evaluation Malnutrition Findings (Please click <Entered> for more info): see orders.
--- NOTE | 2018-09-17 12:13 | Diagnostic Imaging Report ---
Renal ultrasound HISTORY: Acute renal insufficiency, stone., Provided history of left renal lesion COMPARISON: Ultrasound abdomen on 08/01/2018 Technique: Sonography of the kidneys and urinary bladder was performed in multiple planes. FINDINGS: Exam is limited due to bowel gas and patient was uncooperative. The right kidney measures 13.3 x 6.3 cm. No focal lesions or hydronephrosis. The left kidney measures 11.9 x 4.5 cm. No discrete focal lesions or hydronephrosis. The urinary bladder is collapsed containing a Moreno catheter. The prostate gland measures 2.7 x 2.9 cm. IMPRESSION: Limited exam due to bowel gas and as the patient was uncooperative. No discrete focal lesions identified however, given findings of indeterminate lesion of the left kidney on previous ultrasound abdomen on 08/01/2018, if indicated CT follow-up is recommended for further assessment. No hydronephrosis. Slightly prominent right kidney.
--- NOTE | 2018-09-17 14:09 | General Progress Note ---
Subjective - Review of Systems Service Date: 09/17/18 Subjective: awake but confused, uncooperative, restless, wants to go home Objective - Results Result Diagrams: 09/17/18 04:15 09/17/18 04:15 Recent Labs: Laboratory Last Values WBC 5.0 Th/cmm (4.8-10.8) 09/17/18 04:15 Corrected WBC (auto) 7.1 Th/cmm 09/16/18 05:20 RBC 4.29 Mil/cmm (3.80-5.80) 09/17/18 04:15 Hgb 13.2 gm/dL (12-16) 09/17/18 04:15 Hct 40.3 % (41.0-60) L 09/17/18 04:15 MCV 93.8 fl (80-99) 09/17/18 04:15 MCH 30.8 pg (27.0-31.0) 09/17/18 04:15 MCHC Differential 32.8 pg (28.0-36.0) 09/17/18 04:15 RDW 18.4 % (11.5-20.0) 09/17/18 04:15 Plt Count 215 Th/cmm (150-400) 09/17/18 04:15 MPV 7.3 fl 09/17/18 04:15 Neutrophils % 71.2 % (40.0-80.0) 09/17/18 04:15 Lymphocytes % 18.8 % (20.0-50.0) L 09/17/18 04:15 Monocytes % 9.0 % (2.0-10.0) 09/17/18 04:15 Eosinophils % 0.9 % (0.0-5.0) 09/17/18 04:15 Basophils % 0.1 % (0.0-2.0) 09/17/18 04:15 Eos Smear Source URINE 09/17/18 06:00 Eos Smear Total Cells NONE SEEN (NONE SEEN) 09/17/18 06:00 PT 13.8 SECONDS (9.5-11.5) H 09/15/18 16:53 INR 1.35 (0.5-1.4) 09/15/18 16:53 PTT (Actin FS) 22.2 SECONDS (26.0-38.0) L 09/15/18 16:53 Sodium 138 mEq/L (136-145) 09/17/18 04:15 Potassium 3.5 mEq/L (3.5-5.1) 09/17/18 04:15 Chloride 100 mEq/L (98-107) 09/17/18 04:15 Carbon Dioxide 28.0 mEq/L (21.0-31.0) 09/17/18 04:15 Anion Gap 13.5 (7.0-16.0) 09/17/18 04:15 BUN 49 mg/dL (7-25) H 09/17/18 04:15 Creatinine 2.0 mg/dL (0.7-1.3) H 09/17/18 04:15 Est GFR ( Amer) 43.3 ml/min (>90) 09/17/18 04:15 Est GFR (Non-Af Amer) 35.8 ml/min 09/17/18 04:15 BUN/Creatinine Ratio 24.5 09/17/18 04:15 Glucose 126 mg/dL (70-105) H 09/17/18 04:15 Uric Acid 20.6 mg/dL (4.4-7.6) H 09/17/18 04:15 Calcium 15.6 mg/dL (8.6-10.3) H* 09/17/18 04:15 Phosphorus 2.3 mg/dL (2.5-5.0) L 09/17/18 04:15 Magnesium 2.0 mg/dL (1.9-2.7) 09/17/18 04:15 Iron 47 ug/dL (38-169) 09/15/18 16:53 TIBC 393 ug/dL (250-450) 09/15/18 16:53 Iron Saturation 12 % (15-55) L 09/15/18 16:53 Unsaturated IBC 346 ug/dL (111-343) H 09/15/18 16:53 Total Bilirubin 1.8 mg/dL (0.3-1.0) H 09/15/18 16:53 AST 190 U/L (13-39) H 09/15/18 16:53 ALT 29 U/L (7-52) 09/15/18 16:53 Alkaline Phosphatase 75 U/L (34-104) 09/15/18 16:53 Ammonia 55 umol/L (16-53) H 09/15/18 16:53 Troponin I 0.03 ng/mL (0.01-0.05) 09/15/18 16:53 Total Protein 9.0 gm/dL (6.0-8.3) H 09/15/18 16:53 Albumin 3.7 gm/dL (4.2-5.5) L 09/15/18 16:53 Globulin 5.3 gm/dL 09/15/18 16:53 Albumin/Globulin Ratio 0.7 (1.0-1.8) L 09/15/18 16:53 TSH 8.63 uIU/ml (0.34-5.60) H 09/15/18 16:53 Urine Source CLEAN C 09/15/18 17:55 Urine Color YELLOW 09/15/18 17:55 Urine Clarity HAZY (CLEAR) 09/15/18 17:55 Urine pH 6.0 (4.6 - 8.0) 09/15/18 17:55 Ur Specific [place] 1.020 (1.005-1.030) 09/15/18 17:55 Urine Protein TRACE mg/dL (NEGATIVE) 09/15/18 17:55 Urine Glucose (UA) NEGATIVE mg/dL (NEGATIVE) 09/15/18 17:55 Urine Ketones NEGATIVE mg/dL (NEGATIVE) 09/15/18 17:55 Urine Blood MODERATE (NEGATIVE) H 09/15/18 17:55 Urine Nitrate NEGATIVE (NEGATIVE) 09/15/18 17:55 Urine Bilirubin NEGATIVE (NEGATIVE) 09/15/18 17:55 Urine Urobilinogen 0.2 E.U./dL (0.2 - 1.0) 09/15/18 17:55 Ur Leukocyte Esterase TRACE (NEGATIVE) H 09/15/18 17:55 Urine RBC 10-25 /hpf (0-5) H 09/15/18 17:55 Urine WBC 2-5 /hpf (0-5) 09/15/18 17:55 Ur Epithelial Cells NONE SEEN /lpf (FEW) 09/15/18 17:55 Calcium Oxalate Crystal MODERATE /hpf 09/15/18 17:55 Urine Bacteria FEW /hpf (NONE SEEN) 09/15/18 17:55 Ur Random Sodium 44 mmol/L 09/17/18 06:00 Urine Creatinine 76.0 mg/dl (39.0-259.0) 09/17/18 06:00 - Physical Exam Vitals and I&O: Vital Signs Temp 97.3 F 09/17/18 11:37 Pulse 65 09/17/18 11:37 Resp 18 09/17/18 11:37 BP 127/62 09/17/18 11:37 Pulse Ox 96 09/17/18 11:37 Intake & Output 09/16/18 09/17/18 09/17/18 18:59 06:59 18:59 Intake Total 200 1125 Output Total 100 400 Balance 100 725 Weight (lbs) 68.039 kg 68.039 kg Intake: Intake, IV Amount 1005 Sodium Chloride 0.9% 1, 1005 000 ml @ 100 mls/hr IV . Q10H [facility] Rx#:[id number] Oral 200 120 Output: Urine 100 400 Other: # Voids 3 # Bowel Movements 1 Weight Source Bedscale Bedscale Active Medications: Current Medications Allopurinol (Zyloprim) 100 mg PO BID [facility] Stop: 11/16/18 16:59 Ascorbic Acid (Vitamin C) 500 mg PO DAILY [facility] Stop: 11/15/18 08:59 Last Admin: 09/17/18 08:30 Dose: Not Given Ferrous Sulfate (Iron) 325 mg PO DAILY [facility] Stop: 11/15/18 08:59 Last Admin: 09/17/18 08:30 Dose: Not Given Sodium Chloride (Nacl 0.9%) 1,000 mls @ 100 mls/hr IV .Q10H [facility] Stop: 11/15/18 15:14 Last Infusion: 09/17/18 03:44 Dose: 100 mls/hr Pamidronate Disodium 90 mg/ (Sodium Chloride) 1,030 mls @ 43 mls/hr IV ONCE ONE Stop: 09/18/18 10:27 Last Admin: 09/17/18 09:53 Dose: 43 mls/hr Lactulose (Cephulac) 30 gm PO TID [facility] Stop: 11/15/18 08:59 Last Admin: 09/17/18 08:31 Dose: Not Given Lactulose (Cephulac) 40 gm PO DAILY PRN PRN Reason: Constipation Stop: 11/15/18 07:01 Lorazepam (Ativan) 1 mg IVP Q6HR PRN; Protocol PRN Reason: AGITATION,ANXIETY Stop: 11/14/18 20:15 Last Admin: 09/15/18 20:31 Dose: 1 mg Metoprolol Tartrate (Lopressor) 25 mg PO BID [facility] Stop: 11/15/18 08:59 Last Admin: 09/17/18 08:31 Dose: Not Given Multivitamins/Vitamin C (Theragran) 1 tab PO DAILY [facility] Stop: 11/15/18 08:59 Last Admin: 09/17/18 08:31 Dose: Not Given Pantoprazole Sodium (Protonix) 40 mg PO QDAC [facility] Stop: 11/15/18 07:29 Last Admin: 09/17/18 08:30 Dose: Not Given General: No acute distress HEENT: Atraumatic, PERRLA, Mucous membr. moist/pink Neck: Supple, +2 carotid pulse wo bruit Cardiovascular: Regular rate, Normal S1, Normal S2 Lungs: Clear to auscultation Abdomen: Bowel sounds, Soft Extremities: no Edema Neurological: Normal tone Skin: no Rash Psych/Mental Status: Mood NL - Procedures Procedures: Procedures Procedure Code Date RESECTION OF PREPUCE, EXTERNAL APPROACH 0VTTXZZ 05/16/18 Assessment/Plan - Problem List Patient Problems: All Active Problems WEAKNESS AND CONFUSION (Acute) - Assessment Assessment: BERTA on CKD Hypercalcemia Severe Dehydration ALOC Clinical Hypothyroid Hep B w/ Cirrhosis Ess Htn Hyperuricemia - Plan Plan: Lab - Result Diagrams 09/17/18 04:15 09/17/18 04:15 Current Medications Allopurinol (Zyloprim) 100 mg PO BID [facility] Stop: 11/16/18 16:59 Ascorbic Acid (Vitamin C) 500 mg PO DAILY [facility] Stop: 11/15/18 08:59 Last Admin: 09/17/18 08:30 Dose: Not Given Ferrous Sulfate (Iron) 325 mg PO DAILY [facility] Stop: 11/15/18 08:59 Last Admin: 09/17/18 08:30 Dose: Not Given Sodium Chloride (Nacl 0.9%) 1,000 mls @ 100 mls/hr IV .Q10H [facility] Stop: 11/15/18 15:14 Last Infusion: 09/17/18 03:44 Dose: 100 mls/hr Pamidronate Disodium 90 mg/ (Sodium Chloride) 1,030 mls @ 43 mls/hr IV ONCE ONE Stop: 09/18/18 10:27 Last Admin: 09/17/18 09:53 Dose: 43 mls/hr Lactulose (Cephulac) 30 gm PO TID [facility] Stop: 11/15/18 08:59 Last Admin: 09/17/18 08:31 Dose: Not Given Lactulose (Cephulac) 40 gm PO DAILY PRN PRN Reason: Constipation Stop: 11/15/18 07:01 Lorazepam (Ativan) 1 mg IVP Q6HR PRN; Protocol PRN Reason: AGITATION,ANXIETY Stop: 11/14/18 20:15 Last Admin: 09/15/18 20:31 Dose: 1 mg Metoprolol Tartrate (Lopressor) 25 mg PO BID [facility] Stop: 11/15/18 08:59 Last Admin: 09/17/18 08:31 Dose: Not Given Multivitamins/Vitamin C (Theragran) 1 tab PO DAILY [facility] Stop: 11/15/18 08:59 Last Admin: 09/17/18 08:31 Dose: Not Given Pantoprazole Sodium (Protonix) 40 mg PO QDAC [facility] Stop: 11/15/18 07:29 Last Admin: 09/17/18 08:30 Dose: Not Given Lab - Result Diagrams 09/17/18 04:15 09/17/18 04:15 Kidney fnc slightly better continue hydration, Aredia also start allopurinol f/u electrolytes Myeloma workup in progress
[2018-09-18 05:56] LABS: ANION GAP 12.5 (7.0-16.0); CARBON DIOXIDE 27.1 mEq/L (21.0-31.0); CREATININE - SERUM 1.7 mg/dL (0.7-1.3); GFR AFRICAN-AMERICAN 52.3 ml/min (>90); GFR NON AFRICAN-AMERICAN 43.2 ml/min; POTASSIUM SERUM 3.6 mEq/L (3.5-5.1)
[2018-09-18 06:19] LABS: CALCIUM SERUM 15.3 mg/dL (8.6-10.3)
[2018-09-18] MEDS: Pantoprazole 40 mg EC Tab PO SCH (07:05)
[2018-09-18] MEDS: Ferrous Sulfate 325 MG TAB PO SCH (09:25)
[2018-09-18] MEDS: Lactulose 10 Gm/15 mL 30mL UDC PO SCH ×3 (09:25→21:31)
[2018-09-18] MEDS: Multivitamin Tab PO SCH (09:25)
[2018-09-18] MEDS: Sodium Chloride 0.9% 1,000 ML IV SCH (10:02)
[2018-09-18 13:10] LABS: ALBUMIN 3.4 g/dL (2.9-4.4); ALPHA-1-GLOBULIN 0.2 g/dL (0.0-0.4); ALPHA-2-GLOBULIN 0.6 g/dL (0.4-1.0); GAMMA GLOBULIN 3.3 g/dL (0.4-1.8); GLOBULIN, TOTAL 5.2 g/dL (2.2-3.9); IGA SERUM - IMMUNOGLOBULIN A 475 mg/dL (61-437); IGG - IMMUNOGLOBULIN G SERUM 3762 mg/dL (700-1600); IGM - IMMUNOGLOBULIN M SERUM 265 mg/dL (20-172); M-SPIKE 1.4 g/dL (Not Observed); PROTEIN, TOTAL, SERUM 8.6 g/dL (6.0-8.5)
--- NOTE | 2018-09-18 14:11 | General Progress Note ---
Subjective - Review of Systems Service Date: 09/18/18 Subjective: still confused Objective - Results Result Diagrams: 09/17/18 04:15 09/18/18 04:20 Recent Labs: Laboratory Last Values WBC 5.0 Th/cmm (4.8-10.8) 09/17/18 04:15 Corrected WBC (auto) 7.1 Th/cmm 09/16/18 05:20 RBC 4.29 Mil/cmm (3.80-5.80) 09/17/18 04:15 Hgb 13.2 gm/dL (12-16) 09/17/18 04:15 Hct 40.3 % (41.0-60) L 09/17/18 04:15 MCV 93.8 fl (80-99) 09/17/18 04:15 MCH 30.8 pg (27.0-31.0) 09/17/18 04:15 MCHC Differential 32.8 pg (28.0-36.0) 09/17/18 04:15 RDW 18.4 % (11.5-20.0) 09/17/18 04:15 Plt Count 215 Th/cmm (150-400) 09/17/18 04:15 MPV 7.3 fl 09/17/18 04:15 Neutrophils % 71.2 % (40.0-80.0) 09/17/18 04:15 Lymphocytes % 18.8 % (20.0-50.0) L 09/17/18 04:15 Monocytes % 9.0 % (2.0-10.0) 09/17/18 04:15 Eosinophils % 0.9 % (0.0-5.0) 09/17/18 04:15 Basophils % 0.1 % (0.0-2.0) 09/17/18 04:15 Eos Smear Source URINE 09/17/18 06:00 Eos Smear Total Cells NONE SEEN (NONE SEEN) 09/17/18 06:00 PT 13.8 SECONDS (9.5-11.5) H 09/15/18 16:53 INR 1.35 (0.5-1.4) 09/15/18 16:53 PTT (Actin FS) 22.2 SECONDS (26.0-38.0) L 09/15/18 16:53 Sodium 145 mEq/L (136-145) 09/18/18 04:20 Potassium 3.6 mEq/L (3.5-5.1) 09/18/18 04:20 Chloride 109 mEq/L (98-107) H 09/18/18 04:20 Carbon Dioxide 27.1 mEq/L (21.0-31.0) 09/18/18 04:20 Anion Gap 12.5 (7.0-16.0) 09/18/18 04:20 BUN 45 mg/dL (7-25) H 09/18/18 04:20 Creatinine 1.7 mg/dL (0.7-1.3) H 09/18/18 04:20 Est GFR ( Amer) 52.3 ml/min (>90) 09/18/18 04:20 Est GFR (Non-Af Amer) 43.2 ml/min 09/18/18 04:20 BUN/Creatinine Ratio 26.5 09/18/18 04:20 Glucose 95 mg/dL (70-105) 09/18/18 04:20 Uric Acid 20.6 mg/dL (4.4-7.6) H 09/17/18 04:15 Calcium 15.3 mg/dL (8.6-10.3) H* 09/18/18 04:20 Phosphorus 2.3 mg/dL (2.5-5.0) L 09/17/18 04:15 Magnesium 2.0 mg/dL (1.9-2.7) 09/17/18 04:15 Iron 47 ug/dL (38-169) 09/15/18 16:53 TIBC 393 ug/dL (250-450) 09/15/18 16:53 Iron Saturation 12 % (15-55) L 09/15/18 16:53 Unsaturated IBC 346 ug/dL (111-343) H 09/15/18 16:53 Total Bilirubin 1.8 mg/dL (0.3-1.0) H 09/15/18 16:53 AST 190 U/L (13-39) H 09/15/18 16:53 ALT 29 U/L (7-52) 09/15/18 16:53 Alkaline Phosphatase 75 U/L (34-104) 09/15/18 16:53 Ammonia 55 umol/L (16-53) H 09/15/18 16:53 Troponin I 0.03 ng/mL (0.01-0.05) 09/15/18 16:53 Total Protein 8.6 g/dL (6.0-8.5) H 09/17/18 04:15 Albumin 3.4 g/dL (2.9-4.4) 09/17/18 04:15 Globulin 5.2 g/dL (2.2-3.9) H 09/17/18 04:15 Albumin/Globulin Ratio 0.7 (0.7-1.7) 09/17/18 04:15 Wqaii-8-Qrtmyqkvv 0.2 g/dL (0.0-0.4) 09/17/18 04:15 Yxzer-0-Dlgliyafv 0.6 g/dL (0.4-1.0) 09/17/18 04:15 Beta Globulins 1.0 g/dL (0.7-1.3) 09/17/18 04:15 Gamma Globulins 3.3 g/dL (0.4-1.8) H 09/17/18 04:15 M-[place] 1.4 g/dL (Not Observed) H 09/17/18 04:15 PEP Note 09/17/18 04:15 Vitamin D 25-Hydroxy 26.0 ng/mL (30.0-100.0) L 09/17/18 04:15 Free T4 0.84 ng/dL (0.82-1.77) 09/17/18 04:15 Free T3 1.1 pg/mL (2.0-4.4) L 09/17/18 04:15 TSH 8.63 uIU/ml (0.34-5.60) H 09/15/18 16:53 Urine Source CLEAN C 09/15/18 17:55 Urine Color YELLOW 09/15/18 17:55 Urine Clarity HAZY (CLEAR) 09/15/18 17:55 Urine pH 6.0 (4.6 - 8.0) 09/15/18 17:55 Ur Specific [place] 1.020 (1.005-1.030) 09/15/18 17:55 Urine Protein TRACE mg/dL (NEGATIVE) 09/15/18 17:55 Urine Glucose (UA) NEGATIVE mg/dL (NEGATIVE) 09/15/18 17:55 Urine Ketones NEGATIVE mg/dL (NEGATIVE) 09/15/18 17:55 Urine Blood MODERATE (NEGATIVE) H 09/15/18 17:55 Urine Nitrate NEGATIVE (NEGATIVE) 09/15/18 17:55 Urine Bilirubin NEGATIVE (NEGATIVE) 09/15/18 17:55 Urine Urobilinogen 0.2 E.U./dL (0.2 - 1.0) 09/15/18 17:55 Ur Leukocyte Esterase TRACE (NEGATIVE) H 09/15/18 17:55 Urine RBC 10-25 /hpf (0-5) H 09/15/18 17:55 Urine WBC 2-5 /hpf (0-5) 09/15/18 17:55 Ur Epithelial Cells NONE SEEN /lpf (FEW) 09/15/18 17:55 Calcium Oxalate Crystal MODERATE /hpf 09/15/18 17:55 Urine Bacteria FEW /hpf (NONE SEEN) 09/15/18 17:55 Ur Random Sodium 44 mmol/L 09/17/18 06:00 Urine Creatinine 76.0 mg/dl (39.0-259.0) 09/17/18 06:00 Microalb/Creat Ratio 318.2 mg/g creat (0.0-30.0) H 09/17/18 18:00 Serum Immunofixation 265 mg/dL (20-172) H 09/17/18 04:15 - Physical Exam Vitals and I&O: Vital Signs Temp 98.2 F 09/18/18 08:00 Pulse 69 09/18/18 09:25 Resp 18 09/18/18 10:00 BP 134/69 09/18/18 09:25 Pulse Ox 97 09/18/18 08:00 Intake & Output 09/17/18 09/18/18 09/18/18 18:59 06:59 18:59 Intake Total 1595 100 Output Total 1100 1200 Balance 495 -1100 Weight (lbs) 68.039 kg 61.49 kg Intake: Intake, IV Amount 995 Sodium Chloride 0.9% 1, 995 000 ml @ 100 mls/hr IV . Q10H [facility] Rx#:[id number] Oral 600 100 Output: Urine 1100 1200 Other: # Bowel Movements 2 1 Weight Source Bedscale Bedscale Active Medications: Current Medications Allopurinol (Zyloprim) 100 mg PO BID KRISTEN Stop: 11/16/18 16:59 Last Admin: 09/18/18 09:25 Dose: 100 mg Ascorbic Acid (Vitamin C) 500 mg PO DAILY KRISTEN Stop: 11/15/18 08:59 Last Admin: 09/18/18 09:25 Dose: 500 mg Ferrous Sulfate (Iron) 325 mg PO DAILY KRISTEN Stop: 11/15/18 08:59 Last Admin: 09/18/18 09:25 Dose: 325 mg Sodium Chloride (Nacl 0.9%) 1,000 mls @ 100 mls/hr IV .Q10H KRISTEN Stop: 11/15/18 15:14 Last Admin: 09/18/18 10:02 Dose: 100 mls/hr Lactulose (Cephulac) 30 gm PO TID KRISTEN Stop: 11/15/18 08:59 Last Admin: 09/18/18 09:25 Dose: 30 gm Lactulose (Cephulac) 40 gm PO DAILY PRN PRN Reason: Constipation Stop: 11/15/18 07:01 Lorazepam (Ativan) 1 mg IVP Q6HR PRN; Protocol PRN Reason: AGITATION,ANXIETY Stop: 11/14/18 20:15 Last Admin: 09/15/18 20:31 Dose: 1 mg Metoprolol Tartrate (Lopressor) 25 mg PO BID KRISTEN Stop: 11/15/18 08:59 Last Admin: 09/18/18 09:25 Dose: 25 mg Multivitamins/Vitamin C (Theragran) 1 tab PO DAILY KRISTEN Stop: 11/15/18 08:59 Last Admin: 09/18/18 09:25 Dose: 1 tab Pantoprazole Sodium (Protonix) 40 mg PO QDAC KRISTEN Stop: 11/15/18 07:29 Last Admin: 09/18/18 07:05 Dose: Not Given General: No acute distress HEENT: Atraumatic, PERRLA, Mucous membr. moist/pink Neck: Supple, +2 carotid pulse wo bruit Cardiovascular: Regular rate, Normal S1, Normal S2 Lungs: Clear to auscultation Abdomen: Bowel sounds, Soft Extremities: no Edema Neurological: Normal tone Skin: no Rash Psych/Mental Status: Mood NL - Procedures Procedures: Procedures Procedure Code Date RESECTION OF PREPUCE, EXTERNAL APPROACH [id number] 05/16/18 Assessment/Plan - Problem List Patient Problems: All Active Problems WEAKNESS AND CONFUSION (Acute) - Assessment Assessment: Hypercalcemia with markedly elevated protein and low albumin, could be secondary to multiple myeloma. The patient has renal failure of unknown duration. 2. Elevated iron binding capacity and low saturation suggestive of iron deficiency. I will obtain ferritin for confirmation. 3. Hypothyroidism. 4. Dementia. 5. Kidney disease, likely chronic old with acute worsening. 6. Hepatitis B with cirrhosis. I will obtain the workup for multiple myeloma including a serum protein electrophoresis, immunofixation, quantitative immunoglobulin levels and free light chains, kappa and lambda. PTH level was ordered and one dose of pamidronate was given. I expect the calcium level to improve gradually with current hydration, Lasix and pamidronate. 09/18: PTH pending. SPEP =1.4 GM spike, high IG levels , awaiting free light chains. ca improving. Nutritional Asmnt/Malnutr-PDOC - Dietary Evaluation Malnutrition Findings (Please click <Entered> for more info): Nutritional Asmnt/Malnutrition Start: 09/17/18 15: 51 Text: Status: Complete Freq: Protocol: Document 09/17/18 15:52 CHERYLE (Rec: 09/17/18 15:57 CHERYLE [email or web address]) Nutritional Asmnt/Malnutrition Patient General Information Nutritional Screening High Risk Diagnosis Hypercalcemia, Renal failure Pertinent Medical Hx/Surgical Hx HTN, Dementia, Hepatitis B, Hepatic encephalopathy, Renal failure, depression, muscle wasting atrophy, alcoholic cirrhosis, GERD, Schizophrenia , Status post ORIF of the LT leg Subjective Information Pt is a 67-year-old male from [facility] admitted on 09/15 d/t increasing confusion and altered mental status. Per Nephrology consultation (09/16) , Acute kidney injury on CKD, MDRD GRF of 30ml/min, stage 3 . Pt ate 25% at breakfast but 0% at lunch and dinner on per Meal/Nutrition Activity Record. Per NICOLAS Leon, Pt didn t eat breakfast but drank soup at lunch today. Recommend to provide Suplena to support wound healing and to meet nutritional needs if PO intake not improved, pending lab result tonight for renal disease diagnosis. Will continue to monitor PO intake progress for wound healing and meeting nutritional needs. HT: 511 WT: 150 LB (68.18 kg) BMI: 20.92 (Normal) GI: Bloating, Large, Round, Distended BM: 09/17 x 1 I/O: 1325/500 (+825) Skin: Pale, Warm, Dry, Tight, Abrasion on RT Knee Ulices: 12 Diet Order: Mechanical Soft, MOLLY Estimated Energy Needs: (BERTA, CBW) 7138-3694 kcals (25-30 kcals/ kg) 55-61 g Pro (0.8-0.9 g/kg) 3004-4390 ml (35-40 ml/kg)/Per MD Current Diet Order/ Nutrition Support Mechanical Soft, MOLLY Pertinent Medications Vitamin C, Ferrous Sulfate, Lopressor, Theragran, Protonix , Nacl 0.9% 1000mls @ 100mls/ hr IV Q10H Pertinent Labs 09/17: BUN/Cr 49/2.0, Glucose 126, Ca 15.6 09/16: Na 133, CH 37, BUN/Cr 49 /2.2, Ca 17.3 09/15: Hgb/Hct 12.8/38.5, BUN/ Cr 47/2.3, Ca 17.6, Alb 3.7 Nutritional Hx/Data Height 1.8 m Height (Calculated Centimeters) 180.3 Current Weight (lbs) 68.039 kg Weight (Calculated Kilograms) 68.0 Weight (Calculated Grams) 81629.9 [place] Body Weight 75.3 kg % [place] Body Weight 91 Body Mass Index (BMI) 20.9 Weight Status Approriate GI Symptoms Last BM 09/17 x 1 Skin Integrity/Comment: Pale, Warm, Dry, Tight, Abrasion on RT Knee Ulices: 12 Estimated Nutritional Goals BEE in Kcals: Using Current wt Calories/Kcals/Kg 25-30 Kcals Calculated 3013-0086 Protein: Using Current wt Protein g/k.8-0.9 Protein Calculated 55-61 Fluid: ml 2138-1377 ml (35-40 ml/kg)/Per Nutritional Problem 2. Problem Problem Altered nutrition related labs Etiology r/t medical condition Signs/Symptoms: aeb BUN/Cr 49/2.0, Glucose 126 , Ca 15.6 1. Problem Problem Inadequate Oral Intake Etiology r/t poor appetite and bloating Signs/Symptoms: aeb PO intake 25% at breakfast , 0% lunch and dinner on 09/16 per Meal/Nutrition Activity Record Malnutrition Related to Morbid Obesity Malnutrition related to morbid obesity No Intervention/Recommendation Comments 1. Continue Mechanical Soft, MOLLY diet as ordered. 2. RN to encourage improved PO intake. 3. Recommend to provide Suplena BID to support wound healing and to meet nutritional needs if PO intake not improved, pending lab result tonight for renal disease diagnosis. Expected Outcomes/Goals Expected Outcomes/Goals 1. PO intake to meet 75% of nutritional needs. 2. Monitor PO intake, wt, skin integrity, and nutrition related labs to trend WNL 3. F/U as high risk in 2-3 days, 09/19-
[2018-09-18 14:24] LABS: PROTEIN RANDOM URINE 76.5 mg/dL
--- NOTE | 2018-09-18 15:56 | Internal Medicine Prog Note ---
Internal Medicine Subjective - Subjective Service Date: 09/18/18 Patient seen and examined:: with staff Patient is:: awake, verbal, confused Patient Complaints of:: other (AMS.) Per staff patient has:: no adverse event, no episodes of fall Internal Medicine Objective - Results Result Diagrams: 09/17/18 04:15 09/18/18 04:20 Recent Labs: Laboratory Last Values WBC 5.0 Th/cmm (4.8-10.8) 09/17/18 04:15 Corrected WBC (auto) 7.1 Th/cmm 09/16/18 05:20 RBC 4.29 Mil/cmm (3.80-5.80) 09/17/18 04:15 Hgb 13.2 gm/dL (12-16) 09/17/18 04:15 Hct 40.3 % (41.0-60) L 09/17/18 04:15 MCV 93.8 fl (80-99) 09/17/18 04:15 MCH 30.8 pg (27.0-31.0) 09/17/18 04:15 MCHC Differential 32.8 pg (28.0-36.0) 09/17/18 04:15 RDW 18.4 % (11.5-20.0) 09/17/18 04:15 Plt Count 215 Th/cmm (150-400) 09/17/18 04:15 MPV 7.3 fl 09/17/18 04:15 Neutrophils % 71.2 % (40.0-80.0) 09/17/18 04:15 Lymphocytes % 18.8 % (20.0-50.0) L 09/17/18 04:15 Monocytes % 9.0 % (2.0-10.0) 09/17/18 04:15 Eosinophils % 0.9 % (0.0-5.0) 09/17/18 04:15 Basophils % 0.1 % (0.0-2.0) 09/17/18 04:15 Eos Smear Source URINE 09/17/18 06:00 Eos Smear Total Cells NONE SEEN (NONE SEEN) 09/17/18 06:00 PT 13.8 SECONDS (9.5-11.5) H 09/15/18 16:53 INR 1.35 (0.5-1.4) 09/15/18 16:53 PTT (Actin FS) 22.2 SECONDS (26.0-38.0) L 09/15/18 16:53 Sodium 145 mEq/L (136-145) 09/18/18 04:20 Potassium 3.6 mEq/L (3.5-5.1) 09/18/18 04:20 Chloride 109 mEq/L (98-107) H 09/18/18 04:20 Carbon Dioxide 27.1 mEq/L (21.0-31.0) 09/18/18 04:20 Anion Gap 12.5 (7.0-16.0) 09/18/18 04:20 BUN 45 mg/dL (7-25) H 09/18/18 04:20 Creatinine 1.7 mg/dL (0.7-1.3) H 09/18/18 04:20 Est GFR ( Amer) 52.3 ml/min (>90) 09/18/18 04:20 Est GFR (Non-Af Amer) 43.2 ml/min 09/18/18 04:20 BUN/Creatinine Ratio 26.5 09/18/18 04:20 Glucose 95 mg/dL (70-105) 09/18/18 04:20 Uric Acid 20.6 mg/dL (4.4-7.6) H 09/17/18 04:15 Calcium 15.3 mg/dL (8.6-10.3) H* 09/18/18 04:20 Phosphorus 2.3 mg/dL (2.5-5.0) L 09/17/18 04:15 Magnesium 2.0 mg/dL (1.9-2.7) 09/17/18 04:15 Iron 47 ug/dL (38-169) 09/15/18 16:53 TIBC 393 ug/dL (250-450) 09/15/18 16:53 Iron Saturation 12 % (15-55) L 09/15/18 16:53 Unsaturated IBC 346 ug/dL (111-343) H 09/15/18 16:53 Total Bilirubin 1.8 mg/dL (0.3-1.0) H 09/15/18 16:53 AST 190 U/L (13-39) H 09/15/18 16:53 ALT 29 U/L (7-52) 09/15/18 16:53 Alkaline Phosphatase 75 U/L (34-104) 09/15/18 16:53 Ammonia 55 umol/L (16-53) H 09/15/18 16:53 Troponin I 0.03 ng/mL (0.01-0.05) 09/15/18 16:53 Total Protein 8.6 g/dL (6.0-8.5) H 09/17/18 04:15 Albumin 3.4 g/dL (2.9-4.4) 09/17/18 04:15 Globulin 5.2 g/dL (2.2-3.9) H 09/17/18 04:15 Albumin/Globulin Ratio 0.7 (0.7-1.7) 09/17/18 04:15 Tokhk-5-Vkylbzego 0.2 g/dL (0.0-0.4) 09/17/18 04:15 Oqdrl-2-Pjlpszryh 0.6 g/dL (0.4-1.0) 09/17/18 04:15 Beta Globulins 1.0 g/dL (0.7-1.3) 09/17/18 04:15 Gamma Globulins 3.3 g/dL (0.4-1.8) H 09/17/18 04:15 M-[place] 1.4 g/dL (Not Observed) H 09/17/18 04:15 PEP Note 09/17/18 04:15 Vitamin D 25-Hydroxy 26.0 ng/mL (30.0-100.0) L 09/17/18 04:15 Free T4 0.84 ng/dL (0.82-1.77) 09/17/18 04:15 Free T3 1.1 pg/mL (2.0-4.4) L 09/17/18 04:15 TSH 8.63 uIU/ml (0.34-5.60) H 09/15/18 16:53 PTH Intact <6 pg/mL (15-65) L 09/15/18 16:53 Urine Source CLEAN C 09/15/18 17:55 Urine Color YELLOW 09/15/18 17:55 Urine Clarity HAZY (CLEAR) 09/15/18 17:55 Urine pH 6.0 (4.6 - 8.0) 09/15/18 17:55 Ur Specific [place] 1.020 (1.005-1.030) 09/15/18 17:55 Urine Protein TRACE mg/dL (NEGATIVE) 09/15/18 17:55 Urine Glucose (UA) NEGATIVE mg/dL (NEGATIVE) 09/15/18 17:55 Urine Ketones NEGATIVE mg/dL (NEGATIVE) 09/15/18 17:55 Urine Blood MODERATE (NEGATIVE) H 09/15/18 17:55 Urine Nitrate NEGATIVE (NEGATIVE) 09/15/18 17:55 Urine Bilirubin NEGATIVE (NEGATIVE) 09/15/18 17:55 Urine Urobilinogen 0.2 E.U./dL (0.2 - 1.0) 09/15/18 17:55 Ur Leukocyte Esterase TRACE (NEGATIVE) H 09/15/18 17:55 Urine RBC 10-25 /hpf (0-5) H 09/15/18 17:55 Urine WBC 2-5 /hpf (0-5) 09/15/18 17:55 Ur Epithelial Cells NONE SEEN /lpf (FEW) 09/15/18 17:55 Calcium Oxalate Crystal MODERATE /hpf 09/15/18 17:55 Urine Bacteria FEW /hpf (NONE SEEN) 09/15/18 17:55 U Random Total Protein 76.5 mg/dL 09/17/18 18:00 Ur Random Sodium 44 mmol/L 09/17/18 06:00 Urine Collection Time 24 hours 09/17/18 18:00 Urine Total Volume 1200 ml 09/17/18 18:00 Urine Creatinine 76.0 mg/dl (39.0-259.0) 09/17/18 06:00 Microalb/Creat Ratio 318.2 mg/g creat (0.0-30.0) H 09/17/18 18:00 U Tot Protein 24h, Calc 918.0 mg/24 hr (0-165) H 09/17/18 18:00 Serum Immunofixation 265 mg/dL (20-172) H 09/17/18 04:15 - Physical Exam Vitals and I&O: Vital Signs Temp 98.4 F 09/18/18 12:00 Pulse 63 09/18/18 12:00 Resp 18 09/18/18 14:00 BP 136/73 09/18/18 12:00 Pulse Ox 99 09/18/18 12:00 Intake & Output 0809/18/18 09/18/18 18:59 06:59 18:59 Intake Total 1595 100 Output Total 1100 1200 Balance 495 -1100 Weight (lbs) 68.039 kg 61.49 kg Intake: Intake, IV Amount 995 Sodium Chloride 0.9% 1, 995 000 ml @ 100 mls/hr IV . Q10H [facility] Rx#:[id number] Oral 600 100 Output: Urine 1100 1200 Other: # Bowel Movements 2 1 Weight Source Bedscale Bedscale Active Medications: Current Medications Allopurinol (Zyloprim) 100 mg PO BID [facility] Stop: 11/16/18 16:59 Last Admin: 09/18/18 09:25 Dose: 100 mg Ascorbic Acid (Vitamin C) 500 mg PO DAILY KRISTEN Stop: 11/15/18 08:59 Last Admin: 09/18/18 09:25 Dose: 500 mg Ferrous Sulfate (Iron) 325 mg PO DAILY KRISTEN Stop: 11/15/18 08:59 Last Admin: 09/18/18 09:25 Dose: 325 mg Sodium Chloride (Nacl 0.9%) 1,000 mls @ 100 mls/hr IV .Q10H [facility] Stop: 11/15/18 15:14 Last Admin: 09/18/18 10:02 Dose: 100 mls/hr Lactulose (Cephulac) 30 gm PO TID KRISTEN Stop: 11/15/18 08:59 Last Admin: 09/18/18 14:28 Dose: 30 gm Lactulose (Cephulac) 40 gm PO DAILY PRN PRN Reason: Constipation Stop: 11/15/18 07:01 Lorazepam (Ativan) 1 mg IVP Q6HR PRN; Protocol PRN Reason: AGITATION,ANXIETY Stop: 11/14/18 20:15 Last Admin: 09/15/18 20:31 Dose: 1 mg Metoprolol Tartrate (Lopressor) 25 mg PO BID [facility] Stop: 11/15/18 08:59 Last Admin: 09/18/18 09:25 Dose: 25 mg Multivitamins/Vitamin C (Theragran) 1 tab PO DAILY KRISTEN Stop: 11/15/18 08:59 Last Admin: 09/18/18 09:25 Dose: 1 tab Pantoprazole Sodium (Protonix) 40 mg PO QDAC KRISTEN Stop: 11/15/18 07:29 Last Admin: 09/18/18 07:05 Dose: Not Given Physical Exam: Patient dis-oriented and very confused. General: weak, lethargic HEENT: NC/AT Neck: Supple Lungs: CTAB Cardiovascular: RRR, Normal S1 Abdomen: soft, non-tender Extremities: other (muscle wasting all extremities.) Neurological: no change - Procedures Procedures: Procedures Procedure Code Date RESECTION OF PREPUCE, EXTERNAL APPROACH 0VTTXZZ 05/16/18 Internal Medicine Assmt/Plan - Assessment Assessment: Renal failure. Depression. Muscle wasting atrophy. Hepatitis B. Alcoholic Cirrhosis. Gerd. Schizophrenia. Hypercalcemia. Current Active Problems Problem Status Onset WEAKNESS AND CONFUSION Acute - Plan Plan: Continuation of care. Nephrology consult. Monitor Vitals, Labs, Hemoglobin levels. Continue present meds as directed. Psych management per Psych. Monitor Diet/Nutritional support. Pain Management. Physical therapy. Occupational therapy. Fall precaution, frequent nursing rounds, and as needed restraints to prevent fall. Safety precaution. Supportive care. Continue collaborating with consulting specialists, case management and nursing team. Will Monitor patient and continue present care management. Nutritional Asmnt/Malnutr-PDOC - Dietary Evaluation Malnutrition Findings (Please click <Entered> for more info): Nutritional Asmnt/Malnutrition Start: 09/17/18 15: 51 Text: Status: Complete Freq: Protocol: Document 09/17/18 15:52 CHERYLE (Rec: 09/17/18 15:57 CHERYLE [email or web address]) Nutritional Asmnt/Malnutrition Patient General Information Nutritional Screening High Risk Diagnosis Hypercalcemia, Renal failure Pertinent Medical Hx/Surgical Hx HTN, Dementia, Hepatitis B, Hepatic encephalopathy, Renal failure, depression, muscle wasting atrophy, alcoholic cirrhosis, GERD, Schizophrenia , Status post ORIF of the LT leg Subjective Information Pt is a 67-year-old male from [facility] admitted on 09/15 d/t increasing confusion and altered mental status. Per Nephrology consultation (09/16) , Acute kidney injury on CKD, MDRD GRF of 30ml/min, stage 3 . Pt ate 25% at breakfast but 0% at lunch and dinner on per Meal/Nutrition Activity Record. Per NICOLAS Leon, Pt didn t eat breakfast but drank soup at lunch today. Recommend to provide Suplena to support wound healing and to meet nutritional needs if PO intake not improved, pending lab result tonight for renal disease diagnosis. Will continue to monitor PO intake progress for wound healing and meeting nutritional needs. HT: 511 WT: 150 LB (68.18 kg) BMI: 20.92 (Normal) GI: Bloating, Large, Round, Distended BM: 09/17 x 1 I/O: 1325/500 (+825) Skin: Pale, Warm, Dry, Tight, Abrasion on RT Knee Ulices: 12 Diet Order: Mechanical Soft, MOLLY Estimated Energy Needs: (BERTA, CBW) 6269-7922 kcals (25-30 kcals/ kg) 55-61 g Pro (0.8-0.9 g/kg) 2489-0254 ml (35-40 ml/kg)/Per MD Current Diet Order/ Nutrition Support Mechanical Soft, MOLLY Pertinent Medications Vitamin C, Ferrous Sulfate, Lopressor, Theragran, Protonix , Nacl 0.9% 1000mls @ 100mls/ hr IV Q10H Pertinent Labs 09/17: BUN/Cr 49/2.0, Glucose 126, Ca 15.6 09/16: Na 133, CH 37, BUN/Cr 49 /2.2, Ca 17.3 09/15: Hgb/Hct 12.8/38.5, BUN/ Cr 47/2.3, Ca 17.6, Alb 3.7 Nutritional Hx/Data Height 1.8 m Height (Calculated Centimeters) 180.3 Current Weight (lbs) 68.039 kg Weight (Calculated Kilograms) 68.0 Weight (Calculated Grams) 12424.9 [place] Body Weight 75.3 kg % [place] Body Weight 91 Body Mass Index (BMI) 20.9 Weight Status Approriate GI Symptoms Last BM 09/17 x 1 Skin Integrity/Comment: Pale, Warm, Dry, Tight, Abrasion on RT Knee Ulices: 12 Estimated Nutritional Goals BEE in Kcals: Using Current wt Calories/Kcals/Kg 25-30 Kcals Calculated 2684-5253 Protein: Using Current wt Protein g/k.8-0.9 Protein Calculated 55-61 Fluid: ml 6349-8571 ml (35-40 ml/kg)/Per MD Nutritional Problem 2. Problem Problem Altered nutrition related labs Etiology r/t medical condition Signs/Symptoms: aeb BUN/Cr 49/2.0, Glucose 126 , Ca 15.6 1. Problem Problem Inadequate Oral Intake Etiology r/t poor appetite and bloating Signs/Symptoms: aeb PO intake 25% at breakfast , 0% lunch and dinner on 09/16 per Meal/Nutrition Activity Record Malnutrition Related to Morbid Obesity Malnutrition related to morbid obesity No Intervention/Recommendation Comments 1. Continue Mechanical Soft, MOLLY diet as ordered. 2. RN to encourage improved PO intake. 3. Recommend to provide Suplena BID to support wound healing and to meet nutritional needs if PO intake not improved, pending lab result tonight for renal disease diagnosis. Expected Outcomes/Goals Expected Outcomes/Goals 1. PO intake to meet 75% of nutritional needs. 2. Monitor PO intake, wt, skin integrity, and nutrition related labs to trend WNL 3. F/U as high risk in 2-3 days, 09/19-
--- NOTE | 2018-09-18 18:11 | General Progress Note ---
Subjective - Review of Systems Service Date: 09/18/18 Subjective: awake but confused, uncooperative, restless, trying to kick Objective - Results Result Diagrams: 09/17/18 04:15 09/18/18 04:20 Recent Labs: Laboratory Last Values WBC 5.0 Th/cmm (4.8-10.8) 09/17/18 04:15 Corrected WBC (auto) 7.1 Th/cmm 09/16/18 05:20 RBC 4.29 Mil/cmm (3.80-5.80) 09/17/18 04:15 Hgb 13.2 gm/dL (12-16) 09/17/18 04:15 Hct 40.3 % (41.0-60) L 09/17/18 04:15 MCV 93.8 fl (80-99) 09/17/18 04:15 MCH 30.8 pg (27.0-31.0) 09/17/18 04:15 MCHC Differential 32.8 pg (28.0-36.0) 09/17/18 04:15 RDW 18.4 % (11.5-20.0) 09/17/18 04:15 Plt Count 215 Th/cmm (150-400) 09/17/18 04:15 MPV 7.3 fl 09/17/18 04:15 Neutrophils % 71.2 % (40.0-80.0) 09/17/18 04:15 Lymphocytes % 18.8 % (20.0-50.0) L 09/17/18 04:15 Monocytes % 9.0 % (2.0-10.0) 09/17/18 04:15 Eosinophils % 0.9 % (0.0-5.0) 09/17/18 04:15 Basophils % 0.1 % (0.0-2.0) 09/17/18 04:15 Eos Smear Source URINE 09/17/18 06:00 Eos Smear Total Cells NONE SEEN (NONE SEEN) 09/17/18 06:00 PT 13.8 SECONDS (9.5-11.5) H 09/15/18 16:53 INR 1.35 (0.5-1.4) 09/15/18 16:53 PTT (Actin FS) 22.2 SECONDS (26.0-38.0) L 09/15/18 16:53 Sodium 145 mEq/L (136-145) 09/18/18 04:20 Potassium 3.6 mEq/L (3.5-5.1) 09/18/18 04:20 Chloride 109 mEq/L (98-107) H 09/18/18 04:20 Carbon Dioxide 27.1 mEq/L (21.0-31.0) 09/18/18 04:20 Anion Gap 12.5 (7.0-16.0) 09/18/18 04:20 BUN 45 mg/dL (7-25) H 09/18/18 04:20 Creatinine 1.7 mg/dL (0.7-1.3) H 09/18/18 04:20 Est GFR ( Amer) 52.3 ml/min (>90) 09/18/18 04:20 Est GFR (Non-Af Amer) 43.2 ml/min 09/18/18 04:20 BUN/Creatinine Ratio 26.5 09/18/18 04:20 Glucose 95 mg/dL (70-105) 09/18/18 04:20 Uric Acid 20.6 mg/dL (4.4-7.6) H 09/17/18 04:15 Calcium 15.3 mg/dL (8.6-10.3) H* 09/18/18 04:20 Phosphorus 2.3 mg/dL (2.5-5.0) L 09/17/18 04:15 Magnesium 2.0 mg/dL (1.9-2.7) 09/17/18 04:15 Iron 47 ug/dL (38-169) 09/15/18 16:53 TIBC 393 ug/dL (250-450) 09/15/18 16:53 Iron Saturation 12 % (15-55) L 09/15/18 16:53 Unsaturated IBC 346 ug/dL (111-343) H 09/15/18 16:53 Total Bilirubin 1.8 mg/dL (0.3-1.0) H 09/15/18 16:53 AST 190 U/L (13-39) H 09/15/18 16:53 ALT 29 U/L (7-52) 09/15/18 16:53 Alkaline Phosphatase 75 U/L (34-104) 09/15/18 16:53 Ammonia 55 umol/L (16-53) H 09/15/18 16:53 Troponin I 0.03 ng/mL (0.01-0.05) 09/15/18 16:53 Total Protein 8.6 g/dL (6.0-8.5) H 09/17/18 04:15 Albumin 3.4 g/dL (2.9-4.4) 09/17/18 04:15 Globulin 5.2 g/dL (2.2-3.9) H 09/17/18 04:15 Albumin/Globulin Ratio 0.7 (0.7-1.7) 09/17/18 04:15 Cfhfs-4-Dfhbykvpw 0.2 g/dL (0.0-0.4) 09/17/18 04:15 Eidue-1-Uojvuybbq 0.6 g/dL (0.4-1.0) 09/17/18 04:15 Beta Globulins 1.0 g/dL (0.7-1.3) 09/17/18 04:15 Gamma Globulins 3.3 g/dL (0.4-1.8) H 09/17/18 04:15 M-[place] 1.4 g/dL (Not Observed) H 09/17/18 04:15 PEP Note 09/17/18 04:15 Vitamin D 25-Hydroxy 26.0 ng/mL (30.0-100.0) L 09/17/18 04:15 Free T4 0.84 ng/dL (0.82-1.77) 09/17/18 04:15 Free T3 1.1 pg/mL (2.0-4.4) L 09/17/18 04:15 TSH 8.63 uIU/ml (0.34-5.60) H 09/15/18 16:53 PTH Intact <6 pg/mL (15-65) L 09/15/18 16:53 Urine Source CLEAN C 09/15/18 17:55 Urine Color YELLOW 09/15/18 17:55 Urine Clarity HAZY (CLEAR) 09/15/18 17:55 Urine pH 6.0 (4.6 - 8.0) 09/15/18 17:55 Ur Specific [place] 1.020 (1.005-1.030) 09/15/18 17:55 Urine Protein TRACE mg/dL (NEGATIVE) 09/15/18 17:55 Urine Glucose (UA) NEGATIVE mg/dL (NEGATIVE) 09/15/18 17:55 Urine Ketones NEGATIVE mg/dL (NEGATIVE) 09/15/18 17:55 Urine Blood MODERATE (NEGATIVE) H 09/15/18 17:55 Urine Nitrate NEGATIVE (NEGATIVE) 09/15/18 17:55 Urine Bilirubin NEGATIVE (NEGATIVE) 09/15/18 17:55 Urine Urobilinogen 0.2 E.U./dL (0.2 - 1.0) 09/15/18 17:55 Ur Leukocyte Esterase TRACE (NEGATIVE) H 09/15/18 17:55 Urine RBC 10-25 /hpf (0-5) H 09/15/18 17:55 Urine WBC 2-5 /hpf (0-5) 09/15/18 17:55 Ur Epithelial Cells NONE SEEN /lpf (FEW) 09/15/18 17:55 Calcium Oxalate Crystal MODERATE /hpf 09/15/18 17:55 Urine Bacteria FEW /hpf (NONE SEEN) 09/15/18 17:55 U Random Total Protein 76.5 mg/dL 09/17/18 18:00 Ur Random Sodium 44 mmol/L 09/17/18 06:00 Urine Collection Time 24 hours 09/17/18 18:00 Urine Total Volume 1200 ml 09/17/18 18:00 Urine Creatinine 76.0 mg/dl (39.0-259.0) 09/17/18 06:00 Microalb/Creat Ratio 318.2 mg/g creat (0.0-30.0) H 09/17/18 18:00 U Tot Protein 24h, Calc 918.0 mg/24 hr (0-165) H 09/17/18 18:00 Serum Immunofixation 265 mg/dL (20-172) H 09/17/18 04:15 - Physical Exam Vitals and I&O: Vital Signs Temp 98.4 F 09/18/18 12:00 Pulse 62 09/18/18 16:21 Resp 18 09/18/18 14:00 BP 133/70 09/18/18 16:21 Pulse Ox 99 09/18/18 12:00 Intake & Output 09/17/18 09/18/18 09/18/18 18:59 06:59 18:59 Intake Total 1595 100 Output Total 1100 1200 Balance 495 -1100 Weight (lbs) 68.039 kg 61.49 kg Intake: Intake, IV Amount 995 Sodium Chloride 0.9% 1, 995 000 ml @ 100 mls/hr IV . Q10H [facility] Rx#:[id number] Oral 600 100 Output: Urine 1100 1200 Other: # Bowel Movements 2 1 Weight Source Bedscale Bedscale Active Medications: Current Medications Allopurinol (Zyloprim) 100 mg PO BID [facility] Stop: 11/16/18 16:59 Last Admin: 09/18/18 16:21 Dose: 100 mg Ascorbic Acid (Vitamin C) 500 mg PO DAILY [facility] Stop: 11/15/18 08:59 Last Admin: 09/18/18 09:25 Dose: 500 mg Ferrous Sulfate (Iron) 325 mg PO DAILY [facility] Stop: 11/15/18 08:59 Last Admin: 09/18/18 09:25 Dose: 325 mg Sodium Chloride (Nacl 0.9%) 1,000 mls @ 100 mls/hr IV .Q10H [facility] Stop: 11/15/18 15:14 Last Admin: 09/18/18 10:02 Dose: 100 mls/hr Lactulose (Cephulac) 30 gm PO TID [facility] Stop: 11/15/18 08:59 Last Admin: 09/18/18 14:28 Dose: 30 gm Lactulose (Cephulac) 40 gm PO DAILY PRN PRN Reason: Constipation Stop: 11/15/18 07:01 Lorazepam (Ativan) 1 mg IVP Q6HR PRN; Protocol PRN Reason: AGITATION,ANXIETY Stop: 11/14/18 20:15 Last Admin: 09/15/18 20:31 Dose: 1 mg Metoprolol Tartrate (Lopressor) 25 mg PO BID [facility] Stop: 11/15/18 08:59 Last Admin: 09/18/18 16:21 Dose: 25 mg Multivitamins/Vitamin C (Theragran) 1 tab PO DAILY [facility] Stop: 11/15/18 08:59 Last Admin: 09/18/18 09:25 Dose: 1 tab Pantoprazole Sodium (Protonix) 40 mg PO QDAC [facility] Stop: 11/15/18 07:29 Last Admin: 09/18/18 07:05 Dose: Not Given General: Alert, No acute distress HEENT: Atraumatic, PERRLA, Mucous membr. moist/pink Neck: Supple, +2 carotid pulse wo bruit Cardiovascular: Regular rate, Normal S1, Normal S2 Lungs: Clear to auscultation Abdomen: Bowel sounds, Soft Extremities: no Edema Neurological: Normal tone Skin: no Rash Psych/Mental Status: Mental status NL, Other (psychosis), no Mood NL (psychosis) - Procedures Procedures: Procedures Procedure Code Date RESECTION OF PREPUCE, EXTERNAL APPROACH [id number] 05/16/18 Assessment/Plan - Problem List Patient Problems: All Active Problems WEAKNESS AND CONFUSION (Acute) - Assessment Assessment: BERTA on CKD Hypercalcemia Severe Dehydration ALOC Subclinical Hypothyroid Hep B w/ Cirrhosis Ess Htn Hyperuricemia MM - Plan Plan: Lab - Result Diagrams 09/17/18 04:15 09/17/18 04:15 Current Medications Allopurinol (Zyloprim) 100 mg PO BID [facility] Stop: 11/16/18 16:59 Ascorbic Acid (Vitamin C) 500 mg PO DAILY [facility] Stop: 11/15/18 08:59 Last Admin: 09/17/18 08:30 Dose: Not Given Ferrous Sulfate (Iron) 325 mg PO DAILY [facility] Stop: 11/15/18 08:59 Last Admin: 09/17/18 08:30 Dose: Not Given Sodium Chloride (Nacl 0.9%) 1,000 mls @ 100 mls/hr IV .Q10H [facility] Stop: 11/15/18 15:14 Last Infusion: 09/17/18 03:44 Dose: 100 mls/hr Pamidronate Disodium 90 mg/ (Sodium Chloride) 1,030 mls @ 43 mls/hr IV ONCE ONE Stop: 09/18/18 10:27 Last Admin: 09/17/18 09:53 Dose: 43 mls/hr Lactulose (Cephulac) 30 gm PO TID [facility] Stop: 11/15/18 08:59 Last Admin: 09/17/18 08:31 Dose: Not Given Lactulose (Cephulac) 40 gm PO DAILY PRN PRN Reason: Constipation Stop: 11/15/18 07:01 Lorazepam (Ativan) 1 mg IVP Q6HR PRN; Protocol PRN Reason: AGITATION,ANXIETY Stop: 11/14/18 20:15 Last Admin: 09/15/18 20:31 Dose: 1 mg Metoprolol Tartrate (Lopressor) 25 mg PO BID [facility] Stop: 11/15/18 08:59 Last Admin: 09/17/18 08:31 Dose: Not Given Multivitamins/Vitamin C (Theragran) 1 tab PO DAILY [facility] Stop: 11/15/18 08:59 Last Admin: 09/17/18 08:31 Dose: Not Given Pantoprazole Sodium (Protonix) 40 mg PO QDAC [facility] Stop: 11/15/18 07:29 Last Admin: 09/17/18 08:30 Dose: Not Given Lab - Result Diagrams 09/17/18 04:15 09/18/18 04:20 Kidney still improving continue hydration, Aredia; start Calcitonin also start allopurinol f/u electrolytes Myeloma workup in progress: elevated G globulins, M spike Hypercalcemia resulting to hypovitaminosis; non PTH hypercalcemia Subclinical hypothyroid w/elevated TSH, low FT3, Normal FT4 Nutritional Asmnt/Malnutr-PDOC - Dietary Evaluation Malnutrition Findings (Please click <Entered> for more info): Nutritional Asmnt/Malnutrition Start: 09/17/18 15: 51 Text: Status: Complete Freq: Protocol: Document 09/17/18 15:52 CHERYLE (Rec: 09/17/18 15:57 CHERYLE [email or web address]) Nutritional Asmnt/Malnutrition Patient General Information Nutritional Screening High Risk Diagnosis Hypercalcemia, Renal failure Pertinent Medical Hx/Surgical Hx HTN, Dementia, Hepatitis B, Hepatic encephalopathy, Renal failure, depression, muscle wasting atrophy, alcoholic cirrhosis, GERD, Schizophrenia , Status post ORIF of the LT leg Subjective Information Pt is a 67-[facility]-old [facility] d/t increasing confusion and altered mental status. Per Nephrology consultation (09/16) , Acute kidney injury on CKD, MDRD GRF of 30ml/min, stage 3 . Pt ate 25% at breakfast but 0% at lunch and dinner on per Meal/Nutrition Activity Record. Per RN Carolyn, Pt didn t eat breakfast but drank soup at lunch today. Recommend to provide Suplena to support wound healing and to meet nutritional needs if PO intake not improved, pending lab result tonight for renal disease diagnosis. Will continue to monitor PO intake progress for wound healing and meeting nutritional needs. HT: 511 WT: 150 LB (68.18 kg) BMI: 20.92 (Normal) GI: Bloating, Large, Round, Distended BM: 09/17 x 1 I/O: 1325/500 (+825) Skin: Pale, Warm, Dry, Tight, Abrasion on RT Knee Ulices: 12 Diet Order: Mechanical Soft, MOLLY Estimated Energy Needs: (BERTA, CBW) 2689-4080 kcals (25-30 kcals/ kg) 55-61 g Pro (0.8-0.9 g/kg) 6687-3876 ml (35-40 ml/kg)/Per MD Current Diet Order/ Nutrition Support Mechanical Soft, MOLLY Pertinent Medications Vitamin C, Ferrous Sulfate, Lopressor, Theragran, Protonix , Nacl 0.9% 1000mls @ 100mls/ hr IV Q10H Pertinent Labs 09/17: BUN/Cr 49/2.0, Glucose 126, Ca 15.6 09/16: Na 133, CH 37, BUN/Cr 49 /2.2, Ca 17.3 09/15: Hgb/Hct 12.8/38.5, BUN/ Cr 47/2.3, Ca 17.6, Alb 3.7 Nutritional Hx/Data Height 1.8 m Height (Calculated Centimeters) 180.3 Current Weight (lbs) 68.039 kg Weight (Calculated Kilograms) 68.0 Weight (Calculated Grams) 30637.9 [place] Weight 75.3 kg % [place] Body Weight 91 Body Mass Index (BMI) 20.9 Weight Status Approriate GI Symptoms Last BM 09/17 x 1 Skin Integrity/Comment: Pale, Warm, Dry, Tight, Abrasion on RT Knee Ulices: 12 Estimated Nutritional Goals BEE in Kcals: Using Current wt Calories/Kcals/Kg 25-30 Kcals Calculated 9651-7226 Protein: Using Current wt Protein g/k.8-0.9 Protein Calculated 55-61 Fluid: ml 1544-9675 ml (35-40 ml/kg)/Per MD Nutritional Problem 2. Problem Problem Altered nutrition related labs Etiology r/t medical condition Signs/Symptoms: aeb BUN/Cr 49/2.0, Glucose 126 , Ca 15.6 1. Problem Problem Inadequate Oral Intake Etiology r/t poor appetite and bloating Signs/Symptoms: aeb PO intake 25% at breakfast , 0% lunch and dinner on 09/16 per Meal/Nutrition Activity Record Malnutrition Related to Morbid Obesity Malnutrition related to morbid obesity No Intervention/Recommendation Comments 1. Continue Mechanical Soft, MOLLY diet as ordered. 2. RN to encourage improved PO intake. 3. Recommend to provide Suplena BID to support wound healing and to meet nutritional needs if PO intake not improved, pending lab result tonight for renal disease diagnosis. Expected Outcomes/Goals Expected Outcomes/Goals 1. PO intake to meet 75% of nutritional needs. 2. Monitor PO intake, wt, skin integrity, and nutrition related labs to trend WNL 3. F/U as high risk in 2-3 days, 09/19-
[2018-09-18] MEDS ORDERED: Potassium Phosphate 20 MMOLE in Sodium Chloride 0.9% 250 ML IV ONE (18:16)
[2018-09-19] MEDS: Calcitonin (Salmon) 200 Iu/Actuation 3.7mL NS SCH ×2 (02:10→08:26)
[2018-09-19] MEDS: Pantoprazole 40 mg EC Tab PO SCH (06:59)
[2018-09-19 07:47] LABS: CARBON DIOXIDE 24.6 mEq/L (21.0-31.0); CHLORIDE 116 mEq/L (98-107); POTASSIUM SERUM 3.4 mEq/L (3.5-5.1); SODIUM SERUM 149 mEq/L (136-145)
[2018-09-19 07:48] LABS: ANION GAP 11.8 (7.0-16.0); BUN - UREA NITROGEN 42 mg/dL (7-25); CREATININE - SERUM 1.5 mg/dL (0.7-1.3); GFR AFRICAN-AMERICAN > 60.0 ml/min (>90); GFR NON AFRICAN-AMERICAN 49.9 ml/min; GLUCOSE 99 mg/dL (70-105)
[2018-09-19 07:53] LABS: CALCIUM SERUM 14.4 mg/dL (8.6-10.3)
[2018-09-19] MEDS: Ferrous Sulfate 325 MG TAB PO SCH (08:25)
[2018-09-19] MEDS: Lactulose 10 Gm/15 mL 30mL UDC PO SCH ×3 (08:26→20:20)
[2018-09-19] MEDS ORDERED: Potassium Phosphate 20 MMOLE in Sodium Chloride 0.9% 250 ML IV ONE (08:30)
[2018-09-19] MEDS: Multivitamin Tab PO SCH (08:58)
--- NOTE | 2018-09-19 10:19 | General Progress Note ---
Subjective - Review of Systems Service Date: 09/19/18 Subjective: still confused Objective - Results Result Diagrams: 09/17/18 04:15 09/19/18 07:10 Recent Labs: Laboratory Last Values WBC 5.0 Th/cmm (4.8-10.8) 09/17/18 04:15 Corrected WBC (auto) 7.1 Th/cmm 09/16/18 05:20 RBC 4.29 Mil/cmm (3.80-5.80) 09/17/18 04:15 Hgb 13.2 gm/dL (12-16) 09/17/18 04:15 Hct 40.3 % (41.0-60) L 09/17/18 04:15 MCV 93.8 fl (80-99) 09/17/18 04:15 MCH 30.8 pg (27.0-31.0) 09/17/18 04:15 MCHC Differential 32.8 pg (28.0-36.0) 09/17/18 04:15 RDW 18.4 % (11.5-20.0) 09/17/18 04:15 Plt Count 215 Th/cmm (150-400) 09/17/18 04:15 MPV 7.3 fl 09/17/18 04:15 Neutrophils % 71.2 % (40.0-80.0) 09/17/18 04:15 Lymphocytes % 18.8 % (20.0-50.0) L 09/17/18 04:15 Monocytes % 9.0 % (2.0-10.0) 09/17/18 04:15 Eosinophils % 0.9 % (0.0-5.0) 09/17/18 04:15 Basophils % 0.1 % (0.0-2.0) 09/17/18 04:15 Eos Smear Source URINE 09/17/18 06:00 Eos Smear Total Cells NONE SEEN (NONE SEEN) 09/17/18 06:00 PT 13.8 SECONDS (9.5-11.5) H 09/15/18 16:53 INR 1.35 (0.5-1.4) 09/15/18 16:53 PTT (Actin FS) 22.2 SECONDS (26.0-38.0) L 09/15/18 16:53 Sodium 149 mEq/L (136-145) H 09/19/18 07:10 Potassium 3.4 mEq/L (3.5-5.1) L 09/19/18 07:10 Chloride 116 mEq/L (98-107) H 09/19/18 07:10 Carbon Dioxide 24.6 mEq/L (21.0-31.0) 09/19/18 07:10 Anion Gap 11.8 (7.0-16.0) 09/19/18 07:10 BUN 42 mg/dL (7-25) H 09/19/18 07:10 Creatinine 1.5 mg/dL (0.7-1.3) H 09/19/18 07:10 Est GFR ( Amer) > 60.0 ml/min (>90) 09/19/18 07:10 Est GFR (Non-Af Amer) 49.9 ml/min 09/19/18 07:10 BUN/Creatinine Ratio 28.0 09/19/18 07:10 Glucose 99 mg/dL (70-105) 09/19/18 07:10 Uric Acid 20.6 mg/dL (4.4-7.6) H 09/17/18 04:15 Calcium 14.4 mg/dL (8.6-10.3) H* 09/19/18 07:10 Phosphorus 2.0 mg/dL (2.5-5.0) L 09/19/18 07:10 Magnesium 2.0 mg/dL (1.9-2.7) 09/17/18 04:15 Iron 47 ug/dL (38-169) 09/15/18 16:53 TIBC 393 ug/dL (250-450) 09/15/18 16:53 Iron Saturation 12 % (15-55) L 09/15/18 16:53 Unsaturated IBC 346 ug/dL (111-343) H 09/15/18 16:53 Total Bilirubin 1.8 mg/dL (0.3-1.0) H 09/15/18 16:53 AST 190 U/L (13-39) H 09/15/18 16:53 ALT 29 U/L (7-52) 09/15/18 16:53 Alkaline Phosphatase 75 U/L (34-104) 09/15/18 16:53 Ammonia 51 umol/L (16-53) 09/19/18 07:10 Troponin I 0.03 ng/mL (0.01-0.05) 09/15/18 16:53 Total Protein 8.6 g/dL (6.0-8.5) H 09/17/18 04:15 Albumin 3.4 g/dL (2.9-4.4) 09/17/18 04:15 Globulin 5.2 g/dL (2.2-3.9) H 09/17/18 04:15 Albumin/Globulin Ratio 0.7 (0.7-1.7) 09/17/18 04:15 Ajyre-9-Molstkpeq 0.2 g/dL (0.0-0.4) 09/17/18 04:15 Vepvj-9-Btznmqncd 0.6 g/dL (0.4-1.0) 09/17/18 04:15 Beta Globulins 1.0 g/dL (0.7-1.3) 09/17/18 04:15 Gamma Globulins 3.3 g/dL (0.4-1.8) H 09/17/18 04:15 M-[place] 1.4 g/dL (Not Observed) H 09/17/18 04:15 PEP Note 09/17/18 04:15 Vitamin D 25-Hydroxy 26.0 ng/mL (30.0-100.0) L 09/17/18 04:15 Free T4 0.84 ng/dL (0.82-1.77) 09/17/18 04:15 Free T3 1.1 pg/mL (2.0-4.4) L 09/17/18 04:15 TSH 8.63 uIU/ml (0.34-5.60) H 09/15/18 16:53 PTH Intact <6 pg/mL (15-65) L 09/15/18 16:53 Urine Source CLEAN C 09/15/18 17:55 Urine Color YELLOW 09/15/18 17:55 Urine Clarity HAZY (CLEAR) 09/15/18 17:55 Urine pH 6.0 (4.6 - 8.0) 09/15/18 17:55 Ur Specific [place] 1.020 (1.005-1.030) 09/15/18 17:55 Urine Protein TRACE mg/dL (NEGATIVE) 09/15/18 17:55 Urine Glucose (UA) NEGATIVE mg/dL (NEGATIVE) 09/15/18 17:55 Urine Ketones NEGATIVE mg/dL (NEGATIVE) 09/15/18 17:55 Urine Blood MODERATE (NEGATIVE) H 09/15/18 17:55 Urine Nitrate NEGATIVE (NEGATIVE) 09/15/18 17:55 Urine Bilirubin NEGATIVE (NEGATIVE) 09/15/18 17:55 Urine Urobilinogen 0.2 E.U./dL (0.2 - 1.0) 09/15/18 17:55 Ur Leukocyte Esterase TRACE (NEGATIVE) H 09/15/18 17:55 Urine RBC 10-25 /hpf (0-5) H 09/15/18 17:55 Urine WBC 2-5 /hpf (0-5) 09/15/18 17:55 Ur Epithelial Cells NONE SEEN /lpf (FEW) 09/15/18 17:55 Calcium Oxalate Crystal MODERATE /hpf 09/15/18 17:55 Urine Bacteria FEW /hpf (NONE SEEN) 09/15/18 17:55 U Random Total Protein 76.5 mg/dL 09/17/18 18:00 Ur Random Sodium 44 mmol/L 09/17/18 06:00 Urine Collection Time 24 hours 09/17/18 18:00 Urine Total Volume 1200 ml 09/17/18 18:00 Urine Creatinine 76.0 mg/dl (39.0-259.0) 09/17/18 06:00 Microalb/Creat Ratio 318.2 mg/g creat (0.0-30.0) H 09/17/18 18:00 U Tot Protein 24h, Calc 918.0 mg/24 hr (0-165) H 09/17/18 18:00 Serum Immunofixation 265 mg/dL (20-172) H 09/17/18 04:15 - Physical Exam Vitals and I&O: Vital Signs Temp 97.4 F 09/19/18 04:00 Pulse 65 09/19/18 08:26 Resp 17 09/19/18 04:00 BP 134/76 09/19/18 08:26 Pulse Ox 98 09/19/18 04:00 Intake & Output 09/18/18 09/19/18 09/19/18 18:59 06:59 18:59 Intake Total 500 100 Output Total 700 300 Balance -200 -200 Weight (lbs) 61.49 kg 62.142 kg Intake: Oral 500 100 Output: Urine 700 300 Other: # Bowel Movements 2 Weight Source Bedscale Bedscale Active Medications: Current Medications Allopurinol (Zyloprim) 100 mg PO BID [facility] Stop: 11/16/18 16:59 Last Admin: 09/19/18 08:25 Dose: 100 mg Ascorbic Acid (Vitamin C) 500 mg PO DAILY [facility] Stop: 11/15/18 08:59 Last Admin: 09/19/18 08:25 Dose: 500 mg Calcitonin [place] (Miacalcin) 200 iu NS DAILY [facility] Stop: 11/17/18 18:14 Last Admin: 09/19/18 08:26 Dose: 200 iu Ferrous Sulfate (Iron) 325 mg PO DAILY [facility] Stop: 11/15/18 08:59 Last Admin: 09/19/18 08:25 Dose: 325 mg Sodium Chloride (Nacl 0.9%) 1,000 mls @ 100 mls/hr IV .Q10H [facility] Stop: 11/15/18 15:14 Last Admin: 09/18/18 10:02 Dose: 100 mls/hr Potassium Phosphate 20 mmole/ (Sodium Chloride) 256.6667 mls @ 42 mls/hr IV ONCE ONE Stop: 09/19/18 14:36 Last Admin: 09/19/18 08:27 Dose: 42 mls/hr Lactulose (Cephulac) 30 gm PO TID [facility] Stop: 11/15/18 08:59 Last Admin: 09/19/18 08:26 Dose: 30 gm Lactulose (Cephulac) 40 gm PO DAILY PRN PRN Reason: Constipation Stop: 11/15/18 07:01 Lorazepam (Ativan) 1 mg IVP Q6HR PRN; Protocol PRN Reason: AGITATION,ANXIETY Stop: 11/14/18 20:15 Last Admin: 09/15/18 20:31 Dose: 1 mg Metoprolol Tartrate (Lopressor) 25 mg PO BID [facility] Stop: 11/15/18 08:59 Last Admin: 09/19/18 08:26 Dose: 25 mg Multivitamins/Vitamin C (Theragran) 1 tab PO DAILY [facility] Stop: 11/15/18 08:59 Last Admin: 09/19/18 08:58 Dose: 1 tab Pantoprazole Sodium (Protonix) 40 mg PO QDAC [facility] Stop: 11/15/18 07:29 Last Admin: 09/19/18 06:59 Dose: 40 mg General: Alert, No acute distress HEENT: Atraumatic, PERRLA, Mucous membr. moist/pink Neck: Supple, +2 carotid pulse wo bruit Cardiovascular: Regular rate, Normal S1, Normal S2 Lungs: Clear to auscultation Abdomen: Bowel sounds, Soft Extremities: no Edema Neurological: Normal tone Skin: no Rash Psych/Mental Status: Mental status NL, Other (psychosis), no Mood NL (psychosis) - Procedures Procedures: Procedures Procedure Code Date RESECTION OF PREPUCE, EXTERNAL APPROACH [id number] 05/16/18 Assessment/Plan - Problem List Patient Problems: All Active Problems WEAKNESS AND CONFUSION (Acute) - Assessment Assessment: Hypercalcemia with markedly elevated protein and low albumin, could be secondary to multiple myeloma. The patient has renal failure of unknown duration. 2. Elevated iron binding capacity and low saturation suggestive of iron deficiency. I will obtain ferritin for confirmation. 3. Hypothyroidism. 4. Dementia. 5. Kidney disease, likely chronic old with acute worsening. 6. Hepatitis B with cirrhosis. I will obtain the workup for multiple myeloma including a serum protein electrophoresis, immunofixation, quantitative immunoglobulin levels and free light chains, kappa and lambda. PTH level was ordered and one dose of pamidronate was given. I expect the calcium level to improve gradually with current hydration, Lasix and pamidronate. 09/19: PTH low. PTH independent hypercalcemia. SPEP =1.4 GM spike, high IG levels , awaiting free light chains and immunofixation. ca improving. check bone survey Nutritional Asmnt/Malnutr-PDOC - Dietary Evaluation Malnutrition Findings (Please click <Entered> for more info): Nutritional Asmnt/Malnutrition Start: 09/17/18 15: 51 Text: Status: Complete Freq: Protocol: Document 09/17/18 15:52 CHERYLE (Rec: 09/17/18 15:57 CHERYLE [email or web address]) Nutritional Asmnt/Malnutrition Patient General Information Nutritional Screening High Risk Diagnosis Hypercalcemia, Renal failure Pertinent Medical Hx/Surgical Hx HTN, Dementia, Hepatitis B, Hepatic encephalopathy, Renal failure, depression, muscle wasting atrophy, alcoholic cirrhosis, GERD, Schizophrenia , Status post ORIF of the LT leg Subjective Information Pt is a 67-year-old male from [facility] admitted [facility] 09/15 d/t increasing confusion and altered mental status. Per Nephrology consultation (09/16) , Acute kidney injury on CKD, MDRD GRF of 30ml/min, stage 3 . Pt ate 25% at breakfast but 0% at lunch and dinner on per Meal/Nutrition Activity Record. Per RN Carolyn, Pt didn t eat breakfast but drank soup at lunch today. Recommend to provide Suplena to support wound healing and to meet nutritional needs if PO intake not improved, pending lab result tonight for renal disease diagnosis. Will continue to monitor PO intake progress for wound healing and meeting nutritional needs. HT: 511 WT: 150 LB (68.18 kg) BMI: 20.92 (Normal) GI: Bloating, Large, Round, Distended BM: 09/17 x 1 I/O: 1325/500 (+825) Skin: Pale, Warm, Dry, Tight, Abrasion on RT Knee Ulices: 12 Diet Order: Mechanical Soft, MOLLY Estimated Energy Needs: (BERTA, CBW) 7467-0131 kcals (25-30 kcals/ kg) 55-61 g Pro (0.8-0.9 g/kg) 4288-8162 ml (35-40 ml/kg)/Per MD Current Diet Order/ Nutrition Support Mechanical Soft, MOLLY Pertinent Medications Vitamin C, Ferrous Sulfate, Lopressor, Theragran, Protonix , Nacl 0.9% 1000mls @ 100mls/ hr IV Q10H Pertinent Labs 09/17: BUN/Cr 49/2.0, Glucose 126, Ca 15.6 09/16: Na 133, CH 37, BUN/Cr 49 /2.2, Ca 17.3 09/15: Hgb/Hct 12.8/38.5, BUN/ Cr 47/2.3, Ca 17.6, Alb 3.7 Nutritional Hx/Data Height 1.8 m Height (Calculated Centimeters) 180.3 Current Weight (lbs) 68.039 kg Weight (Calculated Kilograms) 68.0 Weight (Calculated Grams) 37420.9 [place] Body Weight 75.3 kg % [place] Body Weight 91 Body Mass Index (BMI) 20.9 Weight Status Approriate GI Symptoms Last BM 09/17 x 1 Skin Integrity/Comment: Pale, Warm, Dry, Tight, Abrasion on RT Knee Ulices: 12 Estimated Nutritional Goals BEE in Kcals: Using Current wt Calories/Kcals/Kg 25-30 Kcals Calculated 5017-1069 Protein: Using Current wt Protein g/k.8-0.9 Protein Calculated 55-61 Fluid: ml 2105-3985 ml (35-40 ml/kg)/Per MD Nutritional Problem 2. Problem Problem Altered nutrition related labs Etiology r/t medical condition Signs/Symptoms: aeb BUN/Cr 49/2.0, Glucose 126 , Ca 15.6 1. Problem Problem Inadequate Oral Intake Etiology r/t poor appetite and bloating Signs/Symptoms: aeb PO intake 25% at breakfast , 0% lunch and dinner on 09/16 per Meal/Nutrition Activity Record Malnutrition Related to Morbid Obesity Malnutrition related to morbid obesity No Intervention/Recommendation Comments 1. Continue Mechanical Soft, MOLLY diet as ordered. 2. RN to encourage improved PO intake. 3. Recommend to provide Suplena BID to support wound healing and to meet nutritional needs if PO intake not improved, pending lab result tonight for renal disease diagnosis. Expected Outcomes/Goals Expected Outcomes/Goals 1. PO intake to meet 75% of nutritional needs. 2. Monitor PO intake, wt, skin integrity, and nutrition related labs to trend WNL 3. F/U as high risk in 2-3 days, 09/19-
--- NOTE | 2018-09-19 11:13 | Diagnostic Imaging Report ---
Left femur (2 views) HISTORY: Pain, trauma, multiple myeloma No acute bony abnormalities are seen. No fractures. Surgical changes noted about the left hip and left pelvic area. Degenerative changes noted about the knee. IMPRESSION: 1. No acute bony abnormalities
--- NOTE | 2018-09-19 11:13 | Diagnostic Imaging Report ---
Pelvis (single view) HISTORY: Pain, trauma, multiple myeloma Surgical changes noted about the left hip and pelvic region. No acute bony abnormalities. No pelvic fractures are seen. Degenerative changes seen within the lower lumbar spine. IMPRESSION: 1. No acute abnormalities 2. Surgical changes about the left hip/pelvic area 3. Degenerative changes within the visualized lower lumbar spine
--- NOTE | 2018-09-19 11:13 | Diagnostic Imaging Report ---
Right femur (2 views) HISTORY: Pain, trauma, multiple myeloma No definite acute bony abnormalities. No fractures are seen. Radiolucency noted over the trochanteric region which appears related to a skinfold. Moderate narrowing of the right hip joint. IMPRESSION: 1. No acute bony abnormalities
[2018-09-19] MEDS: Sodium Chloride 0.9% 1,000 ML IV SCH (11:34)
--- NOTE | 2018-09-19 13:53 | General Progress Note ---
Subjective - Review of Systems Service Date: 09/19/18 Subjective: sleeping, more quiet Objective - Results Result Diagrams: 09/17/18 04:15 09/19/18 07:10 Recent Labs: Laboratory Last Values WBC 5.0 Th/cmm (4.8-10.8) 09/17/18 04:15 Corrected WBC (auto) 7.1 Th/cmm 09/16/18 05:20 RBC 4.29 Mil/cmm (3.80-5.80) 09/17/18 04:15 Hgb 13.2 gm/dL (12-16) 09/17/18 04:15 Hct 40.3 % (41.0-60) L 09/17/18 04:15 MCV 93.8 fl (80-99) 09/17/18 04:15 MCH 30.8 pg (27.0-31.0) 09/17/18 04:15 MCHC Differential 32.8 pg (28.0-36.0) 09/17/18 04:15 RDW 18.4 % (11.5-20.0) 09/17/18 04:15 Plt Count 215 Th/cmm (150-400) 09/17/18 04:15 MPV 7.3 fl 09/17/18 04:15 Neutrophils % 71.2 % (40.0-80.0) 09/17/18 04:15 Lymphocytes % 18.8 % (20.0-50.0) L 09/17/18 04:15 Monocytes % 9.0 % (2.0-10.0) 09/17/18 04:15 Eosinophils % 0.9 % (0.0-5.0) 09/17/18 04:15 Basophils % 0.1 % (0.0-2.0) 09/17/18 04:15 Eos Smear Source URINE 09/17/18 06:00 Eos Smear Total Cells NONE SEEN (NONE SEEN) 09/17/18 06:00 PT 13.8 SECONDS (9.5-11.5) H 09/15/18 16:53 INR 1.35 (0.5-1.4) 09/15/18 16:53 PTT (Actin FS) 22.2 SECONDS (26.0-38.0) L 09/15/18 16:53 Sodium 149 mEq/L (136-145) H 09/19/18 07:10 Potassium 3.4 mEq/L (3.5-5.1) L 09/19/18 07:10 Chloride 116 mEq/L (98-107) H 09/19/18 07:10 Carbon Dioxide 24.6 mEq/L (21.0-31.0) 09/19/18 07:10 Anion Gap 11.8 (7.0-16.0) 09/19/18 07:10 BUN 42 mg/dL (7-25) H 09/19/18 07:10 Creatinine 1.5 mg/dL (0.7-1.3) H 09/19/18 07:10 Est GFR ( Amer) > 60.0 ml/min (>90) 09/19/18 07:10 Est GFR (Non-Af Amer) 49.9 ml/min 09/19/18 07:10 BUN/Creatinine Ratio 28.0 09/19/18 07:10 Glucose 99 mg/dL (70-105) 09/19/18 07:10 Uric Acid 20.6 mg/dL (4.4-7.6) H 09/17/18 04:15 Calcium 14.4 mg/dL (8.6-10.3) H* 09/19/18 07:10 Phosphorus 2.0 mg/dL (2.5-5.0) L 09/19/18 07:10 Magnesium 2.0 mg/dL (1.9-2.7) 09/17/18 04:15 Iron 47 ug/dL (38-169) 09/15/18 16:53 TIBC 393 ug/dL (250-450) 09/15/18 16:53 Iron Saturation 12 % (15-55) L 09/15/18 16:53 Unsaturated IBC 346 ug/dL (111-343) H 09/15/18 16:53 Total Bilirubin 1.8 mg/dL (0.3-1.0) H 09/15/18 16:53 AST 190 U/L (13-39) H 09/15/18 16:53 ALT 29 U/L (7-52) 09/15/18 16:53 Alkaline Phosphatase 75 U/L (34-104) 09/15/18 16:53 Ammonia 51 umol/L (16-53) 09/19/18 07:10 Troponin I 0.03 ng/mL (0.01-0.05) 09/15/18 16:53 Total Protein 8.6 g/dL (6.0-8.5) H 09/17/18 04:15 Albumin 3.4 g/dL (2.9-4.4) 09/17/18 04:15 Globulin 5.2 g/dL (2.2-3.9) H 09/17/18 04:15 Albumin/Globulin Ratio 0.7 (0.7-1.7) 09/17/18 04:15 Zoelh-9-Emmanpeaf 0.2 g/dL (0.0-0.4) 09/17/18 04:15 Ucldo-8-Leozamrwj 0.6 g/dL (0.4-1.0) 09/17/18 04:15 Beta Globulins 1.0 g/dL (0.7-1.3) 09/17/18 04:15 Gamma Globulins 3.3 g/dL (0.4-1.8) H 09/17/18 04:15 M-[place] 1.4 g/dL (Not Observed) H 09/17/18 04:15 PEP Note 09/17/18 04:15 Vitamin D 25-Hydroxy 26.0 ng/mL (30.0-100.0) L 09/17/18 04:15 Free T4 0.84 ng/dL (0.82-1.77) 09/17/18 04:15 Free T3 1.1 pg/mL (2.0-4.4) L 09/17/18 04:15 TSH 8.63 uIU/ml (0.34-5.60) H 09/15/18 16:53 PTH Intact <6 pg/mL (15-65) L 09/15/18 16:53 Urine Source CLEAN C 09/15/18 17:55 Urine Color YELLOW 09/15/18 17:55 Urine Clarity HAZY (CLEAR) 09/15/18 17:55 Urine pH 6.0 (4.6 - 8.0) 09/15/18 17:55 Ur Specific [place] 1.020 (1.005-1.030) 09/15/18 17:55 Urine Protein TRACE mg/dL (NEGATIVE) 09/15/18 17:55 Urine Glucose (UA) NEGATIVE mg/dL (NEGATIVE) 09/15/18 17:55 Urine Ketones NEGATIVE mg/dL (NEGATIVE) 09/15/18 17:55 Urine Blood MODERATE (NEGATIVE) H 09/15/18 17:55 Urine Nitrate NEGATIVE (NEGATIVE) 09/15/18 17:55 Urine Bilirubin NEGATIVE (NEGATIVE) 09/15/18 17:55 Urine Urobilinogen 0.2 E.U./dL (0.2 - 1.0) 09/15/18 17:55 Ur Leukocyte Esterase TRACE (NEGATIVE) H 09/15/18 17:55 Urine RBC 10-25 /hpf (0-5) H 09/15/18 17:55 Urine WBC 2-5 /hpf (0-5) 09/15/18 17:55 Ur Epithelial Cells NONE SEEN /lpf (FEW) 09/15/18 17:55 Calcium Oxalate Crystal MODERATE /hpf 09/15/18 17:55 Urine Bacteria FEW /hpf (NONE SEEN) 09/15/18 17:55 U Random Total Protein 76.5 mg/dL 09/17/18 18:00 Ur Random Sodium 44 mmol/L 09/17/18 06:00 Urine Collection Time 24 hours 09/17/18 18:00 Urine Total Volume 1200 ml 09/17/18 18:00 Urine Creatinine 76.0 mg/dl (39.0-259.0) 09/17/18 06:00 Microalb/Creat Ratio 318.2 mg/g creat (0.0-30.0) H 09/17/18 18:00 U Tot Protein 24h, Calc 918.0 mg/24 hr (0-165) H 09/17/18 18:00 Serum Immunofixation 265 mg/dL (20-172) H 09/17/18 04:15 - Physical Exam Vitals and I&O: Vital Signs Temp 97.6 F 09/19/18 08:00 Pulse 65 09/19/18 08:26 Resp 20 09/19/18 10:00 BP 134/76 09/19/18 08:26 Pulse Ox 97 09/19/18 08:00 Intake & Output 09/18/18 09/19/18 09/19/18 18:59 06:59 18:59 Intake Total 500 1100 Output Total 700 300 Balance -200 800 Weight (lbs) 61.49 kg 62.142 kg Intake: Intake, IV Amount 1000 Sodium Chloride 0.9% 1, 1000 000 ml @ 100 mls/hr IV . Q10H [facility] Rx#:[id number] Oral 500 100 Output: Urine 700 300 Other: # Bowel Movements 2 Weight Source Bedscale Bedscale Active Medications: Current Medications Allopurinol (Zyloprim) 100 mg PO BID [facility] Stop: 11/16/18 16:59 Last Admin: 09/19/18 08:25 Dose: 100 mg Ascorbic Acid (Vitamin C) 500 mg PO DAILY K[facility]ST[facility] Stop: 11/15/18 08:59 Last Admin: 09/19/18 08:25 Dose: 500 mg Calcitonin [place] (Miacalcin) 200 iu NS DAILY KRISTEN Stop: 11/17/18 18:14 Last Admin: 09/19/18 08:26 Dose: 200 iu Ferrous Sulfate (Iron) 325 mg PO DAILY K[facility]STEN Stop: 11/15/18 08:59 Last Admin: 09/19/18 08:25 Dose: 325 mg Sodium Chloride (Nacl 0.9%) 1,000 mls @ 100 mls/hr IV .Q10H [facility] Stop: 11/15/18 15:14 Last Admin: 09/19/18 11:34 Dose: 100 mls/hr Potassium Phosphate 20 mmole/ (Sodium Chloride) 256.6667 mls @ 42 mls/hr IV ONCE ONE Stop: 09/19/18 14:36 Last Admin: 09/19/18 08:27 Dose: 42 mls/hr Lactulose (Cephulac) 30 gm PO TID [facility] Stop: 11/15/18 08:59 Last Admin: 09/19/18 08:26 Dose: 30 gm Lactulose (Cephulac) 40 gm PO DAILY PRN PRN Reason: Constipation Stop: 11/15/18 07:01 Lorazepam (Ativan) 1 mg IVP Q6HR PRN; Protocol PRN Reason: AGITATION,ANXIETY Stop: 11/14/18 20:15 Last Admin: 09/15/18 20:31 Dose: 1 mg Metoprolol Tartrate (Lopressor) 25 mg PO BID [facility] Stop: 11/15/18 08:59 Last Admin: 09/19/18 08:26 Dose: 25 mg Multivitamins/Vitamin C (Theragran) 1 tab PO DAILY K[facility]STEN Stop: 11/15/18 08:59 Last Admin: 09/19/18 08:58 Dose: 1 tab Pantoprazole Sodium (Protonix) 40 mg PO QDAC [facility] Stop: 11/15/18 07:29 Last Admin: 09/19/18 06:59 Dose: 40 mg General: Alert, No acute distress HEENT: Atraumatic, PERRLA, Mucous membr. moist/pink Neck: Supple, +2 carotid pulse wo bruit Cardiovascular: Regular rate, Normal S1, Normal S2 Lungs: Clear to auscultation Abdomen: Bowel sounds, Soft Extremities: no Edema Neurological: Normal tone Skin: no Rash Psych/Mental Status: Mental status NL, Other (psychosis), no Mood NL (psychosis) - Procedures Procedures: Procedures Procedure Code Date RESECTION OF PREPUCE, EXTERNAL APPROACH [id number] 05/16/18 Assessment/Plan - Problem List Patient Problems: All Active Problems WEAKNESS AND CONFUSION (Acute) - Assessment Assessment: BERTA on CKD Hypercalcemia Severe Dehydration ALOC Subclinical Hypothyroid Hep B w/ Cirrhosis Ess Htn Hyperuricemia MM - Plan Plan: Lab - Result Diagrams 09/17/18 04:15 09/17/18 04:15 Current Medications Allopurinol (Zyloprim) 100 mg PO BID [facility] Stop: 11/16/18 16:59 Ascorbic Acid (Vitamin C) 500 mg PO DAILY [facility] Stop: 11/15/18 08:59 Last Admin: 09/17/18 08:30 Dose: Not Given Ferrous Sulfate (Iron) 325 mg PO DAILY [facility]ST[facility] Stop: 11/15/18 08:59 Last Admin: 09/17/18 08:30 Dose: Not Given Sodium Chloride (Nacl 0.9%) 1,000 mls @ 100 mls/hr IV .Q10H [facility] Stop: 11/15/18 15:14 Last Infusion: 09/17/18 03:44 Dose: 100 mls/hr Pamidronate Disodium 90 mg/ (Sodium Chloride) 1,030 mls @ 43 mls/hr IV ONCE ONE Stop: 09/18/18 10:27 Last Admin: 09/17/18 09:53 Dose: 43 mls/hr Lactulose (Cephulac) 30 gm PO TID [facility] Stop: 11/15/18 08:59 Last Admin: 09/17/18 08:31 Dose: Not Given Lactulose (Cephulac) 40 gm PO DAILY PRN PRN Reason: Constipation Stop: 11/15/18 07:01 Lorazepam (Ativan) 1 mg IVP Q6HR PRN; Protocol PRN Reason: AGITATION,ANXIETY Stop: 11/14/18 20:15 Last Admin: 09/15/18 20:31 Dose: 1 mg Metoprolol Tartrate (Lopressor) 25 mg PO BID [facility] Stop: 11/15/18 08:59 Last Admin: 09/17/18 08:31 Dose: Not Given Multivitamins/Vitamin C (Theragran) 1 tab PO DAILY [facility]ST[facility] Stop: 11/15/18 08:59 Last Admin: 09/17/18 08:31 Dose: Not Given Pantoprazole Sodium (Protonix) 40 mg PO QDAC [facility] Stop: 11/15/18 07:29 Last Admin: 09/17/18 08:30 Dose: Not Given Lab - Result Diagrams 09/17/18 04:15 09/19/18 07:10 Kidney still improving continue hydration, Aredia; start Calcitonin also start allopurinol f/u electrolytes Myeloma workup in progress: elevated G globulins, M spike Hypercalcemia resulting to hypovitaminosis; non PTH hypercalcemia Subclinical hypothyroid w/elevated TSH, low FT3, Normal FT4 switch to 1/2 NS, replace K Nutritional Asmnt/Malnutr-PDOC - Dietary Evaluation Malnutrition Findings (Please click <Entered> for more info): Nutritional Asmnt/Malnutrition Start: 09/17/18 15: 51 Text: Status: Complete Freq: Protocol: Document 09/17/18 15:52 CHERYLE (Rec: 09/17/18 15:57 CHERYLE [email or web address]) Nutritional Asmnt/Malnutrition Patient General Information Nutritional Screening High Risk Diagnosis Hypercalcemia, Renal failure Pertinent Medical Hx/Surgical Hx HTN, Dementia, Hepatitis B, Hepatic encephalopathy, Renal failure, depression, muscle wasting atrophy, alcoholic cirrhosis, GERD, Schizophrenia , Status post ORIF of the LT leg Subjective Information Pt is a 67-year-old male from detention admitted on 09/15 d/t increasing confusion and altered mental status. Per Nephrology consultation (09/16) , Acute kidney injury on CKD, MDRD GRF of 30ml/min, stage 3 . Pt ate 25% at breakfast but 0% at lunch and dinner on per Meal/Nutrition Activity Record. Per RN Carolyn, Pt didn t eat breakfast but drank soup at lunch today. Recommend to provide Suplena to support wound healing and to meet nutritional needs if PO intake not improved, pending lab result tonight for renal disease diagnosis. Will continue to monitor PO intake progress for wound healing and meeting nutritional needs. HT: 511 WT: 150 LB (68.18 kg) BMI: 20.92 (Normal) GI: Bloating, Large, Round, Distended BM: 09/17 x 1 I/O: 1325/500 (+825) Skin: Pale, Warm, Dry, Tight, Abrasion on RT Knee Ulices: 12 Diet Order: Mechanical Soft, MOLLY Estimated Energy Needs: (BERTA, CBW) 5400-9995 kcals (25-30 kcals/ kg) 55-61 g Pro (0.8-0.9 g/kg) 2798-2243 ml (35-40 ml/kg)/Per MD Current Diet Order/ Nutrition Support Mechanical Soft, MOLLY Pertinent Medications Vitamin C, Ferrous Sulfate, Lopressor, Theragran, Protonix , Nacl 0.9% 1000mls @ 100mls/ hr IV Q10H Pertinent Labs 09/17: BUN/Cr 49/2.0, Glucose 126, Ca 15.6 09/16: Na 133, CH 37, BUN/Cr 49 /2.2, Ca 17.3 09/15: Hgb/Hct 12.8/38.5, BUN/ Cr 47/2.3, Ca 17.6, Alb 3.7 Nutritional Hx/Data Height 1.8 m Height (Calculated Centimeters) 180.3 Current Weight (lbs) 68.039 kg Weight (Calculated Kilograms) 68.0 Weight (Calculated Grams) 88360.9 [place] Body Weight 75.3 kg % [place] Body Weight 91 Body Mass Index (BMI) 20.9 Weight Status Approriate GI Symptoms Last BM 09/17 x 1 Skin Integrity/Comment: Pale, Warm, Dry, Tight, Abrasion on RT Knee Ulices: 12 Estimated Nutritional Goals BEE in Kcals: Using Current wt Calories/Kcals/Kg 25-30 Kcals Calculated 1218-9002 Protein: Using Current wt Protein g/k.8-0.9 Protein Calculated 55-61 Fluid: ml 5693-3329 ml (35-40 ml/kg)/Per MD Nutritional Problem 2. Problem Problem Altered nutrition related labs Etiology r/t medical condition Signs/Symptoms: aeb BUN/Cr 49/2.0, Glucose 126 , Ca 15.6 1. Problem Problem Inadequate Oral Intake Etiology r/t poor appetite and bloating Signs/Symptoms: aeb PO intake 25% at breakfast , 0% lunch and dinner on 09/16 per Meal/Nutrition Activity Record Malnutrition Related to Morbid Obesity Malnutrition related to morbid obesity No Intervention/Recommendation Comments 1. Continue Mechanical Soft, MOLLY diet as ordered. 2. RN to encourage improved PO intake. 3. Recommend to provide Suplena BID to support wound healing and to meet nutritional needs if PO intake not improved, pending lab result tonight for renal disease diagnosis. Expected Outcomes/Goals Expected Outcomes/Goals 1. PO intake to meet 75% of nutritional needs. 2. Monitor PO intake, wt, skin integrity, and nutrition related labs to trend WNL 3. F/U as high risk in 2-3 days, 09/19-
[2018-09-19 15:07] LABS: CALCIUM URINE 29.6 mg/dL (Not Estab.)
--- NOTE | 2018-09-19 15:21 | Internal Medicine Prog Note ---
Internal Medicine Subjective - Subjective Service Date: 09/19/18 Patient is:: awake, verbal, confused Patient Complaints of:: other (AMS.) Per staff patient has:: no adverse event, no episodes of fall Internal Medicine Objective - Results Result Diagrams: 09/17/18 04:15 09/19/18 07:10 Recent Labs: Laboratory Last Values WBC 5.0 Th/cmm (4.8-10.8) 09/17/18 04:15 Corrected WBC (auto) 7.1 Th/cmm 09/16/18 05:20 RBC 4.29 Mil/cmm (3.80-5.80) 09/17/18 04:15 Hgb 13.2 gm/dL (12-16) 09/17/18 04:15 Hct 40.3 % (41.0-60) L 09/17/18 04:15 MCV 93.8 fl (80-99) 09/17/18 04:15 MCH 30.8 pg (27.0-31.0) 09/17/18 04:15 MCHC Differential 32.8 pg (28.0-36.0) 09/17/18 04:15 RDW 18.4 % (11.5-20.0) 09/17/18 04:15 Plt Count 215 Th/cmm (150-400) 09/17/18 04:15 MPV 7.3 fl 09/17/18 04:15 Neutrophils % 71.2 % (40.0-80.0) 09/17/18 04:15 Lymphocytes % 18.8 % (20.0-50.0) L 09/17/18 04:15 Monocytes % 9.0 % (2.0-10.0) 09/17/18 04:15 Eosinophils % 0.9 % (0.0-5.0) 09/17/18 04:15 Basophils % 0.1 % (0.0-2.0) 09/17/18 04:15 Eos Smear Source URINE 09/17/18 06:00 Eos Smear Total Cells NONE SEEN (NONE SEEN) 09/17/18 06:00 PT 13.8 SECONDS (9.5-11.5) H 09/15/18 16:53 INR 1.35 (0.5-1.4) 09/15/18 16:53 PTT (Actin FS) 22.2 SECONDS (26.0-38.0) L 09/15/18 16:53 Sodium 149 mEq/L (136-145) H 09/19/18 07:10 Potassium 3.4 mEq/L (3.5-5.1) L 09/19/18 07:10 Chloride 116 mEq/L (98-107) H 09/19/18 07:10 Carbon Dioxide 24.6 mEq/L (21.0-31.0) 09/19/18 07:10 Anion Gap 11.8 (7.0-16.0) 09/19/18 07:10 BUN 42 mg/dL (7-25) H 09/19/18 07:10 Creatinine 1.5 mg/dL (0.7-1.3) H 09/19/18 07:10 Est GFR ( Amer) > 60.0 ml/min (>90) 09/19/18 07:10 Est GFR (Non-Af Amer) 49.9 ml/min 09/19/18 07:10 BUN/Creatinine Ratio 28.0 09/19/18 07:10 Glucose 99 mg/dL (70-105) 09/19/18 07:10 Uric Acid 20.6 mg/dL (4.4-7.6) H 09/17/18 04:15 Calcium 14.4 mg/dL (8.6-10.3) H* 09/19/18 07:10 Phosphorus 2.0 mg/dL (2.5-5.0) L 09/19/18 07:10 Magnesium 2.0 mg/dL (1.9-2.7) 09/17/18 04:15 Iron 47 ug/dL (38-169) 09/15/18 16:53 TIBC 393 ug/dL (250-450) 09/15/18 16:53 Iron Saturation 12 % (15-55) L 09/15/18 16:53 Unsaturated IBC 346 ug/dL (111-343) H 09/15/18 16:53 Total Bilirubin 1.8 mg/dL (0.3-1.0) H 09/15/18 16:53 AST 190 U/L (13-39) H 09/15/18 16:53 ALT 29 U/L (7-52) 09/15/18 16:53 Alkaline Phosphatase 75 U/L (34-104) 09/15/18 16:53 Ammonia 51 umol/L (16-53) 09/19/18 07:10 Troponin I 0.03 ng/mL (0.01-0.05) 09/15/18 16:53 Total Protein 8.6 g/dL (6.0-8.5) H 09/17/18 04:15 Albumin 3.4 g/dL (2.9-4.4) 09/17/18 04:15 Globulin 5.2 g/dL (2.2-3.9) H 09/17/18 04:15 Albumin/Globulin Ratio 0.7 (0.7-1.7) 09/17/18 04:15 Jtddi-9-Fgrnkfpxr 0.2 g/dL (0.0-0.4) 09/17/18 04:15 Gpkks-8-Nabeilsad 0.6 g/dL (0.4-1.0) 09/17/18 04:15 Beta Globulins 1.0 g/dL (0.7-1.3) 09/17/18 04:15 Gamma Globulins 3.3 g/dL (0.4-1.8) H 09/17/18 04:15 M-[place] 1.4 g/dL (Not Observed) H 09/17/18 04:15 PEP Note 09/17/18 04:15 Vitamin D 25-Hydroxy 26.0 ng/mL (30.0-100.0) L 09/17/18 04:15 Free T4 0.84 ng/dL (0.82-1.77) 09/17/18 04:15 Free T3 1.1 pg/mL (2.0-4.4) L 09/17/18 04:15 TSH 8.63 uIU/ml (0.34-5.60) H 09/15/18 16:53 PTH Intact <6 pg/mL (15-65) L 09/15/18 16:53 Urine Source CLEAN C 09/15/18 17:55 Urine Color YELLOW 09/15/18 17:55 Urine Clarity HAZY (CLEAR) 09/15/18 17:55 Urine pH 6.0 (4.6 - 8.0) 09/15/18 17:55 Ur Specific [place] 1.020 (1.005-1.030) 09/15/18 17:55 Urine Protein TRACE mg/dL (NEGATIVE) 09/15/18 17:55 Urine Glucose (UA) NEGATIVE mg/dL (NEGATIVE) 09/15/18 17:55 Urine Ketones NEGATIVE mg/dL (NEGATIVE) 09/15/18 17:55 Urine Blood MODERATE (NEGATIVE) H 09/15/18 17:55 Urine Nitrate NEGATIVE (NEGATIVE) 09/15/18 17:55 Urine Bilirubin NEGATIVE (NEGATIVE) 09/15/18 17:55 Urine Urobilinogen 0.2 E.U./dL (0.2 - 1.0) 09/15/18 17:55 Ur Leukocyte Esterase TRACE (NEGATIVE) H 09/15/18 17:55 Urine RBC 10-25 /hpf (0-5) H 09/15/18 17:55 Urine WBC 2-5 /hpf (0-5) 09/15/18 17:55 Ur Epithelial Cells NONE SEEN /lpf (FEW) 09/15/18 17:55 Calcium Oxalate Crystal MODERATE /hpf 09/15/18 17:55 Urine Bacteria FEW /hpf (NONE SEEN) 09/15/18 17:55 U Random Total Protein 76.5 mg/dL 09/17/18 18:00 Ur Random Sodium 44 mmol/L 09/17/18 06:00 Urine Collection Time 24 hours 09/17/18 18:00 Urine Total Volume 1200 ml 09/17/18 18:00 Urine Creatinine 76.0 mg/dl (39.0-259.0) 09/17/18 06:00 Microalb/Creat Ratio 318.2 mg/g creat (0.0-30.0) H 09/17/18 18:00 U Tot Protein 24h, Calc 918.0 mg/24 hr (0-165) H 09/17/18 18:00 Urine Calcium 29.6 mg/dL (Not Estab.) 09/17/18 18:00 Ur Calcium 24 Hr mg/24 hr (100.0-300.0) 09/17/18 18:00 Serum Immunofixation 265 mg/dL (20-172) H 09/17/18 04:15 - Physical Exam Vitals and I&O: Vital Signs Temp 97.9 F 09/19/18 12:00 Pulse 67 09/19/18 12:00 Resp 20 09/19/18 14:00 BP 132/77 09/19/18 12:00 Pulse Ox 96 09/19/18 12:00 Intake & Output 09/18/18 09/19/18 09/19/18 18:59 06:59 18:59 Intake Total 500 1100 Output Total 700 300 Balance -200 800 Weight (lbs) 135 lb 9 oz 137 lb Intake: Intake, IV Amount 1000 Sodium Chloride 0.9% 1, 1000 000 ml @ 100 mls/hr IV . Q10H [facility] Rx#:[id number] Oral 500 100 Output: Urine 700 300 Other: # Bowel Movements 2 Weight Source Bedscale Bedscale Active Medications: Current Medications Allopurinol (Zyloprim) 100 mg PO BID [facility] Stop: 11/16/18 16:59 Last Admin: 09/19/18 08:25 Dose: 100 mg Ascorbic Acid (Vitamin C) 500 mg PO DAILY [facility] Stop: 11/15/18 08:59 Last Admin: 09/19/18 08:25 Dose: 500 mg Calcitonin [place] (Miacalcin) 200 iu NS DAILY [facility] Stop: 11/17/18 18:14 Last Admin: 09/19/18 08:26 Dose: 200 iu Ferrous Sulfate (Iron) 325 mg PO DAILY [facility]ST[facility] Stop: 11/15/18 08:59 Last Admin: 09/19/18 08:25 Dose: 325 mg Lactulose (Cephulac) 30 gm PO TID [facility] Stop: 11/15/18 08:59 Last Admin: 09/19/18 08:26 Dose: 30 gm Lactulose (Cephulac) 40 gm PO DAILY PRN PRN Reason: Constipation Stop: 11/15/18 07:01 Lorazepam (Ativan) 1 mg IVP Q6HR PRN; Protocol PRN Reason: AGITATION,ANXIETY Stop: 11/14/18 20:15 Last Admin: 09/15/18 20:31 Dose: 1 mg Metoprolol Tartrate (Lopressor) 25 mg PO BID [facility] Stop: 11/15/18 08:59 Last Admin: 09/19/18 08:26 Dose: 25 mg Multivitamins/Vitamin C (Theragran) 1 tab PO DAILY [facility] Stop: 11/15/18 08:59 Last Admin: 09/19/18 08:58 Dose: 1 tab Pantoprazole Sodium (Protonix) 40 mg PO QDAC [facility] Stop: 11/15/18 07:29 Last Admin: 09/19/18 06:59 Dose: 40 mg General: weak, lethargic HEENT: NC/AT Neck: Supple Lungs: CTAB Cardiovascular: RRR, Normal S1 Abdomen: soft, non-tender Extremities: other (muscle wasting all extremities.) Neurological: no change - Procedures Procedures: Procedures Procedure Code Date RESECTION OF PREPUCE, EXTERNAL APPROACH 0VTTXZZ 05/16/18 Internal Medicine Assmt/Plan - Assessment Assessment: Renal failure. Depression. Muscle wasting atrophy. Hepatitis B. Alcoholic Cirrhosis. Gerd. Schizophrenia. Hypercalcemia. - Plan Plan: Continuation of care. Nephrology consult. Monitor Vitals, Labs, Hemoglobin levels. Continue present meds as directed. Psych management per Psych. Monitor Diet/Nutritional support. Pain Management. Physical therapy. Occupational therapy. Fall precaution, frequent nursing rounds, and as needed restraints to prevent fall. Safety precaution. Supportive care. Continue collaborating with consulting specialists, case management and nursing team. Will Monitor patient and continue present care management. Nutritional Asmnt/Malnutr-PDOC - Dietary Evaluation Malnutrition Findings (Please click <Entered> for more info): Nutritional Asmnt/Malnutrition Start: 09/17/18 15: 51 Text: Status: Complete Freq: Protocol: Document 09/17/18 15:52 CHERYLE (Rec: 09/17/18 15:57 CHERYLE [email or web address]) Nutritional Asmnt/Malnutrition Patient General Information Nutritional Screening High Risk Diagnosis Hypercalcemia, Renal failure Pertinent Medical Hx/Surgical Hx HTN, Dementia, Hepatitis B, Hepatic encephalopathy, Renal failure, depression, muscle wasting atrophy, alcoholic cirrhosis, GERD, Schizophrenia , Status post ORIF of the LT leg Subjective Information Pt is a 67-year-old male from [place] admitted on 09/15 d/t increasing confusion and altered mental status. Per Nephrology consultation (09/16) , Acute kidney injury on CKD, MDRD GRF of 30ml/min, stage 3 . Pt ate 25% at breakfast but 0% at lunch and dinner on per Meal/Nutrition Activity Record. Per NICOLAS Leon, Pt didn t eat breakfast but drank soup at lunch today. Recommend to provide Suplena to support wound healing and to meet nutritional needs if PO intake not improved, pending lab result tonight for renal disease diagnosis. Will continue to monitor PO intake progress for wound healing and meeting nutritional needs. HT: 511 WT: 150 LB (68.18 kg) BMI: 20.92 (Normal) GI: Bloating, Large, Round, Distended BM: 09/17 x 1 I/O: 1325/500 (+825) Skin: Pale, Warm, Dry, Tight, Abrasion on RT Knee Ulicse: 12 Diet Order: Mechanical Soft, MOLLY Estimated Energy Needs: (BERTA, CBW) 0422-6249 kcals (25-30 kcals/ kg) 55-61 g Pro (0.8-0.9 g/kg) 1592-9310 ml (35-40 ml/kg)/Per MD Current Diet Order/ Nutrition Support Mechanical Soft, MOLLY Pertinent Medications Vitamin C, Ferrous Sulfate, Lopressor, Theragran, Protonix , Nacl 0.9% 1000mls @ 100mls/ hr IV Q10H Pertinent Labs 09/17: BUN/Cr 49/2.0, Glucose 126, Ca 15.6 09/16: Na 133, CH 37, BUN/Cr 49 /2.2, Ca 17.3 09/15: Hgb/Hct 12.8/38.5, BUN/ Cr 47/2.3, Ca 17.6, Alb 3.7 Nutritional Hx/Data Height 5 ft 11 in Height (Calculated Centimeters) 180.3 Current Weight (lbs) 150 lb Weight (Calculated Kilograms) 68.0 Weight (Calculated Grams) 57285.9 [place] Body Weight 75.3 kg % [place] Body Weight 91 Body Mass Index (BMI) 20.9 Weight Status Approriate GI Symptoms Last BM 09/17 x 1 Skin Integrity/Comment: Pale, Warm, Dry, Tight, Abrasion on RT Knee Ulices: 12 Estimated Nutritional Goals BEE in Kcals: Using Current wt Calories/Kcals/Kg 25-30 Kcals Calculated 4004-6171 Protein: Using Current wt Protein g/k.8-0.9 Protein Calculated 55-61 Fluid: ml 8615-3520 ml (35-40 ml/kg)/Per MD Nutritional Problem 2. Problem Problem Altered nutrition related labs Etiology r/t medical condition Signs/Symptoms: aeb BUN/Cr 49/2.0, Glucose 126 , Ca 15.6 1. Problem Problem Inadequate Oral Intake Etiology r/t poor appetite and bloating Signs/Symptoms: aeb PO intake 25% at breakfast , 0% lunch and dinner on 09/16 per Meal/Nutrition Activity Record Malnutrition Related to Morbid Obesity Malnutrition related to morbid obesity No Intervention/Recommendation Comments 1. Continue Mechanical Soft, MOLLY diet as ordered. 2. RN to encourage improved PO intake. 3. Recommend to provide Suplena BID to support wound healing and to meet nutritional needs if PO intake not improved, pending lab result tonight for renal disease diagnosis. Expected Outcomes/Goals Expected Outcomes/Goals 1. PO intake to meet 75% of nutritional needs. 2. Monitor PO intake, wt, skin integrity, and nutrition related labs to trend WNL 3. F/U as high risk in 2-3 days, 09/19-
[2018-09-20 04:41] LABS: % EOSINOPHILS 2.2 % (0.0-5.0); % LYMPHOCYTES 22.7 % (20.0-50.0); % MONOCYTES 7.7 % (2.0-10.0); % NEUTROPHILS 64.4 % (40.0-80.0); BASOPHILE ABSOLUTE 0.1 Th/cumm (0-0.2); EOSINOPHILE ABSOLUTE 0.1 Th/cmm (0.1-0.4); HEMATOCRIT 39.1 % (41.0-60); HEMOGLOBIN 13.2 gm/dL (12-16); LYMPHOCYTE ABSOLUTE 1.1 Th/cmm (1.5-3.0); MEAN CELL VOLUME 93.3 fl (80-99); MEAN CORPUSCULAR HEMOGLOBIN 31.5 pg (27.0-31.0); MEAN CORPUSCULAR HGB CONC 33.7 pg (28.0-36.0); MONOCYTE ABSOLUTE 0.4 Th/cmm (0.3-1.0); NEUTROPHILE ABSOLUTE 3.3 Th/cmm (1.8-8.0); PLATELET COUNT 183 Th/cmm (150-400); RED BLOOD COUNT 4.19 Mil/cmm (3.80-5.80); RED CELL DISTRIBUTION WIDTH 18.9 % (11.5-20.0)
[2018-09-20 04:57] LABS: ANION GAP 13.1 (7.0-16.0); CARBON DIOXIDE 21.5 mEq/L (21.0-31.0); CREATININE - SERUM 1.6 mg/dL (0.7-1.3); GFR AFRICAN-AMERICAN 56.1 ml/min (>90); GFR NON AFRICAN-AMERICAN 46.3 ml/min; MAGNESIUM 1.9 mg/dL (1.9-2.7); PHOSPHOROUS 1.9 mg/dL (2.5-5.0); POTASSIUM SERUM 3.6 mEq/L (3.5-5.1)
[2018-09-20 05:15] LABS: CALCIUM SERUM 13.4 mg/dL (8.6-10.3)
[2018-09-20] MEDS: Multivitamin Tab PO SCH (09:28)
[2018-09-20] MEDS: Ferrous Sulfate 325 MG TAB PO SCH (09:28)
[2018-09-20] MEDS: Calcitonin (Salmon) 200 Iu/Actuation 3.7mL NS SCH (09:29)
[2018-09-20] MEDS: Lactulose 10 Gm/15 mL 30mL UDC PO SCH ×3 (09:29→20:38)
[2018-09-20] MEDS: Pantoprazole 40 mg EC Tab PO SCH (09:33)
--- NOTE | 2018-09-20 10:19 | General Progress Note ---
Subjective - Review of Systems Service Date: 09/20/18 Subjective: still confused Objective - Results Result Diagrams: 09/20/18 04:15 09/20/18 04:15 Recent Labs: Laboratory Last Values WBC 5.0 Th/cmm (4.8-10.8) 09/20/18 04:15 Corrected WBC (auto) 7.1 Th/cmm 09/16/18 05:20 RBC 4.19 Mil/cmm (3.80-5.80) 09/20/18 04:15 Hgb 13.2 gm/dL (12-16) 09/20/18 04:15 Hct 39.1 % (41.0-60) L 09/20/18 04:15 MCV 93.3 fl (80-99) 09/20/18 04:15 MCH 31.5 pg (27.0-31.0) H 09/20/18 04:15 MCHC Differential 33.7 pg (28.0-36.0) 09/20/18 04:15 RDW 18.9 % (11.5-20.0) 09/20/18 04:15 Plt Count 183 Th/cmm (150-400) 09/20/18 04:15 MPV 7.1 fl 09/20/18 04:15 Neutrophils % 64.4 % (40.0-80.0) 09/20/18 04:15 Lymphocytes % 22.7 % (20.0-50.0) 09/20/18 04:15 Monocytes % 7.7 % (2.0-10.0) 09/20/18 04:15 Eosinophils % 2.2 % (0.0-5.0) 09/20/18 04:15 Basophils % 3.0 % (0.0-2.0) H 09/20/18 04:15 Eos Smear Source URINE 09/17/18 06:00 Eos Smear Total Cells NONE SEEN (NONE SEEN) 09/17/18 06:00 PT 13.8 SECONDS (9.5-11.5) H 09/15/18 16:53 INR 1.35 (0.5-1.4) 09/15/18 16:53 PTT (Actin FS) 22.2 SECONDS (26.0-38.0) L 09/15/18 16:53 Sodium 151 mEq/L (136-145) H 09/20/18 04:15 Potassium 3.6 mEq/L (3.5-5.1) 09/20/18 04:15 Chloride 120 mEq/L (98-107) H 09/20/18 04:15 Carbon Dioxide 21.5 mEq/L (21.0-31.0) 09/20/18 04:15 Anion Gap 13.1 (7.0-16.0) 09/20/18 04:15 BUN 41 mg/dL (7-25) H 09/20/18 04:15 Creatinine 1.6 mg/dL (0.7-1.3) H 09/20/18 04:15 Est GFR ( Amer) 56.1 ml/min (>90) 09/20/18 04:15 Est GFR (Non-Af Amer) 46.3 ml/min 09/20/18 04:15 BUN/Creatinine Ratio 25.6 09/20/18 04:15 Glucose 77 mg/dL (70-105) 09/20/18 04:15 Uric Acid 20.6 mg/dL (4.4-7.6) H 09/17/18 04:15 Calcium 13.4 mg/dL (8.6-10.3) H* 09/20/18 04:15 Phosphorus 1.9 mg/dL (2.5-5.0) L 09/20/18 04:15 Magnesium 1.9 mg/dL (1.9-2.7) 09/20/18 04:15 Iron 47 ug/dL (38-169) 09/15/18 16:53 TIBC 393 ug/dL (250-450) 09/15/18 16:53 Iron Saturation 12 % (15-55) L 09/15/18 16:53 Unsaturated IBC 346 ug/dL (111-343) H 09/15/18 16:53 Total Bilirubin 1.8 mg/dL (0.3-1.0) H 09/15/18 16:53 AST 190 U/L (13-39) H 09/15/18 16:53 ALT 29 U/L (7-52) 09/15/18 16:53 Alkaline Phosphatase 75 U/L (34-104) 09/15/18 16:53 Ammonia 51 umol/L (16-53) 09/19/18 07:10 Troponin I 0.03 ng/mL (0.01-0.05) 09/15/18 16:53 Total Protein 8.6 g/dL (6.0-8.5) H 09/17/18 04:15 Albumin 3.4 g/dL (2.9-4.4) 09/17/18 04:15 Globulin 5.2 g/dL (2.2-3.9) H 09/17/18 04:15 Albumin/Globulin Ratio 0.7 (0.7-1.7) 09/17/18 04:15 Fqsvz-2-Fwchzfbjs 0.2 g/dL (0.0-0.4) 09/17/18 04:15 Eamtp-7-Ygblvrumj 0.6 g/dL (0.4-1.0) 09/17/18 04:15 Beta Globulins 1.0 g/dL (0.7-1.3) 09/17/18 04:15 Gamma Globulins 3.3 g/dL (0.4-1.8) H 09/17/18 04:15 M-[place] 1.4 g/dL (Not Observed) H 09/17/18 04:15 PEP Note 09/17/18 04:15 Vitamin D 25-Hydroxy 26.0 ng/mL (30.0-100.0) L 09/17/18 04:15 Free T4 0.84 ng/dL (0.82-1.77) 09/17/18 04:15 Free T3 1.1 pg/mL (2.0-4.4) L 09/17/18 04:15 TSH 8.63 uIU/ml (0.34-5.60) H 09/15/18 16:53 PTH Intact <6 pg/mL (15-65) L 09/15/18 16:53 Urine Source CLEAN C 09/15/18 17:55 Urine Color YELLOW 09/15/18 17:55 Urine Clarity HAZY (CLEAR) 09/15/18 17:55 Urine pH 6.0 (4.6 - 8.0) 09/15/18 17:55 Ur Specific [place] 1.020 (1.005-1.030) 09/15/18 17:55 Urine Protein TRACE mg/dL (NEGATIVE) 09/15/18 17:55 Urine Glucose (UA) NEGATIVE mg/dL (NEGATIVE) 09/15/18 17:55 Urine Ketones NEGATIVE mg/dL (NEGATIVE) 09/15/18 17:55 Urine Blood MODERATE (NEGATIVE) H 09/15/18 17:55 Urine Nitrate NEGATIVE (NEGATIVE) 09/15/18 17:55 Urine Bilirubin NEGATIVE (NEGATIVE) 09/15/18 17:55 Urine Urobilinogen 0.2 E.U./dL (0.2 - 1.0) 09/15/18 17:55 Ur Leukocyte Esterase TRACE (NEGATIVE) H 09/15/18 17:55 Urine RBC 10-25 /hpf (0-5) H 09/15/18 17:55 Urine WBC 2-5 /hpf (0-5) 09/15/18 17:55 Ur Epithelial Cells NONE SEEN /lpf (FEW) 09/15/18 17:55 Calcium Oxalate Crystal MODERATE /hpf 09/15/18 17:55 Urine Bacteria FEW /hpf (NONE SEEN) 09/15/18 17:55 U Random Total Protein 76.5 mg/dL 09/17/18 18:00 Ur Random Sodium 44 mmol/L 09/17/18 06:00 Urine Collection Time 24 hours 09/17/18 18:00 Urine Total Volume 1200 ml 09/17/18 18:00 Urine Creatinine 76.0 mg/dl (39.0-259.0) 09/17/18 06:00 Microalb/Creat Ratio 318.2 mg/g creat (0.0-30.0) H 09/17/18 18:00 U Tot Protein 24h, Calc 918.0 mg/24 hr (0-165) H 09/17/18 18:00 Urine Calcium 29.6 mg/dL (Not Estab.) 09/17/18 18:00 Ur Calcium 24 Hr mg/24 hr (100.0-300.0) 09/17/18 18:00 Serum Immunofixation 265 mg/dL (20-172) H 09/17/18 04:15 - Physical Exam Vitals and I&O: Vital Signs Temp 98.0 F 09/20/18 04:00 Pulse 95 09/20/18 09:27 Resp 18 09/20/18 06:00 BP 134/66 09/20/18 09:27 Pulse Ox 92 09/20/18 04:00 Intake & Output 09/19/18 09/20/18 09/20/18 18:59 06:59 18:59 Intake Total 600 60 Balance 600 60 Weight (lbs) 62.142 kg 62.142 kg Intake: Oral 600 60 Other: # Voids 2 3 Weight Source Bedscale Bedscale Active Medications: Current Medications Allopurinol (Zyloprim) 100 mg PO BID [facility] Stop: 11/16/18 16:59 Last Admin: 09/20/18 09:28 Dose: 100 mg Ascorbic Acid (Vitamin C) 500 mg PO DAILY KRISTEN Stop: 11/15/18 08:59 Last Admin: 09/20/18 09:28 Dose: 500 mg Calcitonin [place] (Miacalcin) 200 iu NS DAILY KRISTEN Stop: 11/17/18 18:14 Last Admin: 09/20/18 09:29 Dose: 200 iu Ferrous Sulfate (Iron) 325 mg PO DAILY KRISTEN Stop: 11/15/18 08:59 Last Admin: 09/20/18 09:28 Dose: 325 mg Lactulose (Cephulac) 30 gm PO TID KRISTEN Stop: 11/15/18 08:59 Last Admin: 09/20/18 09:29 Dose: 30 gm Lactulose (Cephulac) 40 gm PO DAILY PRN PRN Reason: Constipation Stop: 11/15/18 07:01 Lorazepam (Ativan) 1 mg IVP Q6HR PRN; Protocol PRN Reason: AGITATION,ANXIETY Stop: 11/14/18 20:15 Last Admin: 09/19/18 21:05 Dose: 1 mg Metoprolol Tartrate (Lopressor) 25 mg PO BID [facility] Stop: 11/15/18 08:59 Last Admin: 09/20/18 09:27 Dose: 25 mg Multivitamins/Vitamin C (Theragran) 1 tab PO DAILY KRISTEN Stop: 11/15/18 08:59 Last Admin: 09/20/18 09:28 Dose: 1 tab Pantoprazole Sodium (Protonix) 40 mg PO QDAC KRISTEN Stop: 11/15/18 07:29 Last Admin: 09/20/18 09:33 Dose: Not Given General: Alert, No acute distress HEENT: Atraumatic, PERRLA, Mucous membr. moist/pink Neck: Supple, +2 carotid pulse wo bruit Cardiovascular: Regular rate, Normal S1, Normal S2 Lungs: Clear to auscultation Abdomen: Bowel sounds, Soft Extremities: no Edema Neurological: Normal tone Skin: no Rash Psych/Mental Status: Mental status NL, Other (psychosis), no Mood NL (psychosis) - Procedures Procedures: Procedures Procedure Code Date RESECTION OF PREPUCE, EXTERNAL APPROACH [id number] 05/16/18 Assessment/Plan - Problem List Patient Problems: All Active Problems WEAKNESS AND CONFUSION (Acute) - Assessment Assessment: Hypercalcemia with markedly elevated protein and low albumin, could be secondary to multiple myeloma. The patient has renal failure of unknown duration. 2. Elevated iron binding capacity and low saturation suggestive of iron deficiency. I will obtain ferritin for confirmation. 3. Hypothyroidism. 4. Dementia. 5. Kidney disease, likely chronic old with acute worsening. 6. Hepatitis B with cirrhosis. I will obtain the workup for multiple myeloma including a serum protein electrophoresis, immunofixation, quantitative immunoglobulin levels and free light chains, kappa and lambda. PTH level was ordered and one dose of pamidronate was given. I expect the calcium level to improve gradually with current hydration, Lasix and pamidronate. 09/20: PTH low. PTH independent hypercalcemia. SPEP =1.4 GM spike, high IG levels , awaiting free light chains and immunofixation. ca improving. bone survey negative. check CT CAP when renal function improves Nutritional Asmnt/Malnutr-PDOC - Dietary Evaluation Malnutrition Findings (Please click <Entered> for more info): Nutritional Asmnt/Malnutrition Start: 09/17/18 15: 51 Text: Status: Complete Freq: Protocol: Document 09/17/18 15:52 CHERYLE (Rec: 09/17/18 15:57 CHERYLE [email or web address]) Nutritional Asmnt/Malnutrition Patient General Information Nutritional Screening High Risk Diagnosis Hypercalcemia, Renal failure Pertinent Medical Hx/Surgical Hx HTN, Dementia, Hepatitis B, Hepatic encephalopathy, Renal failure, depression, muscle wasting atrophy, alcoholic cirrhosis, GERD, Schizophrenia , Status post ORIF of the LT leg Subjective Information Pt is a 67-year-old [facility] from [facility] 09/[facility] d/t increasing confusion and altered mental status. Per Nephrology consultation (09/16) , Acute kidney injury on CKD, MDRD GRF of 30ml/min, stage 3 . Pt ate 25% at breakfast but 0% at lunch and dinner on per Meal/Nutrition Activity Record. Per RN Carolyn, Pt didn t eat breakfast but drank soup at lunch today. Recommend to provide Suplena to support wound healing and to meet nutritional needs if PO intake not improved, pending lab result tonight for renal disease diagnosis. Will continue to monitor PO intake progress for wound healing and meeting nutritional needs. HT: 511 WT: 150 LB (68.18 kg) BMI: 20.92 (Normal) GI: Bloating, Large, Round, Distended BM: 09/17 x 1 I/O: 1325/500 (+825) Skin: Pale, Warm, Dry, Tight, Abrasion on RT Knee Ulices: 12 Diet Order: Mechanical Soft, MOLLY Estimated Energy Needs: (BERTA, CBW) 0871-7724 kcals (25-30 kcals/ kg) 55-61 g Pro (0.8-0.9 g/kg) 3591-6162 ml (35-40 ml/kg)/Per MD Current Diet Order/ Nutrition Support Mechanical Soft, MOLLY Pertinent Medications Vitamin C, Ferrous Sulfate, Lopressor, Theragran, Protonix , Nacl 0.9% 1000mls @ 100mls/ hr IV Q10H Pertinent Labs 09/17: BUN/Cr 49/2.0, Glucose 126, Ca 15.6 09/16: Na 133, CH 37, BUN/Cr 49 /2.2, Ca 17.3 09/15: Hgb/Hct 12.8/38.5, BUN/ Cr 47/2.3, Ca 17.6, Alb 3.7 Nutritional Hx/Data Height 1.8 m Height (Calculated Centimeters) 180.3 Current Weight (lbs) 68.039 kg Weight (Calculated Kilograms) 68.0 Weight (Calculated Grams) 30982.9 [place] Body Weight 75.3 kg % [place] Body Weight 91 Body Mass Index (BMI) 20.9 Weight Status Approriate GI Symptoms Last BM 09/17 x 1 Skin Integrity/Comment: Pale, Warm, Dry, Tight, Abrasion on RT Knee Ulices: 12 Estimated Nutritional Goals BEE in Kcals: Using Current wt Calories/Kcals/Kg 25-30 Kcals Calculated 6007-1006 Protein: Using Current wt Protein g/k.8-0.9 Protein Calculated 55-61 Fluid: ml 6856-6591 ml (35-40 ml/kg)/Per MD Nutritional Problem 2. Problem Problem Altered nutrition related labs Etiology r/t medical condition Signs/Symptoms: aeb BUN/Cr 49/2.0, Glucose 126 , Ca 15.6 1. Problem Problem Inadequate Oral Intake Etiology r/t poor appetite and bloating Signs/Symptoms: aeb PO intake 25% at breakfast , 0% lunch and dinner on 09/16 per Meal/Nutrition Activity Record Malnutrition Related to Morbid Obesity Malnutrition related to morbid obesity No Intervention/Recommendation Comments 1. Continue Mechanical Soft, MOLLY diet as ordered. 2. RN to encourage improved PO intake. 3. Recommend to provide Suplena BID to support wound healing and to meet nutritional needs if PO intake not improved, pending lab result tonight for renal disease diagnosis. Expected Outcomes/Goals Expected Outcomes/Goals 1. PO intake to meet 75% of nutritional needs. 2. Monitor PO intake, wt, skin integrity, and nutrition related labs to trend WNL 3. F/U as high risk in 2-3 days, 09/19-
[2018-09-20 13:07] LABS: IGA SERUM - IMMUNOGLOBULIN A 464 mg/dL (61-437); IGG - IMMUNOGLOBULIN G SERUM 3198 mg/dL (700-1600); IGM - IMMUNOGLOBULIN M SERUM 266 mg/dL (20-172)
--- NOTE | 2018-09-20 14:03 | Internal Medicine Prog Note ---
Internal Medicine Subjective - Subjective Service Date: 09/20/18 Patient is:: awake, verbal, confused Patient Complaints of:: other (AMS.) Per staff patient has:: no adverse event, no episodes of fall Internal Medicine Objective - Results Result Diagrams: 09/20/18 04:15 09/20/18 04:15 Recent Labs: Laboratory Last Values WBC 5.0 Th/cmm (4.8-10.8) 09/20/18 04:15 Corrected WBC (auto) 7.1 Th/cmm 09/16/18 05:20 RBC 4.19 Mil/cmm (3.80-5.80) 09/20/18 04:15 Hgb 13.2 gm/dL (12-16) 09/20/18 04:15 Hct 39.1 % (41.0-60) L 09/20/18 04:15 MCV 93.3 fl (80-99) 09/20/18 04:15 MCH 31.5 pg (27.0-31.0) H 09/20/18 04:15 MCHC Differential 33.7 pg (28.0-36.0) 09/20/18 04:15 RDW 18.9 % (11.5-20.0) 09/20/18 04:15 Plt Count 183 Th/cmm (150-400) 09/20/18 04:15 MPV 7.1 fl 09/20/18 04:15 Neutrophils % 64.4 % (40.0-80.0) 09/20/18 04:15 Lymphocytes % 22.7 % (20.0-50.0) 09/20/18 04:15 Monocytes % 7.7 % (2.0-10.0) 09/20/18 04:15 Eosinophils % 2.2 % (0.0-5.0) 09/20/18 04:15 Basophils % 3.0 % (0.0-2.0) H 09/20/18 04:15 Eos Smear Source URINE 09/17/18 06:00 Eos Smear Total Cells NONE SEEN (NONE SEEN) 09/17/18 06:00 PT 13.8 SECONDS (9.5-11.5) H 09/15/18 16:53 INR 1.35 (0.5-1.4) 09/15/18 16:53 PTT (Actin FS) 22.2 SECONDS (26.0-38.0) L 09/15/18 16:53 Sodium 151 mEq/L (136-145) H 09/20/18 04:15 Potassium 3.6 mEq/L (3.5-5.1) 09/20/18 04:15 Chloride 120 mEq/L (98-107) H 09/20/18 04:15 Carbon Dioxide 21.5 mEq/L (21.0-31.0) 09/20/18 04:15 Anion Gap 13.1 (7.0-16.0) 09/20/18 04:15 BUN 41 mg/dL (7-25) H 09/20/18 04:15 Creatinine 1.6 mg/dL (0.7-1.3) H 09/20/18 04:15 Est GFR ( Amer) 56.1 ml/min (>90) 09/20/18 04:15 Est GFR (Non-Af Amer) 46.3 ml/min 09/20/18 04:15 BUN/Creatinine Ratio 25.6 09/20/18 04:15 Glucose 77 mg/dL (70-105) 09/20/18 04:15 Uric Acid 20.6 mg/dL (4.4-7.6) H 09/17/18 04:15 Calcium 13.4 mg/dL (8.6-10.3) H* 09/20/18 04:15 Phosphorus 1.9 mg/dL (2.5-5.0) L 09/20/18 04:15 Magnesium 1.9 mg/dL (1.9-2.7) 09/20/18 04:15 Iron 47 ug/dL (38-169) 09/15/18 16:53 TIBC 393 ug/dL (250-450) 09/15/18 16:53 Iron Saturation 12 % (15-55) L 09/15/18 16:53 Unsaturated IBC 346 ug/dL (111-343) H 09/15/18 16:53 Total Bilirubin 1.8 mg/dL (0.3-1.0) H 09/15/18 16:53 AST 190 U/L (13-39) H 09/15/18 16:53 ALT 29 U/L (7-52) 09/15/18 16:53 Alkaline Phosphatase 75 U/L (34-104) 09/15/18 16:53 Ammonia 51 umol/L (16-53) 09/19/18 07:10 Troponin I 0.03 ng/mL (0.01-0.05) 09/15/18 16:53 Total Protein 8.6 g/dL (6.0-8.5) H 09/17/18 04:15 Albumin 3.4 g/dL (2.9-4.4) 09/17/18 04:15 Globulin 5.2 g/dL (2.2-3.9) H 09/17/18 04:15 Albumin/Globulin Ratio 0.7 (0.7-1.7) 09/17/18 04:15 Uxruk-4-Qbbqaozej 0.2 g/dL (0.0-0.4) 09/17/18 04:15 Puzfr-7-Zbmmewcty 0.6 g/dL (0.4-1.0) 09/17/18 04:15 Beta Globulins 1.0 g/dL (0.7-1.3) 09/17/18 04:15 Gamma Globulins 3.3 g/dL (0.4-1.8) H 09/17/18 04:15 M-[place] 1.4 g/dL (Not Observed) H 09/17/18 04:15 PEP Note 09/17/18 04:15 Vitamin D 25-Hydroxy 26.0 ng/mL (30.0-100.0) L 09/17/18 04:15 Free T4 0.84 ng/dL (0.82-1.77) 09/17/18 04:15 Free T3 1.1 pg/mL (2.0-4.4) L 09/17/18 04:15 TSH 8.63 uIU/ml (0.34-5.60) H 09/15/18 16:53 PTH Intact <6 pg/mL (15-65) L 09/15/18 16:53 Urine Source CLEAN C 09/15/18 17:55 Urine Color YELLOW 09/15/18 17:55 Urine Clarity HAZY (CLEAR) 09/15/18 17:55 Urine pH 6.0 (4.6 - 8.0) 09/15/18 17:55 Ur Specific [place] 1.020 (1.005-1.030) 09/15/18 17:55 Urine Protein TRACE mg/dL (NEGATIVE) 09/15/18 17:55 Urine Glucose (UA) NEGATIVE mg/dL (NEGATIVE) 09/15/18 17:55 Urine Ketones NEGATIVE mg/dL (NEGATIVE) 09/15/18 17:55 Urine Blood MODERATE (NEGATIVE) H 09/15/18 17:55 Urine Nitrate NEGATIVE (NEGATIVE) 09/15/18 17:55 Urine Bilirubin NEGATIVE (NEGATIVE) 09/15/18 17:55 Urine Urobilinogen 0.2 E.U./dL (0.2 - 1.0) 09/15/18 17:55 Ur Leukocyte Esterase TRACE (NEGATIVE) H 09/15/18 17:55 Urine RBC 10-25 /hpf (0-5) H 09/15/18 17:55 Urine WBC 2-5 /hpf (0-5) 09/15/18 17:55 Ur Epithelial Cells NONE SEEN /lpf (FEW) 09/15/18 17:55 Calcium Oxalate Crystal MODERATE /hpf 09/15/18 17:55 Urine Bacteria FEW /hpf (NONE SEEN) 09/15/18 17:55 U Random Total Protein 76.5 mg/dL 09/17/18 18:00 Ur Random Sodium 44 mmol/L 09/17/18 06:00 Urine Collection Time 24 hours 09/17/18 18:00 Urine Total Volume 1200 ml 09/17/18 18:00 Urine Creatinine 76.0 mg/dl (39.0-259.0) 09/17/18 06:00 Microalb/Creat Ratio 318.2 mg/g creat (0.0-30.0) H 09/17/18 18:00 U Tot Protein 24h, Calc 918.0 mg/24 hr (0-165) H 09/17/18 18:00 Urine Calcium 29.6 mg/dL (Not Estab.) 09/17/18 18:00 Ur Calcium 24 Hr mg/24 hr (100.0-300.0) 09/17/18 18:00 Serum Immunofixation 266 mg/dL (20-172) H 09/19/18 07:10 - Physical Exam Vitals and I&O: Vital Signs Temp 98.0 F 09/20/18 04:00 Pulse 95 09/20/18 09:27 Resp 18 09/20/18 06:00 BP 134/66 09/20/18 09:27 Pulse Ox 92 09/20/18 04:00 Intake & Output 09/19/18 09/20/18 09/20/18 18:59 06:59 18:59 Intake Total 600 60 Balance 600 60 Weight (lbs) 137 lb 137 lb Intake: Oral 600 60 Other: # Voids 2 3 Weight Source Bedscale Bedscale Active Medications: Current Medications Allopurinol (Zyloprim) 100 mg PO BID KRISTEN Stop: 11/16/18 16:59 Last Admin: 09/20/18 09:28 Dose: 100 mg Ascorbic Acid (Vitamin C) 500 mg PO DAILY KRISTEN Stop: 11/15/18 08:59 Last Admin: 09/20/18 09:28 Dose: 500 mg Calcitonin [place] (Miacalcin) 200 iu NS DAILY KRISTEN Stop: 11/17/18 18:14 Last Admin: 09/20/18 09:29 Dose: 200 iu Ferrous Sulfate (Iron) 325 mg PO DAILY KRISTEN Stop: 11/15/18 08:59 Last Admin: 09/20/18 09:28 Dose: 325 mg Lactulose (Cephulac) 30 gm PO TID KRISTEN Stop: 11/15/18 08:59 Last Admin: 09/20/18 09:29 Dose: 30 gm Lactulose (Cephulac) 40 gm PO DAILY PRN PRN Reason: Constipation Stop: 11/15/18 07:01 Lorazepam (Ativan) 1 mg IVP Q6HR PRN; Protocol PRN Reason: AGITATION,ANXIETY Stop: 11/14/18 20:15 Last Admin: 09/19/18 21:05 Dose: 1 mg Metoprolol Tartrate (Lopressor) 25 mg PO BID [facility] Stop: 11/15/18 08:59 Last Admin: 09/20/18 09:27 Dose: 25 mg Multivitamins/Vitamin C (Theragran) 1 tab PO DAILY KRISTEN Stop: 11/15/18 08:59 Last Admin: 09/20/18 09:28 Dose: 1 tab Pantoprazole Sodium (Protonix) 40 mg PO QDAC KRISTEN Stop: 11/15/18 07:29 Last Admin: 09/20/18 09:33 Dose: Not Given General: weak HEENT: NC/AT Neck: Supple Lungs: CTAB Cardiovascular: RRR, Normal S1 Abdomen: soft, non-tender Extremities: other (muscle wasting all extremities.) Neurological: no change - Procedures Procedures: Procedures Procedure Code Date RESECTION OF PREPUCE, EXTERNAL APPROACH [id number] 05/16/18 Internal Medicine Assmt/Plan - Assessment Assessment: Renal failure. Depression. Muscle wasting atrophy. Hepatitis B. Alcoholic Cirrhosis. Gerd. Schizophrenia. Hypercalcemia. - Plan Plan: Continuation of care. Nephrology consult. Monitor Vitals, Labs, Hemoglobin levels. Continue present meds as directed. Psych management per Psych. Monitor Diet/Nutritional support. Pain Management. Physical therapy. Occupational therapy. Fall precaution, frequent nursing rounds, and as needed restraints to prevent fall. Safety precaution. Supportive care. Continue collaborating with consulting specialists, case management and nursing team. Will Monitor patient and continue present care management. Nutritional Asmnt/Malnutr-PDOC - Dietary Evaluation Malnutrition Findings (Please click <Entered> for more info): Nutritional Asmnt/Malnutrition Start: 09/17/18 15: 51 Text: Status: Complete Freq: Protocol: Document 09/17/18 15:52 CHERYEL (Rec: 09/17/18 15:57 CHERYLE [email or web address]) Nutritional Asmnt/Malnutrition Patient General Information Nutritional Screening High Risk Diagnosis Hypercalcemia, Renal failure Pertinent Medical Hx/Surgical Hx HTN, Dementia, Hepatitis B, Hepatic encephalopathy, Renal failure, depression, muscle wasting atrophy, alcoholic cirrhosis, GERD, Schizophrenia , Status post ORIF of the LT leg Subjective Information Pt is a 67-year-old male from [facility]term admitted on 09/15 d/t increasing confusion and altered mental status. Per Nephrology consultation (09/16) , Acute kidney injury on CKD, MDRD GRF of 30ml/min, stage 3 . Pt ate 25% at breakfast but 0% at lunch and dinner on per Meal/Nutrition Activity Record. Per RN Carolyn, Pt didn t eat breakfast but drank soup at lunch today. Recommend to provide Suplena to support wound healing and to meet nutritional needs if PO intake not improved, pending lab result tonight for renal disease diagnosis. Will continue to monitor PO intake progress for wound healing and meeting nutritional needs. HT: 511 WT: 150 LB (68.18 kg) BMI: 20.92 (Normal) GI: Bloating, Large, Round, Distended BM: 09/17 x 1 I/O: 1325/500 (+825) Skin: Pale, Warm, Dry, Tight, Abrasion on RT Knee Ulices: 12 Diet Order: Mechanical Soft, MOLLY Estimated Energy Needs: (BERTA, CBW) 7850-2704 kcals (25-30 kcals/ kg) 55-61 g Pro (0.8-0.9 g/kg) 2319-1329 ml (35-40 ml/kg)/Per MD Current Diet Order/ Nutrition Support Mechanical Soft, MOLLY Pertinent Medications Vitamin C, Ferrous Sulfate, Lopressor, Theragran, Protonix , Nacl 0.9% 1000mls @ 100mls/ hr IV Q10H Pertinent Labs 09/17: BUN/Cr 49/2.0, Glucose 126, Ca 15.6 09/16: Na 133, CH 37, BUN/Cr 49 /2.2, Ca 17.3 09/15: Hgb/Hct 12.8/38.5, BUN/ Cr 47/2.3, Ca 17.6, Alb 3.7 Nutritional Hx/Data Height 5 ft 11 in Height (Calculated Centimeters) 180.3 Current Weight (lbs) 150 lb Weight (Calculated Kilograms) 68.0 Weight (Calculated Grams) 19758.9 [place] Body Weight 75.3 kg % [place] Body Weight 91 Body Mass Index (BMI) 20.9 Weight Status Approriate GI Symptoms Last BM 09/17 x 1 Skin Integrity/Comment: Pale, Warm, Dry, Tight, Abrasion on RT Knee Ulices: 12 Estimated Nutritional Goals BEE in Kcals: Using Current wt Calories/Kcals/Kg 25-30 Kcals Calculated 2295-8104 Protein: Using Current wt Protein g/k.8-0.9 Protein Calculated 55-61 Fluid: ml 0983-8770 ml (35-40 ml/kg)/Per Nutritional Problem 2. Problem Problem Altered nutrition related labs Etiology r/t medical condition Signs/Symptoms: aeb BUN/Cr 49/2.0, Glucose 126 , Ca 15.6 1. Problem Problem Inadequate Oral Intake Etiology r/t poor appetite and bloating Signs/Symptoms: aeb PO intake 25% at breakfast , 0% lunch and dinner on 09/16 per Meal/Nutrition Activity Record Malnutrition Related to Morbid Obesity Malnutrition related to morbid obesity No Intervention/Recommendation Comments 1. Continue Mechanical Soft, MOLLY diet as ordered. 2. RN to encourage improved PO intake. 3. Recommend to provide Suplena BID to support wound healing and to meet nutritional needs if PO intake not improved, pending lab result tonight for renal disease diagnosis. Expected Outcomes/Goals Expected Outcomes/Goals 1. PO intake to meet 75% of nutritional needs. 2. Monitor PO intake, wt, skin integrity, and nutrition related labs to trend WNL 3. F/U as high risk in 2-3 days, 09/19-
--- NOTE | 2018-09-20 14:19 | General Progress Note ---
Subjective - Review of Systems Service Date: 09/20/18 Subjective: awake, w/ periods of agitation Objective - Results Result Diagrams: 09/20/18 04:15 09/20/18 04:15 Recent Labs: Laboratory Last Values WBC 5.0 Th/cmm (4.8-10.8) 09/20/18 04:15 Corrected WBC (auto) 7.1 Th/cmm 09/16/18 05:20 RBC 4.19 Mil/cmm (3.80-5.80) 09/20/18 04:15 Hgb 13.2 gm/dL (12-16) 09/20/18 04:15 Hct 39.1 % (41.0-60) L 09/20/18 04:15 MCV 93.3 fl (80-99) 09/20/18 04:15 MCH 31.5 pg (27.0-31.0) H 09/20/18 04:15 MCHC Differential 33.7 pg (28.0-36.0) 09/20/18 04:15 RDW 18.9 % (11.5-20.0) 09/20/18 04:15 Plt Count 183 Th/cmm (150-400) 09/20/18 04:15 MPV 7.1 fl 09/20/18 04:15 Neutrophils % 64.4 % (40.0-80.0) 09/20/18 04:15 Lymphocytes % 22.7 % (20.0-50.0) 09/20/18 04:15 Monocytes % 7.7 % (2.0-10.0) 09/20/18 04:15 Eosinophils % 2.2 % (0.0-5.0) 09/20/18 04:15 Basophils % 3.0 % (0.0-2.0) H 09/20/18 04:15 Eos Smear Source URINE 09/17/18 06:00 Eos Smear Total Cells NONE SEEN (NONE SEEN) 09/17/18 06:00 PT 13.8 SECONDS (9.5-11.5) H 09/15/18 16:53 INR 1.35 (0.5-1.4) 09/15/18 16:53 PTT (Actin FS) 22.2 SECONDS (26.0-38.0) L 09/15/18 16:53 Sodium 151 mEq/L (136-145) H 09/20/18 04:15 Potassium 3.6 mEq/L (3.5-5.1) 09/20/18 04:15 Chloride 120 mEq/L (98-107) H 09/20/18 04:15 Carbon Dioxide 21.5 mEq/L (21.0-31.0) 09/20/18 04:15 Anion Gap 13.1 (7.0-16.0) 09/20/18 04:15 BUN 41 mg/dL (7-25) H 09/20/18 04:15 Creatinine 1.6 mg/dL (0.7-1.3) H 09/20/18 04:15 Est GFR ( Amer) 56.1 ml/min (>90) 09/20/18 04:15 Est GFR (Non-Af Amer) 46.3 ml/min 09/20/18 04:15 BUN/Creatinine Ratio 25.6 09/20/18 04:15 Glucose 77 mg/dL (70-105) 09/20/18 04:15 Uric Acid 20.6 mg/dL (4.4-7.6) H 09/17/18 04:15 Calcium 13.4 mg/dL (8.6-10.3) H* 09/20/18 04:15 Phosphorus 1.9 mg/dL (2.5-5.0) L 09/20/18 04:15 Magnesium 1.9 mg/dL (1.9-2.7) 09/20/18 04:15 Iron 47 ug/dL (38-169) 09/15/18 16:53 TIBC 393 ug/dL (250-450) 09/15/18 16:53 Iron Saturation 12 % (15-55) L 09/15/18 16:53 Unsaturated IBC 346 ug/dL (111-343) H 09/15/18 16:53 Total Bilirubin 1.8 mg/dL (0.3-1.0) H 09/15/18 16:53 AST 190 U/L (13-39) H 09/15/18 16:53 ALT 29 U/L (7-52) 09/15/18 16:53 Alkaline Phosphatase 75 U/L (34-104) 09/15/18 16:53 Ammonia 51 umol/L (16-53) 09/19/18 07:10 Troponin I 0.03 ng/mL (0.01-0.05) 09/15/18 16:53 Total Protein 8.6 g/dL (6.0-8.5) H 09/17/18 04:15 Albumin 3.4 g/dL (2.9-4.4) 09/17/18 04:15 Globulin 5.2 g/dL (2.2-3.9) H 09/17/18 04:15 Albumin/Globulin Ratio 0.7 (0.7-1.7) 09/17/18 04:15 Ctliz-1-Xubrtxttt 0.2 g/dL (0.0-0.4) 09/17/18 04:15 Opqux-7-Tticgscoy 0.6 g/dL (0.4-1.0) 09/17/18 04:15 Beta Globulins 1.0 g/dL (0.7-1.3) 09/17/18 04:15 Gamma Globulins 3.3 g/dL (0.4-1.8) H 09/17/18 04:15 M-[place] 1.4 g/dL (Not Observed) H 09/17/18 04:15 PEP Note 09/17/18 04:15 Vitamin D 25-Hydroxy 26.0 ng/mL (30.0-100.0) L 09/17/18 04:15 Free T4 0.84 ng/dL (0.82-1.77) 09/17/18 04:15 Free T3 1.1 pg/mL (2.0-4.4) L 09/17/18 04:15 TSH 8.63 uIU/ml (0.34-5.60) H 09/15/18 16:53 PTH Intact <6 pg/mL (15-65) L 09/15/18 16:53 Urine Source CLEAN C 09/15/18 17:55 Urine Color YELLOW 09/15/18 17:55 Urine Clarity HAZY (CLEAR) 09/15/18 17:55 Urine pH 6.0 (4.6 - 8.0) 09/15/18 17:55 Ur Specific [place] 1.020 (1.005-1.030) 09/15/18 17:55 Urine Protein TRACE mg/dL (NEGATIVE) 09/15/18 17:55 Urine Glucose (UA) NEGATIVE mg/dL (NEGATIVE) 09/15/18 17:55 Urine Ketones NEGATIVE mg/dL (NEGATIVE) 09/15/18 17:55 Urine Blood MODERATE (NEGATIVE) H 09/15/18 17:55 Urine Nitrate NEGATIVE (NEGATIVE) 09/15/18 17:55 Urine Bilirubin NEGATIVE (NEGATIVE) 09/15/18 17:55 Urine Urobilinogen 0.2 E.U./dL (0.2 - 1.0) 09/15/18 17:55 Ur Leukocyte Esterase TRACE (NEGATIVE) H 09/15/18 17:55 Urine RBC 10-25 /hpf (0-5) H 09/15/18 17:55 Urine WBC 2-5 /hpf (0-5) 09/15/18 17:55 Ur Epithelial Cells NONE SEEN /lpf (FEW) 09/15/18 17:55 Calcium Oxalate Crystal MODERATE /hpf 09/15/18 17:55 Urine Bacteria FEW /hpf (NONE SEEN) 09/15/18 17:55 U Random Total Protein 76.5 mg/dL 09/17/18 18:00 Ur Random Sodium 44 mmol/L 09/17/18 06:00 Urine Collection Time 24 hours 09/17/18 18:00 Urine Total Volume 1200 ml 09/17/18 18:00 Urine Creatinine 76.0 mg/dl (39.0-259.0) 09/17/18 06:00 Microalb/Creat Ratio 318.2 mg/g creat (0.0-30.0) H 09/17/18 18:00 U Tot Protein 24h, Calc 918.0 mg/24 hr (0-165) H 09/17/18 18:00 Urine Calcium 29.6 mg/dL (Not Estab.) 09/17/18 18:00 Ur Calcium 24 Hr mg/24 hr (100.0-300.0) 09/17/18 18:00 Serum Immunofixation 266 mg/dL (20-172) H 09/19/18 07:10 - Physical Exam Vitals and I&O: Vital Signs Temp 98.0 F 09/20/18 04:00 Pulse 95 09/20/18 09:27 Resp 18 09/20/18 06:00 BP 134/66 09/20/18 09:27 Pulse Ox 92 09/20/18 04:00 Intake & Output 09/19/18 09/20/18 09/20/18 18:59 06:59 18:59 Intake Total 600 60 Balance 600 60 Weight (lbs) 62.142 kg 62.142 kg Intake: Oral 600 60 Other: # Voids 2 3 Weight Source Bedscale Bedscale Active Medications: Current Medications Allopurinol (Zyloprim) 100 mg PO BID KRISTEN Stop: 11/16/18 16:59 Last Admin: 09/20/18 09:28 Dose: 100 mg Ascorbic Acid (Vitamin C) 500 mg PO DAILY KRISTEN Stop: 11/15/18 08:59 Last Admin: 09/20/18 09:28 Dose: 500 mg Calcitonin Lena (Miacalcin) 200 iu NS DAILY KRISTEN Stop: 11/17/18 18:14 Last Admin: 09/20/18 09:29 Dose: 200 iu Ferrous Sulfate (Iron) 325 mg PO DAILY KRISTEN Stop: 11/15/18 08:59 Last Admin: 09/20/18 09:28 Dose: 325 mg Lactulose (Cephulac) 30 gm PO TID KRISTEN Stop: 11/15/18 08:59 Last Admin: 09/20/18 09:29 Dose: 30 gm Lactulose (Cephulac) 40 gm PO DAILY PRN PRN Reason: Constipation Stop: 11/15/18 07:01 Lorazepam (Ativan) 1 mg IVP Q6HR PRN; Protocol PRN Reason: AGITATION,ANXIETY Stop: 11/14/18 20:15 Last Admin: 09/19/18 21:05 Dose: 1 mg Metoprolol Tartrate (Lopressor) 25 mg PO BID KRISTEN Stop: 11/15/18 08:59 Last Admin: 09/20/18 09:27 Dose: 25 mg Multivitamins/Vitamin C (Theragran) 1 tab PO DAILY KRISTEN Stop: 11/15/18 08:59 Last Admin: 09/20/18 09:28 Dose: 1 tab Pantoprazole Sodium (Protonix) 40 mg PO QDAC KRISTEN Stop: 11/15/18 07:29 Last Admin: 09/20/18 09:33 Dose: Not Given General: Alert, No acute distress HEENT: Atraumatic, PERRLA, Mucous membr. moist/pink Neck: Supple, +2 carotid pulse wo bruit Cardiovascular: Regular rate, Normal S1, Normal S2 Lungs: Clear to auscultation Abdomen: Bowel sounds, Soft Extremities: no Edema Neurological: Normal tone Skin: no Rash Psych/Mental Status: Mental status NL, Other (psychosis), no Mood NL (psychosis) - Procedures Procedures: Procedures Procedure Code Date RESECTION OF PREPUCE, EXTERNAL APPROACH [id number] 05/16/18 Assessment/Plan - Problem List Patient Problems: All Active Problems WEAKNESS AND CONFUSION (Acute) - Assessment Assessment: BERTA on CKD Hypercalcemia Severe Dehydration ALOC Subclinical Hypothyroid Hep B w/ Cirrhosis Ess Htn Hyperuricemia MM - Plan Plan: Lab - Result Diagrams 09/17/18 04:15 09/17/18 04:15 Current Medications Allopurinol (Zyloprim) 100 mg PO BID KRISTEN Stop: 11/16/18 16:59 Ascorbic Acid (Vitamin C) 500 mg PO DAILY KRISTEN Stop: 11/15/18 08:59 Last Admin: 09/17/18 08:30 Dose: Not Given Ferrous Sulfate (Iron) 325 mg PO DAILY KRISTEN Stop: 11/15/18 08:59 Last Admin: 09/17/18 08:30 Dose: Not Given Sodium Chloride (Nacl 0.9%) 1,000 mls @ 100 mls/hr IV .Q10H KRISTEN Stop: 11/15/18 15:14 Last Infusion: 09/17/18 03:44 Dose: 100 mls/hr Pamidronate Disodium 90 mg/ (Sodium Chloride) 1,030 mls @ 43 mls/hr IV ONCE ONE Stop: 09/18/18 10:27 Last Admin: 09/17/18 09:53 Dose: 43 mls/hr Lactulose (Cephulac) 30 gm PO TID KRISTEN Stop: 11/15/18 08:59 Last Admin: 09/17/18 08:31 Dose: Not Given Lactulose (Cephulac) 40 gm PO DAILY PRN PRN Reason: Constipation Stop: 11/15/18 07:01 Lorazepam (Ativan) 1 mg IVP Q6HR PRN; Protocol PRN Reason: AGITATION,ANXIETY Stop: 11/14/18 20:15 Last Admin: 09/15/18 20:31 Dose: 1 mg Metoprolol Tartrate (Lopressor) 25 mg PO BID KRISTEN Stop: 11/15/18 08:59 Last Admin: 09/17/18 08:31 Dose: Not Given Multivitamins/Vitamin C (Theragran) 1 tab PO DAILY KRISTEN Stop: 11/15/18 08:59 Last Admin: 09/17/18 08:31 Dose: Not Given Pantoprazole Sodium (Protonix) 40 mg PO QDAC KRISTEN Stop: 11/15/18 07:29 Last Admin: 09/17/18 08:30 Dose: Not Given Lab - Result Diagrams 09/20/18 04:15 09/20/18 04:15 Kidney remain stable w/ BUN/CR of 41/1.6 continue hydration, Aredia; start Calcitonin also start allopurinol f/u electrolytes Myeloma workup in progress: elevated G globulins, M spike Hypercalcemia resulting to hypovitaminosis D; non PTH hypercalcemia Subclinical hypothyroid w/elevated TSH, low FT3, Normal FT4 switch to D5W, replace K Ca down to 13.4 Nutritional Asmnt/Malnutr-PDOC - Dietary Evaluation Malnutrition Findings (Please click <Entered> for more info): Nutritional Asmnt/Malnutrition Start: 09/17/18 15: 51 Text: Status: Complete Freq: Protocol: Document 09/17/18 15:52 CHERYLE (Rec: 09/17/18 15:57 CHERYLE [email or web address]) Nutritional Asmnt/Malnutrition Patient General Information Nutritional Screening High Risk Diagnosis Hypercalcemia, Renal failure Pertinent Medical Hx/Surgical Hx HTN, Dementia, Hepatitis B, Hepatic encephalopathy, Renal failure, depression, muscle wasting atrophy, alcoholic cirrhosis, GERD, Schizophrenia , Status post ORIF of the LT leg Subjective Information Pt is a 67-year-old male from group home admitted on 09/15 d/t increasing confusion and altered mental status. Per Nephrology consultation (09/16) , Acute kidney injury on CKD, MDRD GRF of 30ml/min, stage 3 . Pt ate 25% at breakfast but 0% at lunch and dinner on per Meal/Nutrition Activity Record. Per RN Carolyn, Pt didn t eat breakfast but drank soup at lunch today. Recommend to provide Suplena to support wound healing and to meet nutritional needs if PO intake not improved, pending lab result tonight for renal disease diagnosis. Will continue to monitor PO intake progress for wound healing and meeting nutritional needs. HT: 511 WT: 150 LB (68.18 kg) BMI: 20.92 (Normal) GI: Bloating, Large, Round, Distended BM: 09/17 x 1 I/O: 1325/500 (+825) Skin: Pale, Warm, Dry, Tight, Abrasion on RT Knee Ulices: 12 Diet Order: Mechanical Soft, MOLLY Estimated Energy Needs: (BERTA, CBW) 2907-3871 kcals (25-30 kcals/ kg) 55-61 g Pro (0.8-0.9 g/kg) 8485-2008 ml (35-40 ml/kg)/Per MD Current Diet Order/ Nutrition Support Mechanical Soft, MOLLY Pertinent Medications Vitamin C, Ferrous Sulfate, Lopressor, Theragran, Protonix , Nacl 0.9% 1000mls @ 100mls/ hr IV Q10H Pertinent Labs 09/17: BUN/Cr 49/2.0, Glucose 126, Ca 15.6 09/16: Na 133, CH 37, BUN/Cr 49 /2.2, Ca 17.3 09/15: Hgb/Hct 12.8/38.5, BUN/ Cr 47/2.3, Ca 17.6, Alb 3.7 Nutritional Hx/Data Height 1.8 m Height (Calculated Centimeters) 180.3 Current Weight (lbs) 68.039 kg Weight (Calculated Kilograms) 68.0 Weight (Calculated Grams) 52207.9 [place] Body Weight 75.3 kg % [place] Body Weight 91 Body Mass Index (BMI) 20.9 Weight Status Approriate GI Symptoms Last BM 09/17 x 1 Skin Integrity/Comment: Pale, Warm, Dry, Tight, Abrasion on RT Knee Ulices: 12 Estimated Nutritional Goals BEE in Kcals: Using Current wt Calories/Kcals/Kg 25-30 Kcals Calculated 0182-9556 Protein: Using Current wt Protein g/k.8-0.9 Protein Calculated 55-61 Fluid: ml 2011-9541 ml (35-40 ml/kg)/Per MD Nutritional Problem 2. Problem Problem Altered nutrition related labs Etiology r/t medical condition Signs/Symptoms: aeb BUN/Cr 49/2.0, Glucose 126 , Ca 15.6 1. Problem Problem Inadequate Oral Intake Etiology r/t poor appetite and bloating Signs/Symptoms: aeb PO intake 25% at breakfast , 0% lunch and dinner on 09/16 per Meal/Nutrition Activity Record Malnutrition Related to Morbid Obesity Malnutrition related to morbid obesity No Intervention/Recommendation Comments 1. Continue Mechanical Soft, MOLLY diet as ordered. 2. RN to encourage improved PO intake. 3. Recommend to provide Suplena BID to support wound healing and to meet nutritional needs if PO intake not improved, pending lab result tonight for renal disease diagnosis. Expected Outcomes/Goals Expected Outcomes/Goals 1. PO intake to meet 75% of nutritional needs. 2. Monitor PO intake, wt, skin integrity, and nutrition related labs to trend WNL 3. F/U as high risk in 2-3 days, 09/19-
[2018-09-20] MEDS: Dextrose 5% 1,000 ML IV SCH (15:34)
[2018-09-21 04:53] LABS: % EOSINOPHILS 1.9 % (0.0-5.0); % LYMPHOCYTES 19.3 % (20.0-50.0); % NEUTROPHILS 73.8 % (40.0-80.0); EOSINOPHILE ABSOLUTE 0.1 Th/cmm (0.1-0.4); HEMATOCRIT 39.6 % (41.0-60); HEMOGLOBIN 13.1 gm/dL (12-16); MEAN CELL VOLUME 94.1 fl (80-99); MEAN CORPUSCULAR HEMOGLOBIN 31.1 pg (27.0-31.0); MONOCYTE ABSOLUTE 0.3 Th/cmm (0.3-1.0); NEUTROPHILE ABSOLUTE 3.9 Th/cmm (1.8-8.0); PLATELET COUNT 153 Th/cmm (150-400); RED BLOOD COUNT 4.21 Mil/cmm (3.80-5.80); RED CELL DISTRIBUTION WIDTH 18.8 % (11.5-20.0); WHITE BLOOD COUNT 5.3 Th/cmm (4.8-10.8)
[2018-09-21 05:04] LABS: ANION GAP 11.2 (7.0-16.0); CARBON DIOXIDE 25.3 mEq/L (21.0-31.0); CREATININE - SERUM 1.7 mg/dL (0.7-1.3); GFR AFRICAN-AMERICAN 52.3 ml/min (>90); GFR NON AFRICAN-AMERICAN 43.2 ml/min; POTASSIUM SERUM 3.5 mEq/L (3.5-5.1)
[2018-09-21] MEDS: Dextrose 5% 1,000 ML IV SCH (05:05)
[2018-09-21 05:56] LABS: CALCIUM SERUM 13.8 mg/dL (8.6-10.3)
[2018-09-21] MEDS: Pantoprazole 40 mg EC Tab PO SCH (06:38)
[2018-09-21] MEDS: Multivitamin Tab PO SCH (09:13)
[2018-09-21] MEDS: Calcitonin (Salmon) 200 Iu/Actuation 3.7mL NS SCH (09:14)
[2018-09-21] MEDS: Ferrous Sulfate 325 MG TAB PO SCH (09:14)
[2018-09-21] MEDS: Lactulose 10 Gm/15 mL 30mL UDC PO SCH ×4 (09:14→16:46)
--- NOTE | 2018-09-21 14:23 | Internal Medicine Prog Note ---
Internal Medicine Subjective - Subjective Patient is:: awake, verbal, confused Patient Complaints of:: other (AMS.) Per staff patient has:: no adverse event, no episodes of fall Internal Medicine Objective - Results Result Diagrams: 09/21/18 04:40 09/21/18 04:40 Recent Labs: Laboratory Last Values WBC 5.3 Th/cmm (4.8-10.8) 09/21/18 04:40 Corrected WBC (auto) 7.1 Th/cmm 09/16/18 05:20 RBC 4.21 Mil/cmm (3.80-5.80) 09/21/18 04:40 Hgb 13.1 gm/dL (12-16) 09/21/18 04:40 Hct 39.6 % (41.0-60) L 09/21/18 04:40 MCV 94.1 fl (80-99) 09/21/18 04:40 MCH 31.1 pg (27.0-31.0) H 09/21/18 04:40 MCHC Differential 33.0 pg (28.0-36.0) 09/21/18 04:40 RDW 18.8 % (11.5-20.0) 09/21/18 04:40 Plt Count 153 Th/cmm (150-400) 09/21/18 04:40 MPV 7.0 fl 09/21/18 04:40 Neutrophils % 73.8 % (40.0-80.0) 09/21/18 04:40 Lymphocytes % 19.3 % (20.0-50.0) L 09/21/18 04:40 Monocytes % 5.0 % (2.0-10.0) 09/21/18 04:40 Eosinophils % 1.9 % (0.0-5.0) 09/21/18 04:40 Basophils % 0.0 % (0.0-2.0) 09/21/18 04:40 Eos Smear Source URINE 09/17/18 06:00 Eos Smear Total Cells NONE SEEN (NONE SEEN) 09/17/18 06:00 PT 13.8 SECONDS (9.5-11.5) H 09/15/18 16:53 INR 1.35 (0.5-1.4) 09/15/18 16:53 PTT (Actin FS) 22.2 SECONDS (26.0-38.0) L 09/15/18 16:53 Sodium 148 mEq/L (136-145) H 09/21/18 04:40 Potassium 3.5 mEq/L (3.5-5.1) 09/21/18 04:40 Chloride 115 mEq/L (98-107) H 09/21/18 04:40 Carbon Dioxide 25.3 mEq/L (21.0-31.0) 09/21/18 04:40 Anion Gap 11.2 (7.0-16.0) 09/21/18 04:40 BUN 38 mg/dL (7-25) H 09/21/18 04:40 Creatinine 1.7 mg/dL (0.7-1.3) H 09/21/18 04:40 Est GFR ( Amer) 52.3 ml/min (>90) 09/21/18 04:40 Est GFR (Non-Af Amer) 43.2 ml/min 09/21/18 04:40 BUN/Creatinine Ratio 22.4 09/21/18 04:40 Glucose 111 mg/dL (70-105) H 09/21/18 04:40 Uric Acid 20.6 mg/dL (4.4-7.6) H 09/17/18 04:15 Calcium 13.8 mg/dL (8.6-10.3) H* 09/21/18 04:40 Phosphorus 1.9 mg/dL (2.5-5.0) L 09/20/18 04:15 Magnesium 1.9 mg/dL (1.9-2.7) 09/20/18 04:15 Iron 47 ug/dL (38-169) 09/15/18 16:53 TIBC 393 ug/dL (250-450) 09/15/18 16:53 Iron Saturation 12 % (15-55) L 09/15/18 16:53 Unsaturated IBC 346 ug/dL (111-343) H 09/15/18 16:53 Total Bilirubin 1.8 mg/dL (0.3-1.0) H 09/15/18 16:53 AST 190 U/L (13-39) H 09/15/18 16:53 ALT 29 U/L (7-52) 09/15/18 16:53 Alkaline Phosphatase 75 U/L (34-104) 09/15/18 16:53 Ammonia 51 umol/L (16-53) 09/19/18 07:10 Troponin I 0.03 ng/mL (0.01-0.05) 09/15/18 16:53 Total Protein 8.6 g/dL (6.0-8.5) H 09/17/18 04:15 Albumin 3.4 g/dL (2.9-4.4) 09/17/18 04:15 Globulin 5.2 g/dL (2.2-3.9) H 09/17/18 04:15 Albumin/Globulin Ratio 0.7 (0.7-1.7) 09/17/18 04:15 Ulmvj-6-Mgvfacoru 0.2 g/dL (0.0-0.4) 09/17/18 04:15 Jtduq-6-Sskizoacc 0.6 g/dL (0.4-1.0) 09/17/18 04:15 Beta Globulins 1.0 g/dL (0.7-1.3) 09/17/18 04:15 Gamma Globulins 3.3 g/dL (0.4-1.8) H 09/17/18 04:15 M-[place] 1.4 g/dL (Not Observed) H 09/17/18 04:15 PEP Note 09/17/18 04:15 Vitamin D 25-Hydroxy 26.0 ng/mL (30.0-100.0) L 09/17/18 04:15 Free T4 0.84 ng/dL (0.82-1.77) 09/17/18 04:15 Free T3 1.1 pg/mL (2.0-4.4) L 09/17/18 04:15 TSH 8.63 uIU/ml (0.34-5.60) H 09/15/18 16:53 PTH Intact <6 pg/mL (15-65) L 09/15/18 16:53 Urine Source CLEAN C 09/15/18 17:55 Urine Color YELLOW 09/15/18 17:55 Urine Clarity HAZY (CLEAR) 09/15/18 17:55 Urine pH 6.0 (4.6 - 8.0) 09/15/18 17:55 Ur Specific [place] 1.020 (1.005-1.030) 09/15/18 17:55 Urine Protein TRACE mg/dL (NEGATIVE) 09/15/18 17:55 Urine Glucose (UA) NEGATIVE mg/dL (NEGATIVE) 09/15/18 17:55 Urine Ketones NEGATIVE mg/dL (NEGATIVE) 09/15/18 17:55 Urine Blood MODERATE (NEGATIVE) H 09/15/18 17:55 Urine Nitrate NEGATIVE (NEGATIVE) 09/15/18 17:55 Urine Bilirubin NEGATIVE (NEGATIVE) 09/15/18 17:55 Urine Urobilinogen 0.2 E.U./dL (0.2 - 1.0) 09/15/18 17:55 Ur Leukocyte Esterase TRACE (NEGATIVE) H 09/15/18 17:55 Urine RBC 10-25 /hpf (0-5) H 09/15/18 17:55 Urine WBC 2-5 /hpf (0-5) 08 17:55 Ur Epithelial Cells NONE SEEN /lpf (FEW) 09/15/18 17:55 Calcium Oxalate Crystal MODERATE /hpf 09/15/18 17:55 Urine Bacteria FEW /hpf (NONE SEEN) 09/15/18 17:55 U Random Total Protein 76.5 mg/dL 09/17/18 18:00 Ur Random Sodium 44 mmol/L 09/17/18 06:00 Urine Collection Time 24 hours 09/17/18 18:00 Urine Total Volume 1200 ml 09/17/18 18:00 Urine Creatinine 76.0 mg/dl (39.0-259.0) 09/17/18 06:00 Microalb/Creat Ratio 318.2 mg/g creat (0.0-30.0) H 09/17/18 18:00 U Tot Protein 24h, Calc 918.0 mg/24 hr (0-165) H 09/17/18 18:00 Urine Calcium 29.6 mg/dL (Not Estab.) 09/17/18 18:00 Ur Calcium 24 Hr mg/24 hr (100.0-300.0) 09/17/18 18:00 Serum Immunofixation 266 mg/dL (20-172) H 09/19/18 07:10 - Physical Exam Vitals and I&O: Vital Signs Temp 96.9 F 09/21/18 10:00 Pulse 90 09/21/18 10:00 Resp 18 09/21/18 10:00 BP 135/72 08/16/19 10:00 Pulse Ox 98 09/21/18 08:00 Intake & Output 09/20/18 09/21/18 09/21/18 18:59 06:59 18:59 Intake Total 1525 1100 Output Total 1 Balance 1524 1100 Weight (lbs) 62.142 kg 62.142 kg Intake: Intake, IV Amount 1000 Dextrose 5% 1,000 ml @ 75 1000 mls/hr IV .[id number] [facility] Rx#:[id number] Oral 1525 100 Output: Stool 1 Other: # Voids 3 4 # Bowel Movements 1 Stool Characteristics Soft Brown Weight Source Bedscale Bedscale Active Medications: Current Medications Allopurinol (Zyloprim) 100 mg PO BID [facility] Stop: 11/16/18 16:59 Last Admin: 09/21/18 09:14 Dose: 100 mg Ascorbic Acid (Vitamin C) 500 mg PO DAILY [facility] Stop: 11/15/18 08:59 Last Admin: 09/21/18 09:13 Dose: 500 mg Calcitonin Revloc (Miacalcin) 200 iu NS DAILY [facility] Stop: 11/17/18 18:14 Last Admin: 09/21/18 09:14 Dose: 200 iu Ferrous Sulfate (Iron) 325 mg PO DAILY [facility] Stop: 11/15/18 08:59 Last Admin: 09/21/18 09:14 Dose: 325 mg Dextrose (D5w) 1,000 mls @ 75 mls/hr IV .[id number] [facility] Stop: 11/19/18 14:29 Last Admin: 09/21/18 05:05 Dose: 75 mls/hr Lactulose (Cephulac) 30 gm PO TID [facility] Stop: 11/15/18 08:59 Last Admin: 09/21/18 09:30 Dose: Not Given Lactulose (Cephulac) 40 gm PO DAILY PRN PRN Reason: Constipation Stop: 11/15/18 07:01 Lorazepam (Ativan) 1 mg IVP Q6HR PRN; Protocol PRN Reason: AGITATION,ANXIETY Stop: 11/14/18 20:15 Last Admin: 09/21/18 02:12 Dose: 1 mg Metoprolol Tartrate (Lopressor) 25 mg PO BID [facility] Stop: 11/15/18 08:59 Last Admin: 09/21/18 09:13 Dose: 25 mg Multivitamins/Vitamin C (Theragran) 1 tab PO DAILY KRISTEN Stop: 11/15/18 08:59 Last Admin: 09/21/18 09:13 Dose: 1 tab Pantoprazole Sodium (Protonix) 40 mg PO QDAC KRISTEN Stop: 11/15/18 07:29 Last Admin: 09/21/18 06:38 Dose: 40 mg Physical Exam: Patient dis-oriented and very confused. General: weak HEENT: NC/AT Neck: Supple Lungs: CTAB Cardiovascular: RRR, Normal S1 Abdomen: soft, non-tender Extremities: other (muscle wasting all extremities.) Neurological: no change - Procedures Procedures: Procedures Procedure Code Date RESECTION OF PREPUCE, EXTERNAL APPROACH [id number] 05/16/18 Internal Medicine Assmt/Plan - Assessment Assessment: Renal failure. Depression. Muscle wasting atrophy. Hepatitis B. Alcoholic Cirrhosis. Gerd. Schizophrenia. Hypercalcemia. Current Active Problems Problem Status Onset WEAKNESS AND CONFUSION Acute - Plan Plan: Continuation of care. As per Nephrology., myeloma workup. Monitor Vitals, Labs, Hemoglobin levels. Continue present meds as directed. Psych management per Psych. Monitor Diet/Nutritional support. Pain Management. Physical therapy. Occupational therapy. Fall precaution, frequent nursing rounds, and as needed restraints to prevent fall. Safety precaution. Supportive care. Continue collaborating with consulting specialists, case management and nursing team. Will Monitor patient and continue present care management. Nutritional Asmnt/Malnutr-PDOC - Dietary Evaluation Malnutrition Findings (Please click <Entered> for more info): Nutritional Asmnt/Malnutrition Start: 09/17/18 15: 51 Text: Status: Complete Freq: Protocol: Document 09/17/18 15:52 CHERYLE (Rec: 09/17/18 15:57 CHERYLE [email or web address]) Nutritional Asmnt/Malnutrition Patient General Information Nutritional Screening High Risk Diagnosis Hypercalcemia, Renal failure Pertinent Medical Hx/Surgical Hx HTN, Dementia, Hepatitis B, Hepatic encephalopathy, Renal failure, depression, muscle wasting atrophy, alcoholic cirrhosis, GERD, Schizophrenia , Status post ORIF of the LT leg Subjective Information Pt is a 67-year-old male from care home admitted on 09/15 d/t increasing confusion and altered mental status. Per Nephrology consultation (09/16) , Acute kidney injury on CKD, MDRD GRF of 30ml/min, stage 3 . Pt ate 25% at breakfast but 0% at lunch and dinner on per Meal/Nutrition Activity Record. Per RN Carolyn, Pt didn t eat breakfast but drank soup at lunch today. Recommend to provide Suplena to support wound healing and to meet nutritional needs if PO intake not improved, pending lab result tonight for renal disease diagnosis. Will continue to monitor PO intake progress for wound healing and meeting nutritional needs. HT: 511 WT: 150 LB (68.18 kg) BMI: 20.92 (Normal) GI: Bloating, Large, Round, Distended BM: 09/17 x 1 I/O: 1325/500 (+825) Skin: Pale, Warm, Dry, Tight, Abrasion on RT Knee Ulices: 12 Diet Order: Mechanical Soft, MOLLY Estimated Energy Needs: (BERTA, CBW) 8965-5252 kcals (25-30 kcals/ kg) 55-61 g Pro (0.8-0.9 g/kg) 3723-3104 ml (35-40 ml/kg)/Per Current Diet Order/ Nutrition Support Mechanical Soft, MOLLY Pertinent Medications Vitamin C, Ferrous Sulfate, Lopressor, Theragran, Protonix , Nacl 0.9% 1000mls @ 100mls/ hr IV Q10H Pertinent Labs 09/17: BUN/Cr 49/2.0, Glucose 126, Ca 15.6 09/16: Na 133, CH 37, BUN/Cr 49 /2.2, Ca 17.3 09/15: Hgb/Hct 12.8/38.5, BUN/ Cr 47/2.3, Ca 17.6, Alb 3.7 Nutritional Hx/Data Height 1.8 m Height (Calculated Centimeters) 180.3 Current Weight (lbs) 68.039 kg Weight (Calculated Kilograms) 68.0 Weight (Calculated Grams) 99224.9 [place] Body Weight 75.3 kg % [place] Body Weight 91 Body Mass Index (BMI) 20.9 Weight Status Approriate GI Symptoms Last BM 09/17 x 1 Skin Integrity/Comment: Pale, Warm, Dry, Tight, Abrasion on RT Knee Ulices: 12 Estimated Nutritional Goals BEE in Kcals: Using Current wt Calories/Kcals/Kg 25-30 Kcals Calculated 8577-4310 Protein: Using Current wt Protein g/k.8-0.9 Protein Calculated 55-61 Fluid: ml 5167-3033 ml (35-40 ml/kg)/Per MD Nutritional Problem 2. Problem Problem Altered nutrition related labs Etiology r/t medical condition Signs/Symptoms: aeb BUN/Cr 49/2.0, Glucose 126 , Ca 15.6 1. Problem Problem Inadequate Oral Intake Etiology r/t poor appetite and bloating Signs/Symptoms: aeb PO intake 25% at breakfast , 0% lunch and dinner on 09/16 per Meal/Nutrition Activity Record Malnutrition Related to Morbid Obesity Malnutrition related to morbid obesity No Intervention/Recommendation Comments 1. Continue Mechanical Soft, MOLLY diet as ordered. 2. RN to encourage improved PO intake. 3. Recommend to provide Suplena BID to support wound healing and to meet nutritional needs if PO intake not improved, pending lab result tonight for renal disease diagnosis. Expected Outcomes/Goals Expected Outcomes/Goals 1. PO intake to meet 75% of nutritional needs. 2. Monitor PO intake, wt, skin integrity, and nutrition related labs to trend WNL 3. F/U as high risk in 2-3 days, 09/19-
--- NOTE | 2018-09-21 14:27 | General Progress Note ---
Subjective - Review of Systems Service Date: 09/21/18 Subjective: still confused Objective - Results Result Diagrams: 09/21/18 04:40 09/21/18 04:40 Recent Labs: Laboratory Last Values WBC 5.3 Th/cmm (4.8-10.8) 09/21/18 04:40 Corrected WBC (auto) 7.1 Th/cmm 09/16/18 05:20 RBC 4.21 Mil/cmm (3.80-5.80) 09/21/18 04:40 Hgb 13.1 gm/dL (12-16) 09/21/18 04:40 Hct 39.6 % (41.0-60) L 09/21/18 04:40 MCV 94.1 fl (80-99) 09/21/18 04:40 MCH 31.1 pg (27.0-31.0) H 09/21/18 04:40 MCHC Differential 33.0 pg (28.0-36.0) 09/21/18 04:40 RDW 18.8 % (11.5-20.0) 09/21/18 04:40 Plt Count 153 Th/cmm (150-400) 09/21/18 04:40 MPV 7.0 fl 09/21/18 04:40 Neutrophils % 73.8 % (40.0-80.0) 09/21/18 04:40 Lymphocytes % 19.3 % (20.0-50.0) L 09/21/18 04:40 Monocytes % 5.0 % (2.0-10.0) 09/21/18 04:40 Eosinophils % 1.9 % (0.0-5.0) 09/21/18 04:40 Basophils % 0.0 % (0.0-2.0) 09/21/18 04:40 Eos Smear Source URINE 09/17/18 06:00 Eos Smear Total Cells NONE SEEN (NONE SEEN) 09/17/18 06:00 PT 13.8 SECONDS (9.5-11.5) H 09/15/18 16:53 INR 1.35 (0.5-1.4) 09/15/18 16:53 PTT (Actin FS) 22.2 SECONDS (26.0-38.0) L 09/15/18 16:53 Sodium 148 mEq/L (136-145) H 09/21/18 04:40 Potassium 3.5 mEq/L (3.5-5.1) 09/21/18 04:40 Chloride 115 mEq/L (98-107) H 09/21/18 04:40 Carbon Dioxide 25.3 mEq/L (21.0-31.0) 09/21/18 04:40 Anion Gap 11.2 (7.0-16.0) 09/21/18 04:40 BUN 38 mg/dL (7-25) H 09/21/18 04:40 Creatinine 1.7 mg/dL (0.7-1.3) H 09/21/18 04:40 Est GFR ( Amer) 52.3 ml/min (>90) 09/21/18 04:40 Est GFR (Non-Af Amer) 43.2 ml/min 09/21/18 04:40 BUN/Creatinine Ratio 22.4 09/21/18 04:40 Glucose 111 mg/dL (70-105) H 09/21/18 04:40 Uric Acid 20.6 mg/dL (4.4-7.6) H 09/17/18 04:15 Calcium 13.8 mg/dL (8.6-10.3) H* 09/21/18 04:40 Phosphorus 1.9 mg/dL (2.5-5.0) L 09/20/18 04:15 Magnesium 1.9 mg/dL (1.9-2.7) 09/20/18 04:15 Iron 47 ug/dL (38-169) 09/15/18 16:53 TIBC 393 ug/dL (250-450) 09/15/18 16:53 Iron Saturation 12 % (15-55) L 09/15/18 16:53 Unsaturated IBC 346 ug/dL (111-343) H 09/15/18 16:53 Total Bilirubin 1.8 mg/dL (0.3-1.0) H 09/15/18 16:53 AST 190 U/L (13-39) H 09/15/18 16:53 ALT 29 U/L (7-52) 09/15/18 16:53 Alkaline Phosphatase 75 U/L (34-104) 09/15/18 16:53 Ammonia 51 umol/L (16-53) 09/19/18 07:10 Troponin I 0.03 ng/mL (0.01-0.05) 09/15/18 16:53 Total Protein 8.6 g/dL (6.0-8.5) H 09/17/18 04:15 Albumin 3.4 g/dL (2.9-4.4) 09/17/18 04:15 Globulin 5.2 g/dL (2.2-3.9) H 09/17/18 04:15 Albumin/Globulin Ratio 0.7 (0.7-1.7) 09/17/18 04:15 Vspqr-7-[place] 0.2 g/dL (0.0-0.4) 09/17/18 04:15 Fsfky-4-Aojmkpesa 0.6 g/dL (0.4-1.0) 09/17/18 04:15 Beta Globulins 1.0 g/dL (0.7-1.3) 09/17/18 04:15 Gamma Globulins 3.3 g/dL (0.4-1.8) H 09/17/18 04:15 M-[place] 1.4 g/dL (Not Observed) H 09/17/18 04:15 PEP Note 09/17/18 04:15 Vitamin D 25-Hydroxy 26.0 ng/mL (30.0-100.0) L 09/17/18 04:15 Free T4 0.84 ng/dL (0.82-1.77) 09/17/18 04:15 Free T3 1.1 pg/mL (2.0-4.4) L 09/17/18 04:15 TSH 8.63 uIU/ml (0.34-5.60) H 09/15/18 16:53 PTH Intact <6 pg/mL (15-65) L 09/15/18 16:53 Urine Source CLEAN C 09/15/18 17:55 Urine Color YELLOW 09/15/18 17:55 Urine Clarity HAZY (CLEAR) 09/15/18 17:55 Urine pH 6.0 (4.6 - 8.0) 09/15/18 17:55 Ur Specific [place] 1.020 (1.005-1.030) 09/15/18 17:55 Urine Protein TRACE mg/dL (NEGATIVE) 09/15/18 17:55 Urine Glucose (UA) NEGATIVE mg/dL (NEGATIVE) 09/15/18 17:55 Urine Ketones NEGATIVE mg/dL (NEGATIVE) 09/15/18 17:55 Urine Blood MODERATE (NEGATIVE) H 09/15/18 17:55 Urine Nitrate NEGATIVE (NEGATIVE) 09/15/18 17:55 Urine Bilirubin NEGATIVE (NEGATIVE) 09/15/18 17:55 Urine Urobilinogen 0.2 E.U./dL (0.2 - 1.0) 09/15/18 17:55 Ur Leukocyte Esterase TRACE (NEGATIVE) H 09/15/18 17:55 Urine RBC 10-25 /hpf (0-5) H 09/15/18 17:55 Urine WBC 2-5 /hpf (0-5) 09/15/18 17:55 Ur Epithelial Cells NONE SEEN /lpf (FEW) 09/15/18 17:55 Calcium Oxalate Crystal MODERATE /hpf 09/15/18 17:55 Urine Bacteria FEW /hpf (NONE SEEN) 09/15/18 17:55 U Random Total Protein 76.5 mg/dL 09/17/18 18:00 Ur Random Sodium 44 mmol/L 09/17/18 06:00 Urine Collection Time 24 hours 09/17/18 18:00 Urine Total Volume 1200 ml 09/17/18 18:00 Urine Creatinine 76.0 mg/dl (39.0-259.0) 09/17/18 06:00 Microalb/Creat Ratio 318.2 mg/g creat (0.0-30.0) H 09/17/18 18:00 U Tot Protein 24h, Calc 918.0 mg/24 hr (0-165) H 09/17/18 18:00 Urine Calcium 29.6 mg/dL (Not Estab.) 09/17/18 18:00 Ur Calcium 24 Hr mg/24 hr (100.0-300.0) 09/17/18 18:00 Serum Immunofixation 266 mg/dL (20-172) H 09/19/18 07:10 - Physical Exam Vitals and I&O: Vital Signs Temp 96.9 F 09/21/18 10:00 Pulse 90 09/21/18 10:00 Resp 18 09/21/18 10:00 BP 135/72 09/21/18 10:00 Pulse Ox 98 09/21/18 08:00 Intake & Output 09/20/18 09/21/18 09/21/18 18:59 06:59 18:59 Intake Total 1525 1100 Output Total 1 Balance 1524 1100 Weight (lbs) 62.142 kg 62.142 kg Intake: Intake, IV Amount 1000 Dextrose 5% 1,000 ml @ 75 1000 mls/hr IV .[id number] [facility] Rx#:[id number] Oral 1525 100 Output: Stool 1 Other: # Voids 3 4 # Bowel Movements 1 Stool Characteristics Soft Brown Weight Source Bedscale Bedscale Active Medications: Current Medications Allopurinol (Zyloprim) 100 mg PO BID [facility] Stop: 11/16/18 16:59 Last Admin: 09/21/18 09:14 Dose: 100 mg Ascorbic Acid (Vitamin C) 500 mg PO DAILY [facility] Stop: 11/15/18 08:59 Last Admin: 09/21/18 09:13 Dose: 500 mg Calcitonin [place]ale (Miacalcin) 200 iu NS DAILY [facility] Stop: 11/17/18 18:14 Last Admin: 09/21/18 09:14 Dose: 200 iu Ferrous Sulfate (Iron) 325 mg PO DAILY [facility] Stop: 11/15/18 08:59 Last Admin: 09/21/18 09:14 Dose: 325 mg Dextrose (D5w) 1,000 mls @ 75 mls/hr IV .[id number] [facility] Stop: 11/19/18 14:29 Last Admin: 09/21/18 05:05 Dose: 75 mls/hr Lactulose (Cephulac) 30 gm PO TID [facility] Stop: 11/15/18 08:59 Last Admin: 09/21/18 09:30 Dose: Not Given Lactulose (Cephulac) 40 gm PO DAILY PRN PRN Reason: Constipation Stop: 11/15/18 07:01 Lorazepam (Ativan) 1 mg IVP Q6HR PRN; Protocol PRN Reason: AGITATION,ANXIETY Stop: 11/14/18 20:15 Last Admin: 09/21/18 02:12 Dose: 1 mg Metoprolol Tartrate (Lopressor) 25 mg PO BID [facility] Stop: 11/15/18 08:59 Last Admin: 09/21/18 09:13 Dose: 25 mg Multivitamins/Vitamin C (Theragran) 1 tab PO DAILY [facility] Stop: 11/15/18 08:59 Last Admin: 09/21/18 09:13 Dose: 1 tab Pantoprazole Sodium (Protonix) 40 mg PO QDAC KRISTEN Stop: 11/15/18 07:29 Last Admin: 09/21/18 06:38 Dose: 40 mg General: Alert, No acute distress HEENT: Atraumatic, PERRLA, Mucous membr. moist/pink Neck: Supple, +2 carotid pulse wo bruit Cardiovascular: Regular rate, Normal S1, Normal S2 Lungs: Clear to auscultation Abdomen: Bowel sounds, Soft Extremities: no Edema Neurological: Normal tone Skin: no Rash Psych/Mental Status: Mental status NL, Other (psychosis), no Mood NL (psychosis) - Procedures Procedures: Procedures Procedure Code Date RESECTION OF PREPUCE, EXTERNAL APPROACH [id number] 05/16/18 Assessment/Plan - Problem List Patient Problems: All Active Problems WEAKNESS AND CONFUSION (Acute) - Assessment Assessment: Hypercalcemia with markedly elevated protein and low albumin, could be secondary to multiple myeloma. The patient has renal failure of unknown duration. 2. Elevated iron binding capacity and low saturation suggestive of iron deficiency. I will obtain ferritin for confirmation. 3. Hypothyroidism. 4. Dementia. 5. Kidney disease, likely chronic old with acute worsening. 6. Hepatitis B with cirrhosis. I will obtain the workup for multiple myeloma including a serum protein electrophoresis, immunofixation, quantitative immunoglobulin levels and free light chains, kappa and lambda. PTH level was ordered and one dose of pamidronate was given. I expect the calcium level to improve gradually with current hydration, Lasix and pamidronate. 09/21: PTH low. PTH independent hypercalcemia. SPEP =1.4 GM spike, high IG levels , awaiting free light chains and immunofixation. ca improving. bone survey negative. check CT CAP when renal function improves. will need bone marrow biopsy Nutritional Asmnt/Malnutr-PDOC - Dietary Evaluation Malnutrition Findings (Please click <Entered> for more info): Nutritional Asmnt/Malnutrition Start: 09/17/18 15: 51 Text: Status: Complete Freq: Protocol: Document 09/17/18 15:52 CHERYLE (Rec: 09/17/18 15:57 CHERYLE [id number]) Nutritional Asmnt/Malnutrition Patient General Information Nutritional Screening High Risk Diagnosis Hypercalcemia, Renal failure Pertinent Medical Hx/Surgical Hx HTN, Dementia, Hepatitis B, Hepatic encephalopathy, Renal failure, depression, muscle wasting atrophy, alcoholic cirrhosis, GERD, Schizophrenia , Status post ORIF of the LT leg Subjective Information Pt is a 67[facility]-old [facility] d/t increasing confusion and altered mental status. Per Nephrology consultation (09/16) , Acute kidney injury on CKD, MDRD GRF of 30ml/min, stage 3 . Pt ate 25% at breakfast but 0% at lunch and dinner on per Meal/Nutrition Activity Record. Per RN Carolyn, Pt didn t eat breakfast but drank soup at lunch today. Recommend to provide Suplena to support wound healing and to meet nutritional needs if PO intake not improved, pending lab result tonight for renal disease diagnosis. Will continue to monitor PO intake progress for wound healing and meeting nutritional needs. HT: 511 WT: 150 LB (68.18 kg) BMI: 20.92 (Normal) GI: Bloating, Large, Round, Distended BM: 09/17 x 1 I/O: 1325/500 (+825) Skin: Pale, Warm, Dry, Tight, Abrasion on RT Knee Ulices: 12 Diet Order: Mechanical Soft, MOLLY Estimated Energy Needs: (BERTA, CBW) 7658-8321 kcals (25-30 kcals/ kg) 55-61 g Pro (0.8-0.9 g/kg) 8634-4558 ml (35-40 ml/kg)/Per Current Diet Order/ Nutrition Support Mechanical Soft, MOLLY Pertinent Medications Vitamin C, Ferrous Sulfate, Lopressor, Theragran, Protonix , Nacl 0.9% 1000mls @ 100mls/ hr IV Q10H Pertinent Labs 09/17: BUN/Cr 49/2.0, Glucose 126, Ca 15.6 09/16: Na 133, CH 37, BUN/Cr 49 /2.2, Ca 17.3 09/15: Hgb/Hct 12.8/38.5, BUN/ Cr 47/2.3, Ca 17.6, Alb 3.7 Nutritional Hx/Data Height 1.8 m Height (Calculated Centimeters) 180.3 Current Weight (lbs) 68.039 kg Weight (Calculated Kilograms) 68.0 Weight (Calculated Grams) 11963.9 [place] Body Weight 75.3 kg % [place] Body Weight 91 Body Mass Index (BMI) 20.9 Weight Status Approriate GI Symptoms Last BM 09/17 x 1 Skin Integrity/Comment: Pale, Warm, Dry, Tight, Abrasion on RT Knee Ulices: 12 Estimated Nutritional Goals BEE in Kcals: Using Current wt Calories/Kcals/Kg 25-30 Kcals Calculated 1422-0331 Protein: Using Current wt Protein g/k.8-0.9 Protein Calculated 55-61 Fluid: ml 8361-9654 ml (35-40 ml/kg)/Per MD Nutritional Problem 2. Problem Problem Altered nutrition related labs Etiology r/t medical condition Signs/Symptoms: aeb BUN/Cr 49/2.0, Glucose 126 , Ca 15.6 1. Problem Problem Inadequate Oral Intake Etiology r/t poor appetite and bloating Signs/Symptoms: aeb PO intake 25% at breakfast , 0% lunch and dinner on 09/16 per Meal/Nutrition Activity Record Malnutrition Related to Morbid Obesity Malnutrition related to morbid obesity No Intervention/Recommendation Comments 1. Continue Mechanical Soft, MOLLY diet as ordered. 2. RN to encourage improved PO intake. 3. Recommend to provide Suplena BID to support wound healing and to meet nutritional needs if PO intake not improved, pending lab result tonight for renal disease diagnosis. Expected Outcomes/Goals Expected Outcomes/Goals 1. PO intake to meet 75% of nutritional needs. 2. Monitor PO intake, wt, skin integrity, and nutrition related labs to trend WNL 3. F/U as high risk in 2-3 days, 09/19-
[2018-09-24 08:18] LABS: KAPPA/LAMBDA LIGHT CHAIN RATIO SEE REF. LAB REPORT
--- NOTE | 2018-09-25 16:36 | Discharge Summary ---
General Discharge Summary - Discharge Summary Date of Admission: 09/15/18 Admitting Diagnosis: Multiple Myeloma/Pain, Renal failure, Hep B with Cirrhosis , Hypercalcemia Discharge Date: 09/21/18 Discharge Diagnosis: Hypercalcemia- Treated, Resolving. Hep B with Cirrhosis- Stable. Hypertension-Stable. Iron deficiency- Treating, Improving. Hypothyroidism-Stable. Multiple Myeloma/Pain, Pain is well controlled. BERTA on CKD. CHF. Dementia-Well controlled. Laboratory Findings: Elevated protein, Low albumin. Hospital Course: Patient was admitted to: [facility] [place]/Surg for the following evaluations and treatment. Hospital Course and Treatment Rendered: IV Antibiotics, Lab tests, Chest x-ray, Supportive care, Nutritional support, Monitor vitals, Pain management, Cardiology consult, Hematology consult and Internal Medicine consult. Adjustment of medication: IV Antibiotics. The course of hospitalization was uncomplicated and the course of the treatment was uneventful. CONSULT: Cardiology consult, Hematology consult and Internal Medicine consult. Diagnostic Study (ies): Chest x-ray. Health Concerns: Multiple Myeloma and Iron deficiency. Assessment: Hypercalcemia- Treated, Resolving. Hep B with Cirrhosis-Stable. Hypertension-Stable. Iron deficiency- Treating, Improving. Hypothyroidism-Stable. Multiple Myeloma/Pain, Pain is well controlled. BERTA on CKD. CHF. Dementia-Well controlled. Plan of Treatment: DISCHARGE SUMMARY Date of Admission is 09/15/18. Date of Discharge is 09/21/18. ADMITTING DIAGNOSIS: Hypercalcemia. Hep B with Cirrhosis. Hypertension. Iron deficiency. Hypothyroidism. Multiple Myeloma/Pain. BERTA on CKD. CHF. Dementia. DISCHARGE DIAGNOSIS (es): Hypercalcemia- Treated, Resolving. Hep B with Cirrhosis-Stable. Hypertension-Stable. Iron deficiency- Treating, Improving. Hypothyroidism-Stable. Multiple Myeloma/Pain, Pain is well controlled. BERTA on CKD. CHF. Dementia-Well controlled. Patient was admitted to: [facility] [place] for the following evaluations and treatment. Hospital Course and Treatment Rendered: IV Antibiotics, Lab tests, Chest x-ray, Supportive care, Nutritional support, Monitor vitals, Pain management, Cardiology consult, Hematology consult and Internal Medicine consult. Adjustment of medication: IV Antibiotics. The course of hospitalization was uncomplicated and the course of the treatment was uneventful. CONSULT: Cardiology consult, Hematology consult and Internal Medicine consult. Diagnostic Study (ies): Chest x-ray. Patient discharged to [facility]. Activity: Resume normal activity as tolerated. Diet: Resume previous diet. Medications: Please see medication reconciliation sheet. I will Follow-up with patient within x 2 days Care Plan Goals: Goal is for overall health to improve, patient will continue present care management. Condition at Discharge: Stable Disposition: Discharge/Transfered to SNF Home Medications: Home Medication Medication Instructions Recorded Type Acetaminophen [Pain Reliever] 650 mg PO Q4H PRN 07/30/18 History Ascorbic Acid [Vitamin C] 500 mg PO DAILY 07/30/18 History Ferrous Sulfate [Iron] 325 mg PO DAILY 07/30/18 History Furosemide [Lasix] 40 mg PO DAILY 07/30/18 History Lactulose [Cephulac] 60 ml PO DAILY PRN 07/30/18 History Metoprolol Tartrate 25 mg PO BID 07/30/18 History Multivitamin [Multi-Vitamin Daily] 1 tab PO DAILY 07/30/18 History Mylanta 30 ml PO Q4H PRN 07/30/18 History Pantoprazole Sodium [Protonix] 40 mg PO DAILY 07/30/18 History Potassium Chloride 20 meq PO DAILY 07/30/18 History Sennosides A and B [Senna] 8.6 mg PO HS 07/30/18 History traMADol HCl [Ultram*] 50 mg PO Q6HR PRN tab 08/03/18 Rx Melatonin/Pyridoxine HCl (B6) 1 each PO HS 09/15/18 History [Melatonin 3 mg Tablet] QUEtiapine Fumarate [SEROquel] 50 mg PO BID 09/15/18 History Rifaximin [Xifaxan] 550 mg PO BID 09/15/18 History Thiamine [Vitamin B1] 100 mg PO DAILY 09/15/18 History Allopurinol [Zyloprim*] 100 mg PO BID tab 09/21/18 Rx Ascorbic Acid [Vitamin C] 500 mg PO DAILY tab 09/21/18 Rx Calcitonin ([place]) [Miacalcin] 200 iu NS DAILY bottle 09/21/18 Rx Ferrous Sulfate [Iron] 325 mg PO DAILY tab 09/21/18 Rx Lactulose [Cephulac] 30 gm PO TID udc 09/21/18 Rx Lactulose [Cephulac] 40 gm PO DAILY PRN udc 09/21/18 Rx Metoprolol Tartrate [Lopressor] 25 mg PO BID tab 09/21/18 Rx Multivitamin [Theragran] 1 tab PO DAILY tab 09/21/18 Rx Pantoprazole [Protonix] 40 mg PO QDAC ect 09/21/18 Rx Activity: As Tolerated Discharge Diet: Other (see orders.) Consults and Follow-Up: Darrin Hernandez [Primary Care Provider] - Consulting Speciality: Other (Internal medicine.) Instructions: Hypercalcemia, Schizophrenia, Kidney Failure, [id number]
== END 2018-09-21 18:55 | DRG 682 ==
LOC: ER 16:27 → TELE 18:12
PROVIDERS: ADMIT Internal Medicine; ATTEND Internal Medicine
DX: N17.9 Acute kidney failure, unspecified (principal); G93.41 Metabolic encephalopathy; C90.00 Multiple myeloma not having achieved remission; B19.10 Unspecified viral hepatitis B without hepatic coma; K72.90 Hepatic failure, unspecified without coma; I12.9 Hypertensive chronic kidney disease with stage 1 through stage 4 chronic kidney disease, or unspecified chronic kidney disease; F32.9 Major depressive disorder, single episode, unspecified; M62.50 Muscle wasting and atrophy, not elsewhere classified, unspecified site; K70.30 Alcoholic cirrhosis of liver without ascites; K21.9 Gastro-esophageal reflux disease without esophagitis; F20.9 Schizophrenia, unspecified; E83.52 Hypercalcemia; E86.0 Dehydration; F02.80 Dementia in other diseases classified elsewhere, unspecified severity, without behavioral disturbance, psychotic disturbance, mood disturbance, and anxiety; G30.9 Alzheimer's disease, unspecified; N18.3 Chronic kidney disease, stage 3 (moderate); D75.9 Disease of blood and blood-forming organs, unspecified; E02 Subclinical iodine-deficiency hypothyroidism
CPT/HCPCS: 36415-UA; 70450-TC; 71045-TC; 72170-TC; 76770-TC; 80048-TC; 80053-TC; 81001-TC; 81015-TC; 82043-90; 82140-TC; 82306-90; 82340-90; 82570-TC; 82784-90; 83519-90; 83540-90; 83550-90; 83735-TC; 83883-90; 83970-90; 84100-TC; 84156-TC; 84165-90; 84300-TC; 84439-90; 84443-TC; 84479-90; 84484-TC; 84550-TC; 85025-TC; 85610-TC; 85730-TC; 86334-90; 87086-90; 90799; 93005; J1940; J2060; J2430; J7030; J7070; Z7610